=== PATIENT | female | born 1980 | race Caucasian/White ===

== ENCOUNTER → 2019-10-23 10:22 | Outpatient (CLI) | payer MEDICARE, SELFPAY ==
--- NOTE | 2019-10-23 10:28 | US_ITS ---
PROCEDURE: US OB <= 14 WEEKS FETUS CLINICAL INDICATION: confirm dates COMPARISON: US OB TRANSVAGINAL from 08/25/2019 FINDINGS: An intrauterine gestational sac is present with a pole with a crown-rump length of 6.61cm correlating to gestational age of 13weeks 1day. heart tones are present with an FHR of 163bpm. Yolk sac is noted. Average ultrasound age is 13 weeks 1 day. BPD 30 weeks 2 days, AC 13 weeks 0 days, FL 13 weeks 0 days The placenta is forming anteriorly and fundal. There is a 2 cm cyst of the left ovary and a 2.8 cm cyst of the right ovary IMPRESSION: Live IUP at 13 weeks 1 day Estimated due date by Ultrasound is 04/28/2020 Dictated by: Luis Sorenson MD 10/23/2019 13:39 Electronically signed by Luis Sorenson MD in [place] 10/23/2019 13:39
== END ==
PROVIDERS: PCP Nurse Practitioner Family; Visit Provider Nurse Practitioner Obstetrics & Gynecology
DX: O26.841 Uterine size-date discrepancy, first trimester (principal)
CPT/HCPCS: 76801

== ENCOUNTER → 2019-12-09 12:22 | Outpatient (CLI) | payer MEDICARE, MEDICAID, SELFPAY ==
--- NOTE | 2019-12-09 12:23 | US_ITS ---
PROCEDURE: US OB /MATERNAL DETAIL CLINICAL INDICATION: 20 week gestation Anatomy evaluation COMPARISON: US OB <= 14 WEEKS FETUS from 10/23/2019 FINDINGS: There is a single live fetus which is in cephalic presentation. heart and body motion noted. The cervix is closed measuring 4 cm transabdominal. Placenta is anterior and grade 1. Complete survey performed and was unremarkable on the submitted images as in PACS. No discrete anomalies identified on survey imaging by technologist. Active fetus. Three-vessel cord with satisfactory umbilical cord insertion. 4- chamber heart noted. Survey of brain & ventricles Unremarkable. Face and neck survey unremarkable. Diaphragm and chest views unremarkable. Abdomen: Both kidneys noted and unremarkable. Stomach noted and satisfactory. Spine: Survey of the spine satisfactory with no anomalies identified nor imaged. Both arms and legs noted. Amniotic Fluid: Adequate. Maternal adnexa: No significant findings. Measurements: Average ultrasound age 19weeks 4days. Gestational Age 19weeks 4days Estimated due date by ultrasound age 1104/30/2020. Estimated weight 314g BPD = 19weeks 3days OFD = 19 weeks 6 days HC = 18weeks 6days AC = 19weeks 6days FL = 20weeks 1day Growth Percentile= 42% Heart Rate = 150bpm Cerebellum = 19weeks 6days Humerus = 19weeks 6days HC/AC is 1.1 CI is 0.77 FL/BPD is 0.73 FL/AC is 0.22 IMPRESSION: Live IUP at 19 weeks 4 days as described above. No obvious anomalies. Please see above for detail. Dictated by: Luis Sorenson MD 12/10/2019 10:13 Electronically signed by Luis Sorenson MD in [place] 12/10/2019 10:13
== END ==
PROVIDERS: PCP Nurse Practitioner Family; Visit Provider Nurse Practitioner Obstetrics & Gynecology
DX: Z3A.20 20 weeks gestation of pregnancy (principal)
CPT/HCPCS: 76811

== ENCOUNTER 2019-12-19 19:24 | Emergency (ER) | payer MEDICARE, MEDICAID, SELFPAY ==
[2019-12-19 19:25] VITALS: BP 104/76; PULSE 123; RESP 16; TEMP 36.8; O2SAT 97; BMI 34.4
[2019-12-19 19:42] VITALS: BP 104/76; PULSE 123; RESP 16; TEMP 36.8; O2SAT 97; BMI 34.5
--- NOTE | 2019-12-19 19:48 | HMH.EDUTC ---
[facility] [place] Clinical Impression: Cat bite involving extremity, Cat scratch Disposition: Home, Self-Care Condition on Discharge: Good Instructions: Animal Bites, Cat Scratch Fever, DI for Animal Bites, DI for Cat Scratch Disease/Fever Additional Instructions: Keep bites clean and dry *Watch area of bites and scratches for signs on infection such as but not limited too redness, drainage, swelling, warmth if seen follow up with Family doctor immediately *Watch the kittens for the next 10-14 days for changes in behaviour etc if seen follow up immediately Return if needed Straight to ER if any life threatening symptoms Follow up with OBGYN if needed Prescriptions: Amoxicillin/Potassium Clav [Augmentin 875-125 Tablet] 1 tab PO Q12H 7 Days #14 tab Transmission Status: Pending to [id number] Referrals: Surekha Smith [Primary Care Provider] - As needed Time of Disposition: 20:04 Medical Decision Making - Rudy Inquiry Pt receiving controlled substance: No Rudy was queried for this patient: No Vital Signs: 12/19/19 19:25 12/19/19 19:42 Temperature 98.2 F 98.2 F Temperature Source Oral Oral Pulse Rate [Left Radial] 123 H 123 H Respiratory Rate 16 16 Blood Pressure [Right Arm] 104/76 L 104/76 L Blood Pressure Mean [Right Arm] 85 85 Blood Pressure Source [Right Arm] Automatic Cuff Automatic Cuff Blood Pressure Position [Right Arm] Sitting Sitting 02 Sat by Pulse Oximetry 97 97 Oxygen Delivery Method Room Air Room Air [facility] [place] - General Stated complaint: cat bite L hand 19 weeks Time Seen by Provider: 12/19/19 19:48 Mode of Arrival: Ambulatory Source of Information: Patient Limitations: No Limitations Description of Symptoms (Recalled from Triage Doc. by RN): pt is 19 weeks and stated she reached under a shed to get out some stray cats and was bitten by them on her left hand first 2 fingers and right hand middle finger. HEENT Symptoms (Recalled from RN notes): No Resp Symptoms (Recalled from RN notes): No Skin Symptoms (Recalled from RN notes): Yes MS Symptoms (Recalled from RN notes): No Functional Status (Recalled from RN notes): WNL - History of Present Illness Provider Complaint: Patient states that she was reaching under a shed to get some antoni kittens when she was bitten and scratched multiple times on her hands States that she is 19 weeks OB and she was worried about infection States that she had went to the walk in clinic and they told her she needed to come here - Related Data Home Medications Medication Instructions Recorded Confirmed prenat.vits,mulugeta,kej-abtf-csamn 1 tab PO DAILY 10/23/19 11/19/19 folic acid 1 mg tablet 1 mg PO tab 11/19/19 11/19/19 oxcarbazepine 600 mg ea PO 11/19/19 11/19/19 tablet,extended release 24 hr Previous Rx's Medication Instructions Recorded promethazine 12.5 mg tablet 12.5 mg PO Q6H PRN #30 tab 09/22/19 ferrous sulfate 325 mg (65 mg 325 mg PO DAILY #30 tab 11/19/19 iron) tablet ondansetron 4 mg disintegrating 4 mg PO Q6H PRN #30 tab 11/19/19 tablet Amoxicillin/Potassium Clav 1 tab PO Q12H 7 Days #14 tab 12/19/19 [Augmentin 875-125 Tablet] Allergies Allergy/AdvReac Type Severity Reaction Status Date / Time doxycycline [DOXYCYCLINE] Allergy Unknown Verified 11/19/19 08:53 latex [LATEX] Allergy Unknown Verified 11/19/19 08:53 sulfamethoxazole Allergy Unknown Verified 11/19/19 08:53 [From BACTRIM] trimethoprim [From BACTRIM] Allergy Unknown Verified 11/19/19 08:53 - Worker's Comp Is this a Worker's Comp case?: No H History - Hepatitis A Screen Drug use history?: No High risk sexual behaviors?: No History of sexually transmitted infection?: No Currently employed?: No Childcare worker?: No Do you have indoor plumbing?: Yes Do you have electricity?: Yes Attestation statement:: This patient has been screened for Hepatitis A risk factors. I have reviewed the patient's past medical hi
[2019-12-19 20:10] VITALS: BP 104/76; PULSE 123; RESP 16; TEMP 36.8; O2SAT 97
== END 2019-12-19 20:15 | disposition home or self-care (01) ==
PROVIDERS: Emergency Provider Nurse Practitioner; PCP Nurse Practitioner Family
DX: S61.432A Puncture wound without foreign body of left hand, initial encounter (principal); S61.232A Puncture wound without foreign body of right middle finger without damage to nail, initial encounter; W55.03XA Scratched by cat, initial encounter; Z3A.19 19 weeks gestation of pregnancy; J44.9 Chronic obstructive pulmonary disease, unspecified; Z88.1 Allergy status to other antibiotic agents; Z91.040 Latex allergy status; E78.5 Hyperlipidemia, unspecified
CPT/HCPCS: G0463; 99201

== ENCOUNTER → 2020-03-15 10:44 | Outpatient (CLI) | payer MEDICARE, SELFPAY ==
[2020-03-15 11:29] LABS: Basophils # 0.1 K/mm3 (0-0.2); Basophils % 0.4 % (0.1-2.0); Eosinophils # 0.3 K/mm3 (0.0-0.4); Eosinophils % 2.2 % (0.1-12.0); Hematocrit 34.6 % (37.0-47.0); Hemoglobin 11.9 g/dL (12.2-16.2); Lymphocytes # 2.4 K/mm3 (0.7-4.5); Mean Corpuscular HGB Conc 34.5 g/dL (31.8-35.4); Mean Corpuscular Hemoglobin 30.5 pg (27.0-31.2); Mean Corpuscular Volume 88.5 fl (81-99); Mean Platelet Volume 7.7 fl (7.4-10.4); Monocytes # 0.8 K/mm3 (0.1-1.0); Monocytes % 5.2 % (1.7-9.3); Neutrophils # 12.2 K/mm3 (1.8-7.8); Neutrophils % 77.3 % (37.0-80.0); Platelet Count 305 K/mm3 (142-424); Red Blood Count 3.91 M/mm3 (4.20-5.40); Red Cell Distribution Width 14.4 % (11.5-17.5); White Blood Count 15.8 K/mm3 (4.8-10.8)
[2020-03-15 11:34] LABS: Glucose,Fasting 85 mg/dl (74-100)
[2020-03-15 11:43] LABS: MANUAL DIFFERENTIAL MANUAL DIFFERENTIAL (MANUAL DIFF)
[2020-03-15 12:01] LABS: Eosinophils % 3 % (0-3); Lymphocytes % 18 % (10-50); Monocytes % 2 % (2-9); Neutrophils % 77 % (42-76); Platelet Estimate Normal; RBC Morphology Normal; Total Cells Counted 100
[2020-03-15 13:24] LABS: Glucose 1 Hour 151 mg/dL (74-100)
[2020-03-16 09:07] LABS: HIV Screen 4th Generation wRfx Non Reactive (Non Reactive); Rubella Antibodies, IgG 5.53 index (Immune >0.99)
[2020-03-16 10:02] LABS: Hepatitis B Surface Antigen Negative (Negative); Hepatitis C Antibody <0.1 s/co ratio (0.0-0.9)
[2020-03-16 13:30] LABS: Rapid Plasma Reagin Ab Titer Non Reactive (NonRea<1:1)
== END ==
PROVIDERS: Visit Provider Nurse Practitioner Obstetrics & Gynecology
DX: Z34.90 Encounter for supervision of normal pregnancy, unspecified, unspecified trimester (principal); B18.2 Chronic viral hepatitis C; Z21 Asymptomatic human immunodeficiency virus [HIV] infection status; Z11.4 Encounter for screening for human immunodeficiency virus [HIV]
CPT/HCPCS: 36415; 82951; 85007; 85025; 86592; 86703; 86762; 86850; 87340; 87380; G0432

== ENCOUNTER 2020-03-24 15:36 | Outpatient (CLI) | payer MEDICARE, SELFPAY ==
[2020-03-24 16:03] VITALS: BP 93/69; PULSE 102; RESP 22; TEMP 37.1; O2SAT 95; BMI 36.8
[2020-03-24 16:37] LABS: Microscopic, Urine URINE MICROSCOPIC (MICROSCOPIC)
[2020-03-24 16:38] LABS: Appearance,Urine CLEAR (Clear); Bilirubin,Urine Negative (Negative); Blood, Urine Negative (Negative); Color,Urine YELLOW (Yellow); Glucose,Urine (UA) Negative (Negative); Ketones,Urine Negative (Negative); Leukocyte Esterase,Urine Negative (Negative); Nitrate,Urine Negative (Negative); Protein,Urine Negative (Negative); Specific Gravity, Urine 1.015 (1.005-1.030); Urobilinogen,Urine 0.2 EU/dl (0.2)
[2020-03-24 16:49] LABS: Barbiturates Screen,Urine Negative ng/ml (<200)
[2020-03-24 16:50] LABS: Amphetamine/Metha Screen,Urine Negative ng/ml (<1000); Benzodiazepines Screen,Urine Negative ng/ml (<200)
[2020-03-24 16:51] LABS: Methadone Screen,Urine Negative ng/ml (<300)
[2020-03-24 16:52] LABS: Cannabinoid Screen,Urine Negative ng/ml (<50); Cocaine Screen,Urine Negative ng/ml (<300)
[2020-03-24 16:53] LABS: Opiate Screen,Urine Negative ng/ml (<300)
[2020-03-24 16:54] LABS: Phencyclidine Screen,Urine Negative ng/ml (<25)
== END 2020-03-24 18:10 | disposition home or self-care (01) ==
LOC: OBOUT 15:40 → OB 15:44
PROVIDERS: PCP Nurse Practitioner Obstetrics & Gynecology; Visit Provider Nurse Practitioner Obstetrics & Gynecology
DX: O47.03 False labor before 37 completed weeks of gestation, third trimester (principal); Z3A.35 35 weeks gestation of pregnancy; Z79.899 Other long term (current) drug therapy
CPT/HCPCS: 59025; 80305; 81001; 96365; 96367; 96372; G0463; J0595

== ENCOUNTER → 2020-03-29 17:30 | Outpatient (CLI) | payer MEDICARE, SELFPAY | PROVIDERS: Visit Provider Nurse Practitioner Obstetrics & Gynecology | DX: Z34.90 Encounter for supervision of normal pregnancy, unspecified, unspecified trimester (principal) | CPT/HCPCS: 86403 ==

== ENCOUNTER → 2020-04-07 13:03 | Outpatient (CLI) | payer MEDICARE, SELFPAY ==
--- NOTE | 2020-04-07 13:04 | US_ITS ---
PROCEDURE: US OB BIOPHYSICAL PROFILE CLINICAL INDICATION: US OB BPP/Growth-LGA Large for gestational age TECHNIQUE: FINDINGS: The following parameters are obtained: Average ultrasound age is Average 36weeks 6days Estimated due date by ultrasound is 04/29/2020. Estimated weight is 3,184g. This is 66 percentile BPD: 36weeks 1day OFD: 36weeks 5days HC: 35 weeks 5 days AC: 38 weeks 2 days FL: 37 weeks 0 days heart rate: 133bpm bpm. HC/AC: 0.93 Cephalic index: 0.8 FL/BPD: 0.81 FL/AC: 0.21 Amniotic fluid index: 25.02cm Qualitative AFV: 2 breathing movements: 2 Gross body movements: 2 Tone: 2 Biophysical profile score: 8 There is a single live fetus which is in breech presentation. Cervix is closed and measures 4 cm. The placenta is anterior and grade 1. IMPRESSION: Live IUP in breech presentation with an average ultrasound age 36 weeks 6 days with an estimated weight is 3184 g which is 66 percentile. Biophysical profile 8 of 8. Polyhydramnios with the amniotic fluid index of 25 cm. Dictated by: Luis Sorenson MD 04/08/2020 09:46 Luis Sorenson MD in [place] 04/08/2020 09:46
== END ==
LOC: RAD 13:04
PROVIDERS: PCP Nurse Practitioner Family; Visit Provider Nurse Practitioner Obstetrics & Gynecology
DX: O36.63X1 Maternal care for excessive fetal growth, third trimester, fetus 1 (principal)
CPT/HCPCS: 76816; 76819

== ENCOUNTER 2020-04-22 05:09 | Inpatient (IN) | payer MEDICARE, MEDICAID, SELFPAY ==
--- NOTE | 2020-04-20 13:29 | SUR.PREOP ---
called pt and instructed to arrive at 5am on for COVID screening, spoke to OB and was instructed to tell pt 5am
[2020-04-22] VITALS (8 sets, daily range): BP systolic 100–119; BP diastolic 48–74; PULSE 72–104; RESP 16–20; TEMP 36.1–36.9; O2SAT 94–98; BMI 36.9
[2020-04-22 06:19] LABS: Microscopic, Urine URINE MICROSCOPIC (MICROSCOPIC)
[2020-04-22 06:22] LABS: Appearance,Urine CLEAR (Clear); Bilirubin,Urine Negative (Negative); Blood, Urine Negative (Negative); Color,Urine YELLOW (Yellow); Glucose,Urine (UA) Negative (Negative); Ketones,Urine Negative (Negative); Leukocyte Esterase,Urine Negative (Negative); Nitrate,Urine Negative (Negative); Protein,Urine Negative (Negative); Urobilinogen,Urine 0.2 EU/dl (0.2)
[2020-04-22 06:26] LABS: Chloride 109 mmol/L (98-107); Sodium 135 mmol/L (136-145)
[2020-04-22 06:27] LABS: Potassium 3.8 mmoL/L (3.5-5.1)
[2020-04-22 06:29] LABS: Blood Urea Nitrogen 8 mg/dl (7-17); Creatinine Clearance Estimated 211 mL/min (50-200); Estimated Glomerular Filt Rate 111 ml/min (>60); GFR (African American) 134 ML/MIN (>60)
[2020-04-22 06:30] LABS: Anion Gap 11.8 mEq/L (5-15); Calcium 9.2 mg/dl (8.4-10.2); Carbon Dioxide 18 mmol/L (22.0-30.0); Glucose 85 mg/dl (74-100)
[2020-04-22 06:34] LABS: Basophils # 0.1 K/mm3 (0-0.2); Basophils % 0.5 % (0.1-2.0); Eosinophils # 0.4 K/mm3 (0.0-0.4); Eosinophils % 2.2 % (0.1-12.0); Hematocrit 36.8 % (37.0-47.0); Hemoglobin 12.8 g/dL (12.2-16.2); Lymphocytes # 2.9 K/mm3 (0.7-4.5); Lymphocytes % 18.4 % (10-50); Mean Corpuscular HGB Conc 34.7 g/dL (31.8-35.4); Mean Corpuscular Hemoglobin 30.4 pg (27.0-31.2); Mean Corpuscular Volume 87.6 fl (81-99); Mean Platelet Volume 7.8 fl (7.4-10.4); Monocytes # 0.9 K/mm3 (0.1-1.0); Monocytes % 5.8 % (1.7-9.3); Neutrophils # 11.3 K/mm3 (1.8-7.8); Neutrophils % 73.1 % (37.0-80.0); Platelet Count 328 K/mm3 (142-424); Red Cell Distribution Width 14.6 % (11.5-17.5); White Blood Count 15.5 K/mm3 (4.8-10.8)
[2020-04-22 06:34] LABS: Barbiturates Screen,Urine Negative ng/ml (<200)
[2020-04-22 06:35] LABS: Amphetamine/Metha Screen,Urine Negative ng/ml (<1000); Benzodiazepines Screen,Urine Negative ng/ml (<200)
[2020-04-22 06:36] LABS: Cocaine Screen,Urine Negative ng/ml (<300)
[2020-04-22 06:37] LABS: Cannabinoid Screen,Urine Negative ng/ml (<50); Methadone Screen,Urine Negative ng/ml (<300); RBC,Urine Occasional #/hpf (0-3)
[2020-04-22 06:38] LABS: Opiate Screen,Urine Negative ng/ml (<300)
[2020-04-22 06:39] LABS: MANUAL DIFFERENTIAL MANUAL DIFFERENTIAL (MANUAL DIFF)
[2020-04-22 06:39] LABS: Phencyclidine Screen,Urine Negative ng/ml (<25)
[2020-04-22 07:42] LABS: Eosinophils % 2 % (0-3); Lymphocytes % 19 % (10-50); Monocytes % 7 % (2-9); Neutrophils % 72 % (42-76); Total Cells Counted 100
[2020-04-22 07:43] LABS: RBC Morphology Normal
[2020-04-22 07:44] LABS: Platelet Estimate Normal
--- NOTE | 2020-04-22 07:56 | HMH.PHAINT ---
MEDICATION RECONCILIATION COMPLETED ON PATIENT USING EXTERNAL FILL HISTORY FROM PHARMACY AND LIST FROM MD OFFICE. -MEGHANN DIAZD
[2020-04-22 08:05] LABS: Cord Blood PH 7.37 (7.35-7.45)
[2020-04-22 08:33] LABS: Coronavirus 19 IgG Antibody Negative (Negative); Coronavirus 19 IgM Antibody Negative (Negative)
--- NOTE | 2020-04-22 08:40 | HMH.OPNOTE ---
Date of procedure: 04/22/20 Pre-op Diagnosis:: Term , previous section, desire for sterilization Post-op Diagnosis:: Term , previous section, desire for sterilization Procedure performed:: Repeat lower segment transverse section and bilateral salpingectomy Surgeon:: Kelvin Hankins MD Material Engineer(s):: Samantha Mcqueen POLITICAL SCIENTIST:: Robles Blankenship Anesthesia: spinal Estimated blood loss (mL): 800 Clinical Note:: She is a 39-year-old 6 para 3 aborta 2 who was 39 weeks gestational age. She has had previous sections and as result of that was offered repeat lower segment transverse section at term. She also expresses desire for sterilization. The risks and benefits of surgery as well as the irreversibility of bilateral salpingectomy were discussed with the patient prior to surgery. Operative findings:: She delivered a liveborn female child at 7:44 AM on the morning of April 22, 2020. The baby was in the footling breech presentation and there was polyhydramnios. Ovaries and tubes appeared normal. Operative note:: She was taken to the operating room where spinal anesthesia was found be adequate. She was prepped and draped in normal sterile fashion in the supine position with a leftward tilt. A Disla catheter was in the bladder. A Pfannenstiel skin incision was made with knife then carried through to the underlying layer of fascia with cautery. The fascia was opened in the midline with cautery and extended laterally using Bruce scissors. Ferndale clamps were applied to the superior aspect of the fascial incision which was tented up and the underlying rectus muscles dissected off using cautery. The Ferndale clamps were then applied to the inferior aspect of the fascial incision which in a similar fashion was tented up and the underlying rectus muscles dissected off using cautery. The rectus muscles were then in the midline, the peritoneum identified, and entered sharply with Metzenbaum scissors. This incision was then extended superiorly and inferiorly with cautery. We had good visualization of the bladder inferiorly. The bladder peritoneum was then opened in the midline and extended laterally using Metzenbaum scissors. A bladder flap was created digitally. Transverse incision was made through the uterine muscle to the amnion. This incision was then extended laterally using fingers traction. The amnion was entered sharply with knife. There was copious clear amniotic fluid. The infant's feet were then delivered atraumatically. This was followed by the after coming shoulders and head. The oropharynx and nasopharynx were bulb suctioned. The baby was vigorous. The infant was then handed off to Dr. Hammond who assigned Apgars of 9 at 1 minute and 10 at 5 minutes. We then obtained cord blood as well as cord pH. The pH was 7.37. Using gentle traction on the cord and countertraction on the fundus I was able to easily deliver the placenta intact. It had a normal three-vessel cord. The uterus was then cleared of clots and debris . The uterus was then exteriorized from the abdominal cavity. The uterine incision was then closed using running 0 Vicryl suture in a locked fashion. A second layer of the same suture was used to imbricate the first layer. I then used a third layer of running 0 Vicryl suture to completely close the uterine incision. The bladder peritoneum was then closed using running 2-0 Vicryl suture in a locked fashion. The gutters and cul-de-sac were then cleared of clots and debris . Once again hemostasis was assured. We then performed a bilateral tubal ligation. The right tube was grasped at the distal end and using cautery I cauterized along the mesosalpinx to the cornua of the uterus. The tube was then cut through with cautery at the cornua. There were a couple small areas of bleeding and I obtained excellent hemostasis using 2-0 Vicryl ties. This was similar pe
--- NOTE | 2020-04-22 08:47 | HMH.OBAPHP ---
OB - H&P: HPI Antepartum - History of Present Illness Chief complaint: Term , previous section, desire for sterilization History of present illness: She is a 39-year-old 6 now para 3 at 39+ weeks gestational age. She has had previous sections. As result of that she is admitted for repeat lower segment transverse section at term. She also expressed desire for sterilization and will have a bilateral salpingectomy. - History of Present Criteria for establishing EDC:: LMP confirmed by 1st trimester US care: good care Ultrasounds: normal 1st trimester US, normal mid trimester US Obstetrical complications: other Medical complications: none Narrative: Previous section, polyhydramnios, breech presentation - Labs Blood type: A (+) positive Rubella: immune RPR/VDRL: nonreactive GBS status: negative HBsAG: negative HMH History I have reviewed the patient's past medical history: Yes Medical History: Reports:: Anxiety, Chronic Obstructive Pulmonary Disease (COPD), Hyperlipidemia, Migraine, Seizures Denies:: Diabetes Mellitus Type 1, Diabetes Mellitus Type 2 *Have you ever received a pneumonia vaccine?: No *Have you received a flu vaccine this season?: Yes Other Surgeries: Yes: , Other Amputation: No Fractures: No - *Social History Smoking Status: Former smoker Tobacco Type: cigarettes # Packs/Day (cigarettes): 1 Alcohol Intake: never Alcohol Intake Frequency:: 0-2 drinks per day Substance Use Type: denies use *Occupational Status:: disabled Housing: house *Travel in the last 8 weeks: None - Psychiatric History Pschychiatric History:: Reports:: Anxiety Family Hx:: Non-contributory Para: 3 Review of Systems - Review of Systems Review of systems:: pertinent systems reviewed and negative unless documented below Meds Home Medications Medication Instructions Recorded Confirmed Type prenat.vits,mulugeta,fdp-rkxr-pdzvg 1 tab PO DAILY 10/23/19 04/22/20 History folic acid 1 mg tablet 1 tab PO DAILY tab 11/19/19 04/22/20 History albuterol sulfate 90 mcg/actuation 2 puff IH Q4HP PRN 02/18/20 04/22/20 History aerosol inhaler Ferrous Sulfate 325 mg PO DAILY 04/22/20 04/22/20 History OXcarbazepine [Oxtellar Xr] 1,200 mg PO DAILY 04/22/20 04/22/20 History Ondansetron [Zofran 4mg ODT] 4 mg PO Q6HP PRN 04/22/20 04/22/20 History Allergies Allergy/AdvReac Type Severity Reaction Status Date / Time doxycycline [DOXYCYCLINE] Allergy Unknown Verified 04/22/20 06:40 latex [LATEX] Allergy Unknown Verified 04/22/20 06:40 sulfamethoxazole Allergy Unknown Verified 04/22/20 06:40 [From BACTRIM] trimethoprim [From BACTRIM] Allergy Unknown Verified 04/22/20 06:40 OB - H&P: Exam - Physical Exam Vital signs: Temp Pulse Resp BP Pulse Ox 97.4 F L 104 H 20 118/61 98 04/22/20 06:10 04/22/20 06:10 04/22/20 06:10 04/22/20 06:10 04/22/20 06:10 - Constitutional no acute distress - Routine HEENT Exam Head: Present: normocephalic Eye: Present: EOMI, PERRL ENT: Present: mucous membranes moist - Routine Neck Exam Present: supple, full ROM - Routine Respiratory Exam Absent: accessory muscle use (good air entry bilaterally), respiratory distress, wheezes, crackles - Routine Cardiovascular Exam Present: RRR. Absent: murmur - Routine Abdominal Exam Present: soft, normoactive bowel sounds. Absent: tenderness, distended, guarding - Routine Rectal Exam Patient deferred: visual exam, digital exam - Routine Exam Patient deferred: external exam, groin exam, perineal exam - Routine Extremities Exam Present: full ROM. Absent: cyanosis, edema - Routine Skin Exam Present: intact. Absent: cyanosis - Routine Neurological Exam Present: alert, oriented X3 - Routine Psychiatric Exam Present: normal affect OB - Results - Labs Labs: Short CBC 04/22/20 Range/Units 05:40 WBC 15.5 H (4.8
--- NOTE | 2020-04-22 08:47 | HMH.ANESCL ---
[facility] Anesthesia Checklist - Patient Identification Patient Identification: Arm Band - Structural Data Admitted From: Inpatient Planned Operative Procedure/s: repeat c/s with btl Consent for Planned Operative Procedure(s) Verified: Yes Verified Documents: Surgical Consent, History and Physical - NPO Status Verified Time NPO: 00:00 - Airway Assessment C-Spine Mobility Assessed: Yes (mp2) TMJ Mobility Assessed: Yes Dentition: Good Dentition - Neurological Assessment Level of Consciousness: Awake, Alert - Anesthesia Plan Anesthesia Risk discussed: Yes Anesthesia Plan: Verified ASA Class: II Anesthesia Type: Spinal [facility] History I have reviewed the patient's past medical history: Yes Medical History: Reports:: Anxiety, Hyperlipidemia, Migraine, Seizures Denies:: Diabetes Mellitus Type 1, Diabetes Mellitus Type 2 *Have you ever received a pneumonia vaccine?: No *Have you received a flu vaccine this season?: Yes Anesthesia experience/problems:: nac Other Surgeries: Yes: , Other Amputation: No Fractures: No - *Social History Smoking Status: Former smoker Tobacco Type: cigarettes # Packs/Day (cigarettes): 1 Alcohol Intake: never Alcohol Intake Frequency:: 0-2 drinks per day Substance Use Type: denies use *Occupational Status:: disabled Housing: house *Travel in the last 8 weeks: None - Psychiatric History Pschychiatric History:: Reports:: Anxiety Family Hx:: Non-contributory Para: 3
--- NOTE | 2020-04-22 08:48 | HMH.ANESI ---
[facility] Anesthesia Record Part I Intake, IV Amount: 2,000 Estimated blood loss (mL): 600 Urine output (mL): 200 Blood Pressure: 115/65 SaO2: 94 Pulse Rate: 83 Respiratory Rate: 16 Temperature: 97 F Patient is:: Drowsy, Stable Stable to PACU at:: 08:40
--- NOTE | 2020-04-22 09:45 | SUR.PHASEI ---
0905-QBL noted to be greater than 1000ml. Report called to Sharona ALAS at this time. VSS. Pt stable no changes noted to VS. Blood loss during fundal massage has remained minimal t/o PACU recovery.
--- NOTE | 2020-04-22 10:23 | HMH.ANESII ---
[facility] Anesthesia Record Part II Discharge Time: 09:10 Destination: Obstetric PACU nurse assessment reviewed?: Yes Patient Condition:: Good Anesthesia Complications:: None Swallowing reflex intact?: Yes Cyanosis?: No Blood Pressure: 100/48 Pulse Rate: 73 Temperature: 97 F Mental Status: Alert & Oriented Pain level:: 0 Nausea and/or vomitting:: None Intake, IV Amount: 0
--- NOTE | 2020-04-22 14:31 | P.CONPHA_ITS ---
[facility] Pharmacy VTE Monitoring - Patient Demographics Admission date: 04/22/20 Report Date: 04/22/20 Time: 14:31 Allergies/Adverse Reactions: Patient Allergies doxycycline [DOXYCYCLINE] Allergy (Unknown, Verified 04/22/20 06:40) latex [LATEX] Allergy (Unknown, Verified 04/22/20 06:40) sulfamethoxazole [From BACTRIM] Allergy (Unknown, Verified 04/22/20 06:40) trimethoprim [From BACTRIM] Allergy (Unknown, Verified 04/22/20 06:40) Height: 1.7 m Weight: 107.048 kg Patient Problems: Current Active Problems Previous section complicating (Acute) Delivery by section of full-term infant (Acute) Polyhydramnios affecting in third trimester (Acute) Breech presentation delivered (Acute) Encounter for female sterilization procedure (Acute) - VTE Risk Labs: VTE Related Lab Results Hgb 12.8 g/dL (12.2-16.2) 04/22/20 05:40 Hct 36.8 % (37.0-47.0) L 04/22/20 05:40 Plt Count 328 K/mm3 (142-424) 04/22/20 05:40 BUN 8 mg/dl (7-17) 04/22/20 05:40 Creatinine 0.60 mg/dl (0.52-1.04) 04/22/20 05:40 Estimated Creat Clear 211 mL/min (50-200) 04/22/20 05:40 - Prophylaxis VTE Prophylaxis Ordered?: Yes Types of VTE Prophylaxis: IPCS Thigh High Location of Applied Device: Bilateral Lower Extremeties
[2020-04-23 00:38] VITALS: BP 99/56; PULSE 95; RESP 18; TEMP 36.9; O2SAT 95
[2020-04-23 07:33] LABS: Hematocrit 30.3 % (37.0-47.0); Hemoglobin 10.1 g/dL (12.2-16.2)
[2020-04-23 08:00] VITALS: BP 101/57; PULSE 85; RESP 18; TEMP 36.9; O2SAT 95
--- NOTE | 2020-04-23 08:18 | HMH.ACPN2 ---
Internal Medicine - PN: Subj *Date: 04/23/20 *Time: 08:18 Interval history: She is doing well this morning. She is eating and drinking and ambulating. Her pain is reasonably well controlled. Her catheter is out. She is bottlefeeding. Exam Vital signs and Labs for Last 24 Hours: Temp Pulse Resp BP Pulse Ox 98.5 F 95 H 18 99/56 L 95 04/23/20 00:38 04/23/20 00:38 04/23/20 00:38 04/23/20 00:38 04/23/20 00:38 Laboratory Results - last 24 hr 04/22/20 05:40: SARS-CoV-2 IgG Ab (Rapid) Negative, SARS-CoV-2 IgM Ab (Rapid) Negative 04/23/20 07:13: Hgb 10.1 L, Hct 30.3 L I & O for Last 24 hours: Intake & Output 04/20/20 04/21/20 04/22/20 04/23/20 11:59 11:59 11:59 11:59 Intake Total 1999 Balance 1999 Weight 236 lb - Constitutional no acute distress - *Routine HEENT Exam Head: Present: normocephalic Eye: Present: EOMI, PERRL ENT: Present: mucous membranes moist Assessment and Plan (1) Previous section complicating Status: Acute Category: Surgical Code(s): O34.219 - Maternal care for unspecified type scar from previous delivery (2) Delivery by section of full-term Status: Acute Category: Medical Code(s): O82 - Encounter for delivery without indication (3) Polyhydramnios affecting in third trimester Status: Acute Category: Medical Code(s): O40.3XX0 - Polyhydramnios, third trimester, not applicable or unspecified (4) Breech presentation delivered Status: Acute Category: Medical Code(s): O32.1XX0 - Maternal care for breech presentation, not applicable or unspecified (5) Encounter for female sterilization procedure Status: Acute Category: Medical Code(s): Z30.2 - Encounter for sterilization - Assessment and plan all Dx Assessment and Plan for all problems:: She is 1 day postop and doing well. She is bottlefeeding. We will plan to send her home in 48 hours.
[2020-04-23 12:00] VITALS: BP 103/54; PULSE 77; RESP 18; TEMP 36.4; O2SAT 97
[2020-04-23 20:00] VITALS: BP 107/56; PULSE 85; RESP 17; TEMP 37; O2SAT 100
[2020-04-24 08:00] VITALS: BP 116/64; PULSE 88; RESP 18; TEMP 36.4; O2SAT 97
--- NOTE | 2020-04-24 11:55 | HMH.ACPN2 ---
Internal Medicine - PN: Subj *Date: 04/24/20 *Time: 11:55 Interval history: She is doing well this morning. She is eating and drinking and ambulating. Her pain is well controlled. Her lochia is normal. Exam Vital signs and Labs for Last 24 Hours: Temp Pulse Resp BP Pulse Ox 97.6 F 88 18 116/64 97 04/24/20 08:00 04/24/20 08:00 04/24/20 08:00 04/24/20 08:00 04/24/20 08:00 I & O for Last 24 hours: Intake & Output 04/21/20 04/22/20 04/23/20 04/24/20 11:59 11:59 11:59 11:59 Intake Total 1999 Balance 1999 Weight 236 lb - Constitutional no acute distress - *Routine HEENT Exam Head: Present: normocephalic Eye: Present: EOMI, PERRL ENT: Present: mucous membranes moist Assessment and Plan (1) Previous section complicating Status: Acute Category: Surgical Code(s): O34.219 - Maternal care for unspecified type scar from previous delivery (2) Delivery by section of full-term infant Status: Acute Category: Medical Code(s): O82 - Encounter for delivery without indication (3) Polyhydramnios affecting in third trimester Status: Acute Category: Medical Code(s): O40.3XX0 - Polyhydramnios, third trimester, not applicable or unspecified (4) Breech presentation delivered Status: Acute Category: Medical Code(s): O32.1XX0 - Maternal care for breech presentation, not applicable or unspecified (5) Encounter for female sterilization procedure Status: Acute Category: Medical Code(s): Z30.2 - Encounter for sterilization - Assessment and plan all Dx Assessment and Plan for all problems:: She is doing very well this morning. We will plan to send her home tomorrow.
[2020-04-24 12:00] VITALS: BP 131/62; PULSE 90; RESP 20; O2SAT 97
[2020-04-24 16:00] VITALS: BP 121/59; PULSE 82; RESP 18; TEMP 36.4; O2SAT 97
--- NOTE | 2020-04-25 08:50 | HMH.OBDCSM ---
General - General Admission date:: 04/22/20 Discharge date: 04/25/20 HPI - History of Present Illness History of present illness: She is a 39-year-old 6 now para 4 aborta 2 who was 39 1 weeks gestational age. She has had previous sections and also expressed desire for sterilization. She was admitted for repeat lower segment transverse section and bilateral salpingectomy. Hospital Course Hospital Course: She underwent a repeat lower segment transverse section on April 22, 2020. She delivered a liveborn female child at 7:44 AM. The baby weighed 6 pounds 15 ounces and was 19 inches long. She had Apgars of 9 at 1 minute and 10 at 5 minutes. pH was 7.37. She was in a footling breech presentation. There was copious amniotic fluid. She has done well postoperatively and has remained afebrile throughout her hospitalization. She is eating and drinking and ambulating. She is bottlefeeding. Her pain is well controlled. She has a Rh+ blood, she is rubella immune and was group B streptococcus negative. Her aviation all source intelligence is Dr. Jerry. She is discharged home to follow-up with me in approximately 2 weeks time. She will continue with her vitamins and iron. She was given a prescription for Percocet 5/325 number 20 tablets. She was given the usual instructions with respect to limiting her activity, driving and sexual activity. Her condition on discharge is stable and improved. Objective Vital signs: Temp Pulse Resp BP Pulse Ox 97.5 F L 82 18 121/59 L 97 04/24/20 16:00 04/24/20 16:00 04/24/20 16:00 04/24/20 16:00 04/24/20 16:00 no acute distress - *Routine HEENT Exam Head: Present: normocephalic Eye: Present: EOMI, PERRL ENT: Present: mucous membranes moist DS: Diagnosis - Discharge Diagnosis (1) Previous section complicating Status: Acute (2) Delivery by section of full-term Status: Acute (3) Polyhydramnios affecting in third trimester Status: Acute (4) Breech presentation delivered Status: Acute (5) Encounter for female sterilization procedure Status: Acute Discharge Plan - Patient Discharge Instructions ACTIVITY: No heavy lifting DIET: continue same diet Additional Instructions: no driving while taking pain medication nothing in vagina for 6 weeks no heavy lifting or strenuous activity follow-up with dr. walsh 05/06/2020 @ 11:00 Patient Instructions: Depression, Hemorrhage, DI for , DI for Pre-eclampsia, [facility] Post Discharge Instructions, Preventing the Spread of Coronavirus Discharge Instructions - Follow up Plan Disposition: Home, Self-[facility] Medications: Home Medications Medication Instructions Recorded Confirmed Type prenat.vits,mulugeta,jex-evop-llehz 1 tab PO DAILY 10/23/19 04/22/20 History folic acid 1 mg tablet 1 tab PO DAILY tab 11/19/19 04/22/20 History albuterol sulfate 90 mcg/actuation 2 puff IH Q4HP PRN 02/18/20 04/22/20 History aerosol inhaler Ferrous Sulfate 325 mg PO DAILY 04/22/20 04/22/20 History OXcarbazepine [Oxtellar Xr] 1,200 mg PO DAILY 04/22/20 04/22/20 History Ondansetron [Zofran 4mg ODT] 4 mg PO Q6HP PRN 04/22/20 04/22/20 History Ibuprofen [Motrin 400mg 400 mg PO Q4HP PRN #40 tab 04/25/20 Rx tablet] Oxycodone HCl/Acetaminophen 1 tab PO Q4-6H PRN #30 tablet 04/25/20 Rx [Percocet 5/325mg tablet] Prescriptions/Medication Reconciliation: New Ibuprofen [Motrin 400mg tablet] 400 mg PO Q4HP PRN #40 tab PRN Reason: Moderate Pain Oxycodone HCl/Acetaminophen [Percocet 5/325mg tablet] 1 tab PO Q4-6H PRN #30 tablet PRN Reason: Severe Pain Continued folic acid 1 mg tablet 1 tab PO DAILY tab prenat.vits,mulugeta,oex-shks-tzfay 1 tab PO DAILY albuterol sulfate 90 mcg/actuation aerosol inhaler 2 puff IH Q4HP PRN PRN Reason: asthma Ferrous S
== END 2020-04-25 11:30 | disposition home or self-care (01) | DRG 785 ==
PROVIDERS: Admitting Provider Nurse Practitioner Obstetrics & Gynecology; PCP Nurse Practitioner Family; Visit Provider Nurse Practitioner Obstetrics & Gynecology
PROC: (CPT 59514; principal; 2020-04-22 07:30)
DX: O34.211 Maternal care for low transverse scar from previous cesarean delivery (principal); N85.8 Other specified noninflammatory disorders of uterus; O32.8XX0 Maternal care for other malpresentation of fetus, not applicable or unspecified; Z3A.39 39 weeks gestation of pregnancy; Z37.0 Single live birth; Z30.2 Encounter for sterilization
CPT/HCPCS: 59514; 58700; 36415; 59025; 80048; 80305; 81001; 82800; 85007; 85014; 85018; 85025; 86328; 86850; 88302; 96374; J2405

== ENCOUNTER 2020-08-23 14:57 | Emergency (ER) | payer MEDICARE, SELFPAY ==
[2020-08-23] VITALS (7 sets, daily range): BP systolic 108–137; BP diastolic 55–78; PULSE 72–81; RESP 16–18; TEMP 36.6–36.8; O2SAT 94–98; BMI 28.1
--- NOTE | 2020-08-23 14:57 | ECG_ITS ---
APPROVED REPORT Exam: Resting ECG HR:75 bpm ECG Measurements Heart Rate 75 AXES IL 200 P 62 QRSd 86 QRS 26 QT 394 T 53 QTc 439 Conclusion Normal sinus rhythm Low voltage QRS Borderline ECG Electronically signed by : Triston Gregory, 08/24/2020 17:19:59
--- NOTE | 2020-08-23 15:09 | CT_ITS ---
PROCEDURE: CT HEAD/BRAIN WO CON CLINICAL INDICATION: possible seizure History of brain tumor, seizure COMPARISON: No exams were available for comparison TECHNIQUE: Axial images obtained. All CT scans at the facility use one or more dose reduction, viz: automated exposure control, ma/kV adjustment per patient size (including targeted exams where dose is matched to indication, i.e. head), or iterative reconstruction technique. FINDINGS: There are no previous exams available for comparison. No midline shift, mass effect, intracranial hemorrhage, or hydrocephalus is evident. Postsurgical changes are present from a left frontal craniotomy with encephalomalacia changes in the left frontal lobe. Mild mucosal thickening noted of the ethmoid and left maxillary sinuses. IMPRESSION: Encephalomalacia and postsurgical changes left frontal lobe. No acute finding. Dictated by: Luis Sorenson MD 08/23/2020 16:40 Luis Sorenson MD in [place] 08/23/2020 16:40
[2020-08-23 15:22] LABS: Basophils # 0.1 K/mm3 (0-0.2); Basophils % 0.5 % (0.1-2.0); Eosinophils # 0.4 K/mm3 (0.0-0.4); Eosinophils % 3.6 % (0.1-12.0); Hemoglobin 12.2 g/dL (12.2-16.2); Lymphocytes # 2.6 K/mm3 (0.7-4.5); Lymphocytes % 24.5 % (10-50); Mean Corpuscular HGB Conc 31.3 g/dL (31.8-35.4); Mean Corpuscular Hemoglobin 26.2 pg (27.0-31.2); Mean Corpuscular Volume 83.7 fl (81-99); Mean Platelet Volume 7.5 fl (7.4-10.4); Monocytes # 0.6 K/mm3 (0.1-1.0); Monocytes % 5.7 % (1.7-9.3); Neutrophils % 65.6 % (37.0-80.0); Platelet Count 370 K/mm3 (142-424); Red Blood Count 4.66 M/mm3 (4.20-5.40); Red Cell Distribution Width 15.4 % (11.5-17.5); White Blood Count 10.7 K/mm3 (4.8-10.8)
[2020-08-23 15:24] LABS: Chloride 112 mmol/L (98-107); Potassium 3.9 mmoL/L (3.5-5.1); Sodium 138 mmol/L (136-145)
[2020-08-23 15:27] LABS: Alanine Aminotransferase 48 U/L (12-78); Albumin Level 4.4 g/dl (3.5-5.0); Albumin/Globulin Ratio 1.4 (1.1-1.8); Alkaline Phosphatase 169 U/L (38-126); Anion Gap 13.9 mEq/L (5-15); Aspartate Amino Transferase 122 U/L (14-36); Bilirubin,Total 1.1 mg/dl (0.2-1.3); Blood Urea Nitrogen 15 mg/dl (7-17); Calcium 9.9 mg/dl (8.4-10.2); Carbon Dioxide 16 mmol/L (22.0-30.0); Creatinine Clearance Estimated 161 mL/min (50-200); Estimated Glomerular Filt Rate 111 ml/min (>60); GFR (African American) 134 ML/MIN (>60); Globulin 3.1 g/dL (1.3-3.2); Glucose 109 mg/dl (74-100); Total Protein,Serum 7.5 g/dl (6.3-8.2)
[2020-08-23 17:13] LABS: Microscopic, Urine URINE MICROSCOPIC (MICROSCOPIC)
--- NOTE | 2020-08-23 17:25 | HMH.EDSEIZ ---
ED Disposition Clinical Impression: Generalized seizure Disposition: Home, Self-Care Condition on Discharge: Good Instructions: DI for Seizure (Not Epilepsy/Seizure Disorder), DI for Seizure Disorder -- Adult, DI for Seizure Disorder -- Child Additional Instructions: No driving until you see neurology. Take your medication as directed. Referrals: PCP,No [Primary Care Provider] - 3 days (Neurology) Time of Disposition: 17:35 - Critical Care Critical Care Time: No Attestation: On 08/23/20, the high probability of a clinically significant, sudden or life threatening deterioration of the following system(s) required my full and direct attention, intervention and personal management. The time I documented below is in addition to time spent performing reported procedures but includes the following listed in this critical care notation. Medical Decision Making - Medical Records Medical records reviewed: Yes: I reviewed the patient's medical records. - Rudy Inquiry Pt receiving controlled substance: No Vital Signs: 08/23/20 14:58 08/23/20 15:58 Temperature 97.8 F Temperature Source Oral Pulse Rate [Right Radial] 77 81 Respiratory Rate 16 18 Blood Pressure [Right Arm] 121/71 118/71 Blood Pressure Mean [Right Arm] 87 86 Blood Pressure Source [Right Arm] Automatic Cuff Automatic Cuff Blood Pressure Position [Right Arm] Supine Supine 02 Sat by Pulse Oximetry 97 96 Oxygen Delivery Method Room Air Room Air - Lab Data Lab results reviewed: Yes: I reviewed the patient's lab results. Lab Results 08/23/20 15:01: WBC 10.7, RBC 4.66, Hgb 12.2, Hct 39.0, MCV 83.7, MCH 26.2 L, MCHC 31.3 L, RDW 15.4, Plt Count 370, MPV 7.5, Neut % (Auto) 65.6, Lymph % (Auto) 24.5, [place] % (Auto) 5.7, Eos % (Auto) 3.6, Baso % (Auto) 0.5, Neut # (Auto) 7.0, Lymph # (Auto) 2.6, [place] # (Auto) 0.6, Eos # (Auto) 0.4, Baso # (Auto) 0.1 08/23/20 15:01: Sodium 138, Potassium 3.9, Chloride 112 H, Carbon Dioxide 16 L, Anion Gap 13.9, BUN 15, Creatinine 0.60, Estimated Creat Clear 161, Estimated GFR 111, Est GFR ( Amer) 134, Glucose 109 H, Calcium 9.9, Total Bilirubin 1.1, AST 122 H, ALT 48, Alkaline Phosphatase 169 H, Total Protein 7.5, Albumin 4.4, Globulin 3.1, Albumin/Globulin Ratio 1.4 Result diagrams: 08/23/20 15:01 08/23/20 15:01 Orders (Tests/Meds): ED MEDICATIONS Discontinued Medications Generic Name Dose Route Start Last Admin Trade Name Eleuterio PRN Reason Stop Dose Admin Ketorolac Tromethamine 30 mg 08/23/20 16:46 08/23/20 16:48 Ketorolac 30mg/Ml Vial IV 08/23/20 16:47 30 mg ONCE ONE Administration Oxcarbazepine 600 mg 08/23/20 15:30 08/23/20 15:32 Oxcarbazepine 300mg Tablet PO 08/23/20 15:31 600 mg ONCE ONE Administration ORDERS Category Date Time Status UA [Urinalysis and Microscopic] Stat Lab 08/23/20 16:20 Received - CT Data CT Scan: Head Time Received: 16:[address] Reviewed: Yes: I have viewed the radiologist's interpretation Findings Narrative: Encephalomalacia with postsurgical changes - ECG Data Tracing #1 Normal sinus rhythm, 75 bpm, no ST elevation or depression no ectopy, normal intervals ECG initial impression date: 08/23/20 ECG initial impression time: 14:57 Medical Decision Narrative: 39yo F evaluated after possible seizure. Patient is in no acute distress on initial evaluation. She has no noticeable neuro deficit. She is able to tell me her past medical history. The ER has been incredibly busy and therefore the patient has been waiting for some time. During this time she has been talking on the cell phone without difficulty, normal ramón to her speech. CT of her head is unremarkable for acute process. Patient's blood work is within normal limit. Long discussion with the patient regarding the fact she likely had a seizure based off of her history and the fact that she did not take her medication as directed. Patient is concerned she has had a stroke.
[2020-08-23 18:21] LABS: Appearance,Urine CLEAR (Clear); Bilirubin,Urine Negative (Negative); Blood, Urine Negative (Negative); Color,Urine YELLOW (Yellow); Glucose,Urine (UA) Negative (Negative); Ketones,Urine Negative (Negative); Leukocyte Esterase,Urine Negative (Negative); Nitrate,Urine Negative (Negative); PH,Urine 6.5 (5.0-8.5); Protein,Urine Negative (Negative); Specific Gravity, Urine 1.025 (1.005-1.030); Urobilinogen,Urine 0.2 EU/dl (0.2)
[2020-08-23 19:24] LABS: WBC,Urine Occasional #/hpf (0-3)
== END 2020-08-23 17:48 | disposition home or self-care (01) ==
PROVIDERS: Emergency Provider Family Medicine
DX: G40.409 Other generalized epilepsy and epileptic syndromes, not intractable, without status epilepticus (principal); F41.9 Anxiety disorder, unspecified; J44.9 Chronic obstructive pulmonary disease, unspecified; E78.5 Hyperlipidemia, unspecified
CPT/HCPCS: 70450; 80053; 81001; 85025; 93005; 96374; 99283

== ENCOUNTER 2020-10-19 21:50 | Emergency (ER) | payer MEDICARE, SELFPAY ==
--- NOTE | 2020-10-19 21:34 | ECG_ITS ---
APPROVED REPORT Exam: Resting ECG HR:107 bpm ECG Measurements Heart Rate 107 AXES CO 178 P 65 QRSd 80 QRS 58 QT 348 T 63 QTc 464 Conclusion Sinus tachycardia Cannot rule out Anterior infarct, age undetermined Abnormal ECG Electronically signed by : Triston Gregory, 10/21/2020 21:21:47
[2020-10-19 21:41] VITALS: BP 126/75; PULSE 106; RESP 22; TEMP 36.6; O2SAT 82; BMI 28.1
--- NOTE | 2020-10-19 21:49 | XR_ITS ---
PROCEDURE INFORMATION: Exam: XR Pelvis Exam date and time: 10/19/2020 9:49 PM Age: 39 years old Clinical indication: Injury or trauma; Fall; Blunt trauma (contusions or hematomas); Does not apply; Pelvic region; Injury date: 10/19/2020; Injury details: PT fell post seizure hit RT posterior head headache and neck ache. No pelvis pain trauma protocols to check pelvis also TECHNIQUE: Imaging protocol: XR pelvis. Views: 1 or 2 view. COMPARISON: ABDPELW/O CT ABD PELVIS W/O CONTRAST 07/12/2016 4:37 AM FINDINGS: Bones/joints: Unremarkable. No acute fracture. The hips are well located. The symphysis pubis is unremarkable. The sacroiliac joints is unremarkable. Soft tissues: Unremarkable. IMPRESSION: No evidence for significant traumatic injury.
--- NOTE | 2020-10-19 21:49 | CT_ITS ---
PROCEDURE INFORMATION: Exam: CT Head Without Contrast Exam date and time: 10/19/2020 9:49 PM Age: 39 years old Clinical indication: Injury or trauma; Fall; Blunt trauma (contusions or hematomas); Consciousness not specified; Injury date: 10/19/2020; Injury details: Seizure and fell and hit RT posterior head TECHNIQUE: Imaging protocol: Computed tomography of the head without contrast. Radiation optimization: All CT scans at this facility use at least one of these dose optimization techniques: automated exposure control; mA and/or kV adjustment per patient size (includes targeted exams where dose is matched to clinical indication); or iterative reconstruction. COMPARISON: CT HEAD/BRAIN WO CON 08/23/2020 3:57 PM FINDINGS: Brain: There is small area of encephalomalacia of the left-sided frontal lobe. There is no area of intraparenchymal or extra-axial hemorrhage present. There is no focal mass. There is no midline shift. The mcelroy-white matter junction is intact. Cerebral ventricles: No ventriculomegaly. Bones/joints: Old left frontal craniotomy. Paranasal sinuses: Mild diffuse sinus disease Mastoid air cells: Visualized mastoid air cells are well aerated. Soft tissues: The soft tissues are unremarkable. IMPRESSION: 1. Small postsurgical changes involving left frontal lobe. 2. Otherwise unremarkable examination of the brain. There is no acute intracranial abnormality seen.
--- NOTE | 2020-10-19 21:49 | XR_ITS ---
PROCEDURE INFORMATION: Exam: XR Chest Exam date and time: 10/19/2020 9:49 PM Age: 39 years old Clinical indication: Injury or trauma; Fall; Blunt trauma (contusions or hematomas); Injury date: 10/19/2020; Injury details: Fell post seizure hit RT posterior head. No chest complaint TECHNIQUE: Imaging protocol: XR of the chest. Views: 1 view. COMPARISON: No relevant prior studies available. FINDINGS: Lungs: Unremarkable. No consolidation. There is no focal mass. Pleural spaces: There is no pneumothorax. There is no pleural effusion. Heart/Mediastinum: Unremarkable. No cardiomegaly. Bones/joints: There is no fracture present. IMPRESSION: 1. There is no significant traumatic injury to the chest. 2. No acute cardiac or pulmonary process.
[2020-10-19 22:05] LABS: ABG HCO3 21.3 mmhg (22.0-26.0); ABG Oxygen Saturation 90 % (90-100); ABG PCO2 32.8 mmhg (35.0-45.0); ABG PH 7.43 mmol/L (7.35-7.45); ABG TCO2 22.3 mmhg (23-27)
[2020-10-19 22:15] LABS: Chloride 106 mmol/L (98-107); Sodium 137 mmol/L (136-145)
--- NOTE | 2020-10-19 22:15 | HMH.EDSEIZ ---
ED Disposition Clinical Impression: Epileptic seizure Qualifiers: Epilepsy type: unspecified Intractability: intractable Status epilepticus: without status epilepticus Qualified Code(s): G40.919 - Epilepsy, unspecified, intractable, without status epilepticus Leukocytosis Qualifiers: Leukocytosis type: unspecified Qualified Code(s): D72.829 - Elevated white blood cell count, unspecified Disposition: Home, Self-Care Condition on Discharge: Good Instructions: DI for Seizure Disorder -- Adult Additional Instructions: call pcp in am Referrals: Surekha Smith [Primary Care Provider] - - Critical Care Critical Care Time: No Attestation: On 10/19/20, the high probability of a clinically significant, sudden or life threatening deterioration of the following system(s) required my full and direct attention, intervention and personal management. The time I documented below is in addition to time spent performing reported procedures but includes the following listed in this critical care notation. Medical Decision Making - Medical Records Medical records reviewed: Yes: I reviewed the patient's medical records. - Rudy Inquiry Pt receiving controlled substance: No Vital Signs: 10/19/20 21:41 Temperature 97.9 F Temperature Source Oral Pulse Rate [Apical] 106 H Respiratory Rate 22 Blood Pressure [Right Arm] 126/75 Blood Pressure Mean [Right Arm] 92 Blood Pressure Source [Right Arm] Automatic Cuff Blood Pressure Position [Right Arm] Supine 02 Sat by Pulse Oximetry 82 L Oxygen Delivery Method Room Air - Lab Data Lab results reviewed: Yes: I reviewed the patient's lab results. Lab Results 10/19/20 21:45: WBC 20.5 H*, RBC 4.90, Hgb 13.2, Hct 41.1, MCV 83.8, MCH 26.9 L, MCHC 32.1, RDW 14.3, Plt Count 401, MPV 7.3 L, Neut % (Auto) 77.4, Lymph % (Auto) 13.0, [place] % (Auto) 4.7, Eos % (Auto) 4.2, Baso % (Auto) 0.8, Neut # (Auto) 15.8 H, Lymph # (Auto) 2.7, [place] # (Auto) 1.0, Eos # (Auto) 0.9 H, Baso # (Auto) 0.2, Total Counted 100, Neutrophils % (Manual) 72, Lymphocytes % (Manual) 13, Atypical Lymphs % 4.0, Monocytes % (Manual) 7, Eosinophils % (Manual) 4 H, Platelet Estimate Normal, RBC Morphology Normal, ESR 20 10/19/20 21:45: Sodium 137, Potassium 3.7, Chloride 106, Carbon Dioxide 21 L, Anion Gap 13.7, BUN 16, Creatinine 0.70, Estimated Creat Clear 138, Estimated GFR 93, Est GFR ( Amer) 112, Glucose 138 H, Calcium 9.3, Total Bilirubin 0.3, AST 25, ALT 30, Alkaline Phosphatase 109, C-Reactive Protein 30.3 H, Total Protein 6.7, Albumin 4.1, Globulin 2.6, Albumin/Globulin Ratio 1.6 10/19/20 21:45: Lactate 2.1 10/19/20 21:45: Serum HCG, Qual Negative 10/19/20 21:45: Procalcitonin 0.050 10/19/20 21:49: ABG pH 7.43, ABG pCO2 32.8 L, ABG pO2 59.0 L, ABG HCO3 21.3 L, ABG Total CO2 22.3 L, ABG O2 Saturation 90, ABG Base Excess -3.0 L 10/19/20 23:35: Urine Color Yellow, Urine Appearance Clear, Urine pH 6.0, Ur Specific [place] >= 1.030, Urine Protein Negative, Urine Glucose (UA) Negative, Urine Ketones Negative, Urine Blood Negative, Urine Nitrate Negative, Urine Bilirubin Negative, Urine Urobilinogen 0.2, Ur Leukocyte Esterase Negative 10/19/20 23:35: Urine Opiates Screen Negative, Urine Methadone Screen Negative, Ur Barbituates Screen Negative, Ur Phencyclidine Scrn Negative, Ur Amphetamines Screen Negative, U Benzodiazepines Scrn Negative, Urine Cocaine Screen Negative, U Marijuana (THC) Screen Negative Result diagrams: 10/19/20 21:45 10/19/20 21:45 Orders (Tests/Meds): ED MEDICATIONS Discontinued Medications Generic Name Dose Route Start Last Admin Trade Name Freq PRN Reason Stop Dose Admin Levetiracetam 1,000 mg/ Sodium 110 mls @ 220 mls/hr 10/19/20 22:36 10/19/20 22:51 Chloride IV 10/19/20 22:37 220 mls/hr ONCE ONE Administration Levetiracetam 1,000 mg/ Sodium 110 mls @ 220 mls/hr 10/19/20 22:40 10/19/20 22:45 Chloride IV 10/19/20 22:41 Not Given ONCE ONE Ondansetron HCl 4 mg 09/24
[2020-10-19 22:16] LABS: HCG Qualitative, Serum Negative (Negative)
[2020-10-19 22:17] LABS: Basophils # 0.2 K/mm3 (0-0.2); Basophils % 0.8 % (0.1-2.0); Eosinophils # 0.9 K/mm3 (0.0-0.4); Eosinophils % 4.2 % (0.1-12.0); Hematocrit 41.1 % (37.0-47.0); Hemoglobin 13.2 g/dL (12.2-16.2); Lymphocytes # 2.7 K/mm3 (0.7-4.5); Mean Corpuscular HGB Conc 32.1 g/dL (31.8-35.4); Mean Corpuscular Hemoglobin 26.9 pg (27.0-31.2); Mean Corpuscular Volume 83.8 fl (81-99); Mean Platelet Volume 7.3 fl (7.4-10.4); Monocytes % 4.7 % (1.7-9.3); Neutrophils # 15.8 K/mm3 (1.8-7.8); Neutrophils % 77.4 % (37.0-80.0); Platelet Count 401 K/mm3 (142-424); Red Cell Distribution Width 14.3 % (11.5-17.5); White Blood Count 20.5 K/mm3 (4.8-10.8)
[2020-10-19 22:18] LABS: Alanine Aminotransferase 30 U/L (12-78); Alkaline Phosphatase 109 U/L (38-126); Aspartate Amino Transferase 25 U/L (14-36); Bilirubin,Total 0.3 mg/dl (0.2-1.3); Blood Urea Nitrogen 16 mg/dl (7-17); Carbon Dioxide 21 mmol/L (22.0-30.0); Creatinine Clearance Estimated 138 mL/min (50-200); Estimated Glomerular Filt Rate 93 ml/min (>60); GFR (African American) 112 ML/MIN (>60)
[2020-10-19 22:19] LABS: Albumin Level 4.1 g/dl (3.5-5.0); Albumin/Globulin Ratio 1.6 (1.1-1.8); Calcium 9.3 mg/dl (8.4-10.2); Globulin 2.6 g/dL (1.3-3.2); Glucose 138 mg/dl (74-100); MANUAL DIFFERENTIAL MANUAL DIFFERENTIAL (MANUAL DIFF); Total Protein,Serum 6.7 g/dl (6.3-8.2)
[2020-10-19 22:24] LABS: C-Reactive Protein 30.3 mg/L (0-4)
[2020-10-19 22:27] LABS: Lactic Acid 2.1 mmol/L (0.7-2.1)
[2020-10-19 22:28] LABS: Eosinophils % 4 % (0-3); Lymphocytes % 13 % (10-50); Monocytes % 7 % (2-9); Neutrophils % 72 % (42-76); Platelet Estimate Normal; RBC Morphology Normal; Total Cells Counted 100
--- NOTE | 2020-10-19 22:36 | PC.NURSE ---
[facility]
--- NOTE | 2020-10-19 22:42 | PC.NURSE ---
dr. barry spoke to pharmacy and they advised to give a loading does of 1g of keppra IV.
[2020-10-19 22:43] LABS: Anion Gap 13.7 mEq/L (5-15); Erythrocyte Sedimentation Rate 20 mm/hr (0-20); Potassium 3.7 mmoL/L (3.5-5.1)
--- NOTE | 2020-10-19 22:43 | CT_ITS ---
PROCEDURE INFORMATION: Exam: CT Cervical Spine Without Contrast Exam date and time: 10/19/2020 10:43 PM Age: 39 years old Clinical indication: Injury or trauma; Blunt trauma; Injury date: 10/19/2020; Injury details: Had seizure and fell and hit RT posterior head and now back of neck hurts also; Patient HX: Fall post seizure TECHNIQUE: Imaging protocol: Computed tomography images of the cervical spine without contrast. Radiation optimization: All CT scans at this facility use at least one of these dose optimization techniques: automated exposure control; mA and/or kV adjustment per patient size (includes targeted exams where dose is matched to clinical indication); or iterative reconstruction. COMPARISON: No relevant prior studies available. FINDINGS: Bones/joints: No acute fracture. Normal alignment. Discs/Spinal canal/Neural foramina: No significant disc protrusion. No severe spinal canal stenosis. No significant neural foraminal narrowing. Lungs: Lung apices are normal. Soft tissues: Unremarkable. IMPRESSION: No evidence for significant traumatic injury of the cervical spine.
[2020-10-19 23:24] VITALS: BP 115/61; PULSE 92; O2SAT 95
[2020-10-19 23:35] VITALS: BP 121/61; PULSE 86; O2SAT 94
[2020-10-19 23:40] LABS: Microscopic, Urine URINE MICROSCOPIC (MICROSCOPIC)
[2020-10-19 23:41] LABS: Appearance,Urine CLEAR (Clear); Bilirubin,Urine Negative (Negative); Blood, Urine Negative (Negative); Color,Urine YELLOW (Yellow); Glucose,Urine (UA) Negative (Negative); Ketones,Urine Negative (Negative); Leukocyte Esterase,Urine Negative (Negative); Nitrate,Urine Negative (Negative); Protein,Urine Negative (Negative); Specific Gravity, Urine >= 1.030 (1.005-1.030); Urobilinogen,Urine 0.2 EU/dl (0.2)
[2020-10-19 23:53] LABS: Amphetamine/Metha Screen,Urine Negative ng/ml (<1000); Barbiturates Screen,Urine Negative ng/ml (<200)
[2020-10-19 23:54] LABS: Benzodiazepines Screen,Urine Negative ng/ml (<200)
[2020-10-19 23:55] LABS: Cannabinoid Screen,Urine Negative ng/ml (<50); Cocaine Screen,Urine Negative ng/ml (<300)
[2020-10-19 23:56] LABS: Methadone Screen,Urine Negative ng/ml (<300)
[2020-10-19 23:57] LABS: Opiate Screen,Urine Negative ng/ml (<300); Phencyclidine Screen,Urine Negative ng/ml (<25)
[2020-10-20] VITALS: BP 116/64; PULSE 87; O2SAT 97
[2020-10-20 00:05] LABS: Amorphous Sediment,Urine 1+ /lpf; Bacteria,Urine 1+ /lpf; Mucus,Urine 1+ /lpf
[2020-10-20 01:54] VITALS: BP 111/55; PULSE 81; RESP 18; TEMP 36.5; O2SAT 99
[2020-10-25 23:41] LABS: Levetiracetam (Keppra) <1.0 ug/mL (10.0-40.0)
== END 2020-10-20 01:57 | disposition home or self-care (01) ==
PROVIDERS: Emergency Provider Emergency Medicine; PCP Nurse Practitioner Family
DX: G40.919 Epilepsy, unspecified, intractable, without status epilepticus (principal); D72.829 Elevated white blood cell count, unspecified; E78.5 Hyperlipidemia, unspecified; J44.9 Chronic obstructive pulmonary disease, unspecified; Z87.891 Personal history of nicotine dependence; Z91.040 Latex allergy status; Z88.2 Allergy status to sulfonamides; Z79.899 Other long term (current) drug therapy
CPT/HCPCS: 70450; 71045; 72125; 72170; 80053; 80177; 80305; 81001; 82803; 83605; 84145; 84703; 85007; 85025; 85651; 86140; 87040; 93005; 96365; 96375; 99283; J1953; J2405

== ENCOUNTER 2021-04-13 21:40 | Emergency (ER) | payer MEDICARE, SELFPAY ==
[2021-04-13 20:59] VITALS: BP 137/62; PULSE 94; RESP 18; TEMP 36.6; O2SAT 100; BMI 31.3
--- NOTE | 2021-04-13 21:10 | XR_ITS ---
PROCEDURE INFORMATION: Exam: XR Chest Exam date and time: 04/13/2021 9:10 PM Age: 40 years old Clinical indication: Other: Allergic reaction TECHNIQUE: Imaging protocol: XR of the chest. Views: 2 views. COMPARISON: CR XR CHEST PORTABLE 10/19/2020 10:53 PM FINDINGS: Lungs: Unremarkable. No consolidation. Pleural spaces: Unremarkable. No pleural effusion. No pneumothorax. Heart/Mediastinum: Unremarkable. No cardiomegaly. Bones/joints: Unremarkable. IMPRESSION: No acute findings.
--- NOTE | 2021-04-13 21:32 | HMH.EDALLER ---
ED Disposition Clinical Impression: Allergic reaction Qualifiers: Encounter type: initial encounter Qualified Code(s): T78.40XA - Allergy, unspecified, initial encounter Anaphylaxis Qualifiers: Encounter type: initial encounter Qualified Code(s): T78.2XXA - Anaphylactic shock, unspecified, initial encounter Disposition: Home, Self-Care Condition on Discharge: Good Instructions: DI for General Allergic Reactions Additional Instructions: use meds and see pcp and dr reynolds for follow up Prescriptions: predniSONE [Prednisone 20mg Tab] 20 mg PO BID #10 tab Transmission Status: Pending to [facility]/pharmacy #[id number] Referrals: Dede Meredith APRN [Primary Care Provider] - Fabian Reynolds [Referring] - - Critical Care Critical Care Time: No Attestation: On , the high probability of a clinically significant, sudden or life threatening deterioration of the following system(s) required my full and direct attention, intervention and personal management. The time I documented below is in addition to time spent performing reported procedures but includes the following listed in this critical care notation. Medical Decision Making - Medical Records Medical records reviewed: Yes: I reviewed the patient's medical records. - Rudy Inquiry Pt receiving controlled substance: No Vital Signs: 04/13/21 20:59 Temperature 97.9 F Temperature Source Oral Pulse Rate [Right] 94 H Respiratory Rate 18 Blood Pressure [Right Arm] 137/62 Blood Pressure Mean [Right Arm] 87 02 Sat by Pulse Oximetry 100 - Lab Data Lab results reviewed: Yes: I reviewed the patient's lab results. Lab Results 04/13/21 21:27: WBC 17.6 H, RBC 4.75, Hgb 13.2, Hct 41.9, MCV 88.3, MCH 27.7, MCHC 31.4 L, RDW 13.5, Plt Count 399, MPV 7.0 L, Neut % (Auto) 80.6 H, Lymph % (Auto) 12.1, [place] % (Auto) 4.2, Eos % (Auto) 2.7, Baso % (Auto) 0.3, Neut # (Auto) 14.2 H, Lymph # (Auto) 2.2, [place] # (Auto) 0.7, Eos # (Auto) 0.5 H, Baso # (Auto) 0.1, Total Counted 100, Neutrophils % (Manual) 81 H, Lymphocytes % (Manual) 11, Monocytes % (Manual) 7, Eosinophils % (Manual) 1, Platelet Estimate Normal, ESR 16 04/13/21 21:27: Sodium 144, Potassium 3.9, Chloride 111 H, Carbon Dioxide 23, Anion Gap 13.9, BUN 10, Creatinine 0.60, Estimated Creat Clear 177, Estimated GFR 110, Est GFR ( Amer) 133, Glucose 113 H, Calcium 9.4, Total Bilirubin 0.2, AST 30, ALT 25, Alkaline Phosphatase 104, C-Reactive Protein 10.7 H, Total Protein 6.8, Albumin 4.1, Globulin 2.7, Albumin/Globulin Ratio 1.5 Result diagrams: 04/13/21 21:27 04/13/21 21:27 Orders (Tests/Meds): ED MEDICATIONS Generic Name Dose Route Start Last Admin Trade Name Freq PRN Reason Stop Dose Admin Sodium Chloride 1,000 mls @ 999 mls/hr 04/13/21 21:15 04/13/21 21:46 Sod Chlor 0.9% 1000ml Bag IV 04/13/21 22:15 999 mls/hr .Q1H1M VANNESA Administration Sodium Chloride 8 ml 04/13/21 21:10 Sodium Chloride 0.9% 10ml Vial IV 05/13/21 21:09 NEEDED PRN dilute pepcid Discontinued Medications Generic Name Dose Route Start Last Admin Trade Name Freq PRN Reason Stop Dose Admin Famotidine 20 mg 04/13/21 21:10 04/13/21 21:45 Famotidine 20mg/2ml Vial IV 04/13/21 21:11 20 mg ONCE ONE Administration Methylprednisolone Sodium Succinate 125 mg 04/13/21 21:11 04/13/21 21:47 Methylprednisolone Sod Succ 125mg Vial IM 04/13/21 21:12 Not Given ONCE ONE Methylprednisolone Sodium Succinate 125 mg 04/13/21 21:46 04/13/21 21:47 Methylprednisolone Sod Succ 125mg Vial IV 04/13/21 21:47 125 mg ONCE ONE Administration Metoclopramide HCl 10 mg 04/13/21 21:10 04/13/21 21:45 Metoclopramide Hcl 10mg/2ml Vial IVP 04/13/21 21:11 10 mg ONCE ONE Administration Ondansetron HCl 4 mg 04/13/21 21:10 10/20/21 21:45 Ondansetron 4mg/2ml Vial IV 04/13/21 21:11 4 mg ONCE ONE Administration ORDERS Category Date Time Status Rapid PCR Covid and Flu A/B Stat Lab
[2021-04-13 21:35] LABS: Basophils # 0.1 K/mm3 (0-0.2); Basophils % 0.3 % (0.1-2.0); Eosinophils # 0.5 K/mm3 (0.0-0.4); Eosinophils % 2.7 % (0.1-12.0); Hematocrit 41.9 % (37.0-47.0); Hemoglobin 13.2 g/dL (12.2-16.2); Lymphocytes # 2.2 K/mm3 (0.7-4.5); Lymphocytes % 12.1 % (10-50); Mean Corpuscular HGB Conc 31.4 g/dL (31.8-35.4); Mean Corpuscular Hemoglobin 27.7 pg (27.0-31.2); Mean Corpuscular Volume 88.3 fl (81-99); Monocytes # 0.7 K/mm3 (0.1-1.0); Monocytes % 4.2 % (1.7-9.3); Neutrophils # 14.2 K/mm3 (1.8-7.8); Neutrophils % 80.6 % (37.0-80.0); Platelet Count 399 K/mm3 (142-424); Red Blood Count 4.75 M/mm3 (4.20-5.40); Red Cell Distribution Width 13.5 % (11.5-17.5); White Blood Count 17.6 K/mm3 (4.8-10.8)
[2021-04-13 21:38] LABS: MANUAL DIFFERENTIAL MANUAL DIFFERENTIAL (MANUAL DIFF)
[2021-04-13 21:50] LABS: Alanine Aminotransferase 25 U/L (12-78); Albumin Level 4.1 g/dl (3.5-5.0); Albumin/Globulin Ratio 1.5 (1.1-1.8); Alkaline Phosphatase 104 U/L (38-126); Anion Gap 13.9 mEq/L (5-15); Aspartate Amino Transferase 30 U/L (14-36); Bilirubin,Total 0.2 mg/dl (0.2-1.3); Blood Urea Nitrogen 10 mg/dl (7-17); Calcium 9.4 mg/dl (8.4-10.2); Carbon Dioxide 23 mmol/L (22.0-30.0); Chloride 111 mmol/L (98-107); Creatinine Clearance Estimated 177 mL/min (50-200); Estimated Glomerular Filt Rate 110 ml/min (>60); GFR (African American) 133 ML/MIN (>60); Globulin 2.7 g/dL (1.3-3.2); Glucose 113 mg/dl (74-100); Potassium 3.9 mmoL/L (3.5-5.1); Sodium 144 mmol/L (136-145); Total Protein,Serum 6.8 g/dl (6.3-8.2)
[2021-04-13 21:56] LABS: C-Reactive Protein 10.7 mg/L (0-4)
[2021-04-13 22:15] LABS: Eosinophils % 1 % (0-3); Lymphocytes % 11 % (10-50); Monocytes % 7 % (2-9); Neutrophils % 81 % (42-76); Total Cells Counted 100
[2021-04-13 22:16] LABS: Platelet Estimate Normal
[2021-04-13 22:35] LABS: Erythrocyte Sedimentation Rate 16 mm/hr (0-20)
[2021-04-13 23:16] LABS: Coronavirus 19, PCR Not Detected (NotDetected); Influenza A, PCR Not Detected (NotDetected); Influenza B, PCR Not Detected (NotDetected)
[2021-04-13 23:27] VITALS: BP 124/72; PULSE 89; RESP 18; TEMP 36.6; O2SAT 100
== END 2021-04-13 23:34 | disposition home or self-care (01) ==
PROVIDERS: Emergency Provider Emergency Medicine; PCP Nurse Practitioner
DX: T78.40XA Allergy, unspecified, initial encounter (principal); T78.2XXA Anaphylactic shock, unspecified, initial encounter; F17.210 Nicotine dependence, cigarettes, uncomplicated; Z20.822 Contact with and (suspected) exposure to COVID-19
CPT/HCPCS: 71046; 80053; 85007; 85025; 85651; 86140; 96365; 96375; 99283; C9803; J2405; U0003; U0005

== ENCOUNTER 2022-09-11 20:09 | Inpatient (IN) | payer MEDICARE, MEDICAID, SELFPAY ==
[2022-09-11] VITALS (8 sets, daily range): BP systolic 107–126; BP diastolic 53–86; PULSE 87–103; RESP 18–24; TEMP 36.6–36.8; O2SAT 92–94; BMI 36.5; BMI 34.9
--- NOTE | 2022-09-11 20:09 | ECG_ITS ---
APPROVED REPORT Exam: Resting ECG HR:93 bpm ECG Measurements Heart Rate 93 AXES CA 190 P 75 QRSd 82 QRS 81 QT 325 T 80 QTc 375 Conclusion SINUS RHYTHM LOW QRS VOLTAGE IN PRECORDIAL LEADS [QRS DEFLECTION < 1.0 mV IN CHEST LEADS] BORDERLINE ECG UNCONFIRMED REPORT Electronically signed by : Triston Gregory MD 09/12/2022 17:20:26
--- NOTE | 2022-09-11 20:25 | XR_ITS ---
PROCEDURE INFORMATION: Exam: XR Chest Exam date and time: 09/11/2022 8:50 PM Age: 41 years old Clinical indication: Pain; Left-sided; Additional info: Cp TECHNIQUE: Imaging protocol: Radiologic exam of the chest. Views: 1 view. COMPARISON: CT ANGIO CHEST PE PROTOCOL 09/11/2022 8:41 PM FINDINGS: Lungs: Normal pulmonary expansion. Pulmonary vasculature grossly normal. No gross pulmonary infiltrates or edema pattern. Pleural spaces: No pleural effusion. No pneumothorax. Heart/Mediastinum: Heart size normal. No tracheal/mediastinal shift. Bones/joints: No acute osseous abnormalities are identified. IMPRESSION: No acute thoracic process.
--- NOTE | 2022-09-11 20:25 | CT_ITS ---
PROCEDURE INFORMATION: Exam: CTA Chest With Contrast Exam date and time: 09/11/2022 8:41 PM Age: 41 years old Clinical indication: Shortness of breath; Additional info: SOA c c/p TECHNIQUE: Imaging protocol: Computed tomographic angiography of the chest with contrast. 3D rendering (Not supervised by radiologist): MIP and/or 3D reconstructed images were created by the technologist. Radiation optimization: All CT scans at this facility use at least one of these dose optimization techniques: automated exposure control; mA and/or kV adjustment per patient size (includes targeted exams where dose is matched to clinical indication); or iterative reconstruction. Contrast material: ISOVUE; Contrast volume: 70 ml; Contrast route: INTRAVENOUS (IV); REPORTING DATA: Count of CT and Cardiac NM exams in prior 12 months: This patient has received 0 known CTs and 0 known cardiac nuclear medicine studies in the 12 months prior to the current study. COMPARISON: CR XR CHEST 2V 04/13/2021 9:32 PM FINDINGS: Pulmonary arteries: No large central pulmonary emboli are identified. Assessment of the small peripheral branch vessels was limited by suboptimal bolus intensity in the pulmonary arteries related to bolus timing, which emphasized aortic enhancement. No suspected peripheral emboli were identified. Aorta: No aortic aneurysm or dissection. No mediastinal hematoma. Thyroid: The visualized thyroid gland demonstrates no gross abnormality. Lungs: Moderate bilateral bronchial wall thickening consistent with bronchitis or bronchial edema. No bronchiectasis. No bronchial occlusions. Multifocal mild bandlike subsegmental atelectasis bilaterally. Minor reticulonodular changes are identified in the medial right base as well suggesting chronic small airways disease, consider chronic atypical infection versus chronic non infectious bronchiolitis. No pulmonary mass lesions are identified. Pleural spaces: No pleural effusion. No pneumothorax. Heart: Heart size normal. No pericardial effusion. Mediastinal space: The esophagus is largely contracted but demonstrates no gross abnormality. Lymph nodes: No supraclavicular or axillary adenopathy. Borderline enlarged prevascular node measuring 9 mm short axis. Borderline enlarged subcarinal node measuring 10 mm short axis. No hilar dorita enlargement. Spleen: Splenomegaly measuring 14.8 cm. No focal splenic lesions. Bones/joints: No acute osseous abnormalities are identified. Small chronic appearing Schmorl's nodes in the mid to lower thoracic spine. Soft tissues: The soft tissues of the chest wall demonstrate no acute abnormality. IMPRESSION: 1. No large central pulmonary emboli are present. Assessment of the smaller peripheral branches was limited by suboptimal bolus intensity in the pulmonary arteries although no suspected peripheral emboli were identified. 2. Bilateral bronchial wall thickening consistent with changes of bronchitis or bronchial edema, with a few areas of mild peripheral reticulonodular density suggesting chronic small airways disease, consider chronic atypical infection versus chronic non infectious bronchiolitis. 3. Borderline enlarged mediastinal nodes, nonspecific. 4. Splenomegaly. 5. Additional nonemergent findings detailed above.
[2022-09-11 20:32] LABS: Basophils # 0.1 K/mm3 (0-0.2); Basophils % 0.7 % (0.1-2.0); Eosinophils # 0.3 K/mm3 (0.0-0.4); Hematocrit 39.7 % (37.0-47.0); Hemoglobin 13.5 g/dL (12.2-16.2); Lymphocytes # 1.8 K/mm3 (0.7-4.5); Lymphocytes % 14.3 % (10-50); Mean Corpuscular Hemoglobin 28.6 pg (27.0-31.2); Mean Platelet Volume 7.6 fl (7.4-10.4); Monocytes # 0.7 K/mm3 (0.1-1.0); Monocytes % 5.4 % (1.7-9.3); Neutrophils # 9.9 K/mm3 (1.8-7.8); Neutrophils % 77.6 % (37.0-80.0); Platelet Count 336 K/mm3 (142-424); Red Blood Count 4.73 M/mm3 (4.20-5.40); White Blood Count 12.8 K/mm3 (4.8-10.8)
--- NOTE | 2022-09-11 20:36 | PC.NURSE ---
Patient gone to RAD at this time.
[2022-09-11 20:37] LABS: Alanine Aminotransferase 25 U/L (12-78); Albumin/Globulin Ratio 1.6 (1.1-1.8); Alkaline Phosphatase 101 U/L (38-126); Anion Gap 11.8 mEq/L (5-15); Aspartate Amino Transferase 24 U/L (14-36); Bilirubin,Total 0.3 mg/dl (0.2-1.3); Blood Urea Nitrogen 12 mg/dl (7-17); Calcium 8.5 mg/dl (8.4-10.2); Carbon Dioxide 22 mmol/L (22.0-30.0); Chloride 106 mmol/L (98-107); Creatinine Clearance Estimated 204 mL/min (50-200); Estimated Glomerular Filt Rate 110 ml/min (>60); GFR (African American) 133 ML/MIN (>60); Globulin 2.5 g/dL (1.3-3.2); Glucose 118 mg/dl (74-100); Potassium 3.8 mmoL/L (3.5-5.1); Sodium 136 mmol/L (136-145); Total Protein,Serum 6.5 g/dl (6.3-8.2)
[2022-09-11 20:42] LABS: C-Reactive Protein 44.1 mg/L (0-4)
[2022-09-11 20:53] LABS: Troponin I < 0.01 ng/ml (0.00-0.034)
[2022-09-11 21:02] LABS: Erythrocyte Sedimentation Rate 21 mm/hr (0-20)
[2022-09-11 21:27] LABS: Microscopic, Urine URINE MICROSCOPIC (MICROSCOPIC)
--- NOTE | 2022-09-11 21:28 | HMH.EDCP ---
Discharge Plan Disposition Patient Disposition: Admitted As Inpatient Chief Complaint: Chest Pain Prescriptions Prescriptions: No Action prenat.vits,mulugeta,zxm-edxn-raitn Tablet 1 tab PO DAILY prednisone 20 MG tablet 20 mg PO BID Qty: 10 0RF oxcarbazepine 600 MG tablet extended release 24 hr 1,200 mg PO DAILY Label Comments: TAKE 2 TABLETS BY MOUTH ONCE DAILY. Referrals Follow up/Referrals: Provider,Referral, MD [Primary Care Provider] - See instructions Clinical Impressions Clinical Impression: COPD with acute exacerbation, Chest pain Discharge ED Provider: Tonny (ED)Siddhartha Chest Pain HPI General Chief Complaint: Chest Pain Stated Complaint: chest pain Time Seen by Provider: 09/11/22 21:28 Mode of Arrival: EMS Source of Information: Patient, EMS and Medical Record Limitations: No Limitations Description of Symptoms (Recalled from ER Triage Doc. by RN): Pt arrives via [facility] c c/o left sided chest pain that radiates down her left arm. States that it began one hour ago with shortness of air. Denies any injury. States that she has had nausea and vomiting with diarrhea for the prior two days. Saw her pcp today and was diagnosed with a sinus infection and given antibiotics (amoxicillin) for which she has taken one dose. History of Present Illness HPI narrative: pt reports not feeling well over the last few days with cough and sinus pressure and was seen by pcp and started on abx - recently stopped tob- has no known hx of ht dis but tonight had lt sided chest pain with exertion and inc sob MD complaint: chest pain indicative of cardiac Onset (ago): day(s) Duration: intermittent Activity at onset: light activity Pain location: left chest Severity: moderate Quality: sharp Pain radiation: LUE Risk Factors for CAD: Family Hx of CAD and Smoking Treatments prior to or on arrival for Cardiac Chest Pain: aspirin and nitroglycerin DEMAR Score for Non-Stemi Age of Patient: 40-49 years old Heart Rate: 90-109 bpm Systolic Blood Pressure: 120-139 mmhg Serum Creatinine: 0.40-0.79 mg/dl CHF Killip Class: I-No CHF Other Risk Factors: None Non-Stemi Risk Score: 78 Risk Stratification: 1-108 = Low Risk Related Data On Oral Contraceptives: No Home Medications Medication Instructions Recorded Confirmed prenat.vits,mulugeta,[id number] 1 tab PO DAILY Supplement 10/23/19 08/23/20 oxcarbazepine 600 mg 1,200 mg PO DAILY SEIZURES 04/22/20 08/23/20 tablet,extended release 24 hr Previous Rx's Medication Instructions Recorded prednisone 20 mg tablet 20 mg PO BID #10 tabs 04/13/21 Allergies Allergy/AdvReac Type Severity Reaction Status Date / Time doxycycline [DOXYCYCLINE] Allergy Unknown Verified 04/22/20 06:40 latex [LATEX] Allergy Unknown Verified 04/22/20 06:40 sulfamethoxazole Allergy Unknown Verified 04/22/20 06:40 [From BACTRIM] trimethoprim [From BACTRIM] Allergy Unknown [facility]: The information contained in this section may have been updated after the patient was seen, as this information can be updated by other users. Social History Smoking Status: Former smoker alcohol intake: never substance use type: denies use current occupational status: employed Travel in the last 8 weeks: None housing: house ROS Obtained: Yes All systems reviewed & no additional complaints except as documented Physical Exam General General appearance: alert Head Head exam: normocephalic Eye Eye exam: Present PERRL and EOMI ENT ENT exam: Present mucous membranes moist Neck Neck exam: Present trachea midline Chest Chest inspection: Absent tenderness Respiratory Respiratory exam: Present wheezes; Absent respiratory distress Cardiovascular Cardiovascular exam: Present regular rate and systolic murmur Abdominal Exam Abdominal exam: Present soft Extremities Exam Extremities exam: Present full ROM; Absent calf tenderness Neurolog
[2022-09-11 21:36] LABS: Appearance,Urine CLEAR (Clear); Bilirubin,Urine Negative (Negative); Blood, Urine 3+ (Negative); Color,Urine RED (Yellow); Glucose,Urine (UA) Negative (Negative); Ketones,Urine TRACE (Negative); Leukocyte Esterase,Urine TRACE (Negative); Nitrate,Urine POSITIVE (Negative); Protein,Urine 2+ (Negative)
--- NOTE | 2022-09-11 21:36 | PC.NURSE ---
in room talking with patient at this time.
--- NOTE | 2022-09-11 21:52 | ECG_ITS ---
APPROVED REPORT Exam: Resting ECG HR:97 bpm ECG Measurements Heart Rate 97 AXES IL 185 P 71 QRSd 87 QRS 76 QT 329 T 71 QTc 384 Conclusion SINUS RHYTHM LOW QRS VOLTAGE IN PRECORDIAL LEADS [QRS DEFLECTION < 1.0 mV IN CHEST LEADS] BORDERLINE ECG UNCONFIRMED REPORT Electronically signed by : Triston Gregory MD 09/12/2022 17:20:19
--- NOTE | 2022-09-11 21:54 | PC.NURSE ---
Per EMS, patients room air saturation was 88% upon arrival to patient home
--- NOTE | 2022-09-11 21:57 | PC.NURSE ---
Rounded on patient, patient helped with needs voiced at this time.
[2022-09-11 21:58] LABS: RBC,Urine TNTC #/hpf (0-3); WBC,Urine Occasional #/hpf (0-3)
[2022-09-11 21:59] LABS: Bacteria,Urine Trace /lpf
[2022-09-11 22:08] LABS: Lactic Acid 1.3 mmol/L (0.7-2.1)
[2022-09-11 22:09] LABS: NT Pro Brain Natriuretic Pep. 59.5 pg/mL (0-125)
[2022-09-11 22:23] LABS: Coronavirus 19, PCR Not Detected (NotDetected); Influenza A, PCR Not Detected (NotDetected); Influenza B, PCR Not Detected (NotDetected)
--- NOTE | 2022-09-11 22:31 | EXP.HP ---
History of Present Illness *Admission Date: 09/11/22 *Reason for visit:: Cough, Shortness of air, wheezing, chest pain *History of present illness: Ms. Carnes is a 41-year-old female with a past medical history of chronic tobacco use, Seizure disorder, Anxiety disorder. She presented to [facility] by [facility] due to acute episode of shortness of air associated with chest pain that occurred prior to coming, she reports worsening of her symptoms over a two-day period. Per EMS record on arrival to the home the patient was 89% on room air. She was transferred to the ER for evaluation. In the ER the patient underwent an EKG that showed NSR with rate of 93. Troponin was <0.01. CTA of the chest was performed and showed findings consistent with Bronchitis. Procalcitonin was within normal limits at 0.050. On exam the patient has coarse inspiratory and expiratory wheezing. The patient reports that she was seen by her PCP today and diagnosed with Augmentin and had taken 1 dose with worsening of symptoms. The patient will be admitted with initial impression: Hypoxia, Chest Pain and Acute Bronchitis. She will be continued on steroids and nebulizers, given Azithromycin and have further cultures and studies performed. Cardiology will be consulted due to chest pain and echo will be ordered for the am. The plan of care was discussed with the patient at bedside. She verbalized understanding and agreement with the plan of care. [facility] Disclaimer: The information contained in this section may have been updated after the patient was seen, as this information can be updated by other users. Medical History (Updated 09/12/22 @ 09:11 by Emily Hernandez APRN) Anxiety disorder Depression Seizure disorder Shortness of Breath Surgical History (Updated 09/11/22 @ 22:38 by Tay Landers DNP) H/O brain surgery Family History (Updated 09/12/22 @ 09:09 by Emily Hernandez APRN) Hypertension Father Social History (Updated 09/12/22 @ 09:09 by Emily Hernandez APRN) Smoking Status: Former smoker how long ago did patient quit smokin days ago alcohol intake: never substance use type: denies use current occupational status: employed Travel in the last 8 weeks: None adopted: No caregiver/support person: No foster care: No household members: spouse and children housing: apartment lives independently: Yes marital status: number of children: 1 education level: college service: No correction: No current occupational exposures/hazards: No pets and animals: No sexually active: Yes Review of Systems Review of Systems Review of systems:: pertinent systems reviewed and negative unless documented below Constitutional Constitutional: Reports lethargy Eyes Eyes: Reports system reviewed and no additional complaints, except as documented ENT Ears, Nose, Mouth, and Throat: Reports system reviewed and no additional complaints, except as documented *Cardiovascular Cardiovascular: Reports chest pain and Reports dyspnea *Respiratory Respiratory: Reports cough, Reports dyspnea and Reports wheezing *Gastrointestinal Gastrointestinal: Reports system reviewed and no additional complaints, except as documented *Genitourinary Genitourinary: Reports system reviewed and no additional complaints, except as documented *Musculoskeletal Musculoskeletal: Reports myalgias Integumentary/Breasts Skin/Breast: Reports system reviewed and no additional complaints, except as documented *Neurologic Neurologic: Reports system reviewed and no additional complaints, except as documented Psychiatric Psychiatric: Reports system reviewed and no additional complaints, except as documented Endocrine Endocrine: Reports system reviewed and no additional complaints, except as documented Hematologic/Lymphatic Hematologic/Lymphatic: Reports system reviewed and no additional complaints, except as documented
--- NOTE | 2022-09-11 22:48 | PC.NURSE ---
Patient had a nicotene patch on her left arm when she arrived. Due to patient arm pain on left side the nicotene patch was removed.
[2022-09-11 23:14] LABS: Adenovirus,PCR Not Detected (NotDetected); Bordetella Pertussis Not Detected (NotDetected); Chlamydophila Pneumoniae, PCR Not Detected (NotDetected); Coronavirus 19, PCR Not Detected (NotDetected); Coronavirus 229E Not Detected (NotDetected); Coronavirus NL63 Not Detected (NotDetected); Coronavirus OC43 Not Detected (NotDetected); Coronovirus HKU1,PCR Not Detected (NotDetected); Human Metapneumovirus Not Detected (NotDetected); Influenza A, PCR Not Detected (NotDetected); Influenza AH1, 2009 Not Detected (NotDetected); Influenza AH1, PCR Not Detected (NotDetected); Influenza AH3,PCR Not Detected (NotDetected); Influenza B, PCR Not Detected (NotDetected); Mycoplasma Pneumoniae, PCR Not Detected (NotDetected); Parainfluenza 1, PCR Not Detected (NotDetected); Parainfluenza 2, PCR Not Detected (NotDetected); Parainfluenza 3, PCR Not Detected (NotDetected); Parainfluenza 4, PCR Not Detected (NotDetected); Respiratory Syncytial Virus Not Detected (NotDetected)
[2022-09-12] VITALS (12 sets, daily range): BP systolic 110–132; BP diastolic 67–74; PULSE 79–100; RESP 17–25; TEMP 36.6–37.1; O2SAT 86–97; BMI 34.9
[2022-09-12 00:03] LABS: Troponin I < 0.01 ng/ml (0.00-0.034)
--- NOTE | 2022-09-12 02:39 | PC.NURSE ---
Pt asked for something for a cough and something to help her sleep. Orders taken.
[2022-09-12 03:19] LABS: Troponin I < 0.01 ng/ml (0.00-0.034)
[2022-09-12 03:52] LABS: Rhinovirus/Enterovirus Detected (NotDetected)
[2022-09-12 06:48] LABS: Chol/HDL Ratio 5.7 (1-3.5); Cholesterol 194 mg/dl (140-200); HDL Cholesterol 34 mg/dl (40-60); Triglycerides 93 mg/dl (30-150); VLDL Cholesterol 19 mg/dL (0-40)
[2022-09-12 07:00] LABS: Direct LDL Cholesterol 130.56 mg/dL (100-129)
--- NOTE | 2022-09-12 07:38 | HMH.PHAINT1 ---
Pharmacy Intervention Comments: home medication list verified using list from outpatient pharmacy and pt interview
[2022-09-12 08:22] LABS: Urine Pregnancy, HCG Qual. Negative (Negative)
--- NOTE | 2022-09-12 09:05 | EXP.CARD.CON ---
History of Present Illness History of Present Illness Consult date: 09/12/22 Requesting physician: Sandip Adorno Consult reason: chest pain Chief complaint: chest pain History of present illness: This is a 41-year-old white female who presented to the emergency department with worsening shortness of breath and chest pain. The patient states that she has not felt well for the last several days and her shortness of breath significantly worsened yesterday. She states that she also had sudden onset of substernal chest pain that radiated to her left arm and down to her left hand. She states that this was associated with shortness of breath and nausea. The patient states that this was a 10 out of 10 pain. It worsened with exertion and nothing was really helping to improve the pain. The patient had her call EMS and she states that her blood pressure was 166 systolic when EMS arrived and she was also 89% on room air. The patient was then brought here to [facility]. CTA of the chest ruled out a PE but does show bronchitis. She has ruled out for an CT. Her EKG i shows no ischemic changes and her preliminary echocardiogram shows a normal ejection fraction with no wall motion abnormalities and no significant valvular disease. [facility] Disclaimer: The information contained in this section may have been updated after the patient was seen, as this information can be updated by other users. Medical History (Updated 09/12/22 @ 09:11 by Emily Hernandez APRN) Anxiety disorder Depression Seizure disorder Shortness of Breath Surgical History (Updated 09/11/22 @ 22:38 by Tay Landers DNP) H/O brain surgery Family History (Updated 09/12/22 @ 09:09 by Emily Hernandez APRN) Father Hypertension Social History (Updated 09/12/22 @ 09:09 by Emily Hernandez APRN) Smoking Status: Former smoker how long ago did patient quit smokin days ago alcohol intake: never substance use type: denies use current occupational status: employed Travel in the last 8 weeks: None adopted: No caregiver/support person: No foster care: No household members: spouse and children housing: apartment lives independently: Yes marital status: number of children: 1 education level: college service: No residential: No current occupational exposures/hazards: No pets and animals: No sexually active: Yes Review of Systems Review of Systems Review of systems:: pertinent systems reviewed and negative unless documented below Constitutional Constitutional: Reports system reviewed and no additional complaints, except as documented Eyes Eyes: Reports system reviewed and no additional complaints, except as documented ENT Ears, Nose, Mouth, and Throat: Reports system reviewed and no additional complaints, except as documented *Cardiovascular Cardiovascular: Reports system reviewed and no additional complaints, except as documented *Respiratory Respiratory: Reports system reviewed and no additional complaints, except as documented *Gastrointestinal Gastrointestinal: Reports system reviewed and no additional complaints, except as documented *Genitourinary Genitourinary: Reports system reviewed and no additional complaints, except as documented *Musculoskeletal Musculoskeletal: Reports system reviewed and no additional complaints, except as documented Integumentary/Breasts Skin/Breast: Reports system reviewed and no additional complaints, except as documented *Neurologic Neurologic: Reports system reviewed and no additional complaints, except as documented Psychiatric Psychiatric: Reports system reviewed and no additional complaints, except as documented Endocrine Endocrine: Reports system reviewed and no additional complaints, except as documented Hematologic/Lymphatic Hematologic/Lymphatic: Reports system reviewed and no additional complaints, except as documented Allergic/Immunologic Allergic/Immunol
--- NOTE | 2022-09-12 12:27 | EXP.ACUTE.PN ---
Subjective *Date: 09/12/22 *Time: 12:27 Interval history: Stable on 3 L nasal cannula this morning. Unsuccessful attempts to wean oxygen overnight. Tolerating p.o. intake. Denies nausea, vomiting, confusion, headache. Still having occasional chest discomfort with cough. Questions answered on rounds Medical Exam Vital signs and Labs for Last 24 Hours: Vital Signs Temp Pulse Pulse Resp BP BP Pulse Ox 09/12/22 10:24 82 25 H 09/12/22 10:24 82 09/12/22 10:24 82 09/12/22 10:24 90 L 09/12/22 08:00 90 09/12/22 08:00 90 L 09/12/22 07:41 97.8 F 79 18 132/71 86 L 09/12/22 06:03 80 09/12/22 06:03 84 09/12/22 04:00 85 09/12/22 04:00 98.5 F 82 18 110/67 94 L 09/12/22 01:47 96 09/12/22 00:00 90 09/11/22 23:59 87 09/11/22 23:59 93 H 09/11/22 23:33 98.3 F 87 24 116/60 94 L 09/11/22 22:49 93 H 09/11/22 22:49 98 F 92 H 22 125/60 09/11/22 21:30 93 H 24 126/62 94 L 09/11/22 22:03 98 H 09/11/22 22:03 97 H 09/11/22 21:01 103 H 22 107/53 L 94 L 09/11/22 20:30 97 H 18 123/67 92 L 09/11/22 20:19 97.9 F 98 H 18 120/86 92 L Intake and Output 09/11/22 09/12/22 09/12/22 23:59 07:59 15:59 Intake Total 550 / 550 Output Total 0 / 0 0 / 0 Balance 550 / 550 0 / 550 Intake: Intake, Oral Amount 300 / 300 Intake, Total IV Amount 250 / 250 Azithromycin 500 mg In 0.9 % 250 / 250 Sodium Chloride 250 ml @ 250 mls/hr IV Q24H [facility] Rx#: [id number] Output: Output, Urine Amount 0 / 0 0 / 0 Other: Number of Unmeasured Voids 1 1 1 Weight 101.151 kg 101.151 kg Patient Weight 09/12/22 23:59 Weight 101.151 kg Laboratory Results - last 24 hr 09/11/22 20:19: WBC 12.8 H, RBC 4.73, Hgb 13.5, Hct 39.7, MCV 84.0, MCH 28.6, MCHC 34.0, RDW 14.0, Plt Count 336, MPV 7.6, Neut % (Auto) 77.6, Lymph % (Auto) 14.3, [place] % (Auto) 5.4, Eos % (Auto) 2.0, Baso % (Auto) 0.7, Neut # (Auto) 9.9 H, Lymph # (Auto) 1.8, [place] # (Auto) 0.7, Eos # (Auto) 0.3, Baso # (Auto) 0.1, ESR 21 H 09/11/22 20:19: Sodium 136, Potassium 3.8, Chloride 106, Carbon Dioxide 22, Anion Gap 11.8, BUN 12, Creatinine 0.60, Estimated Creat Clear 204, Estimated GFR 110, Est GFR ( Amer) 133, Glucose 118 H, Calcium 8.5, Total Bilirubin 0.3, AST 24, ALT 25, Alkaline Phosphatase 101, Troponin I < 0.01, C-Reactive Protein 44.1 H, Total Protein 6.5, Albumin 4.0, Globulin 2.5, Albumin/Globulin Ratio 1.6, Procalcitonin 0.050 09/11/22 20:19: NT-Pro-B Natriuret Pep 59.5 09/11/22 21:17: Urine Color Red, Urine Appearance Clear, Urine pH 7.0, Ur Specific [place] 1.010, Urine Protein 2+, Urine Glucose (UA) Negative, Urine Ketones Trace, Urine Blood 3+, Urine Nitrate Positive, Urine Bilirubin Negative, Urine Urobilinogen 1.0, Ur Leukocyte Esterase Trace, Urine RBC Tntc, Urine WBC Occasional, Ur Squamous Epith Cells None, Urine Bacteria Trace 09/11/22 21:17: Urine HCG, Qual Negative 09/11/22 21:49: Lactate 1.3 09/11/22 22:16: SARS-CoV-2 (PCR) Not detected, Influenza A Untype (PCR) Not detected, Influenza Type B (PCR) Not detected 09/11/22 22:16: Chlamy pneumoniae PCR Not detected, Adenovirus (PCR) Not detected, B. pertussis DNA (PCR) Not detected, Coronavirus OC43 (PCR) Not detected, Coronavirus HKU1 (PCR) Not detected, Coronavirus 229E (PCR) Not detected, SARS-CoV-2 (PCR) Not detected, Coronavirus NL63 (PCR) Not detected, Human Metapneumovir PCR Not detected, Influenza A (H1) PCR Not detected, Influ A (H1N1/09) PCR Not detected, Influenza A (H3) PCR Not detected, Influenza Type A (PCR) Not detected, Influenza Type B (PCR) Not detected, M. pneumoniae (PCR) Not detected, Parainfluenza 1 (PCR) Not detected, Parainfluenza 2 (PCR) Not detected, Parainfluenza 3 (PCR) Not detected, Parainfluenza 4 (PCR) Not detected, RSV (PCR) Not detected, Entero/Rhino (PCR) Detected A 09/11/22 23:15: Troponin I <
--- NOTE | 2022-09-12 15:26 | PC.NURSE ---
Pt with SOA with activity. Nasal cannula in place. Alert and oriented x4. Pain and discomfort in chest and ribs while coughing. Medicated per mar for discomfort. Lung sounds diminished with scattered wheezes. O2 90-92% on 3.5L NC. Ambulates to bathroom. Will continue to monitor.
--- NOTE | 2022-09-12 22:55 | CA_ITS ---
APPROVED REPORT EXAM: Comprehensive 2D, Doppler, and color-flow Echocardiogram Endoscopy Specialty Technician: Lali Childers CRT Ht: 5 ft 7 in Wt: 233lbs BSA: 2.16 BP: 128/82 mmHg Indications: COPD, smoker,bronchitis,seizure disorder 2D Dimensions LVOT 1.77 cm (M/F) 1.5-2.5 LA Volume 21.50 mL LA Volume Index 9.70 mL/m2 (M/F) 16-34 M-Mode Dimensions RVDd 3.46 cm (0.9-2.6) LA Diam 3.07 cm (1.9-4.0) LVDd 4.83 cm (3.5-5.7) Ao Diam 3.53 cm (2.0-3.7) LVDs 2.70 cm (3.5-5.7) IVSd 1.89 cm (0.6-1.1) PWd 0.84 cm (0.6-1.1) EF (Teich) 75.30% FS 44.10% EDV (Teich) 109.10 mL ESV (Teich) 27.00 mL LV Diastology E Decel Time 170.00 (160-240 msec) E/A Ratio 0.95 MED E' 9.10 (< 7 cm/sec) MED A' 12.00 cm/s E'/MED E' Ratio 9.13 (>14) LAT E' 11.30 (<10 cm/sec) LAT A' 13.60 cm/s E/LAT E' Ratio 7.35 (>14) Aortic Valve AO Peak GR. 7.30 mmHg Mitral Valve MV E Max Carl. 83.00 (40-130 cm/s) MV A Velocity 88.00 (40-130 cm/s) E/A Ratio 0.95 MV Decel. Time 170.00 (160-240 ms) MV PHT 50.00 ms Pulmonary Valve PV Peak Velocity 104.00 (50-150 cm/s) Tricuspid Valve TR P. Velocity 138.00 cm/s RAP Estimate 10.00 mmHg RVSP 17.60 mmHg Left Ventricle Left atrium is mildly enlarged, left ventricle is normal size mild concentric left ventricular hypertrophy, estimated ejection fraction 55% with no regional wall motion abnormality, diastolic parameters are inconclusive. Right Ventricle Right atrium and right ventricle are mildly enlarged with normal contractility. Aortic Valve Aortic valve is minimally thickened and fibrosed there is no aortic stenosis aortic insufficiency. Mitral Valve Mitral valve is grossly normal, there is trace mitral regurgitation. Tricuspid Valve Tricuspid grossly normal, there is trace tricuspid regurgitation, tricuspid regurgitation jet velocity is inadequate for calculation of the right ventricular systolic pressure. Pulmonic Valve Pulmonic valve is poorly visualized. Great Vessels Aortic root is normal size. Inferior vena cava is normal size with normal inspiratory collapse. Pericardium No significant pericardial effusion noted. Conclusion 1. Mild biatrial enlargement, normal left ventricular size, mild concentric left ventricular hypertrophy, estimated ejection fraction 55% with no regional wall motion abnormality, diastolic parameters are inconclusive. 2. Mildly enlarged right ventricle with normal contractility. 3. Trace mitral and tricuspid regurgitation. 4. No significant pericardial effusion noted. 5. Inferior vena cava is normal size with normal inspiratory collapse. Electronically signed by : Ludwin Escobedo MD 09/12/2022 18:55:13
--- NOTE | 2022-09-12 23:40 | PC.NURSE ---
Several calls to Tay the DNP about pt's complaint of pain and also some nausea. New orders placed... Will continue to monitor.
[2022-09-13] VITALS (14 sets, daily range): BP systolic 116–141; BP diastolic 55–87; PULSE 78–92; RESP 17–22; TEMP 36.6–37.1; O2SAT 90–96; BMI 35.2
--- NOTE | 2022-09-13 05:28 | PC.NURSE ---
Respiratory called to give patient a breathing treatment. She has several times through the night requested a breathing treatment. Anxiety meds given once and she was directed to take deep breaths through her nose and out her mouth. Will continue to monitor.
[2022-09-13 06:51] LABS: Basophils % 0.3 % (0.1-2.0); Eosinophils # 0.2 K/mm3 (0.0-0.4); Eosinophils % 1.8 % (0.1-12.0); Hematocrit 37.9 % (37.0-47.0); Hemoglobin 12.2 g/dL (12.2-16.2); Lymphocytes # 2.4 K/mm3 (0.7-4.5); Lymphocytes % 17.7 % (10-50); Mean Corpuscular HGB Conc 32.3 g/dL (31.8-35.4); Mean Corpuscular Hemoglobin 27.7 pg (27.0-31.2); Mean Corpuscular Volume 85.7 fl (81-99); Mean Platelet Volume 7.7 fl (7.4-10.4); Monocytes # 0.9 K/mm3 (0.1-1.0); Monocytes % 6.4 % (1.7-9.3); Neutrophils # 9.9 K/mm3 (1.8-7.8); Neutrophils % 73.8 % (37.0-80.0); Platelet Count 352 K/mm3 (142-424); Red Blood Count 4.42 M/mm3 (4.20-5.40); White Blood Count 13.4 K/mm3 (4.8-10.8)
[2022-09-13 07:04] LABS: Anion Gap 7.9 mEq/L (5-15); Blood Urea Nitrogen 19 mg/dl (7-17); Calcium 7.6 mg/dl (8.4-10.2); Carbon Dioxide 24 mmol/L (22.0-30.0); Chloride 109 mmol/L (98-107); Creatinine Clearance Estimated 236 mL/min (50-200); Estimated Glomerular Filt Rate 135 ml/min (>60); GFR (African American) 164 ML/MIN (>60); Glucose 92 mg/dl (74-100); Potassium 3.9 mmoL/L (3.5-5.1); Sodium 137 mmol/L (136-145)
--- NOTE | 2022-09-13 09:32 | EXP.ACUTE.PN ---
Subjective *Date: 09/13/22 *Time: 12:25 Interval history: Patient had some chest wall discomfort overnight. Continues to require 3 L nasal cannula. Dyspneic when exerting herself to the bathroom. No nausea, vomiting, confusion, diarrhea. Afebrile overnight. Cough mildly productive. Has short-term benefit and improvement with breathing treatments. Medical Exam Vital signs and Labs for Last 24 Hours: Vital Signs Temp Pulse Pulse Resp BP Pulse Ox FiO2 09/13/22 08:20 92 H 09/13/22 08:20 88 09/13/22 08:00 98.7 F 85 20 122/67 94 L 09/13/22 04:00 97.9 F 78 22 121/70 94 L 09/13/22 05:37 83 09/13/22 05:37 86 09/13/22 05:37 92 L 09/13/22 04:00 80 09/12/22 20:00 90 09/13/22 00:00 80 09/13/22 00:00 98.1 F 92 H 17 116/69 93 L 09/12/22 23:56 89 09/12/22 23:56 91 H 09/12/22 23:55 32 09/12/22 20:00 97 09/12/22 20:00 98 F 92 H 17 119/74 92 L 09/12/22 16:45 91 H 09/12/22 16:45 92 H 09/12/22 16:45 91 L 09/12/22 15:26 98.7 F 96 H 20 126/69 90 L 09/12/22 12:31 100 H 09/12/22 10:24 82 25 H 09/12/22 10:24 82 09/12/22 10:24 82 09/12/22 10:24 90 L Intake and Output 09/12/22 09/13/22 09/13/22 23:59 07:59 15:59 Intake Total 850 / 1400 Output Total 0 / 1 0 / 0 Balance 850 / 1399 0 / 0 Intake: Intake, Oral Amount 600 / 900 Intake, Total IV Amount 250 / 500 Azithromycin 500 mg In 0.9 % 250 / 500 Sodium Chloride 250 ml @ 250 mls/hr IV Q24H [facility] Rx#:[id number] Output: Output, Urine Amount 0 / 1 0 / 0 Other: Number of Unmeasured Voids 1 1 Weight 101.831 kg Patient Weight 09/13/22 23:59 Weight 101.831 kg Laboratory Results - last 24 hr 09/13/22 06:45: WBC 13.4 H, RBC 4.42, Hgb 12.2, Hct 37.9, MCV 85.7, MCH 27.7, MCHC 32.3, RDW 14.0, Plt Count 352, MPV 7.7, Neut % (Auto) 73.8, Lymph % (Auto) 17.7, [place] % (Auto) 6.4, Eos % (Auto) 1.8, Baso % (Auto) 0.3, Neut # (Auto) 9.9 H, Lymph # (Auto) 2.4, Elmore # (Auto) 0.9, Eos # (Auto) 0.2, Baso # (Auto) 0.0 09/13/22 06:45: Sodium 137, Potassium 3.9, Chloride 109 H, Carbon Dioxide 24, Anion Gap 7.9, BUN 19 H D, Creatinine 0.50 L, Estimated Creat Clear 236, Estimated GFR 135, Est GFR ( Amer) 164 D, Glucose 92, Calcium 7.6 L I & O for Labs for Last 24 Hours: Intake & Output 09/10/22 09/11/22 09/12/22 09/13/22 23:59 23:59 23:59 23:59 Intake Total 1400 / 1400 Output Total 0 / 0 Balance 1399 / 1399 0 / 0 Weight 101.151 kg 101.151 kg 101.831 kg Microbiology Reports for the Last 24 Hours: Microbiology 09/12/22 10:20 Sputum - Expectorated Sputum Gram Stain - Final Constitutional: Present no acute distress, obese and chronically ill appearing Head: Present atraumatic and normocephalic ENT: Present normal exam Neck: Present normal inspection Respiratory: Present rhonchi, wheezes and normal respiratory effort; Absent accessory muscle use or crackles Cardiac: Present Reg Rate and Rhythm GI: Present normal bowel sounds; Absent tenderness Extremities: Present normal inspection and full ROM Skin: Present intact; Absent erythema Neuro: Present Grossly Intact, alert, awake, oriented x 3 and moves all extremities Assessment and Plan *Assessment and plan (1) Hypoxia: Status: Acute Category: Medical Code(s): R09.02 - Hypoxemia (2) Bronchitis: Status: Acute Category: Medical Code(s): J40 - Bronchitis, not specified as acute or chronic (3) Chest pain: Status: Acute Qualifiers: Chest pain type: other chest pain Qualified Code(s): R07.89 - Other chest pain Category: Medical Code(s): R07.9 - Chest pain, unspecified (4) Tobacco abuse: Status: Acute Category: Medical Code(s): Z72.0 - Tobacco use (5) Seizure disorder: Status: A
--- NOTE | 2022-09-13 16:43 | XR_ITS ---
PROCEDURE INFORMATION: Exam: XR Chest Exam date and time: 09/13/2022 4:50 PM Age: 41 years old Clinical indication: Dyspnea TECHNIQUE: Imaging protocol: Radiologic exam of the chest. Views: 1 view. COMPARISON: CR XR CHEST PORTABLE 09/11/2022 8:50 PM FINDINGS: Lungs: Interval development of indistinct perihilar tubular shaped opacities right lung as well as small faint nodular opacities left upper lobe of uncertain etiology. CT chest recommended for further assessment. Pleural spaces: Unremarkable. No pleural effusion. No pneumothorax. Heart/Mediastinum: Unremarkable. No cardiomegaly. Bones/joints: Unremarkable for age. IMPRESSION: Interval development of indistinct nodular/tubular shaped opacities mid to upper lung zones more pronounced on the right possibly secondary to mucous plugging. CT chest recommended for further assessment.
--- NOTE | 2022-09-13 17:09 | PC.NURSE ---
PT HAS C/O PAIN T/O SHIFT, MANAGED WELL WITH PRESCRIBED PAIN MEDS. RA SAT DROPPED TO 88%. PT MAINTAINS AT 92% WITH 3L O2 VIA NC, UNABLE TO WEAN O2. PT HAS REQUESTED MULTIPLE BREATHING TX THIS SHIFT. MD NOTIFIED. CXR ORDERED. CB WITHIN REACH
[2022-09-14] VITALS (10 sets, daily range): BP systolic 114–133; BP diastolic 61–73; PULSE 84–102; RESP 18–22; TEMP 36.7–36.9; O2SAT 87–100; BMI 34.9
--- NOTE | 2022-09-14 05:37 | PC.NURSE ---
no changes from previous assessment, vss, 02 sats 93% on 3L pnc, bilateral expiratory and inspiratory wheezes noted, no acute distress, no other issues or concerns at this time.
[2022-09-14 06:26] LABS: Anion Gap 10.6 mEq/L (5-15); Basophils # 0.1 K/mm3 (0-0.2); Basophils % 0.7 % (0.1-2.0); Blood Urea Nitrogen 17 mg/dl (7-17); Calcium 7.9 mg/dl (8.4-10.2); Carbon Dioxide 23 mmol/L (22.0-30.0); Chloride 105 mmol/L (98-107); Creatinine Clearance Estimated 195 mL/min (50-200); Eosinophils # 0.3 K/mm3 (0.0-0.4); Eosinophils % 2.2 % (0.1-12.0); Estimated Glomerular Filt Rate 110 ml/min (>60); GFR (African American) 133 ML/MIN (>60); Glucose 100 mg/dl (74-100); Hematocrit 36.1 % (37.0-47.0); Hemoglobin 11.9 g/dL (12.2-16.2); Lymphocytes # 2.7 K/mm3 (0.7-4.5); Lymphocytes % 20.3 % (10-50); Mean Corpuscular HGB Conc 32.9 g/dL (31.8-35.4); Mean Corpuscular Hemoglobin 28.1 pg (27.0-31.2); Mean Corpuscular Volume 85.3 fl (81-99); Mean Platelet Volume 7.6 fl (7.4-10.4); Monocytes # 0.8 K/mm3 (0.1-1.0); Monocytes % 6.4 % (1.7-9.3); Neutrophils # 9.2 K/mm3 (1.8-7.8); Neutrophils % 70.3 % (37.0-80.0); Platelet Count 358 K/mm3 (142-424); Potassium 3.6 mmoL/L (3.5-5.1); Red Blood Count 4.23 M/mm3 (4.20-5.40); Red Cell Distribution Width 13.9 % (11.5-17.5); Sodium 135 mmol/L (136-145); White Blood Count 13.1 K/mm3 (4.8-10.8)
--- NOTE | 2022-09-14 09:00 | EXP.DC.SUM ---
General Admission date:: 09/11/22 Discharge date: 09/14/22 HPI HPI HPI: Ms. Carnes is a 41-year-old female with a past medical history of chronic tobacco use, Seizure disorder, Anxiety disorder. She presented to [facility] by [facility] due to acute episode of shortness of air associated with chest pain that occurred prior to coming, she reports worsening of her symptoms over a two-day period. Per EMS record on arrival to the home the patient was 89% on room air. She was transferred to the ER for evaluation. In the ER the patient underwent an EKG that showed NSR with rate of 93. Troponin was <0.01. CTA of the chest was performed and showed findings consistent with Bronchitis. Procalcitonin was within normal limits at 0.050. On exam the patient has coarse inspiratory and expiratory wheezing. The patient reports that she was seen by her PCP today and diagnosed with Augmentin and had taken 1 dose with worsening of symptoms. The patient will be admitted with initial impression: Hypoxia, Chest Pain and Acute Bronchitis. She will be continued on steroids and nebulizers, given Azithromycin and have further cultures and studies performed. Cardiology will be consulted due to chest pain and echo will be ordered for the am. The plan of care was discussed with the patient at bedside. She verbalized understanding and agreement with the plan of care. Hospital Course Hospital Course Hospital Course: 41-year-old female with past medical history of chronic tobacco use, Seizure Disorder, Depression, Anxiety Disorder who presented to the ER with 2 days of worsening cough and shortness of breath. Also complaining of lower thoracic pain due to severity of coughing. Found to be hypoxic on presentation. Positive for rhinovirus. Admitted for further management. Problems addressed as follows: - Hypoxia - Bronchitis for COPD observation Initial imaging showing bronchitis but no focal pneumonia. Patient has extensive smoking history, has smoked for at least 19 years 1 to 2 packs a day during that timeframe. Best calculation at least [id number] history. Initiated on supplemental oxygen, breathing treatments, antibiotics. Slow to respond but saw gradual improvement. On day of discharge was able to wean to 2 L nasal cannula to maintain saturations above 90%. Room air sat of 87% on day of discharge. Will send home with oxygen. Continue azithromycin and complete Augmentin course after discharge. We will continue DuoNebs, nebulizer ordered. Complete 5 days total of prednisone. Continue home Singulair. Resume Symbicort at discharge. Pulmonology consulted to help establish patient after discharge. Medically stable for discharge home to continue to convalesce from her viral induced bronchitis. Significant reassurance offered to patient today. - Chest Pain Musculoskeletal in nature, secondary to coughing. Responded well to tramadol. Will discharge home with tramadol for a few days. Cardiology was consulted early in admission out of concern for chest pain radiating down her arm. Had negative troponins and normal EKG. Likely related to her coughing and musculoskeletal pain. Did initiate however on aspirin and Lipitor due to patient having an elevated LDL. No further interventions planned at this time ? - Tobacco Abuse: Counseled on cessation, NRT started. Patient wants to quit, discharged with nicotine patches - Seizure Disorder: Will continue home Oxcarbazepine Medically stable for discharge home. DME equipment sent including oxygen and nebulizer. Follow-up with PCP in 1 to 2 weeks and pulmonology in the next 6 weeks Exam Data for Last 24 hours Vital signs and Labs for Last 24 Hours: Temp Pulse Resp BP Pulse Ox FiO2 98.4 F 88 20 128/72 90 L 32 09/14/22 07:22 09/14/22 07:22 09/14/22 07:22 09/14/22 07:22 09/14/22 07:22 09/12/22 23:55 Laboratory Results - last 24 hr 09/14/22 05:57: WBC 13.1 H, RBC
--- NOTE | 2022-09-14 09:33 | EXP.PULM.CON ---
History of Present Illness History of present illness: Ms. Carnes is a 41-year-old female current smoker, family history of asthma possible history of allergies on Symbicort at home, not using any oxygen presented to the ER 2 days ago worsening respiratory's increasing ox requirements has been managed for acute hypoxic respiratory failure and pulmonary was consulted today for follow-up and evaluation as an outpatient for her presumed COPD. [facility] Disclaimer: The information contained in this section may have been updated after the patient was seen, as this information can be updated by other users. Medical History (Updated 09/14/22 @ 09:01 by Sandip Adorno MD) Anxiety disorder Depression Seizure disorder Shortness of Breath Surgical History (Updated 09/11/22 @ 22:38 by Tay Landers DNP) H/O brain surgery Family History (Updated 09/12/22 @ 09:09 by Emily Hernandez APRN) Father Hypertension Social History (Updated 09/12/22 @ 09:09 by Emily Hernandez APRN) Smoking Status: Former smoker how long ago did patient quit smokin days ago alcohol intake: never substance use type: denies use current occupational status: employed Travel in the last 8 weeks: None adopted: No caregiver/support person: No foster care: No household members: spouse and children housing: apartment lives independently: Yes marital status: number of children: 1 education level: college service: No half-way: No current occupational exposures/hazards: No pets and animals: No sexually active: Yes Review of Systems Constitutional Constitutional: Reports anorexia, Reports body ache(s) and Reports fatigue Eyes Eyes: Denies eye discharge, Denies dry eyes, Denies irritation and Denies itchy eyes ENT Ears, Nose, Mouth, and Throat: Denies epistaxis, Denies facial pain, Denies lip swelling, Reports nasal discharge and Denies throat swelling *Cardiovascular Cardiovascular: Reports dyspnea and Reports dyspnea on exertion *Respiratory Respiratory: Reports chest congestion, Reports cough, Reports dyspnea, Reports dyspnea on exertion and Reports wheezing *Gastrointestinal Gastrointestinal: Denies abdominal pain, Denies belching and Denies cramping *Musculoskeletal Musculoskeletal: Reports back pain, Reports myalgias and Reports other (No small joint swelling or Pain) *Neurologic Neurologic: Reports system reviewed and no additional complaints, except as documented Psychiatric Psychiatric: Denies homicidal ideation and Denies suicidal ideation Endocrine Endocrine: Reports fatigue and Denies heat intolerance Hematologic/Lymphatic Hematologic/Lymphatic: Denies easy bleeding and Denies lymphadenopathy Allergic/Immunologic Allergic/Immunologic: Denies itchy eyes, Denies lip swelling, Denies throat swelling and Reports wheezing Pulmonology Exam Inpatient Vital signs and Labs for Last 24 Hours: Temp Pulse Resp BP Pulse Ox FiO2 98.4 F 88 20 128/72 90 L 32 09/14/22 07:22 09/14/22 07:22 09/14/22 07:22 09/14/22 07:22 09/14/22 07:22 09/12/22 23:55 Laboratory Results - last 24 hr 09/14/22 05:57: WBC 13.1 H, RBC 4.23, Hgb 11.9 L, Hct 36.1 L, MCV 85.3, MCH 28.1, MCHC 32.9, RDW 13.9, Plt Count 358, MPV 7.6, Neut % (Auto) 70.3, Lymph % (Auto) 20.3, [place] % (Auto) 6.4, Eos % (Auto) 2.2, Baso % (Auto) 0.7, Neut # (Auto) 9.2 H, Lymph # (Auto) 2.7, [place]ole # (Auto) 0.8, Eos # (Auto) 0.3, Baso # (Auto) 0.1 09/14/22 05:57: Sodium 135 L, Potassium 3.6, Chloride 105, Carbon Dioxide 23, Anion Gap 10.6, BUN 17, Creatinine 0.60, Estimated Creat Clear 195, Estimated GFR 110, Est GFR ( Amer) 133, Glucose 100, Calcium 7.9 L I & O for Labs for Last 24 Hours: Intake & Output 09/11/22 09/12/22 09/13/22 09/14/22 23:59 23:59 23:59 23:59 Intake Total 1400 / 1400 480 / 580 340 / 340 Output Total 0 / 0 0 / 0 Balance 1399 / 1399 480 / 580 340 / 340 Weight 223 lb 222 lb 15.996 oz 224 lb 8 oz 222 lb
--- NOTE | 2022-09-14 09:55 | HMH.PTEV ---
Physical Therapy Evaluation Rehab PT IP Evaluation Start: 09/13/22 19:51 Freq: ONCE Status: Active Protocol: Document 09/14/22 09:48 JANAE (Rec: 09/14/22 09:55 PASTOREVELYN [id number]) Subjective/History History History 41 yowf adm to [facility] with COPD with rhinovirus and hx of anxiety and seizure disorder. She reports she lives with family, has stairs to bathroom , and is generally independent with all mobility without AD. Subjective Subjective She reports feeling somewhat better this am and agrees to OOB mobility assessment. She does currently have oxygen on via NC at 3 L/min at all times . Rehab PT IP Eval Objective Appearance Patient Behavior Appropriate Patient Orientation Person,Place,Time Difficulty following instructions none Speech Pattern Clear Ambulation Patient Able to Ambulate Yes Ambulation Observation IP General Gait Pattern Observation No Deviations/Normal Ambulation Distance (feet) 30 Ambulation Assistive Device None Ambulation Ability Independent Balance Ability to Arise Able, uses arms to help Sitting Balance Steady, safe Standing Balance Steady, wide stance Dynamic Sitting Balance Ability Good Dynamic Standing Balance Ability Good Transfers Bed Transfer Ability Independent Chair Transfer Ability Independent Sit to Stand Bed Transfer Ability Independent Sit to Stand Chair Transfer Ability Independent ROM All Extremities PT ROM Status WFL MMT All Extremities PT MMT WFL Rehab PT IP prob,goals,plan Problems Date of Evaluation: 09/14/22 Discharge Plan PT Discharge Plan Pt is currently independent with all mobility and appropriate to return home safely once medically stable for d/c. She did wear NC O2 at all times during treatment. G -code Required No Eval Complexity Eval Charge Codes 74348 - Moderate Complexity PHYSICIAN CERTIFICATION: I certify the specified therapy services for Indira Carnes are required, authorized, and reviewed every 30 days.
--- NOTE | 2022-09-14 11:27 | PC.NURSE ---
dc order in. pt stated her ride will be here between 4-5.
--- NOTE | 2022-09-14 11:34 | CARE MANAGER ---
Patient agrees to [facility] for nebulizer and Oxygen equipment. Information sent and will be delivered here prior to DC. EVETTE Trinidad
[2022-09-14 15:24] LABS: Body Fluid Culture, Sterile Not indicated. (.); Legionella pneumophila Urinary Negative (Negative); Organism ID Not indicated. (.); Specimen Source Urine (.); Streptococcus pneumoniae Ag Negative (Negative)
--- NOTE | 2022-09-18 14:08 | CARE MANAGER ---
Attempted to contact patient x2 related to hospital discharge. No VM option.
== END 2022-09-14 17:19 | disposition home or self-care (01) | DRG 192 ==
LOC: ER 22:07 → 2ND 22:40
PROVIDERS: Internal Medicine Adolescent Medicine; Nurse Practitioner Family; Admitting Provider Family Medicine; Emergency Provider Emergency Medicine; Visit Provider Family Medicine
DX: J44.1 Chronic obstructive pulmonary disease with (acute) exacerbation (principal); I25.10 Atherosclerotic heart disease of native coronary artery without angina pectoris; R07.89 Other chest pain; G40.909 Epilepsy, unspecified, not intractable, without status epilepticus; F17.200 Nicotine dependence, unspecified, uncomplicated; Z71.6 Tobacco abuse counseling; F41.9 Anxiety disorder, unspecified
CPT/HCPCS: 36415; 71045; 71275; 80048; 80053; 80061; 81001; 81025; 83605; 83880; 84145; 84484; 85025; 85651; 86140; 87040; 87070; 87205; 87581; 87632; 87798; 87899; 93005; 93306; 94640; 97162; 99285; C9803; G0378; J0456; J2405; Q9967; U0003; U0005

== ENCOUNTER 2022-12-06 18:57 | Emergency (ER) | payer MEDICARE, MEDICAID, SELFPAY ==
[2022-12-06 18:57] VITALS: BP 125/69; PULSE 66; RESP 16; TEMP 36.6; O2SAT 96; BMI 38.2
--- NOTE | 2022-12-06 19:00 | CT_ITS ---
PROCEDURE INFORMATION: Exam: CT Abdomen And Pelvis Without Contrast Exam date and time: 12/06/2022 7:27 PM Age: 41 years old Clinical indication: Abdominal pain; Right; Prior surgery; Surgery date: 6+ months; Surgery type: ; Patient HX: RT flank pain, hematuria, n/d x 1 wk. HX renal stones. ; Additional info: Rlq and RT flank pain TECHNIQUE: Imaging protocol: Computed tomography of the abdomen and pelvis without contrast. Radiation optimization: All CT scans at this facility use at least one of these dose optimization techniques: automated exposure control; mA and/or kV adjustment per patient size (includes targeted exams where dose is matched to clinical indication); or iterative reconstruction. REPORTING DATA: Count of CT and Cardiac NM exams in prior 12 months: This patient has received [address] and 0 known cardiac nuclear medicine studies in the 12 months prior to the current study. COMPARISON: ABDPELW/O CT ABD PELVIS W/O CONTRAST 12/07/2016 04:37 FINDINGS: Lungs: Mild scarring and atelectasis in the lower lungs. Liver: Normal. No mass. Gallbladder and bile ducts: Normal. No calcified stones. No ductal dilation. Pancreas: Normal. No ductal dilation. Spleen: Normal. No splenomegaly. Adrenal glands: Normal. No mass. Kidneys and ureters: Nonobstructing left renal calculus. Stomach and bowel: Unremarkable. No obstruction. No mucosal thickening. Appendix: Unremarkable appendix. Intraperitoneal space: Unremarkable. No free air. No significant fluid collection. Vasculature: Unremarkable. No abdominal aortic aneurysm. Lymph nodes: Unremarkable. No enlarged lymph nodes. Urinary bladder: Unremarkable as visualized. Reproductive: There is a 4.3 cm right ovarian cystic lesion that is most likely a simple cyst. Bones/joints: Unremarkable. No acute fracture. Soft tissues: Posterior soft tissue edema. IMPRESSION: 1. No acute findings. 2. Nonobstructing left renal calculus.
[2022-12-06 19:06] LABS: Microscopic, Urine URINE MICROSCOPIC (MICROSCOPIC)
[2022-12-06 19:13] LABS: Basophils # 0.1 K/mm3 (0-0.2); Basophils % 0.6 % (0.1-2.0); Eosinophils # 0.3 K/mm3 (0.0-0.4); Eosinophils % 2.7 % (0.1-12.0); Hematocrit 38.6 % (37.0-47.0); Hemoglobin 12.3 g/dL (12.2-16.2); Lymphocytes # 3.4 K/mm3 (0.7-4.5); Lymphocytes % 28.1 % (10-50); Mean Corpuscular HGB Conc 31.9 g/dL (31.8-35.4); Mean Corpuscular Hemoglobin 27.1 pg (27.0-31.2); Mean Corpuscular Volume 84.8 fl (81-99); Mean Platelet Volume 7.3 fl (7.4-10.4); Monocytes # 0.9 K/mm3 (0.1-1.0); Monocytes % 7.3 % (1.7-9.3); Neutrophils # 7.3 K/mm3 (1.8-7.8); Neutrophils % 61.3 % (37.0-80.0); Platelet Count 377 K/mm3 (142-424); Red Blood Count 4.56 M/mm3 (4.20-5.40); Red Cell Distribution Width 14.2 % (11.5-17.5); White Blood Count 11.9 K/mm3 (4.8-10.8)
[2022-12-06 19:15] LABS: Appearance,Urine CLEAR (Clear); Bilirubin,Urine Negative (Negative); Blood, Urine Negative (Negative); Color,Urine YELLOW (Yellow); Glucose,Urine (UA) Negative (Negative); Ketones,Urine Negative (Negative); Leukocyte Esterase,Urine Negative (Negative); Nitrate,Urine Negative (Negative); Protein,Urine Negative (Negative); Urobilinogen,Urine 0.2 EU/dl (0.2)
[2022-12-06 19:17] LABS: Urine Pregnancy, HCG Qual. Negative (Negative)
[2022-12-06 19:18] LABS: Alanine Aminotransferase 30 U/L (12-78); Albumin Level 4.1 g/dl (3.5-5.0); Albumin/Globulin Ratio 1.6 (1.1-1.8); Alkaline Phosphatase 95 U/L (38-126); Amylase 58 U/L (30-110); Anion Gap 14.9 mEq/L (5-15); Aspartate Amino Transferase 30 U/L (14-36); Bilirubin,Total 0.2 mg/dl (0.2-1.3); Blood Urea Nitrogen 14 mg/dl (7-17); Calcium 9.3 mg/dl (8.4-10.2); Carbon Dioxide 21 mmol/L (22.0-30.0); Chloride 104 mmol/L (98-107); Creatinine Clearance Estimated 256 mL/min (50-200); Estimated Glomerular Filt Rate 135 ml/min (>60); GFR (African American) 164 ML/MIN (>60); Globulin 2.6 g/dL (1.3-3.2); Glucose 92 mg/dl (74-100); Lipase 63 U/L (23-300); Potassium 3.9 mmoL/L (3.5-5.1); Sodium 136 mmol/L (136-145); Total Protein,Serum 6.7 g/dl (6.3-8.2)
[2022-12-06 19:23] LABS: C-Reactive Protein 7.7 mg/L (0-4)
[2022-12-06 19:26] LABS: Bacteria,Urine Trace /lpf; WBC,Urine Occasional #/hpf (0-3)
[2022-12-06 19:37] LABS: Procalcitonin 0.037 ng/mL (0.0-2.0)
[2022-12-06 20:11] LABS: Erythrocyte Sedimentation Rate 20 mm/hr (0-20)
--- NOTE | 2022-12-06 20:56 | HMH.EDABDPAI ---
Discharge Plan Disposition Patient Disposition: Home, Self-Care Prescriptions Prescriptions: No Action fluoxetine 10 mg Tablet 10 mg PO HS propranolol 10 mg Tablet 10 mg PO BID lorazepam 0.5 mg Tablet 0.5 mg PO BIDP PRN (Reason: Anxiety) Oxtellar XR 300 mg Tablet Extended Release 24 Hr 300 mg PO HS Rx Instructions: must be taken on empty stomach; no food at least 2 hrs before or 1 hr after dose Oxtellar XR 600 mg Tablet Extended Release 24 Hr 1,200 mg PO HS Rx Instructions: must be taken on empty stomach; no food at least 2 hrs before or 1 hr after dose montelukast 10 mg tablet 10 mg PO PM Label Comments: TAKE 1 TABLET BY MOUTH NIGHTLY albuterol sulfate 90 mcg/actuation HFA aerosol inhaler 2 puff INHALATION Q6HP PRN (Reason: Shortness Of Breath) Label Comments: TAKE 2 PUFFS BY MOUTH EVERY 6 HOURS NEEDED FOR WHEEZE budesonide-formoterol [Symbicort] 160-4.5 mcg/actuation HFA aerosol inhaler 2 puff INHALATION BID Label Comments: INHALE 2 PUFFS INTO THE LUNGS 2 TIMES DAILY atorvastatin 20 mg Tablet 20 mg PO HS 30 Days Qty: 30 0RF oxcarbazepine 300 mg Tablet 1,500 mg PO HS 30 Days Qty: 150 0RF aspirin 81 mg Tablet,Delayed Release (Dr/Ec) 81 mg PO DAILY 30 Days Qty: 30 0RF tramadol 50 mg Tablet 50 mg PO Q6HP PRN (Reason: Moderate To Severe Pain) 3 Days Qty: 12 0RF nicotine 21 mg/24 hr Patch 24 Hour 21 mg transdermal DAILY 30 Days Qty: 30 0RF ipratropium-albuterol 0.5 mg-3 mg(2.5 mg base)/3 mL Solution For Nebulization 3 ml inhalation Q4HP PRN (Reason: Shortness Of Breath) 30 Days Qty: 120 0RF azithromycin 250 mg Tablet 500 mg PO 2100 1 Days Qty: 2 0RF prednisone 20 mg Tablet 40 mg PO DAILY 2 Days Qty: 4 0RF amoxicillin-pot clavulanate 500-125 mg Tablet 1 ea PO TID 4 Days Qty: 12 0RF Referrals Follow up/Referrals: Provider,Referral, MD [Primary Care Provider] - See instructions Clinical Impressions Clinical Impression: Abdominal pain, Ovarian cyst Instructions Patient Instructions: DI for Ovarian Cyst, DI for Acute Abdominal Pain Discharge ED Provider: Tonny (ED)Siddhartha Abdominal Pain HPI General Chief Complaint: Abdominal Pain Stated Complaint: abd pain Time Seen by Provider: 12/06/22 20:56 Mode of Arrival: EMS Source of Information: Patient and Medical Record Limitations: No Limitations Description of Symptoms (Recalled from ER Triage Doc. by RN): pt c/o frequent urination, cloudy urine, RLQ pain radiating to rt flank pain. History of Present Illness HPI narrative: pt with rt flank pain and rt lower abd pain over the last few days - pt has seen pcp x 2 - no fever or vaginal d/c - feels bloated MD complaint: flank pain Onset (ago): day(s) Consistency: intermittent Severity: moderate Associated symptoms: denies other symptoms Related Data Home Medications Medication Instructions Recorded Confirmed albuterol sulfate 90 mcg/actuation 2 puff inhalation Q6HP PRN 09/12/22 09/12/22 aerosol inhaler Shortness Of Breath budesonide-formoterol HFA 160 2 puff inhalation BID Breathing 09/12/22 09/12/22 mcg-4.5 mcg/actuation aerosol problems inhaler (Symbicort) fluoxetine 10 mg tablet 10 mg PO HS Anxiety 09/12/22 09/13/22 lorazepam 0.5 mg tablet 0.5 mg PO BIDP PRN Anxiety 09/12/22 09/12/22 montelukast 10 mg tablet 10 mg PO PM Allergy symptoms 09/12/22 09/12/22 oxcarbazepine 300 mg 300 mg PO HS seizures 09/12/22 09/13/22 tablet,extended release 24 hr (Oxtellar XR) oxcarbazepine 600 mg 1,200 mg PO HS seizures 09/12/22 09/13/22 tablet,extended release 24 hr (Oxtellar XR) propranolol 10 mg tablet 10 mg PO BID anxiety 09/12/22 09/12/22 Previous Rx's Medication Instructions Recorded amoxicillin 500 mg-potassium 1 ea PO TID 4 days #12 tabs 09/14/22 clavulanate 125 mg tablet aspirin 81 mg tablet,delayed 81 mg PO DAILY 30 days #30 tabs 09/14/22 release ator
[2022-12-06 21:11] VITALS: BP 119/78; PULSE 67; RESP 16; TEMP 36.6; O2SAT 96
== END 2022-12-06 21:13 | disposition home or self-care (01) ==
PROVIDERS: Emergency Medicine; Emergency Provider Emergency Medicine
DX: R10.31 Right lower quadrant pain (principal); R35.0 Frequency of micturition; J44.9 Chronic obstructive pulmonary disease, unspecified; G40.919 Epilepsy, unspecified, intractable, without status epilepticus; F32.A Depression, unspecified; F41.9 Anxiety disorder, unspecified; N83.201 Unspecified ovarian cyst, right side
CPT/HCPCS: 74176; 80053; 81001; 81025; 82150; 83690; 84145; 85025; 85651; 86140; 96361; 96374; 96375; 99284; 99285; J0131; J2405

== ENCOUNTER 2023-08-29 19:52 | Emergency (ER) | payer MEDICARE, MEDICAID, SELFPAY ==
[2023-08-29 19:53] VITALS: BP 152/86; PULSE 85; RESP 18; TEMP 36.4; O2SAT 96; BMI 40.3
--- NOTE | 2023-08-29 20:15 | ED_ITS ---
Discharge Plan Disposition Patient Disposition: Home, Self-Care Condition: Good Prescriptions Prescriptions: New pantoprazole 20 mg tablet,delayed release (DR/EC) 20 mg PO DAILY Qty: 30 0RF No Action fluoxetine 10 mg Tablet 10 mg PO HS propranolol 10 mg Tablet 10 mg PO BID lorazepam 0.5 mg Tablet 0.5 mg PO BIDP PRN (Reason: Anxiety) Oxtellar XR 300 mg Tablet Extended Release 24 Hr 300 mg PO HS Rx Instructions: must be taken on empty stomach; no food at least 2 hrs before or 1 hr after dose Oxtellar XR 600 mg Tablet Extended Release 24 Hr 1,200 mg PO HS Rx Instructions: must be taken on empty stomach; no food at least 2 hrs before or 1 hr after dose montelukast 10 mg tablet 10 mg PO PM Patient Comments: TAKE 1 TABLET BY MOUTH NIGHTLY albuterol sulfate 90 mcg/actuation HFA aerosol inhaler 2 puff INHALATION Q6HP PRN (Reason: Shortness Of Breath) Patient Comments: TAKE 2 PUFFS BY MOUTH EVERY 6 HOURS NEEDED FOR WHEEZE budesonide-formoterol [Symbicort] 160-4.5 mcg/actuation HFA aerosol inhaler 2 puff INHALATION BID Patient Comments: INHALE 2 PUFFS INTO THE LUNGS 2 TIMES DAILY atorvastatin 20 mg Tablet 20 mg PO HS 30 Days Qty: 30 0RF oxcarbazepine 300 mg Tablet 1,500 mg PO HS 30 Days Qty: 150 0RF aspirin 81 mg Tablet,Delayed Release (Dr/Ec) 81 mg PO DAILY 30 Days Qty: 30 0RF tramadol 50 mg Tablet 50 mg PO Q6HP PRN (Reason: Moderate To Severe Pain) 3 Days Qty: 12 0RF nicotine 21 mg/24 hr Patch 24 Hour 21 mg transdermal DAILY 30 Days Qty: 30 0RF ipratropium-albuterol 0.5 mg-3 mg(2.5 mg base)/3 mL Solution For Nebulization 3 ml inhalation Q4HP PRN (Reason: Shortness Of Breath) 30 Days Qty: 120 0RF azithromycin 250 mg Tablet 500 mg PO 2100 1 Days Qty: 2 0RF prednisone 20 mg Tablet 40 mg PO DAILY 2 Days Qty: 4 0RF amoxicillin-pot clavulanate 500-125 mg Tablet 1 ea PO TID 4 Days Qty: 12 0RF Referrals Follow up/Referrals: [place],Dede, [employer] [Primary Care Provider] - See instructions Activity Restrictions/Add. Instructions Additional Instructions/Restrictions: Please call and make an appointment with GANG HEMSTITCHING MACHINE OPERATOR in the morning for evaluation of the right ovarian cyst and right mesenteric lymph nodes, please call your PCP and make an appointment for referral for gastroenterology. A prescription for a proton pump inhibitor has been called into your pharmacy. Please return to the emergency department or PCP for any worsening or change in her symptoms. Please keep your ultrasound appointment on Sunday for your gallbladder. Clinical Impressions Clinical Impression: Abdominal pain, acute Instructions Patient Instructions: DI for Acute Abdominal Pain Discharge ED Provider: Petrona Arellano General Adult HPI <FRED Morrison - Last Filed: 08/29/23 22:02> General Chief complaint: Abdominal Pain Stated complaint: abd/back pain, diarrhea Time Seen by Provider: 08/29/23 20:15 Mode of Arrival: Ambulatory Source of Information: Patient Limitations: No Limitations Description of Symptoms (Recalled from ER Triage Doc. by RN): Patient reports that she was seen by her primary care doctor one week previously and found that she had elevated liver enzymes . Patient states that she had an appointment on September 03 but the pain has steadily increased to a 9/10. Patient reports lower abdominal pain that radiates to her kidneys and is worse when she eats. Multiple episodes of diarrhea per day and she describes the pain as intermittently sharp, with pressure and heat . History of Present Illness HPI narrative: Patient presents for evaluation of intermittent acute abdominal pain that is located mainly in the epigastrium over the last 2 weeks. Patient has been seen by her PCP and had an ultrasound scheduled for next week at [facility]. However patient states that her pain has continued to persist and is mainly after she eats. She has had some nausea but no chest pain shortness of breath fever chills hemoptysis hematochezia melena hematemesis. Patient also reports loose stool after she eats. Related Data Home Medications Medication Instructions Recorded Confirmed albuterol sulfate 90 mcg/actuation 2 puff inhalation Q6HP PRN 09/12/22 09/12/22 aerosol inhaler Shortness Of Breath budesonide-formoterol HFA 160 2 puff inhalation BID Breathing 09/12/22 09/12/22 mcg-4.5 mcg/actuation aerosol problems inhaler (Symbicort) fluoxetine 10 mg tablet 10 mg PO HS Anxiety 09/12/22 09/13/22 lorazepam 0.5 mg tablet 0.5 mg PO BIDP PRN Anxiety 09/12/22 09/12/22 montelukast 10 mg tablet 10 mg PO PM Allergy symptoms 09/12/22 09/12/22 oxcarbazepine 300 mg 300 mg PO HS seizures 09/12/22 09/13/22 tablet,extended release 24 hr (Oxtellar XR) oxcarbazepine 600 mg 1,200 mg PO HS seizures 09/12/22 09/13/22 tablet,extended release 24 hr (Oxtellar XR) propranolol 10 mg tablet 10 mg PO BID anxiety 09/12/22 09/12/22 Previous Rx's Medication Instructions Recorded amoxicillin 500 mg-potassium 1 ea PO TID 4 days #12 tabs 09/14/22 clavulanate 125 mg tablet aspirin 81 mg tablet,delayed 81 mg PO DAILY 30 days #30 tabs 09/14/22 release atorvastatin 20 mg tablet 20 mg PO HS 30 days #30 tabs 09/14/22 azithromycin 250 mg tablet 500 mg (2 x 250 mg) PO 2100 1 day 09/14/22 #2 tabs ipratropium 0.5 mg-albuterol 3 mg 3 ml inhalation Q4HP PRN Shortness 09/14/22 (2.5 mg base)/3 mL nebulization Of Breath 30 days #120 ea soln nicotine 21 mg/24 hr daily 21 mg transdermal DAILY 30 days 09/14/22 transdermal patch #30 ea oxcarbazepine 300 mg tablet 1,500 mg (5 x 300 mg) PO HS 30 09/14/22 days #150 tabs prednisone 20 mg tablet 40 mg (2 x 20 mg) PO DAILY 2 days 09/14/22 #4 tabs tramadol 50 mg tablet 50 mg PO Q6HP PRN Moderate To 09/14/22 Severe Pain 3 days #12 tabs pantoprazole 20 mg tablet,delayed 20 mg PO DAILY #30 tabs 08/29/23 release Allergies Allergy/AdvReac Type Severity Reaction Status Date / Time doxycycline [DOXYCYCLINE] Allergy Unknown Unknown Verified 09/12/22 09:19 allergy reaction latex [LATEX] Allergy Unknown Unknown Verified 09/12/22 09:19 allergy reaction sulfamethoxazole Allergy Unknown Unknown Verified 09/12/22 09:19 [From BACTRIM] allergy reaction trimethoprim [From BACTRIM] Allergy Unknown Unknown Verified 09/12/22 09:19 allergy reaction PFSH <FRED Morrison - Last Filed: 08/29/23 22:02> [facility] Disclaimer: The information contained in this section may have been updated after the patient was seen, as this information can be updated by other users. Medical History (Updated 08/29/23 @ 22:01 by FRED Morrison) Acute respiratory failure with hypoxia COPD (chronic obstructive pulmonary disease) Shortness of Breath Anxiety disorder Depression Seizure disorder Epileptic seizure Generalized seizure Polyhydramnios affecting in third trimester Surgical History (Updated 09/18/22 @ 00:00 by Trini Quesada) H/O brain surgery Family History (Updated 09/12/22 @ 09:09 by Emily Hernandez APRN) Father Hypertension Social History (Updated 09/12/22 @ 09:09 by Emily Hernandez APRN) Smoking Status: Former smoker tobacco type: cigarettes packs per day: 1 how long ago did patient quit smokin days ago alcohol intake: never substance use type: denies use current occupational status: employed Travel in the last 8 weeks: None adopted: No caregiver/support person: No foster care: No household members: spouse and children housing: apartment lives independently: Yes marital status: number of children: 1 education level: college service: No intermediate: No current occupational exposures/hazards: No pets and animals: No sexually active: Yes <FRED Morrison - Last Filed: 08/29/23 22:02> ROS Obtained: Yes Systems reviewed as appropriate & no additional complaints except as documented Physical Exam <FRED Morrison - Last Filed: 08/29/23 22:02> General General appearance: alert and in no apparent distress Head Head exam: atraumatic and normal inspection Eye Eye exam: Present normal appearance, PERRL and EOMI ENT ENT exam: Present normal exam, normal oropharynx and mucous membranes moist Neck Neck exam: Present normal inspection, full ROM and trachea midline; Absent lymphadenopathy Chest Chest inspection: Present normal inspection and symmetric chest wall rise Respiratory Respiratory exam: Present normal lung sounds bilaterally; Absent accessory muscle use Cardiovascular Cardiovascular exam: Present regular rate, normal rhythm, normal heart sounds, +S1 and +S2 Abdominal Exam Abdominal exam: Present soft (Grossly obese), tenderness (Exquisitely tender to palpation in the epigastrium and diffusely tender in the remainder of the entirety of the abdomen) and normal bowel sounds; Absent rebound Extremities Exam Extremities exam: Present normal inspection and full ROM Back Exam Back exam: Present normal inspection and full ROM Neurological Exam Neurological exam: Present alert, oriented X3 and CN II-XII intact Psychiatric Psychiatric exam: Present normal affect and normal mood Skin Skin exam: Present warm, dry and normal color Lymphatic Lymphatic Findings: no adenopathy Medical Decision Making <FRED Morrison - Last Filed: 08/29/23 22:02> Medical Records Medical records reviewed: Yes I reviewed the patient's medical records. Rudy Inquiry Pt receiving controlled substance: No Vital Signs: 08/29/23 19:53 08/29/23 22:07 Temperature 97.6 F 97.6 F Temperature Source Oral Oral Pulse Rate 84 Pulse Rate [Left Radial] 85 Respiratory Rate 18 18 Blood Pressure 121/75 Blood Pressure [Right Arm] 152/86 H Blood Pressure Mean [Right Arm] 108 Blood Pressure Source [Right Arm] Automatic Cuff Blood Pressure Position [Right Arm] Sitting 02 Sat by Pulse Oximetry 96 Oxygen Delivery Method Room Air Lab Data Lab results reviewed: Yes I reviewed the patient's lab results. Lab Results 08/29/23 20:05: WBC 10.9 H, RBC 4.34, Hgb 12.4, Hct 38.6, MCV 88.9, MCH 28.5, MCHC 32.1, RDW 14.2, Plt Count 381, MPV 7.6, Neut % (Auto) 63.8, Lymph % (Auto) 26.2, Sharp % (Auto) 5.6, Eos % (Auto) 3.5, Baso % (Auto) 0.9, Neut # (Auto) 7.0, Lymph # (Auto) 2.9, Sharp # (Auto) 0.6, Eos # (Auto) 0.4, Baso # (Auto) 0.1, PT 10.0 L, INR 0.92, D-Dimer 0.32, Sodium 136, Potassium 3.7, Chloride 106, Carbon Dioxide 21 L, Anion Gap 12.7, BUN 12, Creatinine 0.60, Estimated Creat Clear 216, Estimated GFR 109, Est GFR ( Amer) 132, Glucose 109 H, Lactate 1.5, Calcium 9.4, Magnesium 2.1, Total Bilirubin 0.2, AST 27, ALT 26, Alkaline Phosphatase 115, Troponin I < 0.01, Total Protein 6.7, Albumin 4.0, Globulin 2.7, Albumin/Globulin Ratio 1.5, Lipase 49, Procalcitonin 0.044, Serum HCG, Qual Negative 08/29/23 20:30: Urine Color Yellow, Urine Appearance Clear, Urine pH 6.0, Ur Specific [place] >= 1.030, Urine Protein Negative, Urine Glucose (UA) Negative, Urine Ketones Negative, Urine Blood Negative, Urine Nitrate Negative, Urine Bilirubin Negative, Urine Urobilinogen 0.2, Ur Leukocyte Esterase Negative, Urine WBC 3-5, Ur Squamous Epith Cells Occasional, Urine Bacteria 1+, Urine Opiates Screen Negative, Urine Methadone Screen Negative, Ur Barbituates Screen Negative, Ur Phencyclidine Scrn Negative, Ur Amphetamines Screen Negative, U Benzodiazepines Scrn Negative, Urine Cocaine Screen Negative, U Marijuana (THC) Screen Negative 08/29/23 20:05 08/29/23 20:05 Orders (Tests/Meds): ED MEDICATIONS Discontinued Medications Generic Name Dose Route Start Last Admin Trade Name Freq PRN Reason Stop Dose Admin Acetaminophen 1,000 mg 08/29/23 20:37 08/29/23 21:00 Acetaminophen 1,000mg/100ml Vial IV 08/29/23 20:38 1,000 mg ONCE ONE Administration Belladonna Alkaloids 60 ml 08/29/23 21:21 08/29/23 21:31 Belladonna Alkaloids 60 Ml Ml PO 08/29/23 21:22 60 ml ONCE ONE Administration Lactated Ringer's 1,000 mls @ 999 mls/hr 08/29/23 20:24 08/29/23 21:00 Lactated Ringer's 1000 Ml Bag IV 08/29/23 21:24 999 mls/hr .Q1H1M ONE Administration Iopamidol 75 ml 08/29/23 20:57 08/29/23 20:57 Iopamidol-370 (76%);100ml Bottle IV 08/29/23 20:58 75 ml ONCE ONE Administration Ketorolac Tromethamine 15 mg 08/29/23 20:37 08/29/23 21:00 Ketorolac 30mg/Ml Vial IV 08/29/23 20:38 15 mg ONCE ONE Administration Sodium Chloride 10 ml 08/29/23 20:57 08/29/23 20:58 Sodium Chloride 0.9% 10ml Syr (Rad Only) IV 09/28/23 20:56 10 ml NEEDED PRN Administration Maintain IV Site ORDERS Category Date Time Status CT abdomen pelvis w con Stat Cat Scan 08/29/23 20:24 Completed CBC w/Auto Diff [Complete Blood Count Auto Diff] Stat Lab 08/29/23 20:05 Completed CMP [Comprehensive Metabolic Panel] Stat Lab 08/29/23 20:05 Completed D-Dimer Stat Lab 08/29/23 20:05 Completed HCG Qualitative, Serum Stat Lab 08/29/23 20:05 Completed INR [Prothrombin Time INR] Stat Lab 08/29/23 20:05 Completed Lactic Acid Stat Lab 08/29/23 20:05 Completed Lipase Stat Lab 08/29/23 20:05 Completed Magnesium Stat Lab 08/29/23 20:05 Completed Procalcitonin Stat Lab 08/29/23 20:05 Completed Trop I [Troponin I] Stat Lab 08/29/23 20:05 Completed UA [Urinalysis and Microscopic] Stat Lab 08/29/23 20:30 Completed UDS [Drug Screen,Urine] Stat Lab 08/29/23 20:30 Completed Medical Decision Narrative: In summary patient is a 42-year-old female who presents to the emergency department for evaluation of abdominal pain. Patient is normotensive normal heart rate afebrile satting at 96% on room air. Physical exam is remarkable for epigastric tenderness with no rebound or guarding or tenderness with normal bowel sounds. The remainder of her physical exam is nonfocal and unremarkable other than gross obesity. Differential diagnosis includes gastric ulcer, cholecystitis, pancreatitis, bowel obstruction, etc. Initial workup will be conducted with mental logic labs and a CT scan of the abdomen pelvis with contrast urinalysis. Initial interventions include Toradol acetaminophen and GI cocktail. Initial workup reviewed by me shows a hematologic labs that are nonactionable. My informal interpretation of her CT scan of the abdomen pelvis shows a right ovarian cyst along with right mesenteric adenitis but otherwise the remainder of her abdominal CT is unremarkable including normal gallbladder normal stomach no free air.. Upon repeat evaluation patient reports still having pain that has been unaffected by any of the interventions including Toradol acetaminophen and GI cocktail. Patient is not complaining of any focal pain in the right lower quadrant in fact still complaining of discomfort primarily in the epigastrium. Given that CT scan shows ovarian cyst with mesenteric adenitis unlikely to be the source of her discomfort. A GI source has not been ruled out thus far. Given this appropriate for discharge home with a prescription for a PPI and with instructions for close follow-up with gastroenterology and her GANG HEMSTITCHING MACHINE OPERATOR and PCP. Patient verbalized understanding and agreement. <Petrona Arellano, DO - Last Filed: 08/30/23 00:08> Vital Signs: 08/29/23 19:53 08/29/23 22:07 Temperature 97.6 F 97.6 F Temperature Source Oral Oral Pulse Rate 84 Pulse Rate [Left Radial] 85 Respiratory Rate 18 18 Blood Pressure 121/75 Blood Pressure [Right Arm] 152/86 H Blood Pressure Mean [Right Arm] 108 Blood Pressure Source [Right Arm] Automatic Cuff Blood Pressure Position [Right Arm] Sitting 02 Sat by Pulse Oximetry 96 Oxygen Delivery Method Room Air Lab Data Lab Results 08/29/23 20:05: WBC 10.9 H, RBC 4.34, Hgb 12.4, Hct 38.6, MCV 88.9, MCH 28.5, MCHC 32.1, RDW 14.2, Plt Count 381, MPV 7.6, Neut % (Auto) 63.8, Lymph % (Auto) 26.2, Sharp % (Auto) 5.6, Eos % (Auto) 3.5, Baso % (Auto) 0.9, Neut # (Auto) 7.0, Lymph # (Auto) 2.9, Sharp # (Auto) 0.6, Eos # (Auto) 0.4, Baso # (Auto) 0.1, PT 10.0 L, INR 0.92, D-Dimer 0.32, Sodium 136, Potassium 3.7, Chloride 106, Carbon Dioxide 21 L, Anion Gap 12.7, BUN 12, Creatinine 0.60, Estimated Creat Clear 216, Estimated GFR 109, Est GFR ( Amer) 132, Glucose 109 H, Lactate 1.5, Calcium 9.4, Magnesium 2.1, Total Bilirubin 0.2, AST 27, ALT 26, Alkaline Phosphatase 115, Troponin I < 0.01, Total Protein 6.7, Albumin 4.0, Globulin 2.7, Albumin/Globulin Ratio 1.5, Lipase 49, Procalcitonin 0.044, Serum HCG, Qual Negative 08/29/23 20:30: Urine Color Yellow, Urine Appearance Clear, Urine pH 6.0, Ur Specific [place] >= 1.030, Urine Protein Negative, Urine Glucose (UA) Negative, Urine Ketones Negative, Urine Blood Negative, Urine Nitrate Negative, Urine Bilirubin Negative, Urine Urobilinogen 0.2, Ur Leukocyte Esterase Negative, Urine WBC 3-5, Ur Squamous Epith Cells Occasional, Urine Bacteria 1+, Urine Opiates Screen Negative, Urine Methadone Screen Negative, Ur Barbituates Screen Negative, Ur Phencyclidine Scrn Negative, Ur Amphetamines Screen Negative, U Benzodiazepines Scrn Negative, Urine Cocaine Screen Negative, U Marijuana (THC) Screen Negative Orders (Tests/Meds): ED MEDICATIONS Discontinued Medications Generic Name Dose Route Start Last Admin Trade Name Freq PRN Reason Stop Dose Admin Acetaminophen 1,000 mg 08/29/23 20:37 08/29/23 21:00 Acetaminophen 1,000mg/100ml Vial IV 08/29/23 20:38 1,000 mg ONCE ONE Administration Belladonna Alkaloids 60 ml 08/29/23 21:21 08/29/23 21:31 Belladonna Alkaloids 60 Ml Ml PO 08/29/23 21:22 60 ml ONCE ONE Administration Lactated Ringer's 1,000 mls @ 999 mls/hr 08/29/23 20:24 08/29/23 21:00 Lactated Ringer's 1000 Ml Bag IV 08/29/23 21:24 999 mls/hr .Q1H1M ONE Administration Iopamidol 75 ml 08/29/23 20:57 08/29/23 20:57 Iopamidol-370 (76%);100ml Bottle IV 08/29/23 20:58 75 ml ONCE ONE Administration Ketorolac Tromethamine 15 mg 08/29/23 20:37 08/29/23 21:00 Ketorolac 30mg/Ml Vial IV 08/29/23 20:38 15 mg ONCE ONE Administration Sodium Chloride 10 ml 08/29/23 20:57 08/29/23 20:58 Sodium Chloride 0.9% 10ml Syr (Rad Only) IV 09/28/23 20:56 10 ml NEEDED PRN Administration Maintain IV Site ORDERS Category Date Time Status CT abdomen pelvis w con Stat Cat Scan 08/29/23 20:24 Completed CBC w/Auto Diff [Complete Blood Count Auto Diff] Stat Lab 08/29/23 20:05 Completed CMP [Comprehensive Metabolic Panel] Stat Lab 08/29/23 20:05 Completed D-Dimer Stat Lab 08/29/23 20:05 Completed HCG Qualitative, Serum Stat Lab 08/29/23 20:05 Completed INR [Prothrombin Time INR] Stat Lab 08/29/23 20:05 Completed Lactic Acid Stat Lab 08/29/23 20:05 Completed Lipase Stat Lab 08/29/23 20:05 Completed Magnesium Stat Lab 08/29/23 20:05 Completed Procalcitonin Stat Lab 08/29/23 20:05 Completed Trop I [Troponin I] Stat Lab 08/29/23 20:05 Completed UA [Urinalysis and Microscopic] Stat Lab 08/29/23 20:30 Completed UDS [Drug Screen,Urine] Stat Lab 08/29/23 20:30 Completed Medical Decision Narrative: In summary patient is a 42-year-old female who presents to the emergency department for evaluation of abdominal pain. Patient is normotensive normal heart rate afebrile satting at 96% on room air. Physical exam is remarkable for epigastric tenderness with no rebound or guarding or tenderness with normal bowel sounds. The remainder of her physical exam is nonfocal and unremarkable other than gross obesity. Differential diagnosis includes gastric ulcer, cholecystitis, pancreatitis, bowel obstruction, etc. Initial workup will be conducted with mental logic labs and a CT scan of the abdomen pelvis with contrast urinalysis. Initial interventions include Toradol acetaminophen and GI cocktail. Initial workup reviewed by me shows a hematologic labs that are nonactionable. My informal interpretation of her CT scan of the abdomen pelvis shows a right ovarian cyst along with right mesenteric adenitis but otherwise the remainder of her abdominal CT is unremarkable including normal gallbladder normal stomach no free air.. Upon repeat evaluation patient reports still having pain that has been unaffected by any of the interventions including Toradol acetaminophen and GI cocktail. Patient is not complaining of any focal pain in the right lower quadrant in fact still complaining of discomfort primarily in the epigastrium. Given that CT scan shows ovarian cyst with mesenteric adenitis unlikely to be the source of her discomfort. A GI source has not been ruled out thus far. Given this appropriate for discharge home with a prescription for a PPI and with instructions for close follow-up with gastroenterology and her GANG HEMSTITCHING MACHINE OPERATOR and PCP. Patient verbalized understanding and agreement. I was consulted by the MOLLY, and we discussed the complexity of the problems being addressed. I approved the treatment and management plan for this patient's care in the emergency department, thus performing a substantive portion of the medical decision making. patient has an ovarian cyst, however she is not having significant lower abdominal pain, in fact, most of her pain is epigastric and upper abdomen. Abdominal exam is benign. It is felt that she department for discharge with continued outpatient follow-up. Strict return precautions were given Petrona Arellano, Critical Care <FRED Morrison - Last Filed: 08/29/23 22:02> Critical Care Time Critical Care Time: No
--- NOTE | 2023-08-29 20:24 | CT_ITS ---
PROCEDURE INFORMATION: Exam: CT Abdomen And Pelvis With Contrast Exam date and time: 08/29/2023 8:54 PM Age: 42 years old Clinical indication: Abdominal pain; Additional info: Acute abdominal pain TECHNIQUE: Imaging protocol: Computed tomography of the abdomen and pelvis with contrast. Radiation optimization: All CT scans at this facility use at least one of these dose optimization techniques: automated exposure control; mA and/or kV adjustment per patient size (includes targeted exams where dose is matched to clinical indication); or iterative reconstruction. Contrast material: ISOVUE; Contrast volume: 75 ml; Contrast route: IV; COMPARISON: CT ABDOMEN PELVIS WO CON 12/06/2022 7:27 PM FINDINGS: Liver: Normal. No mass. Gallbladder and bile ducts: Normal. No calcified stones. No ductal dilation. Pancreas: Normal. No ductal dilation. Spleen: Normal. No splenomegaly. Adrenal glands: Normal. No mass. Kidneys and ureters: Left renal Bosniak 1 cystic lesion that is homogeneous and fluid density (-9-20 HU), no septations or calcifications, having lord smooth and thin. Measurement is 16 mm. No follow-up recommended. Stomach and bowel: Unremarkable. No obstruction. No mucosal thickening. Appendix: No evidence of appendicitis. Intraperitoneal space: Unremarkable. No free air. No significant fluid collection. Vasculature: Unremarkable. No abdominal aortic aneurysm. Lymph nodes: Right lower quadrant multiple mesenteric nodes measuring greater than 5 mm in short axis are present, which can be seen with mesenteric adenitis. Urinary bladder: Unremarkable as visualized. Reproductive: Right ovarian cyst measuring 5.6 x 4.7 x 4.2 cm with intermediate density of 19 Hounsfield units. Bones/joints: Unremarkable. No acute fracture. Soft tissues: Normal. IMPRESSION: 1. Right ovarian cyst measuring 5.6 x 4.7 x 4.2 cm with intermediate density of 19 Hounsfield units. Recommend further evaluation with pelvic ultrasound. 2. Right lower quadrant multiple mesenteric nodes measuring greater than 5 mm in short axis are present, which can be seen with mesenteric adenitis. COMMENTS: Consistent with the [place] [employer]'s Incidental Findings Committee white paper (J Am Lucrecia Radiol 2018): Any incidental renal lesion less than 1 cm or classified as too small to characterize, or any incidental cystic renal lesion characterized as simple-appearing, is likely benign. No follow-up imaging is recommended for these lesions per consensus recommendations based on imaging criteria.
[2023-08-29 20:32] LABS: Basophils # 0.1 K/mm3 (0-0.2); Basophils % 0.9 % (0.1-2.0); Eosinophils # 0.4 K/mm3 (0.0-0.4); Eosinophils % 3.5 % (0.1-12.0); Hematocrit 38.6 % (37.0-47.0); Hemoglobin 12.4 g/dL (12.2-16.2); Lymphocytes # 2.9 K/mm3 (0.7-4.5); Lymphocytes % 26.2 % (10-50); Mean Corpuscular HGB Conc 32.1 g/dL (31.8-35.4); Mean Corpuscular Hemoglobin 28.5 pg (27.0-31.2); Mean Corpuscular Volume 88.9 fl (81-99); Mean Platelet Volume 7.6 fl (7.4-10.4); Monocytes # 0.6 K/mm3 (0.1-1.0); Monocytes % 5.6 % (1.7-9.3); Neutrophils % 63.8 % (37.0-80.0); Platelet Count 381 K/mm3 (142-424); Red Blood Count 4.34 M/mm3 (4.20-5.40); Red Cell Distribution Width 14.2 % (11.5-17.5); White Blood Count 10.9 K/mm3 (4.8-10.8)
[2023-08-29 20:33] LABS: Microscopic, Urine URINE MICROSCOPIC (MICROSCOPIC)
[2023-08-29 20:37] LABS: Alanine Aminotransferase 26 U/L (12-78); Albumin/Globulin Ratio 1.5 (1.1-1.8); Alkaline Phosphatase 115 U/L (38-126); Anion Gap 12.7 mEq/L (5-15); Aspartate Amino Transferase 27 U/L (14-36); Bilirubin,Total 0.2 mg/dl (0.2-1.3); Blood Urea Nitrogen 12 mg/dl (7-17); Calcium 9.4 mg/dl (8.4-10.2); Carbon Dioxide 21 mmol/L (22.0-30.0); Chloride 106 mmol/L (98-107); Creatinine Clearance Estimated 216 mL/min (50-200); Estimated Glomerular Filt Rate 109 ml/min (>60); GFR (African American) 132 ML/MIN (>60); Globulin 2.7 g/dL (1.3-3.2); Glucose 109 mg/dl (74-100); Lipase 49 U/L (23-300); Magnesium 2.1 mg/dl (1.6-2.3); Potassium 3.7 mmoL/L (3.5-5.1); Sodium 136 mmol/L (136-145); Total Protein,Serum 6.7 g/dl (6.3-8.2)
[2023-08-29 20:38] LABS: INR 0.92 (0.9-1.1)
[2023-08-29 20:38] LABS: Appearance,Urine CLEAR (Clear); Bilirubin,Urine Negative (Negative); Blood, Urine Negative (Negative); Color,Urine YELLOW (Yellow); Glucose,Urine (UA) Negative (Negative); Ketones,Urine Negative (Negative); Leukocyte Esterase,Urine Negative (Negative); Nitrate,Urine Negative (Negative); Protein,Urine Negative (Negative); Specific Gravity, Urine >= 1.030 (1.005-1.030); Urobilinogen,Urine 0.2 EU/dl (0.2)
[2023-08-29 20:45] LABS: HCG Qualitative, Serum Negative (Negative); Lactic Acid 1.5 mmol/L (0.7-2.1)
[2023-08-29 20:47] LABS: D-Dimer 0.32 ug/mL (0.0-0.5)
[2023-08-29 20:52] LABS: Amphetamine/Metha Screen,Urine Negative ng/ml (<1000); Benzodiazepines Screen,Urine Negative ng/ml (<200)
[2023-08-29 20:53] LABS: Procalcitonin 0.044 ng/mL (0.0-2.0)
[2023-08-29 20:53] LABS: Barbiturates Screen,Urine Negative ng/ml (<200)
[2023-08-29 20:54] LABS: Bacteria,Urine 1+ /lpf; Cannabinoid Screen,Urine Negative ng/ml (<50); Cocaine Screen,Urine Negative ng/ml (<300); Squamous Epithelial Cell,Urine Occasional #/hpf (0-5)
[2023-08-29 20:54] LABS: Troponin I < 0.01 ng/ml (0.00-0.034)
[2023-08-29 20:55] LABS: Methadone Screen,Urine Negative ng/ml (<300)
[2023-08-29 20:56] LABS: Opiate Screen,Urine Negative ng/ml (<300); Phencyclidine Screen,Urine Negative ng/ml (<25)
[2023-08-29] MEDS: IOPAMIDOL-370 (76%);100ML BOTTLE 75 ML IV (20:57)
[2023-08-29] MEDS: SODIUM CHLORIDE 0.9% 10ML SYR (RAD ONLY) 10 ML IV (20:58)
[2023-08-29] MEDS: ACETAMINOPHEN 1,000MG/100ML VIAL 1000 MG IV (21:00)
[2023-08-29] MEDS: KETOROLAC 30MG/ML VIAL 15 MG IV (21:00)
[2023-08-29] MEDS: LACTATED RINGERS 1000ML 1,000 ML 999 ML IV (21:00)
[2023-08-29] MEDS: BELLADONNA ALKALOIDS 60 ML ML PO (21:31)
[2023-08-29 22:07] VITALS: BP 121/75; PULSE 84; RESP 18; TEMP 36.4; O2SAT 97
== END 2023-08-29 22:07 | disposition home or self-care (01) ==
PROVIDERS: Physician Assistant; Emergency Provider Emergency Medicine; PCP Nurse Practitioner
DX: R10.0 Acute abdomen (principal); J44.9 Chronic obstructive pulmonary disease, unspecified; G40.909 Epilepsy, unspecified, not intractable, without status epilepticus; Z87.891 Personal history of nicotine dependence
CPT/HCPCS: 74177; 80053; 80307; 81001; 83605; 83690; 83735; 84145; 84484; 84703; 85025; 85378; 85610; 96361; 96374; 96375; 99285; J0131; Q9967

== ENCOUNTER 2023-11-08 08:10 | Emergency (ER) | payer MEDICARE, MEDICAID, SELFPAY ==
[2023-11-08 08:12] VITALS: BP 147/78; PULSE 73; RESP 18; TEMP 36.6; O2SAT 98; BMI 39.1
[2023-11-08 08:16] VITALS: BP 147/78; PULSE 73; O2SAT 98
[2023-11-08 08:26] LABS: Microscopic, Urine URINE MICROSCOPIC (MICROSCOPIC)
--- NOTE | 2023-11-08 08:39 | ED_ITS ---
Discharge Plan Disposition Patient Disposition: Home, Self-Care Prescriptions Prescriptions: New cefdinir 300 mg capsule 300 mg PO BID 7 Days Qty: 14 0RF No Action fluoxetine 10 mg Tablet 10 mg PO HS propranolol 10 mg Tablet 10 mg PO BID lorazepam 0.5 mg Tablet 0.5 mg PO BIDP PRN (Reason: Anxiety) Oxtellar XR 300 mg Tablet Extended Release 24 Hr 300 mg PO HS Rx Instructions: must be taken on empty stomach; no food at least 2 hrs before or 1 hr after dose Oxtellar XR 600 mg Tablet Extended Release 24 Hr 1,200 mg PO HS Rx Instructions: must be taken on empty stomach; no food at least 2 hrs before or 1 hr after dose montelukast 10 mg tablet 10 mg PO PM Patient Comments: TAKE 1 TABLET BY MOUTH NIGHTLY albuterol sulfate 90 mcg/actuation HFA aerosol inhaler 2 puff INHALATION Q6HP PRN (Reason: Shortness Of Breath) Patient Comments: TAKE 2 PUFFS BY MOUTH EVERY 6 HOURS NEEDED FOR WHEEZE budesonide-formoterol [Symbicort] 160-4.5 mcg/actuation HFA aerosol inhaler 2 puff INHALATION BID Patient Comments: INHALE 2 PUFFS INTO THE LUNGS 2 TIMES DAILY atorvastatin 20 mg Tablet 20 mg PO HS 30 Days Qty: 30 0RF oxcarbazepine 300 mg Tablet 1,500 mg PO HS 30 Days Qty: 150 0RF aspirin 81 mg Tablet,Delayed Release (Dr/Ec) 81 mg PO DAILY 30 Days Qty: 30 0RF tramadol 50 mg Tablet 50 mg PO Q6HP PRN (Reason: Moderate To Severe Pain) 3 Days Qty: 12 0RF nicotine 21 mg/24 hr Patch 24 Hour 21 mg transdermal DAILY 30 Days Qty: 30 0RF ipratropium-albuterol 0.5 mg-3 mg(2.5 mg base)/3 mL Solution For Nebulization 3 ml inhalation Q4HP PRN (Reason: Shortness Of Breath) 30 Days Qty: 120 0RF azithromycin 250 mg Tablet 500 mg PO 2100 1 Days Qty: 2 0RF prednisone 20 mg Tablet 40 mg PO DAILY 2 Days Qty: 4 0RF amoxicillin-pot clavulanate 500-125 mg Tablet 1 ea PO TID 4 Days Qty: 12 0RF pantoprazole 20 mg tablet,delayed release (DR/EC) 20 mg PO DAILY Qty: 30 0RF Referrals Follow up/Referrals: Dede Meredith APRN [Primary Care Provider] - See instructions Activity Restrictions/Add. Instructions Additional Instructions/Restrictions: Call your family doctor to establish care for this visit to the emergency department and schedule follow-up within 48 hours to ensure improvement. If you have any worsening of your condition or any other concerning signs or symptoms, return to the emergency department or your primary care doctor for further evaluation. Cefdinir twice daily for 7 days Clinical Impressions Clinical Impression: UTI (urinary tract infection), Abdominal pain Discharge ED Provider: Rustam Mckeon General Adult HPI General Chief complaint: PAIN Stated complaint: pain/burning sensation incision sight, hysterectom Time Seen by Provider: 11/08/23 08:20 Mode of Arrival: Ambulatory Source of Information: Patient Limitations: No Limitations Description of Symptoms (Recalled from ER Triage Doc. by RN): Patient states she is one week post op from total hysterectomy and has been having burning pain that feels like it is inside her belly. Patient states pain is not getting any better and feels like it is swollen. History of Present Illness HPI narrative: 42-year-old female history of hypertension, seizure disorder, anxiety, COPD with hysterectomy 9 days prior to this visit presenting with abdominal pain. Patient states for the past 2 or 3 days she has had dysuria without hematuria as well as a burning pain rating from right periumbilical area around her right flank. No fevers or chills, nausea or vomiting, not currently having severe symptoms at rest, but made worse with movement and changes in position. No vaginal bleeding or discharge, tolerating p.o. intake without issue and last bowel movement was today and was normal for her, not constipated or diarrhea, no blood. Please note that above description of symptoms, in this electronic medical record under categorization of recalled from ER triage doctor by RN are reflective of an initial nursing assessment, however, is not reflective of my full history and physical exam that was personally taken and clarified. Consequentially, this preceding description of symptoms, which may include the patient's categorized chief complaint in the EMR, do not reflect my personal clinical impression, and the ultimate description of history of present illness and patient stated complaints should be deferred to this section of the note. Unless stated otherwise or congruent with this section of the note, additional signs, symptoms, or incongruence should be interpreted as inaccurate with my clinical impression. Related Data Home Medications Medication Instructions Recorded Confirmed albuterol sulfate 90 mcg/actuation 2 puff inhalation Q6HP PRN 09/12/22 09/12/22 aerosol inhaler Shortness Of Breath budesonide-formoterol HFA 160 2 puff inhalation BID Breathing 09/12/22 09/12/22 mcg-4.5 mcg/actuation aerosol problems inhaler (Symbicort) fluoxetine 10 mg tablet 10 mg PO HS Anxiety 09/12/22 09/13/22 lorazepam 0.5 mg tablet 0.5 mg PO BIDP PRN Anxiety 09/12/22 09/12/22 montelukast 10 mg tablet 10 mg PO PM Allergy symptoms 09/12/22 09/12/22 oxcarbazepine 300 mg 300 mg PO HS seizures 09/12/22 09/13/22 tablet,extended release 24 hr (Oxtellar XR) oxcarbazepine 600 mg 1,200 mg PO HS seizures 09/12/22 09/13/22 tablet,extended release 24 hr (Oxtellar XR) propranolol 10 mg tablet 10 mg PO BID anxiety 09/12/22 09/12/22 Previous Rx's Medication Instructions Recorded amoxicillin 500 mg-potassium 1 ea PO TID 4 days #12 tabs 09/14/22 clavulanate 125 mg tablet aspirin 81 mg tablet,delayed 81 mg PO DAILY 30 days #30 tabs 09/14/22 release atorvastatin 20 mg tablet 20 mg PO HS 30 days #30 tabs 09/14/22 azithromycin 250 mg tablet 500 mg (2 x 250 mg) PO 2100 1 day 09/14/22 #2 tabs ipratropium 0.5 mg-albuterol 3 mg 3 ml inhalation Q4HP PRN Shortness 09/14/22 (2.5 mg base)/3 mL nebulization Of Breath 30 days #120 ea soln nicotine 21 mg/24 hr daily 21 mg transdermal DAILY 30 days 09/14/22 transdermal patch #30 ea oxcarbazepine 300 mg tablet 1,500 mg (5 x 300 mg) PO HS 30 09/14/22 days #150 tabs prednisone 20 mg tablet 40 mg (2 x 20 mg) PO DAILY 2 days 09/14/22 #4 tabs tramadol 50 mg tablet 50 mg PO Q6HP PRN Moderate To 09/14/22 Severe Pain 3 days #12 tabs pantoprazole 20 mg tablet,delayed 20 mg PO DAILY #30 tabs 08/29/23 release cefdinir 300 mg capsule 300 mg PO BID 7 days #14 caps 11/08/23 Allergies Allergy/AdvReac Type Severity Reaction Status Date / Time doxycycline [DOXYCYCLINE] Allergy Unknown Unknown Verified 09/12/22 09:19 allergy reaction latex [LATEX] Allergy Unknown Unknown Verified 09/12/22 09:19 allergy reaction sulfamethoxazole Allergy Unknown Unknown Verified 09/12/22 09:19 [From BACTRIM] allergy reaction trimethoprim [From BACTRIM] Allergy Unknown Unknown Verified 09/12/22 09:19 allergy reaction PFSH PFSH Disclaimer: The information contained in this section may have been updated after the patient was seen, as this information can be updated by other users. Medical History (Updated 11/08/23 @ 12:02 by Rustam Mckeon MD) Acute respiratory failure with hypoxia COPD (chronic obstructive pulmonary disease) Shortness of Breath Anxiety disorder Depression Seizure disorder Epileptic seizure Generalized seizure Polyhydramnios affecting in third trimester Surgical History (Updated 09/18/22 @ 00:00 by Trini Quesada) H/O brain surgery Family History (Updated 09/12/22 @ 09:09 by Emily Hernandez APRN) Father Hypertension Social History (Updated 09/12/22 @ 09:09 by Emily Hernandez APRN) Smoking Status: Never smoker how long ago did patient quit smokin days ago alcohol intake: never substance use type: denies use current occupational status: employed Travel in the last 8 weeks: None adopted: No caregiver/support person: No foster care: No household members: spouse and children housing: apartment lives independently: Yes marital status: number of children: 1 education level: college service: No snf: No current occupational exposures/hazards: No pets and animals: No sexually active: Yes ROS Obtained: Yes All systems reviewed & no additional complaints except as documented Physical Exam General General appearance: alert and in no apparent distress Head Head exam: atraumatic and normocephalic Eye Eye exam: Present normal appearance, PERRL and EOMI ENT ENT exam: Present mucous membranes moist Neck Neck exam: Present normal inspection, full ROM and trachea midline Respiratory Respiratory exam: Absent respiratory distress, wheezes, stridor, accessory muscle use or prolonged expiratory phase Cardiovascular Cardiovascular exam: Present normal rhythm Abdominal Exam Abdominal exam: Present soft and tenderness; Absent distention, guarding, rebound or rigidity Abdominal tenderness: Present mild (Primarily around 5 incision sites) Extremities Exam Extremities exam: Absent edema Neurological Exam Neurological exam: Present alert, oriented X3, CN II-XII intact and normal gait; Absent motor sensory deficit Skin Skin exam: Present warm and dry; Absent diaphoresis or erythema Medical Decision Making Medical Records Medical records reviewed: Yes I reviewed the patient's medical records. Rudy Inquiry Pt receiving controlled substance: No Rudy was queried for this patient: No Vital Signs: 11/08/23 08:12 11/08/23 08:16 11/08/23 09:00 Temperature 97.9 F Temperature Source Oral Pulse Rate 73 68 Pulse Rate [Right] 73 Respiratory Rate 18 Blood Pressure 147/78 H Blood Pressure [Right Arm] 147/78 H Blood Pressure Mean Blood Pressure Mean [Right Arm] 101 Blood Pressure Source [Right Arm] Automatic Cuff 02 Sat by Pulse Oximetry 98 98 97 Oxygen Delivery Method Room Air Room Air 11/08/23 09:32 11/08/23 12:08 Temperature 97.9 F Temperature Source Oral Pulse Rate 59 L 60 Pulse Rate [Right] Respiratory Rate 18 Blood Pressure 113/66 120/60 Blood Pressure [Right Arm] Blood Pressure Mean 81 Blood Pressure Mean [Right Arm] Blood Pressure Source [Right Arm] 02 Sat by Pulse Oximetry 97 Oxygen Delivery Method Room Air Lab Data Lab Results 11/08/23 08:20: Urine Color Yellow, Urine Appearance Clear, Urine pH 6.5, Ur Specific [place] 1.025, Urine Protein Negative, Urine Glucose (UA) Negative, Urine Ketones Negative, Urine Blood Negative, Urine Nitrate Negative, Urine Bilirubin Negative, Urine Urobilinogen 0.2, Ur Leukocyte Esterase 1+ A, Urine RBC None, Urine WBC 3-5, Ur Squamous Epith Cells 10-20, Urine Bacteria Trace 11/08/23 08:35: WBC 9.1, RBC 4.12 L, Hgb 11.4 L, Hct 36.1 L, MCV 87.4, MCH 27.7, MCHC 31.7 L, RDW 14.3, Plt Count 442 H, MPV 7.9, Neut % (Auto) 68.0, Lymph % (Auto) 20.1, [place] % (Auto) 6.7, Eos % (Auto) 4.3, Baso % (Auto) 0.9, Neut # (Auto) 6.2, Lymph # (Auto) 1.8, [place] # (Auto) 0.6, Eos # (Auto) 0.4, Baso # (Auto) 0.1, Sodium 139, Potassium 4.0, Chloride 106, Carbon Dioxide 24, Anion Gap 13.0, BUN 10, Creatinine 0.60, Estimated Creat Clear 216, Estimated GFR 109, Est GFR ( Amer) 132, Glucose 105 H, Lactate 1.8, Calcium 8.9, Total Bilirubin 0.2, AST 25, ALT 26, Alkaline Phosphatase 99, Total Protein 6.3, Albumin 3.7, Globulin 2.6, Albumin/Globulin Ratio 1.4, Lipase 40, HCG, Quant < 2 11/08/23 08:35 11/08/23 08:35 Orders (Tests/Meds): ED MEDICATIONS Discontinued Medications Generic Name Dose Route Start Last Admin Trade Name Freq PRN Reason Stop Dose Admin Acetaminophen 1,000 mg 11/08/23 08:43 11/08/23 09:11 Acetaminophen 1,000mg/100ml Vial IV 11/08/23 08:44 1,000 mg ONCE ONE Administration Cefdinir 300 mg 11/08/23 11:07 11/08/23 11:12 Cefdinir 300mg Capsule PO 11/08/23 11:08 300 mg ONCE ONE Administration Iopamidol 75 ml 11/08/23 09:55 11/08/23 09:57 Iopamidol-370 (76%);100ml Bottle IV 11/08/23 09:56 75 ml ONCE ONE Administration Ketorolac Tromethamine 15 mg 11/08/23 08:43 11/08/23 09:11 Ketorolac 30mg/Ml Vial IV 11/08/23 08:44 15 mg ONCE ONE Administration Sodium Chloride 50 ml 11/08/23 09:55 11/08/23 09:57 0.9 % Sodium Chloride 50 Ml Vial IV 11/08/23 09:56 Not Given ONCE ONE Sodium Chloride 10 ml 11/08/23 09:55 11/08/23 09:57 Sodium Chloride 0.9% 10ml Syr (Rad Only) IV 11/08/23 09:56 10 ml ONCE ONE Administration ORDERS Category Date Time Status CT abdomen pelvis w con Stat Cat Scan 11/08/23 09:22 Completed CBC w/Auto Diff [Complete Blood Count Auto Diff] Stat Lab 11/08/23 08:35 Completed CMP [Comprehensive Metabolic Panel] Stat Lab 11/08/23 08:35 Completed HCG,Quantitative Stat Lab 11/08/23 08:35 Completed Lactic Acid Stat Lab 11/08/23 08:35 Completed Lipase Stat Lab 11/08/23 08:35 Completed UA [Urinalysis and Microscopic] Stat Lab 11/08/23 08:20 Completed Urine Culture Stat Micro 11/08/23 08:20 Received Medical Decision Narrative: 42-year-old female history of hypertension, seizure disorder, anxiety, COPD with hysterectomy 9 days prior to this visit presenting with abdominal pain. Patient states for the past 2 or 3 days she has had dysuria without hematuria as well as a burning pain rating from right periumbilical area around her right flank. No fevers or chills, nausea or vomiting, not currently having severe symptoms at rest, but made worse with movement and changes in position. No vaginal bleeding or discharge, tolerating p.o. intake without issue and last bowel movement was today and was normal for her, not constipated or diarrhea, no blood. History was obtained via conversation with patient. On arrival, patient hemodynamically stable, alert, oriented x4, appropriate, GCS 15, moving all extremities spontaneously, pupils equal and reactive to light. Full physical exam performed and significant for obese, but no acute distress. 5 surgical incisions are clean, dry, intact with minimal bruising and Dermabond overlying. No signs of infection. Maximal tenderness around incisions on right side of her belly, but no obvious hematoma. She is nonperitoneal take. She does have right flank tenderness as compared to left. Differential includes vaginal cuff dehiscence, UTI, nephrolithiasis, postop infection, scar tissue, routine postop pain, among others. Patient was given Toradol and acetaminophen for symptomatic management and correction of underlying abnormalities. Workup independently interpreted and significant for urinary tract infection and UTI. Other labs largely unremarkable. CT abdomen pelvis without any acute or concerning postoperative complications. See radiology read for full review of final results. On reevaluation, patient more comfortable after Toradol. Results were relayed to her, she was relieved. Given patient presentation, workup, history, this most likely represents routine postoperative pain, urinary tract infection. Patient given initial dose of cefdinir. Because patient at baseline without signs or symptoms of clinical decompensation, deemed appropriate for discharge. Results were relayed to patient who voiced understanding and were agreeable to outpatient management and follow up. I discussed my clinical impression with patient and answered all questions. At this time, the evidence for any other entities in the differential is insufficient to warrant any further testing or ED observation. This was explained as well. Advisory was given that persistent or worsening symptoms require further evaluation. I confirmed the understanding of this discussion. Rn Stars disclaimer Much of this encounter note is an electronic portrait studio photographer spoken language to printed text. Electronic portrait studio photographer of the spoken language may permit errors. Although I have reviewed the note, some errors may still exist. Critical Care Critical Care Time Critical Care Time: No
[2023-11-08 08:46] LABS: Appearance,Urine CLEAR (Clear); Bilirubin,Urine Negative (Negative); Blood, Urine Negative (Negative); Color,Urine YELLOW (Yellow); Glucose,Urine (UA) Negative (Negative); Ketones,Urine Negative (Negative); Leukocyte Esterase,Urine 1+ (Negative); Nitrate,Urine Negative (Negative); PH,Urine 6.5 (5.0-8.5); Protein,Urine Negative (Negative); Specific Gravity, Urine 1.025 (1.005-1.030); Urobilinogen,Urine 0.2 EU/dl (0.2)
[2023-11-08 08:49] LABS: Basophils # 0.1 K/mm3 (0-0.2); Basophils % 0.9 % (0.1-2.0); Eosinophils # 0.4 K/mm3 (0.0-0.4); Eosinophils % 4.3 % (0.1-12.0); Hematocrit 36.1 % (37.0-47.0); Hemoglobin 11.4 g/dL (12.2-16.2); Lymphocytes # 1.8 K/mm3 (0.7-4.5); Lymphocytes % 20.1 % (10-50); Mean Corpuscular HGB Conc 31.7 g/dL (31.8-35.4); Mean Corpuscular Hemoglobin 27.7 pg (27.0-31.2); Mean Corpuscular Volume 87.4 fl (81-99); Mean Platelet Volume 7.9 fl (7.4-10.4); Monocytes # 0.6 K/mm3 (0.1-1.0); Monocytes % 6.7 % (1.7-9.3); Neutrophils # 6.2 K/mm3 (1.8-7.8); Platelet Count 442 K/mm3 (142-424); Red Blood Count 4.12 M/mm3 (4.20-5.40); Red Cell Distribution Width 14.3 % (11.5-17.5); White Blood Count 9.1 K/mm3 (4.8-10.8)
[2023-11-08 09:00] VITALS: PULSE 68; O2SAT 97
[2023-11-08 09:00] LABS: Alanine Aminotransferase 26 U/L (12-78); Albumin Level 3.7 g/dl (3.5-5.0); Albumin/Globulin Ratio 1.4 (1.1-1.8); Alkaline Phosphatase 99 U/L (38-126); Aspartate Amino Transferase 25 U/L (14-36); Bilirubin,Total 0.2 mg/dl (0.2-1.3); Blood Urea Nitrogen 10 mg/dl (7-17); Calcium 8.9 mg/dl (8.4-10.2); Carbon Dioxide 24 mmol/L (22.0-30.0); Chloride 106 mmol/L (98-107); Creatinine Clearance Estimated 216 mL/min (50-200); Estimated Glomerular Filt Rate 109 ml/min (>60); GFR (African American) 132 ML/MIN (>60); Globulin 2.6 g/dL (1.3-3.2); Glucose 105 mg/dl (74-100); Lactic Acid 1.8 mmol/L (0.7-2.1); Lipase 40 U/L (23-300); Sodium 139 mmol/L (136-145); Total Protein,Serum 6.3 g/dl (6.3-8.2)
[2023-11-08] MEDS: KETOROLAC 30MG/ML VIAL 15 MG IV (09:11)
[2023-11-08] MEDS: ACETAMINOPHEN 1,000MG/100ML VIAL 1000 MG IV (09:11)
--- NOTE | 2023-11-08 09:22 | CT_ITS ---
FINAL REPORT CLINICAL HISTORY: abd pain 9 days post op hyst COMPARISON: 08/29/2023 FINDINGS: CT OF THE ABDOMEN AND PELVIS WITH CONTRAST Axial CT images of the abdomen and pelvis were obtained after the administration of IV contrast. Coronal and sagittal reformatted images were also obtained and reviewed. This study was performed with techniques to keep radiation doses as low as reasonably achievable (ALARA). Individualized dose reduction techniques using automated exposure control or adjustment of mA and/or kV according to the patient's size were employed. Abdomen: Mild atelectasis is present in the lung bases bilaterally.. The heart is normal in size. The liver has an unremarkable appearance, without evidence of mass or biliary ductal dilatation. There is mild nonspecific gallbladder wall thickening without evidence of gallstones. The spleen is unremarkable. No adrenal mass is present. The pancreas has an unremarkable appearance. There are small bilateral renal masses consistent with small cysts. The aorta is normal in caliber. There is no free fluid or adenopathy. No mass or abnormal fluid collection is seen. Pelvis: The appendix measures 6 mm in diameter, at the upper limits of normal, without adjacent inflammatory change to suggest appendicitis. The urinary bladder is unremarkable. Since the prior CT of August the patient has undergone interval hysterectomy and right oophorectomy. There is a small presumed left ovarian cyst measuring 14 mm. A small amount of free fluid is present in the pelvis, likely physiologic or reactive. No evidence of an abscess is seen. There is no evidence of mass or adenopathy. There is no evidence of bowel obstruction. IMPRESSION: Interval hysterectomy and right oophorectomy since the prior CT of August 2023. A 14 mm small presumed left ovarian cyst is present, with a small amount of free fluid in the pelvis, likely physiologic or reactive. The appendix measures 6 mm in width, at the upper limits of normal, but there is no adjacent inflammatory change to suggest appendicitis. Mild nonspecific gallbladder wall thickening. Reviewed, Interpreted and Dictated by Cj Santacruz III, MD Transcribed by Keren Rivers Authenticated and [facility]
[2023-11-08 09:31] LABS: HCG,Quantitative < 2 mIU/ml (0-5.42)
[2023-11-08 09:32] VITALS: BP 113/66; PULSE 59; O2SAT 97
[2023-11-08] MEDS: SODIUM CHLORIDE 0.9% 10ML SYR (RAD ONLY) 10 ML IV (09:57)
[2023-11-08] MEDS: IOPAMIDOL-370 (76%);100ML BOTTLE 75 ML IV (09:57)
[2023-11-08 10:25] LABS: Bacteria,Urine Trace /lpf
--- NOTE | 2023-11-08 10:30 | PC.NURSE ---
pt moved to room 9 from room 10
--- NOTE | 2023-11-08 10:39 | PC.NURSE ---
pt requesting to stay in the room her is in. She is refusing vtals at this time. Requested TV remote, given. Asking for warm blankets, this was given. states it is ok if pt wants to stay in her 's room (9) while awaiting scan results.
--- NOTE | 2023-11-08 10:39 | PC.NURSE ---
ROUNDED ON PT NO NEEDS AT THIS TIME,CALL LIGHT IN REACH
[2023-11-08] MEDS: CEFDINIR 300MG CAPSULE 300 MG PO (11:12)
[2023-11-08 12:08] VITALS: BP 120/60; PULSE 60; RESP 18; TEMP 36.6; O2SAT 97
== END 2023-11-08 12:10 | disposition home or self-care (01) ==
PROVIDERS: Emergency Provider Emergency Medicine; PCP Nurse Practitioner
DX: R10.33 Periumbilical pain (principal); N39.0 Urinary tract infection, site not specified; B96.89 Other specified bacterial agents as the cause of diseases classified elsewhere; R30.0 Dysuria; J44.9 Chronic obstructive pulmonary disease, unspecified; I10 Essential (primary) hypertension; G40.909 Epilepsy, unspecified, not intractable, without status epilepticus; Z87.891 Personal history of nicotine dependence
CPT/HCPCS: 74177; 80053; 81001; 83605; 83690; 84702; 85025; 87086; 96374; 96375; 99285; J0131; Q9967

== ENCOUNTER 2024-09-08 19:27 | Emergency (ER) | payer MEDICARE, MEDICAID, SELFPAY ==
[2024-09-08] VITALS (7 sets, daily range): BP systolic 112–155; BP diastolic 61–77; PULSE 64–77; RESP 13–20; TEMP 36.6–36.8; O2SAT 96–99; BMI 30.5
--- NOTE | 2024-09-08 19:48 | ECG_ITS ---
APPROVED REPORT Exam: Resting ECG HR:68 bpm ECG Measurements Heart Rate 68 AXES ND 187 P 75 QRSd 114 QRS 69 QT 384 T 72 QTc 401 Conclusion SINUS RHYTHM MODERATE INTRAVENTRICULAR CONDUCTION DELAY [110+ ms QRS DURATION] BORDERLINE ECG UNCONFIRMED REPORT Electronically signed by : Sandip Kamara, 09/08/2024 23:39:03
--- NOTE | 2024-09-08 20:07 | CT_ITS ---
PROCEDURE INFORMATION: Exam: CT Head Without Contrast Exam date and time: 09/08/2024 9:12 PM Age: 43 years old Clinical indication: Other: Seizure/ head inj; Additional info: Seizure, h/o brain tumor, head injury TECHNIQUE: Imaging protocol: Computed tomography of the head without contrast. Radiation optimization: All CT scans at this facility use at least one of these dose optimization techniques: automated exposure control; mA and/or kV adjustment per patient size (includes targeted exams where dose is matched to clinical indication); or iterative reconstruction. COMPARISON: CT HEAD/BRAIN WO CON 10/19/2020 10:37 PM FINDINGS: Brain: Left frontal cortical/subcortical encephalomalacia is stable. Brain has an otherwise normal CT appearance. No intra or extra-axial hemorrhage. No mass effect. Cerebral ventricles: No ventriculomegaly. Paranasal sinuses: Interval clearance of sinusitis findings Mastoid air cells: Visualized mastoid air cells are well aerated. Bones: Previous left temporal region craniotomy Soft tissues: Unremarkable. IMPRESSION: 1. Postoperative findings as above. 2. No visible acute intracranial abnormality.
--- NOTE | 2024-09-08 20:07 | XR_ITS ---
PROCEDURE INFORMATION: Exam: XR Chest Exam date and time: 09/08/2024 8:18 PM Age: 43 years old Clinical indication: Injury or trauma; Fall; Blunt trauma (contusions or hematomas); Additional info: Fall right chest wall injury TECHNIQUE: Imaging protocol: Radiologic exam of the chest. Views: 1 view. COMPARISON: CR XR CHEST PORTABLE 09/13/2022 4:50 PM FINDINGS: Lungs: Unremarkable. No consolidation. Pleural spaces: Unremarkable. No pleural effusion. No pneumothorax. Heart/Mediastinum: Unremarkable. No cardiomegaly. Bones/joints: Unremarkable. IMPRESSION: No acute findings.
--- NOTE | 2024-09-08 20:11 | [facility].EDGENADL ---
Discharge Plan Disposition Patient Disposition: Home, Self-Care Prescriptions Prescriptions: New lorazepam [Ativan] 0.5 mg tablet 0.5 mg PO TID PRN (Reason: anxiety) 3 Days Qty: 9 0RF No Action fluoxetine 10 mg Tablet 10 mg PO HS propranolol 10 mg Tablet 10 mg PO BID lorazepam 0.5 mg Tablet 0.5 mg PO BIDP PRN (Reason: Anxiety) Oxtellar XR 300 mg Tablet Extended Release 24 Hr 300 mg PO HS Rx Instructions: must be taken on empty stomach; no food at least 2 hrs before or 1 hr after dose Oxtellar XR 600 mg Tablet Extended Release 24 Hr 1,200 mg PO HS Rx Instructions: must be taken on empty stomach; no food at least 2 hrs before or 1 hr after dose montelukast 10 mg tablet 10 mg PO PM Patient Comments: TAKE 1 TABLET BY MOUTH NIGHTLY albuterol sulfate 90 mcg/actuation HFA aerosol inhaler 2 puff INHALATION Q6HP PRN (Reason: Shortness Of Breath) Patient Comments: TAKE 2 PUFFS BY MOUTH EVERY 6 HOURS NEEDED FOR WHEEZE budesonide-formoterol [Symbicort] 160-4.5 mcg/actuation HFA aerosol inhaler 2 puff INHALATION BID Patient Comments: INHALE 2 PUFFS INTO THE LUNGS 2 TIMES DAILY atorvastatin 20 mg Tablet 20 mg PO HS 30 Days Qty: 30 0RF oxcarbazepine 300 mg Tablet 1,500 mg PO HS 30 Days Qty: 150 0RF aspirin 81 mg Tablet,Delayed Release (Dr/Ec) 81 mg PO DAILY 30 Days Qty: 30 0RF tramadol 50 mg Tablet 50 mg PO Q6HP PRN (Reason: Moderate To Severe Pain) 3 Days Qty: 12 0RF nicotine 21 mg/24 hr Patch 24 Hour 21 mg transdermal DAILY 30 Days Qty: 30 0RF ipratropium-albuterol 0.5 mg-3 mg(2.5 mg base)/3 mL Solution For Nebulization 3 ml inhalation Q4HP PRN (Reason: Shortness Of Breath) 30 Days Qty: 120 0RF azithromycin 250 mg Tablet 500 mg PO 2100 1 Days Qty: 2 0RF prednisone 20 mg Tablet 40 mg PO DAILY 2 Days Qty: 4 0RF amoxicillin-pot clavulanate 500-125 mg Tablet 1 ea PO TID 4 Days Qty: 12 0RF pantoprazole 20 mg tablet,delayed release (DR/EC) 20 mg PO DAILY Qty: 30 0RF cefdinir 300 mg capsule 300 mg PO BID 7 Days Qty: 14 0RF Referrals Follow up/Referrals: Dede Meredith APRN [Primary Care Provider] - See instructions Activity Restrictions/Add. Instructions Additional Instructions/Restrictions: As discussed you had a breakthrough seizure today which was likely precipitated by abrupt discontinuation of your chronic benzodiazepine use a few days ago. As discussed you did take an appropriate amount of these medications which from my perspective you do not need to be on long-term. I understand that you have had significant and severe stress after losing her son however this is not a good medication to be on long-term as you are physiologically dependent upon this. I have prescribed a few days of this just to keep you from having further breakthrough seizures. I offered a Librium taper in the emergency department and you may discuss this with your primary care doctor or you may simply taper off of your Ativan over a period of 3 to 5 days if you choose to do that as well with your primary care doctor. I also recommend you follow-up with your epileptologist to further discuss chronic management of your seizures. Clinical Impressions Clinical Impression: Benzodiazepine withdrawal, Breakthrough seizure, Head injury, Chest wall contusion Instructions Patient Instructions: DI for Seizure Disorder -- Adult, DI for Seizure (Not Epilepsy/Seizure Disorder), DI for Seizure Disorder -- Child Print Language Print Language: Moroccan Discharge ED Provider: Randee Kamara General Adult HPI General Chief complaint: Seizure Stated complaint: Has seizure,hit head,difficulty swollowing,CP Time Seen by Provider: 09/08/24 19:52 Mode of Arrival: Wheelchair Source of Information: Patient and Relative Description of Symptoms (Recalled from ER Triage Doc. by RN): Pt presents to ED after a seizure. Pt states she hit the right side of her body. She's now having rib pain that makes it hard to breath. Pt also states she has R knee pain. Pt states her whole body hurts at this time. Rates pain 10/10. VSS. Pt is A&O*4 and friend is with her. History of Present Illness HPI narrative: Patient is a 43-year-old female with a history of epilepsy presented today with a breakthrough seizure. States she has been compliant with her medications including oxcarbazepine however she is chronically been on lorazepam that she claims that she takes this every 8 hours however from medication history list is that she takes 0.5 mg twice daily. She states that her pharmacy would not let her refill her Ativan until the . Last dose was on Sunday which was yesterday. 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 Of note she believes that she fell and hit her head she is complaining of a headache and right lateral chest wall pain from the fall as well. Related Data Home Medications ?Medication ?Instructions ?Recorded ?Confirmed albuterol sulfate 90 mcg/actuation 2 puff inhalation Q6HP PRN 09/12/22 09/12/22 aerosol inhaler Shortness Of Breath budesonide-formoterol HFA 160 2 puff inhalation BID Breathing 09/12/22 09/12/22 mcg-4.5 mcg/actuation aerosol problems inhaler (Symbicort) fluoxetine 10 mg tablet 10 mg PO HS Anxiety 09/12/22 09/13/22 lorazepam 0.5 mg tablet 0.5 mg PO BIDP PRN Anxiety 09/12/22 09/12/22 montelukast 10 mg tablet 10 mg PO PM Allergy symptoms 09/12/22 09/12/22 oxcarbazepine 300 mg 300 mg PO HS seizures 09/12/22 09/13/22 tablet,extended release 24 hr (Oxtellar XR) oxcarbazepine 600 mg 1,200 mg PO HS seizures 09/12/22 09/13/22 tablet,extended release 24 hr (Oxtellar XR) propranolol 10 mg tablet 10 mg PO BID anxiety 09/12/22 09/12/22 Previous Rx's ?Medication ?Instructions ?Recorded amoxicillin 500 mg-potassium 1 ea PO TID 4 days #12 tabs 09/14/22 clavulanate 125 mg tablet aspirin 81 mg tablet,delayed 81 mg PO DAILY 30 days #30 tabs 09/14/22 release atorvastatin 20 mg tablet 20 mg PO HS 30 days #30 tabs 09/14/22 azithromycin 250 mg tablet 500 mg (2 x 250 mg) PO 2100 1 day 09/14/22 #2 tabs ipratropium 0.5 mg-albuterol 3 mg 3 ml inhalation Q4HP PRN Shortness 09/14/22 (2.5 mg base)/3 mL nebulization Of Breath 30 days #120 ea soln nicotine 21 mg/24 hr daily 21 mg transdermal DAILY 30 days 09/14/22 transdermal patch #30 ea oxcarbazepine 300 mg tablet 1,500 mg (5 x 300 mg) PO HS 30 09/14/22 days #150 tabs prednisone 20 mg tablet 40 mg (2 x 20 mg) PO DAILY 2 days 09/14/22 #4 tabs tramadol 50 mg tablet 50 mg PO Q6HP PRN Moderate To 09/14/22 Severe Pain 3 days #12 tabs pantoprazole 20 mg tablet,delayed 20 mg PO DAILY #30 tabs 08/29/23 release cefdinir 300 mg capsule 300 mg PO BID 7 days #14 caps 11/08/23 lorazepam 0.5 mg tablet (Ativan) 0.5 mg PO TID PRN anxiety 3 days 09/08/24 #9 tabs Allergies Allergy/AdvReac Type Severity Reaction Status Date / Time doxycycline (DOXYCYCLINE) Allergy Unknown Unknown Verified 09/12/22 09:19 allergy reaction latex (LATEX) Allergy Unknown Unknown Verified 09/12/22 09:19 allergy reaction sulfamethoxazole (From Allergy Unknown Unknown Verified 09/12/22 09:19 BACTRIM) allergy reaction trimethoprim (From BACTRIM) Allergy Unknown Unknown Verified 09/12/22 09:19 allergy reaction PFSH PFS Disclaimer: The information contained in this section may have been updated after the patient was seen, as this information can be updated by other users. Medical History (Updated 09/08/24 @ 20:11 by Randee Kamara MD) Acute respiratory failure with hypoxia COPD (chronic obstructive pulmonary disease) Shortness of Breath Anxiety disorder Depression Seizure disorder Epileptic seizure Generalized seizure Polyhydramnios affecting in third trimester Surgical History (Updated 09/18/22 @ 00:00 by Trini Quesada) H/O brain surgery Family History (Updated 09/12/22 @ 09:09 by Emily Hernandez APRN) Father Hypertension Social History (Updated 09/12/22 @ 09:09 by Emily Hernandez APRN) Smoking Status: Current every day smoker tobacco type: cigarettes packs per day: 1 how long ago did patient quit smokin days ago alcohol intake: never substance use type: denies use current occupational status: employed Travel in the last 8 weeks: None adopted: No caregiver/support person: No foster care: No household members: spouse and children housing: apartment lives independently: Yes marital status: number of children: 1 education level: college service: No assisted: No current occupational exposures/hazards: No pets and animals: No sexually active: Yes Have you lived/traveled outside [place] in past 30 days?: No Contact w/someone who lives/traveled outside [place] past 30 days?: No Exposure to someone with infectious disease in past 14 days?: No Do you have a fever (greater than 100.4 F or 38 C)?: No Have you tested positive for COVID-19: No Exposed to someone with COVID-19 in past 14 days?: No Do you have a sore throat?: No Do you have a cough?: No Do you have any weakness?: No Do you have any diarrhea?: No Are you experiencing any unusual bleeding?: No Do you have any muscle aches/pain?: No Do you have any abdominal pain?: No Are you experiencing loss of taste or smell?: No Other Medical History Have you received the Flu Vaccine for this season: No Have you received the Pneumonia Vaccine: No ROS Obtained: Yes All systems reviewed & no additional complaints except as documented Physical Exam General General appearance: alert and in no apparent distress Eye Eye exam: Present other (Disconjugate gaze which is at her baseline) Chest Chest inspection: Present tenderness (Right lateral chest wall tenderness) Respiratory Respiratory exam: Present normal lung sounds bilaterally; Absent respiratory distress Cardiovascular Cardiovascular exam: Present regular rate and normal rhythm Neurological Exam Neurological exam: Present alert, oriented X3 and other (Nonfocal) Medical Decision Making Medical Records Screening: Per USPSTF and CDC recommendations, given the prevalence of disease in our region, it is our hospital?s policy to screen for HIV and viral Hepatitis for all patients aged 18 and over and those with ongoing risk factors. [place] Inquiry Pt receiving controlled substance: No Vital Signs: 09/08/24 19:33 Temperature 98.3 F Temperature Source Oral Pulse Rate [Left] 77 Respiratory Rate 18 Blood Pressure [Right Arm] 143/76 H Blood Pressure Mean [Right Arm] 98 02 Sat by Pulse Oximetry 99 Oxygen Delivery Method Room Air Lab Data Lab results reviewed: Yes I reviewed the patient's lab results. Lab Results 09/08/24 18:49: WBC 12.3 H, RBC 4.56, Hgb 12.4, Hct 38.0, MCV 83.3, MCH 27.2, MCHC 32.6, RDW 13.0, Plt Count 352, MPV 9.3, Neut % (Auto) 70.5, Lymph % (Auto) 18.0, [place] % (Auto) 7.4, Eos % (Auto) 2.8, Baso % (Auto) 0.6, Neut # (Auto) 8.7 H, Lymph # (Auto) 2.2, [place] # (Auto) 0.9, Eos # (Auto) 0.4, Baso # (Auto) 0.1, Sodium 138, Potassium 3.8, Chloride 109 H, Carbon Dioxide 21 L, Anion Gap 11.8, BUN 14, Creatinine 0.60, Estimated Creat Clear 167, Estimated GFR 109, Est GFR ( Amer) 131, Glucose 131 H, Calcium 9.5, Total Bilirubin 0.2, AST 27, ALT 27, Alkaline Phosphatase 106, Total Protein 6.7, Albumin 4.2, Globulin 2.5, Albumin/Globulin Ratio 1.7 09/08/24 19:49: HCV Ab MARIANELA w/Rflx PCR Qn Negative, HIV Ag/Ab Combo Qual Negative 09/08/24 18:49 09/08/24 18:49 Orders (Tests/Meds): ED MEDICATIONS Generic Name Dose Route Start Last Admin Trade Name Freq PRN Reason Stop Dose Admin Sodium Chloride 10 ml 09/08/24 20:08 09/08/24 20:14 Sodium Chloride 0.9% 10ml Vial IV 10/08/24 20:07 10 ml NEEDED PRN Administration to Dilute Lorazepam inj Discontinued Medications Generic Name Dose Route Start Last Admin Trade Name Freq PRN Reason Stop Dose Admin Lactated Ringer's 1,000 mls @ 999 mls/hr 09/08/24 20:15 09/08/24 20:14 Lactated Ringer's 1000 Ml Bag IV 09/08/24 21:15 999 mls/hr .Q1H1M VANNESA Administration Ketorolac Tromethamine 15 mg 09/08/24 20:08 09/08/24 20:23 Ketorolac 30mg/Ml Vial IV 09/08/24 20:09 15 mg ONCE ONE Administration Lorazepam 1 mg 09/08/24 20:08 09/08/24 20:14 Lorazepam 2mg/Ml Vial IV 09/08/24 20:09 1 mg ONCE ONE Administration ORDERS Category Date Time Status CT head/brain wo con Stat Cat Scan 09/08/24 20:07 Completed CXR --portable [XR chest portable] Stat Exams 09/08/24 20:07 Completed CBC w/Auto Diff [Complete Blood Count Auto Diff] Stat Lab 09/08/24 18:49 Completed CMP [Comprehensive Metabolic Panel] Stat Lab 09/08/24 18:49 Completed HIV Combo Stat Lab 09/08/24 19:49 Completed Hepatitis C Ab Qual. W/ RFX Stat Lab 09/08/24 19:49 Completed Medical Decision Narrative: Patient with a history of epilepsy and a breakthrough seizure today most likely secondary to benzodiazepine withdrawal as she has been taking her benzos at a greater rate that is what is prescribed her pharmacy has not been able to fill [place] refused to fill early and she has not had any since yesterday and had a seizure today. Will give her a dose of Ativan here she has a CIWA score less than 8 close to 0 at the moment no significant withdrawal at the moment. We did CT scan of her head also chest x-ray to rule out any significant injury or recurrence of her tumor. IV fluids have been administered will reassess. Reassessment 10:[address] scan was performed which I personally interpreted which shows no evidence of any acute intracranial pathology. Chest x-ray was performed which I personally interpreted shows no displaced rib fractures or evidence of trauma. Radiology reads consistent with this as well. Labs unremarkable from an emergency standpoint. Patient remained stable on serial neurologic assessments. I had extensive discussion with her and offered her a Librium taper versus a few days of Ativan to get her through to her next time that she can get this filled. On her Rudy she did have her most recent Ativan filled 90 tablets on the she did take a few too many claims that it was her insurance but she acknowledges that she took more that she was aware of. Overall for like this is a bad medication for her to be on chronically. I advised that she talk to her primary care doctor about tapering off of this or having a Librium taper and she was discharged in stable condition her will be with her and will return with any worsening of her symptoms Critical Care Critical Care Time Critical Care Time: Yes Attestation: On 09/08/24, the high probability of a clinically significant, sudden or life threatening deterioration of the following system(s) required my full and direct attention, intervention and personal management. The time I documented below is in addition to time spent performing reported procedures but includes the following listed in this critical care notation. Total Time Total Critical Care Time: 35
[2024-09-08 20:14] LABS: Basophils # 0.1 K/mm3 (0-0.2); Basophils % 0.6 % (0.1-2.0); Eosinophils # 0.4 K/mm3 (0.0-0.4); Eosinophils % 2.8 % (0.1-12.0); Hemoglobin 12.4 g/dL (12.2-16.2); Lymphocytes # 2.2 K/mm3 (0.7-4.5); Mean Corpuscular HGB Conc 32.6 g/dL (31.8-35.4); Mean Corpuscular Hemoglobin 27.2 pg (27.0-31.2); Mean Corpuscular Volume 83.3 fl (81-99); Mean Platelet Volume 9.3 fl (7.4-10.4); Monocytes # 0.9 K/mm3 (0.1-1.0); Monocytes % 7.4 % (1.7-9.3); Neutrophils # 8.7 K/mm3 (1.8-7.8); Neutrophils % 70.5 % (37.0-80.0); Platelet Count 352 K/mm3 (142-424); Red Blood Count 4.56 M/mm3 (4.20-5.40); White Blood Count 12.3 K/mm3 (4.8-10.8)
[2024-09-08] MEDS: SODIUM CHLORIDE 0.9% 10ML VIAL 10 ML IV (20:14)
[2024-09-08] MEDS: LORazepam 2MG/ML VIAL 1 MG IV (20:14)
[2024-09-08] MEDS: LACTATED RINGERS 1000ML 1,000 ML 999 ML IV (20:14)
[2024-09-08 20:18] LABS: Albumin Level 4.2 g/dl (3.5-5.0); Chloride 109 mmol/L (98-107); Potassium 3.8 mmoL/L (3.5-5.1); Sodium 138 mmol/L (136-145)
[2024-09-08 20:21] LABS: Alanine Aminotransferase 27 U/L (12-78); Albumin/Globulin Ratio 1.7 (1.1-1.8); Alkaline Phosphatase 106 U/L (38-126); Anion Gap 11.8 mEq/L (5-15); Aspartate Amino Transferase 27 U/L (14-36); Bilirubin,Total 0.2 mg/dl (0.2-1.3); Blood Urea Nitrogen 14 mg/dl (7-17); Calcium 9.5 mg/dl (8.4-10.2); Carbon Dioxide 21 mmol/L (22.0-30.0); Creatinine Clearance Estimated 167 mL/min (50-200); Estimated Glomerular Filt Rate 109 ml/min (>60); GFR (African American) 131 ML/MIN (>60); Globulin 2.5 g/dL (1.3-3.2); Glucose 131 mg/dl (74-100); Total Protein,Serum 6.7 g/dl (6.3-8.2)
[2024-09-08] MEDS: KETOROLAC 30MG/ML VIAL 15 MG IV (20:23)
[2024-09-08 21:00] LABS: HIV Combo NEGATIVE (Negative)
[2024-09-08 21:07] LABS: Hepatitis C Ab Qual. W/ RFX NEGATIVE (Negative)
== END 2024-09-08 22:35 | disposition home or self-care (01) ==
PROVIDERS: Emergency Provider Student in an Organized Health Care Education/Training Program; PCP Nurse Practitioner
DX: G40.919 Epilepsy, unspecified, intractable, without status epilepticus (principal); S20.219A Contusion of unspecified front wall of thorax, initial encounter; S09.90XA Unspecified injury of head, initial encounter; F13.939 Sedative, hypnotic or anxiolytic use, unspecified with withdrawal, unspecified; M25.561 Pain in right knee; R07.89 Other chest pain; R51.9 Headache, unspecified; F17.210 Nicotine dependence, cigarettes, uncomplicated; W18.39XA Other fall on same level, initial encounter; Y93.89 Activity, other specified
CPT/HCPCS: 70450; 71045; 80053; 85025; 86803; 87389; 93005; 96361; 96374; 96375; 99291; J1885; J2060; J7120

== ENCOUNTER 2025-01-23 00:25 | Emergency (ER) | payer MEDICARE, MEDICAID, SELFPAY ==
[2025-01-23 00:41] VITALS: BP 148/72; PULSE 98; O2SAT 95
[2025-01-23 00:51] VITALS: BP 148/72; PULSE 93; RESP 20; TEMP 36.9; O2SAT 96; BMI 42.9
[2025-01-23 01:36] VITALS: BP 132/78; PULSE 88; O2SAT 96
[2025-01-23 01:40] LABS: Microscopic, Urine URINE MICROSCOPIC (MICROSCOPIC)
--- NOTE | 2025-01-23 01:41 | CT_ITS ---
PROCEDURE INFORMATION: Exam: CT Abdomen And Pelvis With Contrast Exam date and time: 01/23/2025 2:56 AM Age: 44 years old Clinical indication: Abdominal pain; Flank; Right; Additional info: R flank pain HX stones TECHNIQUE: Imaging protocol: Computed tomography of the abdomen and pelvis with contrast. Radiation optimization: All CT scans at this facility use at least one of these dose optimization techniques: automated exposure control; mA and/or kV adjustment per patient size (includes targeted exams where dose is matched to clinical indication); or iterative reconstruction. Contrast material: ISOVUE; Contrast volume: 75 ml; Contrast route: IV; COMPARISON: CT ABDOMEN PELVIS W CON 11/08/2023 9:51 AM FINDINGS: Liver: Normal. No mass. Gallbladder and biliary ducts: Normal. No calcified stones. No ductal dilation. Pancreas: Normal. No ductal dilation. Spleen: Normal. No splenomegaly. Adrenal glands: Normal. No mass. Kidneys and ureters: 2 mm calculi in the proximal right ureter with mild hydronephrosis. 1.4 cm simple appearing left renal cyst. Stomach and bowel: Unremarkable. No obstruction. No mucosal thickening. Appendix: No evidence of appendicitis. Intraperitoneal space: Unremarkable. No free air. No significant fluid collection. Vasculature: Unremarkable. No abdominal aortic aneurysm. Lymph nodes: Unremarkable. No enlarged lymph nodes. Urinary bladder: Unremarkable as visualized. Reproductive: Unremarkable as visualized. Bones/joints: Unremarkable. No acute fracture. Soft tissues: Unremarkable. IMPRESSION: 2 mm calculi in the proximal right ureter with mild hydronephrosis. COMMENTS: Consistent with the [employer]'s Incidental Findings Committee white paper (J Am Lucrecia Radiol 2018): Any incidental renal lesion less than 1 cm or classified as too small to characterize, or any incidental cystic renal lesion characterized as simple-appearing, is likely benign. No follow-up imaging is recommended for these lesions per consensus recommendations based on imaging criteria.
[2025-01-23 01:42] LABS: Hematocrit 35.9 % (37.0-47.0); Hemoglobin 11.8 g/dL (12.2-16.2); Immature Granulocytes % 1.5 %; Mean Corpuscular HGB Conc 32.9 g/dL (31.8-35.4); Mean Corpuscular Hemoglobin 28.0 pg (27.0-31.2); Mean Corpuscular Volume 85.3 fl (81-99); Nucleated Red Blood Cells % 0 %; Platelet Count 352 K/mm3 (142-424); Red Blood Count 4.21 M/mm3 (4.20-5.40); Red Cell Distribution Width-SD 38.8 fL; White Blood Count 10.6 K/mm3 (4.8-10.8)
[2025-01-23 01:44] LABS: Bilirubin,Urine Negative (Negative); Color,Urine YELLOW (Yellow); Glucose,Urine (UA) Negative (Negative); Ketones,Urine TRACE (Negative); Leukocyte Esterase,Urine Negative (Negative); PH,Urine 6.0 (5.0-8.5); Protein,Urine Negative (Negative); Specific Gravity, Urine 1.025 (1.005-1.030); Urobilinogen,Urine 0.2 EU/dl (0.2)
[2025-01-23 01:47] LABS: Alanine Aminotransferase 24 U/L (12-78); Albumin Level 4.1 g/dl (3.5-5.0); Albumin/Globulin Ratio 1.7 (1.1-1.8); Alkaline Phosphatase 120 U/L (38-126); Anion Gap 10.9 mEq/L (5-15); Aspartate Amino Transferase 28 U/L (14-36); Bilirubin,Total 0.2 mg/dl (0.2-1.3); Blood Urea Nitrogen 13 mg/dl (7-17); Calcium 9.8 mg/dl (8.4-10.2); Carbon Dioxide 24 mmol/L (22.0-30.0); Chloride 105 mmol/L (98-107); Creatinine Clearance Estimated 99 mL/min (50-200); Creatinine,Serum 0.70 mg/dl (0.52-1.04); Estimated Glomerular Filt Rate 90 ml/min (>60); GFR (African American) 109 ML/MIN (>60); Globulin 2.4 g/dL (1.3-3.2); Glucose 141 mg/dl (74-100); Potassium 3.9 mmoL/L (3.5-5.1); Sodium 136 mmol/L (136-145); Total Protein,Serum 6.5 g/dl (6.3-8.2)
[2025-01-23] MEDS: MORPHINE 4MG/ML SYRINGE 4 MG IV (01:52)
[2025-01-23] MEDS: LACTATED RINGERS 1000ML 1,000 ML 999 ML IV (01:52)
[2025-01-23] MEDS: ONDANSETRON 4MG/2ML VIAL 4 MG IV (01:52)
[2025-01-23 01:57] LABS: HCG Qualitative, Serum Negative (Negative)
[2025-01-23 01:59] LABS: Squamous Epithelial Cell,Urine 20-50 #/hpf (0-5)
[2025-01-23 02:00] VITALS: BP 126/65; PULSE 85; O2SAT 95
[2025-01-23] MEDS: SODIUM CHLORIDE 0.9% 10ML SYR (RAD ONLY) 10 ML IV (03:02)
[2025-01-23] MEDS: IOPAMIDOL-370 (76%);100ML BOTTLE 75 ML IV (03:02)
[2025-01-23] MEDS: HYDROCODONE/APAP 5/325 MG TABLET 1 TAB PO (03:45)
[2025-01-23 04:26] VITALS: BP 132/87; PULSE 77; RESP 20; TEMP 36.7; O2SAT 99
[2025-01-23] MEDS: TAMSULOSIN 0.4MG CAPSULE 0.4 MG PO (04:33)
--- NOTE | 2025-01-23 05:19 | HMH.EDGENADL ---
Discharge Plan Disposition Patient Disposition: Home, Self-Care Condition: Good Prescriptions Prescriptions: New tamsulosin 0.4 mg capsule 0.4 mg PO HS Qty: 10 0RF hydrocodone-acetaminophen 5-325 mg tablet 1 tab PO Q6H PRN (Reason: pain (scale score 7-10)) Qty: 10 0RF ondansetron 4 mg tablet,disintegrating 4 mg PO Q6H PRN (Reason: nausea and vomiting) Qty: 10 0RF No Action fluoxetine 10 mg Tablet 10 mg PO HS propranolol 10 mg Tablet 10 mg PO BID lorazepam 0.5 mg Tablet 0.5 mg PO BIDP PRN (Reason: Anxiety) Oxtellar XR 300 mg Tablet Extended Release 24 Hr 300 mg PO HS Rx Instructions: must be taken on empty stomach; no food at least 2 hrs before or 1 hr after dose Oxtellar XR 600 mg Tablet Extended Release 24 Hr 1,200 mg PO HS Rx Instructions: must be taken on empty stomach; no food at least 2 hrs before or 1 hr after dose montelukast 10 mg tablet 10 mg PO PM Patient Comments: TAKE 1 TABLET BY MOUTH NIGHTLY albuterol sulfate 90 mcg/actuation HFA aerosol inhaler 2 puff INHALATION Q6HP PRN (Reason: Shortness Of Breath) Patient Comments: TAKE 2 PUFFS BY MOUTH EVERY 6 HOURS NEEDED FOR WHEEZE budesonide-formoterol [Symbicort] 160-4.5 mcg/actuation HFA aerosol inhaler 2 puff INHALATION BID Patient Comments: INHALE 2 PUFFS INTO THE LUNGS 2 TIMES DAILY atorvastatin 20 mg Tablet 20 mg PO HS 30 Days Qty: 30 0RF oxcarbazepine 300 mg Tablet 1,500 mg PO HS 30 Days Qty: 150 0RF aspirin 81 mg Tablet,Delayed Release (Dr/Ec) 81 mg PO DAILY 30 Days Qty: 30 0RF tramadol 50 mg Tablet 50 mg PO Q6HP PRN (Reason: Moderate To Severe Pain) 3 Days Qty: 12 0RF nicotine 21 mg/24 hr Patch 24 Hour 21 mg transdermal DAILY 30 Days Qty: 30 0RF ipratropium-albuterol 0.5 mg-3 mg(2.5 mg base)/3 mL Solution For Nebulization 3 ml inhalation Q4HP PRN (Reason: Shortness Of Breath) 30 Days Qty: 120 0RF azithromycin 250 mg Tablet 500 mg PO 2100 1 Days Qty: 2 0RF prednisone 20 mg Tablet 40 mg PO DAILY 2 Days Qty: 4 0RF amoxicillin-pot clavulanate 500-125 mg Tablet 1 ea PO TID 4 Days Qty: 12 0RF pantoprazole 20 mg tablet,delayed release (DR/EC) 20 mg PO DAILY Qty: 30 0RF cefdinir 300 mg capsule 300 mg PO BID 7 Days Qty: 14 0RF lorazepam [Ativan] 0.5 mg tablet 0.5 mg PO TID PRN (Reason: anxiety) 3 Days Qty: 9 0RF Referrals Follow up/Referrals: Dede Meredith APRN [Primary Care Provider, Medical] - See instructions Franco Leal MD [Staff Physician, Urology] - See instructions Referral Note: kidney stone Activity Restrictions/Add. Instructions Additional Instructions/Restrictions: You were evaluated in the ER and are believed to be appropriate for discharge at this time. Take the prescribed medications as directed. Take the tamsulosin daily to help dilate the urinary tract, take ibuprofen if needed for pain, do not exceed the recommended dose on the bottle. Drink water and eat a small snack each time you take these medications to avoid side effects. If the ibuprofen is not controlling your pain, only then should you take the prescribed hydrocodone. This is a controlled substance. It may cause addiction. Only take it as directed if needed for severe, breakthrough pain. Do not drive or operate machinery after taking it. This medication may cause constipation so it can be beneficial to take a stool softener or laxative with this medication. Take the prescribed Zofran (ondansetron) if needed for nausea. Urinate through the strainer to capture the stone when it passes. Make an appointment with your primary care doctor for reevaluation in 2 to 3 days. Also call the urologist office and make an appointment for outpatient follow-up and reevaluation. Return to the ER with any new, worsening, or otherwise concerning symptoms. Clinical Impressions Clinical Impression: Calculus of proximal right ureter, Hydronephrosis Instructions Patient Instructions: Kidney Stones -- Adult Print Language Print Language: Thai Discharge ED Provider: Boris Talamantes Adult [facility] General Chief complaint: Urogenital-Female Stated complaint: Pain R side abd and back Time Seen by Provider: 01/23/25 01:42 Mode of Arrival: Ambulatory Source of Information: Patient Description of Symptoms (Recalled from ER Triage Doc. by RN): patient c/o right side lower abdominal pain that is radiating into her back. patient states she has had kidney stones before but not sure if this is the same. denies difficulty urinating. History of Present Illness HPI narrative: 44-year-old female presents to the ER complaining of right flank pain. Patient reports history of kidney stones but cannot remember if this is the same pain or not. She denies any difficulty urinating or painful urination. Denies any blood in the urine. Patient reports symptoms onset 4 hours prior to arrival. She states the pain has migrated slightly lower since the time of onset but has not otherwise changed much. No fevers or chills. No vomiting though she does endorse nausea. No other complaints or concerns at this time. Patient denies history of lithotripsy or stents. Related Data Home Medications ?Medication ?Instructions ?Recorded ?Confirmed albuterol sulfate 90 mcg/actuation 2 puff inhalation Q6HP PRN 09/12/22 09/12/22 aerosol inhaler Shortness Of Breath budesonide-formoterol HFA 160 2 puff inhalation BID Breathing 09/12/22 09/12/22 mcg-4.5 mcg/actuation aerosol problems inhaler (Symbicort) fluoxetine 10 mg tablet 10 mg PO HS Anxiety 09/12/22 09/13/22 lorazepam 0.5 mg tablet 0.5 mg PO BIDP PRN Anxiety 09/12/22 09/12/22 montelukast 10 mg tablet 10 mg PO PM Allergy symptoms 09/12/22 09/12/22 oxcarbazepine 300 mg 300 mg PO HS seizures 09/12/22 09/13/22 tablet,extended release 24 hr (Oxtellar XR) oxcarbazepine 600 mg 1,200 mg PO HS seizures 09/12/22 09/13/22 tablet,extended release 24 hr (Oxtellar XR) propranolol 10 mg tablet 10 mg PO BID anxiety 09/12/22 09/12/22 Previous Rx's ?Medication ?Instructions ?Recorded amoxicillin 500 mg-potassium 1 ea PO TID 4 days #12 tabs 09/14/22 clavulanate 125 mg tablet aspirin 81 mg tablet,delayed 81 mg PO DAILY 30 days #30 tabs 03/23/23 release atorvastatin 20 mg tablet 20 mg PO HS 30 days #30 tabs 09/14/22 azithromycin 250 mg tablet 500 mg (2 x 250 mg) PO 2100 1 day 09/14/22 #2 tabs ipratropium 0.5 mg-albuterol 3 mg 3 ml inhalation Q4HP PRN Shortness 09/14/22 (2.5 mg base)/3 mL nebulization Of Breath 30 days #120 ea soln nicotine 21 mg/24 hr daily 21 mg transdermal DAILY 30 days 09/14/22 transdermal patch #30 ea oxcarbazepine 300 mg tablet 1,500 mg (5 x 300 mg) PO HS 30 09/14/22 days #150 tabs prednisone 20 mg tablet 40 mg (2 x 20 mg) PO DAILY 2 days 09/14/22 #4 tabs tramadol 50 mg tablet 50 mg PO Q6HP PRN Moderate To 09/14/22 Severe Pain 3 days #12 tabs pantoprazole 20 mg tablet,delayed 20 mg PO DAILY #30 tabs 08/29/23 release cefdinir 300 mg capsule 300 mg PO BID 7 days #14 caps 11/08/23 lorazepam 0.5 mg tablet (Ativan) 0.5 mg PO TID PRN anxiety 3 days 09/08/24 #9 tabs hydrocodone 5 mg-acetaminophen 325 1 tab PO Q6H PRN pain (scale score 01/23/25 mg tablet 7-10) #10 tabs ondansetron 4 mg disintegrating 4 mg PO Q6H PRN nausea and 01/23/25 tablet vomiting #10 tabs tamsulosin 0.4 mg capsule 0.4 mg PO HS #10 caps 01/23/25 Allergies Allergy/AdvReac Type Severity Reaction Status Date / Time doxycycline (DOXYCYCLINE) Allergy Unknown Unknown Verified 09/12/22 09:19 allergy reaction latex (LATEX) Allergy Unknown Unknown Verified 09/12/22 09:19 allergy reaction sulfamethoxazole (From Allergy Unknown Unknown Verified 09/12/22 09:19 BACTRIM) allergy reaction trimethoprim (From BACTRIM) Allergy Unknown Unknown Verified 09/12/22 09:19 allergy reaction PFSH PFSH Disclaimer: The information contained in this section may have been updated after the patient was seen, as this information can be updated by other users. Medical History (Updated 01/23/25 @ 04:17 by Boris Talamantes MD) Acute respiratory failure with hypoxia COPD (chronic obstructive pulmonary disease) Shortness of Breath Anxiety disorder Depression Seizure disorder Epileptic seizure Generalized seizure Polyhydramnios affecting in third trimester Surgical History (Updated 09/18/22 @ 00:00 by Trini Quesada) H/O brain surgery Family History (Updated 09/12/22 @ 09:09 by Emily Hernandez APRN) Father Hypertension Social History (Updated 09/12/22 @ 09:09 by Emily Hernandez APRN) Smoking Status: Current every day smoker tobacco type: cigarettes packs per day: 1 how long ago did patient quit smokin days ago alcohol intake: never substance use type: denies use current occupational status: employed Travel in the last 8 weeks?: None adopted: No caregiver/support person: No foster care: No household members: spouse and children housing: apartment lives independently: Yes marital status: number of children: 1 education level: college service: No mcfp: No current occupational exposures/hazards: No pets and animals: No sexually active: Yes Have you lived/traveled outside [place] in past 30 days?: No Contact w/someone who lives/traveled outside US past 30 days?: No Exposure to someone with infectious disease in past 14 days?: No Do you have a fever (greater than 100.4 F or 38 C)?: No Have you tested positive for COVID-19?: No Exposed to someone with COVID-19 in past 14 days?: No Do you have a sore throat?: No Do you have a cough?: No Do you have any weakness?: No Do you have any diarrhea?: No Are you experiencing any unusual bleeding?: No Do you have any muscle aches/pain?: No Do you have any abdominal pain?: Yes Are you experiencing loss of taste or smell?: No Other Medical History Have you received the Flu Vaccine for this season: No Have you received the Pneumonia Vaccine: No ROS Obtained: Yes Systems reviewed as appropriate & no additional complaints except as documented Per HPI Physical Exam General General appearance: alert, in no apparent distress and obese Head Head exam: atraumatic and normocephalic Eye Eye exam: Present PERRL and EOMI ENT ENT exam: Present mucous membranes moist Neck Neck exam: Present normal inspection and full ROM Chest Chest inspection: Present symmetric chest wall rise Respiratory Respiratory exam: Present normal lung sounds bilaterally; Absent respiratory distress, wheezes or stridor Cardiovascular Cardiovascular exam: Present regular rate and normal rhythm Abdominal Exam Abdominal exam: Present soft; Absent distention, tenderness, guarding or rebound Extremities Exam Extremities exam: Present full ROM Back Exam Back exam: Present CVA tenderness (R); Absent CVA tenderness (L) Neurological Exam Neurological exam: Present alert and oriented X3; Absent motor sensory deficit Psychiatric Psychiatric exam: Present normal affect and normal mood Skin Skin exam: Present warm and dry Medical Decision Making Medical Records Medical records reviewed: Yes I reviewed the patient's medical records. Screening: Per USPSTF and CDC recommendations, given the prevalence of disease in our region, it is our hospital?s policy to screen for HIV and viral Hepatitis for all patients aged 18 and over and those with ongoing risk factors. Rudy Inquiry Pt receiving controlled substance: Yes Rudy was queried for this patient: No Reference #:: PDMP with no opioids Reason not queried -: Emergent pt cond-no time Risks and benefits of using a controlled substance: were discussed with pt by me Comment: Risks and benefits and appropriate use discussed Vital Signs: 01/23/25 00:41 01/23/25 00:51 01/23/25 01:36 Temperature 98.4 F Temperature Source Oral Pulse Rate 98 H 88 Pulse Rate [Left] 93 H Respiratory Rate 20 Blood Pressure 148/72 H 132/78 Blood Pressure [Right Arm] 148/72 H Blood Pressure Mean [Right Arm] 97 Blood Pressure Source [Right Arm] Automatic Cuff Blood Pressure Position [Right Arm] Sitting 02 Sat by Pulse Oximetry 95 96 96 Oxygen Delivery Method Room Air Room Air Room Air 01/23/25 02:00 01/23/25 04:26 Temperature 98.1 F Temperature Source Pulse Rate 85 77 Pulse Rate [Left] Respiratory Rate 20 Blood Pressure 126/65 132/87 Blood Pressure [Right Arm] Blood Pressure Mean [Right Arm] Blood Pressure Source [Right Arm] Blood Pressure Position [Right Arm] 02 Sat by Pulse Oximetry 95 Oxygen Delivery Method Room Air Room Air Lab Data Lab Results 01/23/25 00:49: WBC 10.6, RBC 4.21, Hgb 11.8 L, Hct 35.9 L, MCV 85.3, MCH 28.0, MCHC 32.9, RDW 12.7, Plt Count 352, MPV 9.2, Neut % (Auto) 70.0, Lymph % (Auto) 17.9, [place] % (Auto) 7.3, Eos % (Auto) 2.6, Baso % (Auto) 0.7, Neut # (Auto) 7.5, Lymph # (Auto) 1.9, [place] # (Auto) 0.8, Eos # (Auto) 0.3, Baso # (Auto) 0.1, Sodium 136, Potassium 3.9, Chloride 105, Carbon Dioxide 24, Anion Gap 10.9, BUN 13, Creatinine 0.70, Estimated Creat Clear 99, Estimated GFR 90, Est GFR ( Amer) 109, Glucose 141 H, Calcium 9.8, Total Bilirubin 0.2, AST 28, ALT 24, Alkaline Phosphatase 120, Total Protein 6.5, Albumin 4.1, Globulin 2.4, Albumin/Globulin Ratio 1.7, Serum HCG, Qual Negative 01/23/25 01:00: Urine Color Yellow, Urine Appearance Clear, Urine pH 6.0, Ur Specific [place] 1.025, Urine Protein Negative, Urine Glucose (UA) Negative, Urine Ketones Trace, Urine Blood 1+ A, Urine Nitrate Negative, Urine Bilirubin Negative, Urine Urobilinogen 0.2, Ur Leukocyte Esterase Negative, Urine RBC 3-5, Urine WBC None, Ur Squamous Epith Cells 20-50, Urine Bacteria None 01/23/25 00:49 01/23/25 00:49 Orders (Tests/Meds): ED MEDICATIONS Discontinued Medications Generic Name Dose Route Start Last Admin Trade Name Freq PRN Reason Stop Dose Admin Hydrocodone Bitart/Acetaminophen 1 tab 01/23/25 03:34 01/23/25 03:45 Hydrocodone/Apap 5/325 Mg Tablet PO 01/23/25 03:35 1 tab ONCE ONE Administration Lactated Ringer's 1,000 mls @ 999 mls/hr 01/23/25 01:41 01/23/25 01:52 Lactated Ringer's 1000 Ml Bag IV 01/23/25 02:41 999 mls/hr .Q1H1M ONE Administration Iopamidol 75 ml 01/23/25 03:01 01/23/25 03:02 Iopamidol-370 (76%);100ml Bottle IV 01/23/25 03:02 75 ml ONCE ONE Administration Morphine Sulfate 4 mg 01/23/25 01:41 01/23/25 01:52 Morphine 4mg/Ml Syringe IV 01/23/25 01:42 4 mg ONCE ONE Administration Ondansetron HCl 4 mg 01/23/25 01:41 01/23/25 01:52 Ondansetron 4mg/2ml Vial IV 01/23/25 01:42 4 mg ONCE ONE Administration Sodium Chloride 10 ml 01/23/25 03:01 01/23/25 03:02 Sodium Chloride 0.9% 10ml Syr (Rad Only) IV 02/22/25 03:00 10 ml NEEDED PRN Administration Maintain IV Site Tamsulosin HCl 0.4 mg 01/23/25 04:14 01/23/25 04:33 Tamsulosin 0.4mg Capsule PO 01/23/25 04:15 0.4 mg ONCE ONE Administration ORDERS Category Date Time Status CT abdomen pelvis w con Stat Cat Scan 01/23/25 01:41 Completed CBC w/Auto Diff [Complete Blood Count Auto Diff] Stat Lab 01/23/25 00:49 Completed CMP [Comprehensive Metabolic Panel] Stat Lab 01/23/25 00:49 Completed HCG Qualitative, Serum Stat Lab 01/23/25 00:49 Completed UA [Urinalysis and Microscopic] Stat Lab 01/23/25 01:00 Completed Medical Decision Narrative: In summary, this 44-year-old female presents to the emergency department today with right flank pain. On initial evaluation patient is hemodynamically stable, afebrile, physical exam notable for right CVA tenderness but otherwise benign exam besides the patient being obese. Differential diagnosis includes but is not limited to nephrolithiasis, ureterolithiasis, hydronephrosis, hydroureter, urinary tract infection, kidney dysfunction, pyelonephritis, among others. Based on these concerns, I ordered serum labs, urine studies, CT imaging. Patient received morphine, Zofran, LR initially for symptom management. Labs personally reviewed demonstrate no leukocytosis, mild anemia which is nonspecific and nonactionable, platelets normal, CMP nonactionable, good kidney function, UA with blood and contaminated with squamous cells but no evidence of infection.. CT abdomen pelvis personally interpreted demonstrates proximal right ureteral stone, it appears very small less than 3 mm and is causing hydronephrosis but no other acute abnormalities. See radiology read for final interpretation. She does have simple left renal cyst. On reassessment patient had had improvement of symptoms but states her pain is starting to come back. Hydrocodone administered. Patient also received tamsulosin. Patient is appropriate for discharge at this time since this is a very small stone that should be able to pass spontaneously. She was provided a urinary strainer to capture the stone at home. She was given referral to Dr. Leal with urology for outpatient follow-up. I prescribed tamsulosin, Zofran, and hydrocodone for outpatient treatment of symptoms. Patient was given explicit instructions on careful use of the hydrocodone given it is a controlled substance including not taking it before driving or operate machinery as well as the risks of addiction and other potential side effects. Patient was given instructions on symptomatic management, follow up instructions, and return precautions for the emergency department. Patient indicated understanding and was discharged in stable condition. Critical Care Critical Care Time Critical Care Time: No
== END 2025-01-23 04:36 | disposition home or self-care (01) ==
PROVIDERS: Emergency Provider Emergency Medicine; PCP Nurse Practitioner
DX: N13.0 Hydronephrosis with ureteropelvic junction obstruction (principal); R10.31 Right lower quadrant pain; F17.210 Nicotine dependence, cigarettes, uncomplicated
CPT/HCPCS: 74177; 80053; 81001; 84703; 85025; 96361; 96374; 96375; 99285; J2270; J2405; J7120; Q9967

== ENCOUNTER 2025-01-24 22:21 | Emergency (ER) | payer MEDICARE, MEDICAID, SELFPAY ==
--- OUTSIDE RECORDS SUMMARY | 2024-12-02 13:30 | XMS_ITS | Encounter Summary ---
Author Organization [place] [address] Care Team Providers Care Automobile Insurance Claim Examiner Name Role Phone Dede Meredith APRN Primary Care Provider Encounter Details Date Type Department Care Team (Late st Contact Info) Description 12/02/2024 1:30 PM EDT Telemedicine SEP Vanessa CERDA [address] [place] [id number] Dede Meredith APRN [address] [place] [address] BPV (benign positional vertigo), unspecified laterality (Primary Dx); Moderate episode of recurrent major depressive disorder (HCC) Social History Tobacco Use Types Packs/Day Years Used Date Smoking Tobacco: Former Cigarettes 1 20.9 0 11/03/2001 - 09/11/2022 Smokeless Tobacco: Never Comments:planning on stoppin g Alcohol Use Standard Drinks/Week Comments No 0 (1 standard drink = 0.6 oz pur e alcohol) Overall Financial Resource Strain (CARDIA) Answe r Date Recorded How hard is it for you to pa y for the very basics like food, housing, medical care, and heating? Not very hard 11/04/2020 PHQ-2 Answer Date Recorded PHQ-2 Total Score 6 07/17/2023 [facility] Occupat ional Health - Occupational Stress Questionnaire Answer Date Recorded Do you feel stress - tense, restless, nervous, or anxious, or unable to sleep at night because your mind is troubled all the time - these days? Very much 09/21/2020 Exercise Vital Sign Answer Date Recorde d On average, how many days pe r week do you engage in moderate to strenuous exercise (like a brisk walk)? 0 days 09/21/2020 On average, how many minutes do you engage in exercise at this level? 0 min 09/21/2020 Hunger Vital Sign Answer Date Recorded Within the past 12 months, y ou worried that your food would run out before you got the money to buy more. Never true 11/05/19 21 Within the past 12 months, t he food you bought just didn't last and you didn't have money to get more. Never true 11/04/2020 PRAPARE - Transportation Answer Date Re corded In the past 12 months, has l ack of transportation kept you from medical appointments or from getting medications? Yes 10/23 In the past 12 months, has l ack of transportation kept you from meetings, work, or from getting things needed for daily living? No 11/04/2020 Sexually Active Control Partners Comments Yes Surgical Male tubal ligation Comments No Sex and Gender Information Value Date Recorded Sex Assigned at Not on file Legal Sex Female 2:24 PM EDT Gender Identity Not on file Sexual Orientation Not on file Occupation Industry Job Start Date Job End Date Disabled Not on file Not on file Not on file documented as of this encounter Functional Status * Is the person deaf or does he/she have serious difficulty hearing? Answer Date of Assessment Author No 07/17/2023 9:04 AM Norma Murcia CCMA * Is the person blind or does he/she have serious difficulty seeing even when wearing glasses? Answer Date of Assessment Author No 07/17/2023 9:04 AM Norma Murcia CCMA * Does this person have serious difficulty walking or climbing stairs? Answer Date of Assessment Author No 07/17/2023 9:04 AM Norma Murcia CCMA * Does this person have difficulty dressing or bathing? Answer Date of Assessment Author No 07/17/2023 9:04 AM Norma Murcia CCMA * Because of a physical, mental or emotional condition, does this person have difficulty doing errands alone such as visiting a doctor's office or shopping? Answer Date of Assessment Author No 07/17/2023 9:04 AM Norma Murcia CCMA documented as of this encounter Mental Status * Because of a physical, mental or emotional condition, does this person have serious difficulty concentrating, remembering or making decisions? Answer Entry Date Author No 07/17/2023 9:04 AM Norma Murcia CCMA documented in this encounter Ordered Prescriptions Prescription Sig Dispense Quantity Refills Last Filled Start Date End Date DULoxetine (CYMBALTA) 30 mg Oral Capsule, Delayed Release(E.C.)Indic ations:Moderate episode of recurrent major depressive disorder (HCC) Take 1 Capsule by mouth daily. 30 Capsule 2 12/02/2024 FLUoxetine (PROZAC) 20 mg Oral CapsuleIndications :Moderate episode of recurrent major depressive disorder (HCC) Tapering off. Will take 20mg daily for one week, then 20mg every other day for one week, then every two days then stop 14 Capsule 12/02/2024 5 FLUoxetine (PROZAC) 40 mg Oral CapsuleIndications :Moderate episode of recurrent major depressive disorder (HCC) Take 1 Capsule by mouth 2 times daily. 60 Capsule 6 12/02/2024 5 meclizine (ANTIVERT) 25 mg Oral Tablet, ChewableIndication s:BPV (benign positional vertigo), unspecified laterality Take 1 Tablet by mouth 3 times daily as needed for up to 10 days. 30 Tablet 1 12/02/2024 5 documented in this encounter Progress Notes * Dede Meredith APRN - 12/02/2024 1:30 PM EDTAssociated Problem(s): Moderate episode of recurrent major depressive disorder (HCC) Taper off prozac. Start cymbalta. Follow-up in one month Orders: DULoxetine (CYMBALTA) 30 mg Oral Capsule, Delayed Release(E.C.); Take 1 Capsule by mouth daily. FLUoxetine (PROZAC) 20 mg Oral Capsule; Tapering off. Will take 20mg daily for one week, then 20mg every other day for one week, then every two days then stop * Dede Meredith APRN - 12/02/2024 1:30 PM EDT Assessment & Plan BPV (benign positional vertigo), unspecified laterality Rx for meclizine TID PRN Recommend monitor BP and hR during episodes to see if that may be contributing (due to being on inderal) Orders: meclizine (ANTIVERT) 25 mg Oral Tablet, Chewable; Take 1 Tablet by mouth 3 times daily as needed for up to 10 days. Moderate episode of recurrent major depressive disorder (HCC) Taper off prozac. Start cymbalta. Follow-up in one month Orders: DULoxetine (CYMBALTA) 30 mg Oral Capsule, Delayed Release(E.C.); Take 1 Capsule by mouth daily. FLUoxetine (PROZAC) 20 mg Oral Capsule; Tapering off. Will take 20mg daily for one week, then 20mg every other day for one week, then every two days then stop Progress Note: There were no vitals filed for this visit. There is no height or weight on file to calculate BMI. SUBJECTIVE: No chief complaint on file. Patient presented today for acute care visit through a video visit. Patient has reviewed the terms and conditions of service as part of the registration for today's visit. Patient is aware that a video visit does not replace a [id number] exam and further services may be necessary. I advised the patient that we are conducting her video visit through our office in a private space on our secure network and this video visit is being conducted in accordance with [facility] telehealth/video visit regulations. Patient had no questions prior to initiation of the visit and electronic consent wasobtained. This was completed as a video visit to 1) reduce the risk of a possible COVID 19 positive patient spreading disease to other patients and medical personnel and /or 2) reduce the exposure risk to a patient with co-morbid conditions that increase COVID 19 infection complications / . HPI: Intermittent vertigo with nausea. Happens a couple of times a day, last about an hour max, Worse inthe heat or when she has headaches Increasing depression. Lack of energy and motivation to get up and go. No SI or HI. Broken heart - lost son. Feels prozac is ineffective, would like to try cymbalta. Review of Systems Constitutional: Positive for fatigue. Negative for fever. HENT: Negative for congestion. Respiratory: Negative for cough, shortness of breath and wheezing. Cardiovascular: Negative for chest pain and leg swelling. Neurological: Positive for dizziness and headaches. Psychiatric/Behavioral: Positive for decreased concentration, dysphoric mood and sleep disturbance.The patient is nervous/anxious. OBJECTIVE: Physical Exam Constitutional: Appearance: She is obese. Pulmonary: Effort: Pulmonary effort is normal. Neurological: Mental Status: She is alert and oriented to person, place, and time. Psychiatric: Mood and Affect: Mood normal. Thought Content: Thought content normal. documented in this encounter Plan of Treatment Upcoming Encounters Date Type Department Care Team (Late st Contact Info) Description 02/03/2025 2:00 PM EDT Appointment [facility] [address] [place] [address] Vic Villarreal APRN [address] [facility] [address] [place] [address] 04/27/2025 11:00 AM EST Appointment [facility] [address] [place] [address] Ledy Luo MD [address] [place] [address] documented as of this encounter Goals Goal Patient Goal Type Associated Problems Recent Progress Patient-Stated? Author Maintain a healthy diet, exercise regularly and maintain an ideal body weight General No Mary Christy RMA Stay Tobacco Free Lifestyle No Mary Christy RMA documented as of this encounter Visit Diagnoses Diagnosis BPV (benign positional vertigo), unspecified laterality- Primary Moderate episode of recurrent major depressive disorder (HCC) documented in this encounter Discontinued Medications Medication Sig Discontinue Reason Start Date End Da te nystatin (MYCOSTATIN) Top CreamIndications:Yeast dermatitis Apply topically 2 times daily. DELETE-Therapy completed 07/31/2024 12/02/2024 SUMAtriptan (IMITREX) 100 mg Oral TabletIndications:Feve r, unspecified fever cause Take 100 mg by mouth once as needed. DELETE-Therapy completed 12/30/2023 12/02/2024 omeprazole (PRILOSEC) 40 mg Oral Capsule, Delayed Release(E.C.)Indicatio ns:Gastroesophageal reflux disease without esophagitis Take 1 Capsule by mouth daily. DELETE-Therapy completed 10/18/2023 12/02/2024 hydroCHLOROthiazide 25 mg Oral TabletIndications:Mel pheral edema TAKE 1 TABLET BY MOUTH EVERY DAY NEEDED DELETE-Therapy completed 05/19/2024 12/02/2024 FLUoxetine (PROZAC) 40 mg Oral CapsuleIndications:Mod erate episode of recurrent major depressive disorder (HCC) Take 1 Capsule by mouth daily. Reorder 09/10/2024 12/02/2024 FLUoxetine (PROZAC) 40 mg Oral CapsuleIndications:Mod erate episode of recurrent major depressive disorder (HCC) Take 1 Capsule by mouth 2 times daily. Dose adjustment 12/02/2024 12/02/2024 documented as of this encounter Additional Health Concerns Assessment Noted Time PHQ-9 Depression Total Score: 19 024 9:05 AM EST PHQ-2 Depression Total Score: 6 07/17/19 24 9:05 AM EST documented as of this encounter Care Teams Automobile Insurance Claim Examiner Relationship Specialty Start Date End Date Dede Meredith APRN [address] [place], [place] [id number] PCP - General Nurse Practitioner-Family 11/17/20 documented as of this encounter
--- OUTSIDE RECORDS SUMMARY | 2024-12-11 13:30 | XMS_ITS | Encounter Summary ---
Author Organization [place] [address] Care Team Providers Care Regional Marketing Director Name Role Phone Dede Meredith APRN Primary Care Provider Reason for Visit * Reason Comments Dysuria Encounter Details Date Type Department Care Team (Late st Contact Info) Description 12/11/2024 1:30 PM EDT Office Visit SEP Vanessa [address] [place] [address] Dede Meredith APRN [address] [place] [address] Grief at loss of child (Primary Dx); Generalized anxiety disorder; Benzodiazepine dependence (HCC); Medication management; Dysuria Social History Tobacco Use Types Packs/Day Years [...] Date Recorded PHQ-2 Total Score 6 07/17/2023 [facility] of Occupat ional Health - Occupational Stress [...] on file documented as of this encounter Last Filed Vital Signs Vital Sign Reading Time Taken Comments Blood Pressure 138/84 12/11/2024 1:24 PM EDT Pulse 106 12/11/2024 1:24 PM EDT Temperature 36.3 C (97.3 F) 12/11/2024 1:24 PM EDT Respiratory Rate 18 12/11/2024 1:24 PM EDT Oxygen Saturation 96% 12/11/2024 1:24 PM EDT Inhaled Oxygen Concentration - - Weight 121.1 kg (267 lb) 12/11/2024 1:24 PM EDT Height - - Body Mass Index 41.82 03/07/2024 11:10 AM EDT documented in this encounter Functional Status * Is the [...] Refills Last Filled Start Date End Date fluconazole (DIFLUCAN) 150 mg Oral TabletIndications: Dysuria Take 1 Tablet by mouth daily for 2 days. 2 Tablet 12/11/2024 01/05/2025 documented in this encounter Progress Notes * Dede Meredith APRN - 12/11/2024 1:30 PM EDTAssociated Problem(s): Grief at loss of child * Dede Meredith APRN - 12/11/2024 1:30 PM EDTAssociated Problem(s): Generalized anxiety disorder Tapering off prozac to cymbalta And continues on lowest tolerated dose of ativan TID PRN. Has breakthrough sx often, mostly relatedto grief of loss of son. Feeling much better since switching to cymbalta, she has also started going back to latter-day and back in counseling, continue same. * Dede Meredith APRN - 12/11/2024 1:30 PM EDT Assessment & Plan Grief at loss of child Generalized anxiety disorder Tapering off prozac to cymbalta And continues on lowest tolerated dose of ativan TID PRN. Has breakthrough sx often, mostly relatedto grief of loss of son. Feeling much better since switching to cymbalta, she has also started going back to latter-day and back in counseling, continue same. Benzodiazepine dependence (HCC) On lowest tolerated dose of ativan. Aware not to ever abruptly stop d/t risk of seizures. Medication management Reviewed and utd. Dysuria Neg UA. Hx suggestive of yeast, rx for diflucan. Orders: SEP URINALYSIS POC fluconazole (DIFLUCAN) 150 mg Oral Tablet; Take 1 Tablet by mouth daily for 2 days. URINE CULTURE (NO STAIN); Future Progress Note: Vitals: 12/11/24 1324 BP: (!) 138/84 Pulse: 106 Resp: 18 Temp: 97.3 ??F (36.3 ??C) TempSrc: Forehead SpO2: 96% Weight: 267 lb (121.1 kg) Body mass index is 41.82 kg/m??. SUBJECTIVE: Chief Complaint Patient presents with Dysuria HPI: Controlled Substance Common Conditions Interval Assessment: Anxiety: Indira Carnes is here for follow up of chronic anxiety and medication management. Currently, she reports anxiety level as controlled with current treatments in place. She reports taking current medications 2-3 times per day. She is not having side effects from medications. She has abstained from alcohol while requiring this medication. Current limitations of anxiety symptoms include: ability to cope with day to day stress, and si tuations, without medication Doing well, No SE's with medication. No evidence of abuse/diversion. Pt informed and aware of medication's potential for abuse/dependence. Functional goal/goals of treatment: cope with stress and anxiety Controlled Substance Prescribing Management: As part of today's visit Indira is also being followed for controlled substance management for anxiety. Details of the progress of the monitored condition are noted in that section of the HPI. The controlled substance flow sheet has been reviewed. Dysuria Review of Systems Constitutional: Negative for fever. HENT: Negative for congestion. Respiratory: Negative for cough and wheezing. Cardiovascular: Negative for chest pain and palpitations. Genitourinary: Positive for dysuria. OBJECTIVE: Results for orders placed or performed in visit on 12/11/24 SEP URINALYSIS POC Result Value Ref Range UA Color POC Yellow Color UA Appear POC Clear Clear UA Gluc POC Negative Negative mg/dL UA Bili POC Negative Negative UA Ketones POC Negative Negative mg/dL UA SG POC 1.025 1.001 - 1.035 no units UA Blood POC Negative Negative UA pH POC 6.0 5.0 - 8.0 pH UA Protein POC Negative Negative mg/dL UA Urobilinogen POC 0.2 0.2, 1.0 UA Nitrite POC Negative Negative UA Leuk Est POC Negative Negative Physical Exam Constitutional: Appearance: She is obese. HENT: Head: Normocephalic and atraumatic. Cardiovascular: Rate and Rhythm: Normal rate and regular rhythm. Heart sounds: Normal heart sounds. Pulmonary: Effort: Pulmonary effort is normal. Breath sounds: Normal breath sounds. Abdominal: Palpations: Abdomen is soft. Tenderness: There is no right CVA tenderness or left CVA tenderness. Neurological: Mental Status: She is alert and oriented to person, place, and time. documented in this encounter Plan of Treatment Upcoming Encounters Date Type Department Care Team (Late st Contact Info) Description 02/03/2025 2:00 PM EDT Appointment [facility] [address] [place] [address] [address] Vic Villarreal APRN [address] [address] [address] [place] [address] 04/27/2025 11:00 AM EST Appointment [facility] [address] [place] [address] Ledy Luo MD [address] [place] [address] documented as of this encounter Goals Goal Patient Goal Type Associated Problems Recent Progress Patient-Stated? Author Maintain a healthy diet, exercise regularly and maintain an ideal body weight General No Mary Christy RMA Stay Tobacco Free Lifestyle No Mary Christy RMA documented as of this encounter Procedures Procedure Name Priority Date/Time Associated Diagnosis Comments URINE CULTURE (NO STAIN) Routine 12/11/2024 1:48 PM EDT Dysuria SEP URINALYSIS POC Routine 12/11/2024 1: 32 PM EDT Dysuria documented in this encounter Results * URINE CULTURE (NO STAIN) (12/11/2024 1:48 PM EDT) Pathologist [facility] Culture Multiple bacterial species isolated from urine consistent with urogenital commensal organisms. 12/13/2024 6:31 AM EDT PREFERRED [employer] Urine STRUCTURE OF URINARY TRACT PROPER / Unknown 12/11/2024 1:48 PM EDT 12/11/2024 1:48 PM EDT us Dede Meredith APRN MICROBIOLOGY - GENERAL CHERISE PERRY Final Result [facility] [address] [facility] , [place] [place] [address] * SEP URINALYSIS POC (12/11/2024 1:32 PM EDT) UA Color POC Yellow Color 12/11/2024 1:34 PM EDT SEP [place] UA Appear POC Clear Clear 12/11/2024 1:34 PM EDT SEP [place] UA Gluc POC Negative Negative mg/dL 12/11/2024 1:34 PM EDT SEP [place] UA Bili POC Negative Negative 12/11/2024 1:34 PM EDT SEP [place] UA Ketones POC Negative Negative mg/dL 12/11/2024 1:34 PM EDT SEP [place] UA SG POC 1.025 1.001 - 1.035 no units 12/11/2024 1:34 PM EDT SEP [place] UA Blood POC Negative Negative 12/11/2024 1:34 PM EDT SEP [place] UA pH POC 6.0 5.0 - 8.0 pH 12/11/2024 1:34 PM EDT SEP [place] UA Protein POC Negative Negative mg/dL 12/11/2024 1:34 PM EDT SEP [place] UA Urobilinogen POC 0.2 0.2, 1.0 12/11/2024 1:34 PM EDT SEP [place] UA Nitrite POC Negative Negative 12/11/2024 1:34 PM EDT SEP [place] UA Leuk Est POC Negative Negative 1:34 PM EDT SEP [place] Urine STRUCTURE OF URINARY TRACT PROPER / Unknown 12/11/2024 1:32 PM EDT 12/11/2024 1:34 PM EDT Dede Meredith APRN POINT OF CARE TEST ORDERABL ES Final Result [facility] [place] [address] [place] [address] documented in this encounter Visit Diagnoses Diagnosis Grief at loss of child- Primary Adjustment disorder with depressed mood Generalized anxiety disorder Benzodiazepine dependence (HCC) Sedative, hypnotic or anxiolytic dependence, unspecified Medication management Encounter for other specified aftercare Dysuria documented in this encounter Additional Health Concerns Assessment Noted Time PHQ-9 Depression Total Score: 024 9:05 AM EST PHQ-2 Depression Total Score: 07/17/19 24 9:05 AM EST documented as of this encounter Care Teams Regional Marketing Director Relationship Specialty Start Date End Date Dede Meredith APRN [address] [place] [id number] PCP - General Nurse Practitioner-Family 11/17/20 documented as of this encounter
--- OUTSIDE RECORDS SUMMARY | 2024-12-31 10:30 | XMS_ITS | Encounter Summary ---
Author Organization [place] [address] Care Team Providers Care Nut Process Helper Name Role Phone Dede Meredith APRN Primary Care Provider [phone] Reason for Referral * GI Procedure (Routine) - Pending Review Specialty Diagnoses / Procedures Referred By Contnawaf t Referred To Contact General Surgery Diagnoses Screening for colon cancer Dede Meredith APRN [address] [place] [address] Phone: tel: fax: [facility] [address] [facility] [address] [place] [address] Phone: tel: fax: Referral ID Status Reason Start Date Expiration Date V isits Requested Visits Authorized [id number] Pending Review 12/31/2024 12/31/2025 1 1 Reason for Visit * Reason Comments Dizziness Vertigo? Fatigue Has felt more weak t de anda usual Nausea Encounter Details Date Type Department Care Team (Late st Contact Info) Description 12/31/2024 10:30 AM EDT Office Visit SHWETA Mendez [address] [place] [phone] Dede Meredith APRN [address] [place], [place] [address] Encounter for Medicare annual wellness exam (Primary [...] pur e alcohol) Overall Financial Resource Strain ([facility]) Answe r Date Recorded How hard is it for you to pa y for the very basics like food, housing, medical care, and heating? Not very hard 11/04/2020 PHQ-2 Answer Date Recorded PHQ-2 Total Score 2 12/31/2024 [facility] - Occupational Stress [...] Assessment Author No 12/31/2024 11:34 AM EDT Deed Christianson APRN * Does this person have difficulty dressing or bathing? Answer Date of Assessment Author No 12/31/2024 11:34 AM EDT Dede Christianson APRN * Because of a physical, mental or emotional condition, does this person have difficulty doing errands alone such as visiting a doctor's office or shopping? Answer Date of Assessment Author Yes 12/31/2024 11:34 AM Dede Zaidi APRN * PHQ-9 Total Score Answer Date of Assessment Author 2 12/31/2024 11:35 AM EDT Dede Christianson APRN * Question Answer Date of Assessment Author Little interest or pleasure in doing things 1 12/31/2024 11:35 AM Dede Cruz APRN Feeling down, depressed, or hopeless 1 12/31/2024 11:35 AM Dede Cruz APRN PHQ-2 Total Score 2 12/31/2024 11:35 AM Dede Cruz APRN * PHQ-2 Total Score Answer Date [...] office or shopping? Yes 12/31/2024 11:34 AM Dede Cruz APRN Because of a physical, menta l or emotional condition, does this person have serious difficulty concentrating, remembering or making decisions? Yes 12/31/2024 11:34 AM EDDede Arenas APRN * Because of a physical, mental [...] Orders: TSH REFLEX TO FT4; Future * Ddee Meredith APRN - 12/31/2024 10:30 AM EDTAssociated [...] visit. If you have a power of balance sheet [facility], we should also have a copy on [...] and will show as resolved in your [employer] account soon. Health Maintenance Due Topic Date [...] alsoavailable electronically for patients with an active MyChart account per the Federal Cures Act. TheAVS [...] 0137; Surgeon: Tejas Johnson IV, MD; Location: [facility]; Service: Gynecology CRANIOTOMY 02/2013 CYSTOSCOPY 10/30/2023 Surgeon: Siddhartha Napoles DO; Location: [facility]; Service: Gynecology EYE SURGERY TUBAL [...] Tablet by mouth daily. 90 Tablet 1 jinhxrywkf-tciflkmv-kunbjrkltm (BREZTRI AEROSPHERE) 160-9-4.8 mcg/actuation Inhl HFA Aerosol Inhaler Inhale 2 Puffs into the lungs 2 times daily. 10.7 g 2 cyanocobalamin (VITAMIN B-12) 500 mcg Oral Tablet Take 1 Tablet by mouth daily. 90 Tablet 3 DULoxetine (CYMBALTA) 30 mg Oral Capsule, Delayed Release(E.C.) Take 1 Capsule by mouth daily. 30 Capsule 2 fluticasone propionate (FLONASE) 50 mcg/actuation Nasl Hiram, Suspension 1 Hiram by Nasal route daily. 1 Each 0 [...] 0 min Stress: Stress Concern Present (09/21/2020) [facility] [place] [facility] - Occupational Stress Questionnaire [...] Info) Description 02/03/2025 2:00 PM EDT Appointment [facility] MRI [address] [address] Vic Villarreal APRN [address] [place] [address] 04/27/2025 11:00 AM EST Appointment [facility] [address] [facility] [address] Ledy Luo MD [address] [place] [address] Scheduled Orders Name Type Priority Associated Diagnoses [...] * (ABNORMAL) IRON+TIBC (12/31/2024 11:29 AM EDT) Iron 37 30 - 160 mcg/dL 12/31/2024 4:26 PM EDT [facility] Transferrin 245 200 - 360 mg/dL 12/31/2024 4:26 PM EDT [facility] Transferrin Saturation 11(L) 20 - 50 % 12/31/2024 4:26 PM EDT [facility] TIBC 343 250 - 400 mcg/dL 12/31/2024 4:26 PM EDT [facility] Blood VENOUS BLOOD / Unknown Venipuncture / Unknown 12/31/2024 11:29 AM EDT 12/31/2024 11:29 AM EDT Dede Meredith MILK DRYING MACHINE OPERATOR CHEMISTRY ORDERABLES Final Result [facility] [address] [facility] , [place] [address] * (ABNORMAL) VITAMIN D 25 HYDROXY (12/31/2024 11:29 AM EDT) Vit D 25 OH 29.6(L) 30.0 - 150.0 ng/mL 12/31/2024 5:05 PM EDT [facility] [employer] [facility] Comment: Preferred: >= 30 ng/mL Insufficient: 21-29 ng/mL Deficient <= 20 ng/mL Possible Toxicity: >150 ng/mL Samples should not be taken from patients receiving therapy with high biotin doses (i.e. > 5 mg/day) until at least 8 hours following the last biotin administration. Blood VENOUS BLOOD / Unknown Venipuncture / Unknown 12/31/2024 11:29 AM EDT 12/31/2024 11:29 AM EDT [facility] CHEMISTRY ORDERABLES Final Result Performing Organization Address [facility] Co de Phone Number [facility] [employer] , [place] [address] * VITAMIN B12/ FOLIC ACID (12/31/2024 11:29 AM EDT) Vitamin B12 469 232 - 1,245 pg/mL 12/31/2024 5:05 PM EDT [facility] [employer], [facility] Folate 11.10 >=4.80 ng/mL 12/31/2024 5:05 PM EDT [facility] [employer], [facility] Blood VENOUS BLOOD / Unknown Venipuncture / Unknown 12/31/2024 11:29 AM EDT 12/31/2024 11:29 AM EDT Narrative [facility] [employer] [facility] - 12/31/2024 5:05 PM EDT Ingestion of ekaterina doses of biotin (>5 mg/day) taken within 8 hours of drawing blood sample can interfere with this immunoassay test. [facility] CHEMISTRY ORDERABLES Final Result Performing Organization Address [facility] Co de Phone Number [facility] , [place] [address] * TSH REFLEX TO FT4 (12/31/2024 11:29 AM EDT) TSH Reflex 0.988 0.270 - 4.200 mcIU/mL 12/31/2024 4:26 PM EDT [facility] [employer], [facility] Blood VENOUS BLOOD / Unknown Venipuncture / Unknown 12/31/2024 11:29 AM EDT 12/31/2024 11:29 AM EDT Narrative [facility] 12/31/2024 4:26 PM EDT Ingestion of ekaterina doses of biotin (>5 mg/day) taken within 8 hours of drawing blood sample can interfere with this immunoassay test. Dede Meredith MILK DRYING MACHINE OPERATOR CHEMISTRY ORDERABLES Final Result [facility] [employer] [facility] [address] [facility] , [address] [place] [id number] * (ABNORMAL) LIPID PANEL REFLEX (12/31/2024 11:29 AM EDT) Cholesterol 171 <200 mg/dL 12/31/2024 4:26 PM EDT [facility] [employer] [facility] Comment: < 200 Desirable 200 - 239 Borderline High >= 240 High Triglyceride 318(H) <150 mg/dL 12/31/2024 4:26 PM EDT [facility] [employer] [facility] Comment: < 150 Normal 150 - 199 Borderline High 200 - 499 High >= 500 Very High HDL 33(L) >=40 mg/dL 12/31/2024 4:26 PM EDT [facility] [employer] [facility] Comment: > 60 Optimal 40 - 60 Acceptable < 40 Low LDL Calculated 86 <100 mg/dL 12/31/2024 4:26 PM EDT [facility] [employer] [facility] Comment: < 100 Optimal 100 - 129 Near or above optimal 130 - 159 Borderline High 160 - 189 High >= 190 Very High The National Institutes of Health (NIH) equation is used for all lipid panels that report calculated LDL (LDL-C). Non-HDL-C Calculated 138(H) <=129 mg/dL 12/31/2024 4:26 PM EDT [facility] [employer], [facility] Comment: <130 Desirable 130-159 Above Desirable 160-189 Borderline High 190-219 High >= 220 Very High Fasting Specimen? No None 025 4:26 PM EDT [facility] [employer], [facility] Blood VENOUS BLOOD / Unknown Venipuncture / Unknown 12/31/2024 11:29 AM EDT 12/31/2024 11:29 AM EDT Dede Viri MILK DRYING MACHINE OPERATOR CHEMISTRY ORDERABLES Final Result Performing Organization Address [facility] Co de Phone Number [facility] [address] , [place] [address] * (ABNORMAL) HEMOGLOBIN A1C (12/31/2024 11:29 AM EDT) Hgb A1C 5.7(H) 4.2 - 5.6 % 12/31/2024 5:41 PM EDT [facility] Est. Avg Glucose 117 mg/dL 12/31/2024 5:41 PM EDT [facility], [facility] Blood VENOUS BLOOD / Unknown Venipuncture / Unknown 12/31/2024 11:29 AM EDT 12/31/2024 11:29 AM EDT Narrative [facility] [employer], [facility] - 12/31/2024 5:41 PM EDT REFERENCE RANGE: Normal: 4.0-5.6% Pre-diabetes: 5.7-6.4% Provisional diagnosis of diabetes: >6.4% Hgb F>10% and anything which shortens red cell survival, such as hemolytic anemia, or unstable hemoglobin variants such as HbSS, HbSC, or HbCC, will lower the HbA1c value associated with a given level of glycemic control. Dede Meredith APRN CHEMISTRY ORDERABLES Final Result Performing Organization Address [facility] Co de Phone Number [facility], [facility] [address] [facility] , [place] [address] * (ABNORMAL) COMPREHENSIVE METABOLIC PANEL (12/31/2024 11:29 AM EDT) Sodium 140 136 - 145 mmol/L 12/31/2024 4:26 PM EDT [facility] Potassium 4.0 3.5 - 5.0 mmol/L 12/31/2024 4:26 PM EDT [facility] Chloride 106 98 - 107 mmol/L 12/31/2024 4:26 PM EDT [facility] Total CO2 23 22 - 29 mmol/L 12/31/2024 4:26 PM EDT [facility], [facility] Anion Gap 11 7 - 16 mmol/L 12/31/2024 4:26 PM EDT [facility] Calcium 9.2 8.6 - 10.4 mg/dL 12/31/2024 4:26 PM EDT [facility], [facility] Glucose Lvl 116(H) 70 - 99 mg/dL 12/31/2024 4:26 PM EDT [facility] BUN 9 6 - 20 mg/dL 12/31/2024 4:26 PM EDT [facility] Creatinine 0.56 0.51 - 1.30 mg/dL 12/31/2024 4:26 PM EDT [facility] Albumin 4.0 3.5 - 5.2 gm/dL 12/31/2024 4:26 PM EDT [facility] Total Protein 6.6 6.4 - 8.3 gm/dL 12/31/2024 4:26 PM EDT [facility] Bili Total <0.2(L) 0.2 - 1.3 mg/dL 12/31/2024 4:26 PM EDT [facility] ALT 14 <=41 U/L 12/31/2024 4:26 PM EDT [facility] AST 14 <=40 U/L 12/31/2024 4:26 PM EDT [facility] Alk Phos 118 36 - 123 U/L 12/31/2024 4:26 PM EDT [facility] eGFR (CKD-EPIcr 2020) 114 >=60 mL/min/1.7 3 m2 12/31/2024 4:26 PM EDT [facility] Comment:Estimated GFR was ca lculated using the CKD-EPIcr (2020) equation refit without race. The equation is recommended by the National Kidney Foundation - [place] [employer] of Nephrology Task Force. Blood VENOUS BLOOD / Unknown Venipuncture / Unknown 12/31/2024 11:29 AM EDT 12/31/2024 11:29 AM EDT us Dede Meredith MILK DRYING MACHINE OPERATOR CHEMISTRY ORDERABLES Final Result [facility], [address] , [place] [address] * CBC WITH DIFF (12/31/2024 11:29 AM EDT) WBC 9.0 3.7 - 10.3 x10(3)/mcL 12/31/2024 5:13 PM EDT [facility] RBC 4.47 3.90 - 5.20 x10(6)/mcL 12/31/2024 [...] 5:13 PM EDT [facility] Porter Percent 6.9 % 12/31/2024 5:13 PM EDT [facility] Eos Percent 3.3 % 12/31/2024 5:13 PM EDT [facility] Baso Percent 0.6 % 12/31/2024 5:13 PM EDT [facility] Neut # 5.9 1.6 - 6.1 x10(3)/[facility] 12/31/2024 5:13 PM EDT [facility], [facility] Comment:Neutrophils equals s egs plus bands IMMGRAN# 0.1 0.0 - 0.1 x10(3)/[facility] 12/31/2024 5:13 PM EDT [facility], [facility] Comment:Automated count of m etamyelocytes, myelocytes and promyelocytes. An absolute IG <0.1 is reported as 0.0. Lymph # 2.0 1.2 - 3.9 x10(3)/[facility] 12/31/2024 5:13 PM EDT [facility] Porter # 0.6 0.3 - 0.9 x10(3)/[facility] 12/31/2024 5:13 PM EDT [facility], [facility] Eos# 0.3 0.0 - 0.5 x10(3)/[facility] 12/31/2024 5:13 PM EDT [facility], [facility] Baso # 0.1 0.0 - 0.1 x10(3)/[facility] 12/31/2024 5:13 PM EDT [facility], [facility] Blood VENOUS BLOOD / Unknown Venipuncture / Unknown 12/31/2024 11:29 AM EDT 12/31/2024 11:29 AM EDT Dede Meredith MILK DRYING MACHINE OPERATOR HEMATOLOGY ORDERABLES Final Result [facility], [facility] [address], [address] [place] [phone] documented in this encounter Visit Diagnoses Diagnosis [...] Time PHQ-9 Depression Total Score: 2 01/01/20 11:35 AM EDT PHQ-2 Depression Total Score: 2 01/01/20 11:35 AM EDT documented as of this encounter Care Teams Nut Process Helper Relationship Specialty Start Date End Date Dede Meredith APRN [address] [place], [place] [address] PCP - General Nurse Practitioner-Family 11/17/20 documented as of this encounter
--- OUTSIDE RECORDS SUMMARY | 2025-01-02 15:45 | XMS_ITS | Encounter Summary ---
Author Organization [place] [address] Care Team Providers Care Hotel Services Sales Representative Name Role Phone Dede Meredith APRN Primary Care Provider Reason for Visit * Reason Comments Migraine Not gone Blurred Vision back in both eyes Sweats when sleeping and wa elizabeth up Encounter Details Date Type Department Care Team (Late st Contact Info) Description 01/02/2025 3:45 PM EDT Office Visit SHWET[place] [address] [place] [address] Dede Meredith APRN [address] [place] [address] BPV (benign positional vertigo), unspecified laterality (Primary Dx); Other migraine with status migrainosus, intractable; Prediabetes Social History Tobacco Use Types Packs/Day Years [...] Date Recorded PHQ-2 Total Score 2 12/31/2024 [facility] Health - Occupational Stress [...] Sign Reading Time Taken Comments Blood Pressure 150/90 01/02/2025 3:52 PM EDT Pulse 110 01/02/2025 3:52 PM EDT Temperature 36.3 C (97.3 F) 01/02/2025 3:52 PM EDT Respiratory Rate 18 01/02/2025 3:52 PM EDT Oxygen Saturation 98% 01/02/2025 3:52 PM EDT Inhaled Oxygen Concentration - - Weight 124.6 kg (274 lb 9.6 oz) 01/02/2025 3:52 PM EDT Height - - Body Mass Index 43.01 12/31/2024 10:26 AM EDT documented in this [...] 11:34 AM EDT Dede Christianson APRN documented as of this encounter Mental Status * Because of a physical, mental or emotional condition, does this person have serious difficulty concentrating, remembering or making decisions? Answer Entry Date Author Yes 12/31/2024 11:34 AM EDT Dede Christianson APRN documented in this encounter Ordered Prescriptions Prescription Sig Dispense Quantity Refills Last Filled Start Date End Date metFORMIN (GLUCOPHAGE XR) 500 mg Oral ER 24 hr tabletIndications: Prediabetes Take 1 Tablet by mouth daily (with breakfast). 90 Tablet 1 01/02/2025 meclizine (ANTIVERT) 12.5 mg Oral TabletIndications: BPV (benign positional vertigo), unspecified laterality Take 1 Tablet by mouth 3 times daily for 10 days. 30 Tablet 01/02/2025 01/12/2025 documented in this encounter Progress Notes * Dede Meredith APRN - 01/02/2025 3:45 PM EDT Assessment & Plan BPV (benign positional vertigo), unspecified laterality +nystagmus on exam Rx for meclizine TID PRN Increase fluids Orders: meclizine (ANTIVERT) 12.5 mg Oral Tablet; Take 1 Tablet by mouth 3 times daily for 10 days. Other migraine with status migrainosus, intractable Given toradol for acute sx. Orders: ketorolac (TORADOL) injection 60 mg Prediabetes Lab Results Component Value Date HGBA1C 5.7 (H) 12/31/2024 HGBA1C 5.7 (H) 07/15/2024 HGBA1C 5.7 (H) 04/15/2024 Recommend low dose metformin Work on low sugar and low carb diet Weight loss Orders: metFORMIN (GLUCOPHAGE XR) 500 mg Oral ER 24 hr tablet; Take 1 Tablet by mouth daily (with breakfast). Progress Note: Vitals: 01/02/25 1552 BP: (!) 150/90 Pulse: 110 Resp: 18 Temp: 97.3 ??F (36.3 ??C) TempSrc: Temporal SpO2: 98% Weight: 274 lb 9.6 oz (124.6 kg) Body mass index is 43.01 kg/m??. SUBJECTIVE: Chief Complaint Patient presents with Migraine Not gone Blurred Vision back in both eyes Sweats when sleeping and waking up HPI: -discuss labs -increasing vertigo sx, nystagmus. Under a lot of stress. -3-day migraine. Review of Systems Constitutional: Negative for fever. HENT: Negative for congestion. Eyes: Positive for visual disturbance. Respiratory: Negative for cough, shortness of breath and wheezing. Cardiovascular: Negative for chest pain and palpitations. Neurological: Positive for dizziness and headaches. OBJECTIVE: Physical Exam Constitutional: Appearance: Normal appearance. HENT: Head: Normocephalic and atraumatic. Eyes: Comments: Left eye strabismus nystagmus Cardiovascular: Rate and Rhythm: Normal rate and regular rhythm. Heart sounds: Normal heart sounds. Pulmonary: Effort: Pulmonary effort is normal. Breath sounds: Normal breath sounds. Neurological: Mental Status: She is alert and oriented to person, place, and time. documented in this encounter Plan of Treatment Upcoming Encounters Date Type Department Care Team (Late st Contact Info) Description 02/03/2025 2:00 PM EDT Appointment [facility] [address] [address] Vic Villarreal, [place] [address] [place] [phone] 04/27/2025 11:00 AM EST Appointment [facility] [address] [place], [place] [address] Ledy Luo MD [address] [place], [place] [address] documented as of this encounter Goals Goal Patient Goal Type Associated Problems Recent Progress Patient-Stated? Author Maintain a healthy diet, exercise regularly and maintain an ideal body weight General No Mary Christy RMA Stay Tobacco Free Lifestyle No Mary Christy RMA documented as of this encounter Visit Diagnoses Diagnosis BPV (benign positional vertigo), unspecified laterality- Primary Other migraine with status migrainosus, intractable Prediabetes Other abnormal glucose documented in this encounter Administered Medications Inactive Administered Medications - up to 1 most recent administrations Medication Order MAR Action Action Date Dose Rate Site ketorolac (TORADOL) injection 60 mg 60 mg, Intramuscular, ONCE, 1 dose, On Sun01/02/25 at 1630, For IM Administration: Give undiluted, slowly and deeply into the muscle., Dx: 1. Other migraine with status migrainosus, intractableIndications:O ther migraine with status migrainosus, intractable Given 01/02/2025 4:30 PM EDT 60 mg Left Upper Outer Quadrant documented in this encounter Orders Medications Ordered That Nicola ht Not Have Been Administered Count Last Ordered Date First Ordered Date ketorolac (TORADOL) injection 60 mg 1 01/02 documented in this encounter Additional Health Concerns Assessment Noted Time PHQ-9 Depression Total Score: 2 01/01/20 11:35 AM EDT PHQ-2 Depression Total Score: 2 01/01/20 11:35 AM EDT documented as of this encounter Care Teams Hotel Services Sales Representative Relationship Specialty Start Date End Date Dede Meredith APRN [address] [place], [place] [phone] PCP - General Nurse Practitioner-Family 11/17/20 documented as of this encounter
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
--- OUTSIDE RECORDS SUMMARY | 2025-01-14 15:30 | XMS_ITS | Encounter Summary ---
Author Organization [place] [address] Care Team Providers Care Blue Line Operator Name Role Phone Dede Meredith APRN Primary Care Provider Reason for Visit * Reason Comments Toe Pain Left great Vaginal Itching Encounter Details Date Type Department Care Team (Late st Contact Info) Description 01/14/2025 3:30 PM EDT Office Visit [facility] [address] [place] [address] Dede Meredith APRN [address] [facility] [address] [place] [id number] Acute paronychia of toe of left foot (Primary Dx); Vaginal discharge Social History Tobacco Use Types Packs/Day Years [...] Date Recorded PHQ-2 Total Score 2 12/31/2024 [facility] [place] [facility] - Occupational Stress [...] Sign Reading Time Taken Comments Blood Pressure 131/81 01/14/2025 3:15 PM EDT Pulse 111 01/14/2025 3:15 PM EDT Temperature 36.6 C (97.9 F) 01/14/2025 3:15 PM EDT Respiratory Rate 20 01/14/2025 3:15 PM EDT Oxygen Saturation 98% 01/14/2025 3:15 PM EDT Inhaled Oxygen Concentration - - Weight 124.3 kg (274 lb) 01/14/2025 3:15 PM EDT Height - - Body Mass Index 42.91 12/31/2024 10:26 AM EDT documented in this [...] Refills Last Filled Start Date End Date clindamycin (CLEOCIN) 300 mg Oral CapsuleIndications :Acute paronychia of toe of left foot,Vaginal discharge Take 1 Capsule by mouth 2 times daily for 7 days. 14 Capsule 01/14/2025 documented in this encounter Progress Notes * Dede Meredith APRN - 01/14/2025 8:45 AM EDT Assessment & Plan Acute paronychia of toe of left foot -warm epsom salt soaks -clindamycin as prescribed Orders: clindamycin (CLEOCIN) 300 mg Oral Capsule; Take 1 Capsule by mouth 2 times daily for 7 days. Vaginal discharge -external exam performed and swabbing for molecular panel completed -will cover with clindamycin for dual coverage of vaginitis and paranychia. -reviewed vaginal hygiene. Orders: clindamycin (CLEOCIN) 300 mg Oral Capsule; Take 1 Capsule by mouth 2 times daily for 7 days. VAGINITIS PANEL NAAT; Future Progress Note: Vitals: 01/14/25 1515 BP: 131/81 Pulse: 111 Resp: 20 Temp: 97.9 ??F (36.6 ??C) TempSrc: Forehead SpO2: 98% Weight: 274 lb (124.3 kg) Body mass index is 42.91 kg/m??. SUBJECTIVE: Chief Complaint Patient presents with Toe Pain Left great Vaginal Itching HPI: Had ingrown toenail to left great toe, was able to remove it but now has surrounding soft tissue swelling, drainage and erythema. Vaginal itching, discharge with odor. Review of Systems Constitutional: Negative for fever. Respiratory: Negative for cough and wheezing. Cardiovascular: Negative for chest pain and palpitations. Genitourinary: Positive for vaginal discharge. Musculoskeletal: Positive for arthralgias. Skin: Positive for wound. OBJECTIVE: Physical Exam Constitutional: Appearance: She is obese. HENT: Head: Normocephalic and atraumatic. Cardiovascular: Rate and Rhythm: Normal rate and regular rhythm. Heart sounds: Normal heart sounds. Pulmonary: Effort: Pulmonary effort is normal. Breath sounds: Normal breath sounds. Genitourinary: Vagina: Vaginal discharge (thin white copious discharge.) present. Skin: Findings: Erythema (around left foot, great toenail.) present. Neurological: Mental Status: She is alert and oriented to person, place, and time. documented in this encounter Plan of Treatment Upcoming Encounters Date Type Department Care Team (Late st Contact Info) Description 02/03/2025 2:00 PM EDT Appointment [facility] [place] [facility] [address] [place] [address] Vic Villarreal APRN [address] [facility] [address] [place] [address] 04/27/2025 11:00 AM EST Appointment [facility] [address] [place] [address] Ledy Luo MD [address] [place] [address] documented as of this encounter Goals Goal Patient Goal Type Associated Problems Recent Progress Patient-Stated? Author Maintain a healthy diet, exercise regularly and maintain an ideal body weight General No Mary Christy, RIKY Stay Tobacco Free Lifestyle No Mary Christy RMA documented as of this encounter Procedures Procedure Name Priority Date/Time Associated Diagnosis Comments VAGINITIS PANEL NAAT Routine 01/14/2025 3:37 PM EDT Vaginal discharge documented in this encounter Results * (ABNORMAL) VAGINITIS PANEL NAAT (01/14/2025 3:37 PM EDT) Bacterial Vaginosis NAAT Detected(A) Not Detected 01/15/2025 3:22 AM EDT [facility] [employer] Nakaseomyces (Flora) glabrata NAAT Not Detected Not Detected 01/15/2025 3:22 AM EDT [facility] Flora Species NAAT Not Detected Not Detected 01/15/2025 3:22 AM EDT [facility] Trichomonas vaginalis NAAT Not Detected Not Detected 01/15/2025 3:22 AM EDT [facility] Swab VAGINAL STRUCTURE / Unknown 01/14/2025 3:37 PM EDT 01/14/2025 3:37 PM EDT Dede Meredith APRN MICROBIOLOGY - GENERAL [facility] Final Result Performing Organization Address City/State/[facility] Co de Phone Number [facility] [employer] [address] [place] [address] , [place] [address] documented in this encounter Visit Diagnoses Diagnosis Acute paronychia of toe of left foot- Primary Vaginal discharge Leukorrhea, not specified as infective documented in this encounter Additional Health Concerns Assessment Noted Time PHQ-9 Depression Total Score: 2 01/01/20 25 11:35 AM EDT PHQ-2 Depression Total Score: 2 01/01/20 25 11:35 AM EDT documented as of this encounter Care Teams Blue Line Operator Relationship Specialty Start Date End Date Dede [place]eredith [place] [place] [address] PCP - General Nurse Practitioner-Family 11/17/20 documented as of this encounter
[2025-01-24 22:33] VITALS: BP 141/78; PULSE 79; RESP 18; TEMP 36.7; O2SAT 98; BMI 42.9
--- OUTSIDE RECORDS SUMMARY | 2025-01-24 22:36 | XMS_ITS | Encounter Summary ---
Author Organization [place] [address] Care Team Providers Care Ceo & Board Director Name Role Phone Dede Meredith APRN Primary Care Provider [phone] Reason for Visit * Reason Comments Medication Refill Encounter Details Date Type Department Care Team (Late st Contact Info) Description 01/03/2025 Refill [facility] [address] [place] [address] Dede Meredith APRN [address] [place], [place] [id number] Medication Refill Social History Tobacco Use Types Packs/Day Years [...] Date Recorded PHQ-2 Total Score 2 12/31/2024 [facility] - Occupational Stress Questionnaire Answer Date Recorded [...] Refills Last Filled Start Date End Date ondansetron (ZOFRAN-ODT) 4 mg Oral Tablet, Rapid Dissolve Dissolve 1 Tablet by mouth every 6 hours as needed for Nausea. 30 Tablet 01/05/2025 fluconazole (DIFLUCAN) 150 mg Oral TabletIndications: Dysuria Take 1 Tablet by mouth daily for 2 days. 2 Tablet 01/05/2025 documented in this encounter Plan of Treatment Upcoming Encounters Date Type Department Care Team (Late st Contact Info) Description 02/03/2025 2:00 PM EDT Appointment [facility] MRI [address] [place] [address] Vic Villarreal APRN [address] [facility] [address] [place] [address] 04/27/2025 11:00 AM EST Appointment [facility] [address] [place] [address] Ledy Luo MD [address] [place] [address] documented as of this encounter Goals Goal Patient Goal Type Associated Problems Recent Progress Patient-Stated? Author Maintain a healthy diet, exercise regularly and maintain an ideal body weight General No Mary Christy RMA Stay Tobacco Free Lifestyle No Mary Christy RMA documented as of this encounter Visit Diagnoses Diagnosis Dysuria documented in this encounter Discontinued Medications Medication Sig Discontinue Reason Start Date End Da te ondansetron (ZOFRAN-ODT) 4 mg Oral Tablet, Rapid Dissolve Dissolve 1 Tablet by mouth every 6 hours as needed for Nausea. 11/25/2024 01/05/2025 fluconazole (DIFLUCAN) 150 mg Oral TabletIndications:Dysur ia Take 1 Tablet by mouth daily for 2 days. 12/11/2024 01/05/2025 documented as of this encounter Additional Health Concerns Assessment Noted Time PHQ-9 Depression Total Score: 2 01/01/20 11:35 AM EDT PHQ-2 Depression Total Score: 2 01/01/20 11:35 AM EDT documented as of this encounter Care Teams Ceo & Board Director Relationship Specialty Start Date End Date Dede Meredith APRN [address] [place], [place] [address] PCP - General Nurse Practitioner-Family 11/17/20 documented as of this encounter
--- OUTSIDE RECORDS SUMMARY | 2025-01-24 22:36 | XMS_ITS | Encounter Summary ---
Author Organization [place] [address] Care Team Providers Care Slat Basket Maker Machine Name Role Phone Viri Dede TRINITY Primary Care Provider Reason for Visit * Reason Comments Pharmacy Migraine Medication Management Qulipta Encounter Details Date Type Department Care Team (Latest Contact Info) Description 12/02/2024 Specialty Pharmacy [facility] [address] [phone] Nazanin Rivera CPhT Pharmacy Migraine Medication Management (Qulipta) Social History Tobacco Use Types Packs/Day Years [...] Date Recorded PHQ-2 Total Score 6 07/17/2023 [facility] [place] [facility] - Occupational [...] Norma Murcia CCMA documented in this encounter Progress Notes * Nazanin Rivera CPhT - 12/02/2024 3:25 PM EDT Specialty Pharmacy MyChart request Indira Carnes requested a refill of Qulipta via [employer]. [employer] message was sent in response with appropriate questionnaire. Will f/u in 2 business days. * Daniella Rondon CPhT - 12/02/2024 3:25 PM EDT Specialty Pharmacy Refill Coordination Note Contacted Indira Logan Deyvi today regarding refills of Qulipta. Medication to be delivered by [facility] on 12/08. Copay amount: $0 Spoke with patient. Patient informed of copay. documented in this encounter Plan of Treatment Upcoming Encounters Date Type Department Care Team (Late st Contact Info) Description 02/03/2025 2:00 PM EDT Appointment [facility] [address] [place] [address] Vic Villarreal, [employer] [address] [facility] [address] [place] [address] 04/27/2025 11:00 AM EST Appointment [facility] [address] [place] [address] Ledy Luo MD [address] [place] [address] documented as of this encounter Goals Goal Patient Goal Type Associated Problems Recent Progress Patient-Stated? Author Maintain a healthy diet, exercise regularly and maintain an ideal body weight General No Mary Christy RMA Stay Tobacco Free Lifestyle No Mary Christy RMA documented as of this encounter Visit Diagnoses Not on filedocumented in this encounter Additional Health Concerns Assessment Noted Time PHQ-9 Depression Total Score: 19 024 9:05 AM EST PHQ-2 Depression Total Score: 6 07/17/19 24 9:05 AM EST documented as of this encounter Care Teams Slat Basket Maker Machine Relationship Specialty Start Date End Date Dede Meredith APRN [address] [place], [place] [id number] PCP - General Nurse Practitioner-Family 11/17/20 documented as of this encounter
--- OUTSIDE RECORDS SUMMARY | 2025-01-24 22:36 | XMS_ITS | Encounter Summary ---
Author Organization [place] [address] Care Team Providers Care Vine Pruner Name Role Phone Viri, Dede TRINITY Primary Care Provider Reason for Visit * Reason Onset Date Comments Allergic Reaction 01/11/2025 Encounter Details Date Type Department Care Team (Late st Contact Info) Description 01/11/[address] [facility] [address] [place] [address] Shaila Wang, RN Social History Tobacco Use Types Packs/Day Years [...] Date Recorded PHQ-2 Total Score 2 12/31/2024 [facility] [place] of Occupat ional Health - Occupational Stress [...] Dede Christianson APRN documented in this encounter Miscellaneous Notes * Telephone Encounter - Karina Valdez MA - 01/12/2025 1:44 PM EDT Patient informed via [employer]. * Telephone Encounter - Karina Valdez MA - 01/12/2025 9:15 AM EDT Lvm for patient to call back. * Telephone Encounter - Vic Villarreal APRN - 01/12/2025 8:18 AM EDT Stop Lacosamide (Vimpat) and continue on Oxcarbazepine. Vimpat placed on allergy list Benadryl is okay to take for the next couple of days. I would have her monitor rash with photos to make sure it is improving. If symptoms do not improve will need to go to Urgent Care or PCP for evaluation. * Telephone Encounter - Shaila Wang RN - 01/11/2025 2:13 PM EDT Nurse Triage Call -Chief Complaint: patient was put on Vimpat 100 mg (1/2 tab) and started 2 days ago. Patient is itching all over and feels heart racing. Face extremely itchy and arms as well. Mild hive on face on left side. Pt took a benadryl. Patient says she' stopping med and going back to the oxcarbazepine. Pt says no breathing issues, just skin rash. She is taking 25mg benadryl now. She just wanted md to be aware. Message sent to MD office to review in am. -Reported by: Patient -Vitals: No vitals obtained on this call Message sent to office See PCP within 24 hours. Pt asked for message to be sent to office and they will review and she will call them tomorrow. Reason for Disposition Taking new prescription medicine (Exceptions: finished taking new prescription antibiotic OR questions about flushing from niacin) Answer Assessment - Initial Assessment Questions 1. APPEARANCE of RASH: Describe the rash. (e.g., spots, blisters, raised areas, skin peeling, scaly) Red around face and eyes with itching. Slight raised hives on face and left arm 2. SIZE: How big are the spots? (e.g., tip of pen, eraser, coin; inches, centimeters) [place] size 3. LOCATION: Where is the rash located? Arms and face 4. COLOR: What color is the rash? (Note: It is difficult to assess rash color in people with darker-colored skin. When this situation occurs, simply ask the caller to describe what they see.) Mostly pink 5. ONSET: When did the rash begin? today 6. FEVER: Do you have a fever? If Yes, ask: What is your temperature, how was it measured, and when did it start? no 7. ITCHING: Does the rash itch? If Yes, ask: How bad is the itch? (Scale 1- 10; or mild, moderate, severe) Moderate itching 8. CAUSE: What do you think is causing the rash? New med Vimpat 9. NEW MEDICINES: What new medicines are you taking? (e.g., name of antibiotic) When did you start taking this medication? . Vimpat 10. OTHER SYMPTOMS: Do you have any other symptoms? (e.g., sore throat, fever, joint pain) no 11. : Is there any chance you are ? When was your last menstrual period? no Protocols used: Rash - Widespread On Drugs-A-AH documented in this encounter Plan of Treatment Upcoming Encounters Date Type Department Care Team (Late st Contact Info) Description 02/03/2025 2:00 PM EDT Appointment [facility] [address] [place], [place] [address] Vic Villarreal, TRINITY [address] [place], [place] [address] 04/27/2025 11:00 AM EST Appointment [facility] [address] [place], [place] [address] Ledy Luo MD [address] [place] [address] documented as of this encounter Goals Goal [...] documented as of this encounter Care Teams Vine Pruner Relationship Specialty Start Date End Date Dede Meredith APRN [address] [place] [id number] PCP - General Nurse Practitioner-Family 11/17/20 documented as of this encounter
--- OUTSIDE RECORDS SUMMARY | 2025-01-24 22:36 | XMS_ITS | Encounter Summary ---
Author Organization [place] [address] Care Team Providers Care Marine Equipment Design Engineer Name Role Phone Dede Meredith APRN Primary Care Provider Encounter Details Date Type Department Care Team (Late st Contact Info) Description 01/15/2025 Results Follow-Up [facility] [address] [place] [address] Dede Meredith APRN [address] [place] [address] [facility] PANEL NAAT Social History Tobacco Use Types Packs/Day Years [...] Date Recorded PHQ-2 Total Score 2 12/31/2024 [facility] [place] of Occupat ional Health - Occupational Stress [...] Dede Christianson APRN documented in this encounter Plan of Treatment Upcoming Encounters Date Type Department Care Team (Late st Contact Info) Description 02/03/2025 2:00 PM EDT Appointment [facility] [address] [place] [address] Vic Villarreal APRN [address] [place] [address] 04/27/2025 11:00 AM EST Appointment [facility] [address] [place] [address] Ledy Luo MD [address] [facility] [place] [address] documented as of this encounter Goals Goal [...] documented as of this encounter Care Teams Marine Equipment Design Engineer Relationship Specialty Start Date End Date Dede Meredith APRN [address] [place] [phone] PCP - General Nurse Practitioner-Family 11/17/20 documented as of this encounter
--- OUTSIDE RECORDS SUMMARY | 2025-01-24 22:36 | XMS_ITS | Encounter Summary ---
Author Organization [place] [address] Care Team Providers Care Swim Instructor Name Role Phone Dede Meredith APRN Primary Care Provider Reason for Visit * Reason Onset Date Comments Medication Refill 12/04/2024 Encounter Details Date Type Department Care Team (Late st Contact Info) Description 12/04/2024 Refill [facility] [address] [place] [address] Dede Meredith APRN [address] [place] [address] Medication Refill Social History Tobacco Use Types [...] Date Recorded PHQ-2 Total Score 6 07/17/2023 [facility] [place] of Occupat ional Health - Occupational Stress [...] of Assessment Author No 07/17/2023 9:04 AM Rosa Murcia CCMA * Is the person blind or does he/she have serious difficulty seeing even when wearing glasses? Answer Date of Assessment Author No 07/17/2023 9:04 AM Rosa Murcia CCMA * Does this person have serious difficulty walking or climbing stairs? Answer Date of Assessment Author No 07/17/2023 9:04 AM Rosa Murcia CCMA * Does this person have difficulty dressing or bathing? Answer Date of Assessment Author No 07/17/2023 9:04 AM Rosa Murcia CCMA * Because of a physical, mental or emotional condition, does this person have difficulty doing errands alone such as visiting a doctor's office or shopping? Answer Date of Assessment Author No 07/17/2023 9:04 AM Rosa Murcia CCMA documented as of this encounter Mental Status * Because of a physical, mental or emotional condition, does this person have serious difficulty concentrating, remembering or making decisions? Answer Entry Date Author No 07/17/2023 9:04 AM Rosa Murcia CCMA documented in this encounter Ordered Prescriptions Prescription Sig Dispense Quantity Refills Last Filled Start Date End Date LORazepam (ATIVAN) 0.5 mg Oral TabletIndications: Grief at loss of child,Generalized anxiety disorder,Grief reaction Take 1 Tablet by mouth every 8 hours as needed for Anxiety. 90 Tablet 12/08/2024 01/05/2025 documented in this encounter Miscellaneous Notes * Telephone Encounter - Dede Meredith APRN - 12/04/2024 12:57 PM EDT Last Successful PDMP Review: 12/04/2024 12:55 PM by Dede Meredith APRN Refill not due until 12/08/24. Did refill but with dispense date for 12/08/24 * Telephone Encounter - Angela Wen CCMA - 12/04/2024 11:57 AM EDT Last Office Visit reviewing controlled substances: 09/10/2024 Approved Ambien, Gabapentin, Lyrica, Butalbital = must be in last 6 months. All other controlled medications = must be in last 3 months. If visit is not up to date, please call and schedule appointment. Next appointment scheduled?: No VINCENT Last Reviewed by Prescriber: PDMP not electronically reviewed on this encounter. Date of last completed CSA if not included in flowsheet below: 12/14/2021 05/17/2022 9:00 AM 07/21/2022 9:00 AM 08/29/2023 3:00 PM CONTROLLED SUBSTANCE Is Consent for treatment completed? Yes Date consent completed 12/14/2021 VINCENT Reference Number [id number] VINCENT Results as expected as expected If had complete compliance panel: 09/10/2024 Last resulted compliance panel date: 07/19/2023 (If patient had partial drug screen or in-house drug screen, please document date of that below): documented in this encounter Plan of Treatment Upcoming Encounters Date Type Department Care Team (Late st Contact Info) Description 02/03/2025 2:00 PM EDT Appointment [facility] [address] [place] [address] Vic Villarreal APRN [address] [place] [address] 04/27/2025 11:00 AM EST Appointment [facility] [address] [place] [address] Ledy Luo MD [address] [place] [address] documented as of this encounter Goals Goal Patient Goal Type Associated Problems Recent Progress Patient-Stated? Author Maintain a healthy diet, exercise regularly and maintain an ideal body weight General No Mary Christy RMA Stay Tobacco Free Lifestyle No Mary Christy RMA documented as of this encounter Visit Diagnoses Diagnosis Grief at loss of child Adjustment disorder with depressed mood Generalized anxiety disorder Grief reaction Adjustment disorder with depressed mood documented in this encounter Discontinued Medications Medication Sig Discontinue Reason Start Date End Da te LORazepam (ATIVAN) 0.5 mg Oral TabletIndications:Grief at loss of child,Generalized anxiety disorder,Grief reaction Take 1 Tablet by mouth every 8 hours as needed for Anxiety. Reorder 11/08/2024 12/04/2024 documented as of this encounter Additional Health Concerns Assessment Noted Time PHQ-9 Depression Total Score: 19 024 9:05 AM EST PHQ-2 Depression Total Score: 6 07/17/19 24 9:05 AM EST documented as of this encounter Care Teams Swim Instructor Relationship Specialty Start Date End Date Dede Meredith APRN [address] [place] [address] PCP - General Nurse Practitioner-Family 11/17/20 documented as of this encounter
--- OUTSIDE RECORDS SUMMARY | 2025-01-24 22:36 | XMS_ITS | Clinical Summary ---
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 Care Team (Late st Contact Info) Description 02/03/2025 2:00 PM EDT Appointment [facility] MRI [address] [place] [address] Vic Villarreal, FIRE DEPARTMENT MARINE ENGINEER [address] [facility] [address] [place] [address] 04/27/2025 11:00 AM EST Appointment [facility] [address] [place] [address] Ledy Luo MD [address] [place] [address] Health Maintenance Due Date Last Done Comments Hepatitis B Vaccine (2 of 3 - 19+ 3-dose series) 03/13/2016 02/14/2016 Breast Cancer Screening 2019 COVID-19 Vaccine ( season) 2024 10/11/2020, 09/13/2020 Cologuard 12/26/2024 Colon Cancer Screening 12/26/2024 Colonoscopy 12/26/2024 FIT 12/26/2024 Sigmoidoscopy 12/26/2024 Virtual Colonography 12/26/2024 Influenza Vaccine (#1) 2025 3, 03/17/2020, 03/17/2020, Additional history exists Wellness Exam Medicare 01/01/2026 12/31/2024 DTaP/TDaP/Td (3 - Td or Tdap) 03/17/2030 03/17/2020, 03/21/2016 Pneumococcal Vaccine 0-49 Aged Out 04/07/2019 No longer eligible based on patient's age to complete this topic Meningococcal B Vaccine Aged Out No l onger eligible based on patient's age to complete this topic Goals Goal Patient Goal Type Associated Problems Recent Progress Patient-Stated? Author Maintain a healthy diet, exercise regularly and maintain an ideal body weight General No Mary Christy RMA Stay Tobacco Free Lifestyle No Mary Christy RMA Procedures Procedure Name Priority Date/Time Associated Diagnosis Comments VAGINITIS PANEL NAAT Routine 01/14/2025 3:37 PM EDT Vaginal discharge IRON+TIBC Routine 12/31/2024 11:29 AM EDT Other iron deficiency anemia VITAMIN D 25 HYDROXY Routine 12/31/2024 11:29 AM EDT Malaise and fatigue Body mass index (BMI) 40.0-44.9, adult (HCC) VITAMIN B12/ FOLIC ACID Routine 12/31/2024 11:29 AM EDT Malaise and fatigue TSH REFLEX TO FT4 Routine 12/31/2024 11: 29 AM EDT Subclinical hypothyroidism LIPID PANEL REFLEX Routine 12/31/2024 11 :29 AM EDT Lipid screening HEMOGLOBIN A1C Routine 12/31/2024 11:29 AM EDT Prediabetes COMPREHENSIVE METABOLIC PANEL Routine 12/31/2024 11:29 AM EDT Encounter for Medicare annual wellness exam CBC WITH DIFF Routine 12/31/2024 11:29 AM EDT Encounter for Medicare annual wellness exam Other iron deficiency anemia URINE CULTURE (NO STAIN) Routine 12/11/2024 1:48 PM EDT Dysuria SEP URINALYSIS POC Routine 12/11/2024 1: 32 PM EDT Dysuria from Last 3 Months Results * (ABNORMAL) VAGINITIS PANEL NAAT (01/14/2025 [...] MICROBIOLOGY - GENERAL CHERISE PERRY Final Result [facility] [address] [facility] , [address] [place] [id number] * (ABNORMAL) IRON+TIBC (12/31/2024 11:29 AM EDT) Iron 37 30 - 160 mcg/dL 12/31/2024 4:26 PM EDT [facility] Transferrin 245 200 - 360 mg/dL 12/31/2024 4:26 PM EDT [facility] Transferrin Saturation 11(L) 20 - 50 % 12/31/2024 4:26 PM EDT [facility] TIBC 343 250 - 400 mcg/dL 12/31/2024 4:26 PM EDT [facility] Blood VENOUS BLOOD / Unknown Venipuncture / Unknown 12/31/2024 11:29 AM EDT 12/31/2024 11:29 AM EDT Dede Parnell FIRE DEPARTMENT MARINE ENGINEER CHEMISTRY ORDERABLES Final Result Performing Organization Address City/[facility] Co de Phone Number [facility] [address] [facility] , [place] [address] * (ABNORMAL) LIPID PANEL REFLEX (12/31/2024 11:29 AM EDT) Cholesterol 171 <200 mg/dL 12/31/2024 4:26 PM EDT [employer] Comment: < 200 Desirable 200 - 239 Borderline High >= 240 High Triglyceride 318(H) <150 mg/dL 12/31/2024 4:26 PM EDT [employer] Comment: < 150 Normal 150 - 199 Borderline High 200 - 499 High >= 500 Very High HDL 33(L) >=40 mg/dL 12/31/2024 4:26 PM EDT [employer] Comment: > 60 Optimal 40 - 60 Acceptable < 40 Low LDL Calculated 86 <100 mg/dL 12/31/2024 4:26 PM EDT [employer] Comment: < 100 Optimal 100 - 129 Near or above optimal 130 - 159 Borderline High 160 - 189 High >= 190 Very High The National Institutes of Health (NIH) equation is used for all lipid panels that report calculated LDL (LDL-C). Non-HDL-C Calculated 138(H) <=129 mg/dL 12/31/2024 4:26 PM EDT [employer] Comment: <130 Desirable 130-159 Above Desirable 160-189 Borderline High 190-219 High >= 220 Very High Fasting Specimen? No None 025 4:26 PM EDT [employer] Blood VENOUS BLOOD / Unknown Venipuncture / Unknown 12/31/2024 11:29 AM EDT 12/31/2024 11:29 AM EDT Dede Parnell FIRE DEPARTMENT MARINE ENGINEER CHEMISTRY ORDERABLES Final Result Performing Organization Address [facility]/ZIP Co de Phone Number [facility] [address] [facility] , [place] [address] * VITAMIN B12/ FOLIC ACID (12/31/2024 11:29 AM EDT) Vitamin B12 469 232 - 1,245 pg/mL 12/31/2024 5:05 PM EDT [facility] Folate 11.10 >=4.80 ng/mL 12/31/2024 5:05 PM EDT [facility] Blood VENOUS BLOOD / Unknown Venipuncture / Unknown 12/31/2024 11:29 AM EDT 12/31/2024 11:29 AM EDT Narrative [employer] [facility] - 12/31/2024 5:05 PM EDT Ingestion of ekaterina doses of biotin (>5 mg/day) taken within 8 hours of drawing blood sample can interfere with this immunoassay test. [employer] CHEMISTRY ORDERABLES Final Result Performing Organization Address [facility] Co de Phone Number [facility] [address] [facility] , [place] [address] * TSH REFLEX TO FT4 (12/31/2024 11:29 AM EDT) TSH Reflex 0.988 0.270 - 4.200 mcIU/mL 12/31/2024 4:26 PM EDT [facility] Blood VENOUS BLOOD / Unknown Venipuncture / Unknown 12/31/2024 11:29 AM EDT 12/31/2024 11:29 AM EDT Narrative [employer] - 12/31/2024 4:26 PM EDT Ingestion of ekaterina doses of biotin (>5 mg/day) taken within 8 hours of drawing blood sample can interfere with this immunoassay test. [employer] CHEMISTRY ORDERABLES Final Result Performing Organization Address City/[facility]/ZIP Co de Phone Number [facility] [employer] [facility] [address] [facility] , [place] [address] * (ABNORMAL) VITAMIN D 25 HYDROXY (12/31/2024 11:29 AM EDT) Pathologist [facility] Vit D 25 OH 29.6(L) 30.0 - 150.0 ng/mL 12/31/2024 5:05 PM EDT [facility] [employer] Comment: Preferred: >= 30 ng/mL Insufficient: 21-29 ng/mL Deficient <= 20 ng/mL Possible Toxicity: >150 ng/mL Samples should not be taken from patients receiving therapy with high biotin doses (i.e. > 5 mg/day) until at least 8 hours following the last biotin administration. Blood VENOUS BLOOD / Unknown Venipuncture / Unknown 12/31/2024 11:29 AM EDT 12/31/2024 11:29 AM EDT Dede Meredith FIRE DEPARTMENT MARINE ENGINEER CHEMISTRY ORDERABLES Final Result [facility] [address] [facility] , [place] [address] * CBC WITH DIFF (12/31/2024 11:29 AM EDT) Pathologist [facility] WBC 9.0 3.7 - 10.3 x10(3)/mcL 12/31/2024 5:13 PM EDT [facility] RBC 4.47 3.90 - 5.20 x10(6)/mcL [...] g/dL 12/31/2024 5:13 PM EDT [facility] RDW 13.3 <=14.9 % 12/31/2024 5:13 PM EDT [facility] Platelet 313 155 - 369 x10(3)/mcL 12/31/2024 5:13 PM EDT [facility] MPV 9.4 8.8 - 12.5 fL 12/31/2024 5:13 PM EDT [facility] Neut Percent 65.5 % 12/31/2024 5:13 PM EDT [facility] Comment:Neutrophils equals s egs plus bands Imm Gran% 1.4 % 12/31/2024 5:13 PM EDT [facility] Comment:Automated count of m etamyelocytes, myelocytes and promyelocytes. IG >1% represents a left shift and provides an early indication of an infection or inflammatory process. Lymph Percent 22.3 % 12/31/2024 5:13 PM EDT [facility] Garfield Percent 6.9 % 12/31/2024 5:13 PM EDT [facility] Eos Percent 3.3 % 12/31/2024 5:13 PM EDT [facility] Baso Percent 0.6 % 12/31/2024 5:13 PM EDT [facility] Neut # 5.9 1.6 - 6.1 x10(3)/mcL 12/31/2024 5:13 PM EDT [facility] Comment:Neutrophils equals s egs plus bands IMMGRAN# 0.1 0.0 - 0.1 x10(3)/mcL 12/31/2024 5:13 PM EDT [facility] Comment:Automated count of m etamyelocytes, myelocytes and promyelocytes. An absolute IG <0.1 is reported as 0.0. Lymph # 2.0 1.2 - 3.9 x10(3)/mcL 12/31/2024 5:13 PM EDT [facility] Garfield # 0.6 0.3 - 0.9 x10(3)/mcL 12/31/2024 5:13 PM EDT [facility] Eos# 0.3 0.0 - 0.5 x10(3)/mcL 12/31/2024 5:13 PM EDT [facility] Baso # 0.1 0.0 - 0.1 x10(3)/mcL 12/31/2024 5:13 PM EDT [facility] [employer] Blood VENOUS BLOOD / Unknown Venipuncture / Unknown 12/31/2024 11:29 AM EDT 12/31/2024 11:29 AM EDT [facility] HEMATOLOGY ORDERABLES Final Result Performing Organization Address [facility] Co de Phone Number [facility] [address] , [place] [address] * (ABNORMAL) HEMOGLOBIN A1C (12/31/2024 11:29 AM EDT) Hgb A1C 5.7(H) 4.2 - 5.6 % 12/31/2024 5:41 PM EDT [facility] Est. Avg Glucose 117 mg/dL 12/31/2024 5:41 PM EDT [facility] Blood VENOUS BLOOD / Unknown Venipuncture / Unknown 12/31/2024 11:29 AM EDT 12/31/2024 11:29 AM EDT Narrative [facility] [employer] [facility] - 12/31/2024 5:41 PM EDT REFERENCE RANGE: Normal: 4.0-5.6% Pre-diabetes: 5.7-6.4% Provisional diagnosis of diabetes: >6.4% Hgb F>10% and anything which shortens red cell survival, such as hemolytic anemia, or unstable hemoglobin variants such as HbSS, HbSC, or HbCC, will lower the HbA1c value associated with a given level of glycemic control. Dede Meredith APRN CHEMISTRY ORDERABLES Final Result Performing Organization Address City/[facility] Co de Phone Number [facility] [employer] [address] , [place] [address] * (ABNORMAL) COMPREHENSIVE METABOLIC PANEL (12/31/2024 11:29 AM EDT) Sodium 140 136 - 145 mmol/L 12/31/2024 4:26 PM EDT [facility] Potassium 4.0 3.5 - 5.0 mmol/L 12/31/2024 4:26 PM EDT [facility] Chloride 106 98 - 107 mmol/L 12/31/2024 4:26 PM EDT [facility] Total CO2 23 22 - 29 mmol/L 12/31/2024 4:26 PM EDT [facility] Anion Gap 11 7 - 16 mmol/L 12/31/2024 4:26 PM EDT [facility] Calcium 9.2 8.6 - 10.4 mg/dL 12/31/2024 4:26 PM EDT [facility] Glucose Lvl 116(H) 70 - 99 mg/dL 12/31/2024 4:26 PM EDT [facility] BUN 9 6 - 20 mg/dL 12/31/2024 4:26 PM EDT [facility] Creatinine 0.56 0.51 - 1.30 mg/dL 12/31/2024 4:26 PM EDT [facility] Albumin 4.0 3.5 - 5.2 gm/dL 12/31/2024 4:26 PM EDT [facility] Total Protein 6.6 6.4 - 8.3 gm/dL 12/31/2024 4:26 PM EDT [facility] Bili Total <0.2(L) 0.2 - 1.3 mg/dL 12/31/2024 4:26 PM EDT [facility] ALT 14 <=41 U/L 12/31/2024 4:26 PM EDT [facility] AST 14 <=40 U/L 12/31/2024 4:26 PM EDT [facility] Alk Phos 118 36 - 123 U/L 12/31/2024 4:26 PM EDT [facility] eGFR (CKD-EPIcr 2020) 114 >=60 mL/min/1.7 3 m2 12/31/2024 4:26 PM EDT [facility] Comment:Estimated GFR was ca lculated using the CKD-EPIcr (2020) equation refit without race. The equation is recommended by the National Kidney Foundation - [place] [employer] of Nephrology Task Force. Blood VENOUS BLOOD / Unknown Venipuncture / Unknown 12/31/2024 11:29 AM EDT 12/31/2024 11:29 AM EDT Dede Meredith APRN CHEMISTRY ORDERABLES Final Result Performing Organization Address City/[facility]/ZIP Co de Phone Number [employer] [facility] [address] [facility] , [place] [address] * URINE CULTURE (NO STAIN) (12/11/2024 1:48 PM EDT) Culture Multiple bacterial species isolated from urine consistent with urogenital commensal organisms. 12/13/2024 6:31 AM EDT [employer] Urine STRUCTURE OF URINARY TRACT PROPER / Unknown 12/11/2024 1:48 PM EDT 12/11/2024 1:48 PM EDT Dede Meredith APRN MICROBIOLOGY - GENERAL ORDE RABLES Final Result Performing Organization Address [facility] Co de Phone Number [facility] [employer] [facility] [address] [facility] , [place] [address] * SEP URINALYSIS POC (12/11/2024 1:32 PM EDT) UA Color POC Yellow Color 12/11/2024 1:34 PM EDT [facility] UA Appear POC Clear Clear 12/11/2024 1:34 PM EDT [facility] UA Gluc POC Negative Negative mg/dL 12/11/2024 1:34 PM EDT [facility] UA Bili POC Negative Negative 12/11/2024 1:34 PM EDT SEP MEN[facility]Z UA Ketones POC Negative Negative mg/dL 12/11/2024 1:34 PM EDT [facility] M[facility]Z UA SG POC 1.025 1.001 - 1.035 no units 12/11/2024 1:34 PM EDT SEP MENDEZ UA Blood POC Negative Negative 12/11/2024 1:34 PM EDT SEP MENDEZ UA pH POC 6.0 5.0 - 8.0 pH 12/11/2024 1:34 PM EDT SEP MENDEZ UA Protein POC Negative Negative mg/dL 12/11/2024 1:34 PM EDT [facility] M[facility] UA Urobilinogen POC 0.2 0.2, 1.0 12/11/2024 1:34 PM EDT [facility]P MEN[facility]Z UA Nitrite POC Negative Negative 12/11/2024 1:34 PM EDT [facility]A Leuk Est POC Negative Negative 1:34 PM EDT [facility] Urine STRUCTURE OF URINARY TRACT PROPER / Unknown 12/11/2024 1:32 PM EDT 12/11/2024 1:34 PM EDT us Dedepineda Meredith FIRE DEPARTMENT MARINE ENGINEER POINT OF CARE TEST ORDERABL ES Final Result [facility] [address] [place], [place] [address] from Last 3 Months Insurance [place] [employer] MEDICARE HMO [place] [facility] O Advance Directives For more information, please contact: [phone] * Full Code (Latest Code Status on File) Date Activated Date Inactivated Comments 03/20/2016 11:52 PM 03/25/2016 4:28 PM Care Teams Motor Adjuster Relationship Specialty Start Date End Date Dede Meredith APRN [address] [place] [address] PCP - General Nurse Practitioner-Family 11/17/20
--- OUTSIDE RECORDS SUMMARY | 2025-01-24 22:36 | XMS_ITS | Encounter Summary ---
Author Organization [place] [address] Care Team Providers Care Tank Storage Supervisor Name Role Phone Dede Meredith APRN Primary Care Provider [phone] Reason for Visit * Reason Onset Date Comments Medication Refill 01/10/2025 Encounter Details Date Type Department Care Team (Late st Contact Info) Description 01/10/2025 Refill [facility] [address] [place] [address] Dede Meredith APRN [address] [place] [address] Medication Refill Social History Tobacco Use [...] Date Recorded PHQ-2 Total Score 2 12/31/2024 [facility] [place] of Occupat ional Health - Occupational Stress [...] Refills Last Filled Start Date End Date budesonide-glycopyr -formoterol (BREZTRI AEROSPHERE) 160-9-4.8 mcg/actuation Inhl HFA Aerosol InhalerIndications: Chronic bronchitis, unspecified chronic bronchitis type (HCC) Inhale 2 Puffs into the lungs 2 times daily. 10.7 g 2 01/12/2025 cyanocobalamin (VITAMIN B-12) 500 mcg Oral TabletIndications:B ilateral foot pain Take 1 Tablet by mouth daily. 90 Tablet 3 01/12/2025 folic acid (FOLVITE) 1 mg Oral TabletIndications:B ilateral foot pain Take 1 Tablet by mouth daily. 30 Tablet 2 01/12/2025 documented in this encounter Plan of Treatment Upcoming Encounters Date Type Department Care Team (Late st Contact Info) Description 02/03/2025 2:00 PM EDT Appointment [facility] [address] [place] [address] Vic Villarreal APRN [address] [facility] [address] [place] [address] 04/27/2025 11:00 AM EST Appointment [facility] [address] [place] [address] Ledy Luo MD [address] [place] [address] documented as of this encounter Goals Goal Patient Goal Type Associated Problems Recent Progress Patient-Stated? Author Maintain a healthy diet, exercise regularly and maintain an ideal body weight General No Jaelyn, Mary Mely, RIKY Stay Tobacco Free Lifestyle No Mary Christy RMA documented as of this encounter Visit Diagnoses Diagnosis Bilateral foot pain Pain in limb Chronic bronchitis, unspecified chronic bronchitis type (HCC) documented in this encounter Discontinued Medications Medication Sig Discontinue Reason Start Date End Da te folic acid (FOLVITE) 1 mg Oral TabletIndications:Bilater al foot pain Take 1 Tablet by mouth daily. Reorder 12/20/2022 01/10/2025 cyanocobalamin (VITAMIN B-12) 500 mcg Oral TabletIndications:Bilater al foot pain Take 1 Tablet by mouth daily. Reorder 12/20/2022 01/10/2025 ngegvxerni-avbumakk-vzkqt terol (BREZTRI AEROSPHERE) 160-9-4.8 mcg/actuation Inhl HFA Aerosol InhalerIndications:Chroni c bronchitis, unspecified chronic bronchitis type (HCC) Inhale 2 Puffs into the lungs 2 times daily. Reorder 04/15/2024 01/10/2025 documented as of this encounter Additional Health Concerns Assessment Noted Time PHQ-9 Depression Total Score: 2 01/01/20 25 11:35 AM EDT PHQ-2 Depression Total Score: 2 01/01/20 25 11:35 AM EDT documented as of this encounter Care Teams Tank Storage Supervisor Relationship Specialty Start Date End Date Dede Meredith APRN [address] [place], [place] [address] PCP - General Nurse Practitioner-Family 11/17/20 documented as of this encounter
--- OUTSIDE RECORDS SUMMARY | 2025-01-24 22:36 | XMS_ITS | Encounter Summary ---
Author Organization [place] [address] Care Team Providers Care Linter Tender Name Role Phone Dede Meredith APRN Primary Care Provider Reason for Visit * Reason Onset Date Comments Refill 01/05/2025 Ativan Encounter Details Date Type Department Care Team (Late st Contact Info) Description 01/05/2025 Telephone [facility] [address] [place] [address] Dede Meredith APRN [address] [facility] [address] Refill (Ativan ) Social History Tobacco Use Types Packs/Day Years [...] Date Recorded PHQ-2 Total Score 2 12/31/2024 [facility] of Occupat ional Health - Occupational Stress [...] End Date LORazepam (ATIVAN) 0.5 mg Oral TabletIndications:G rief at loss of child,Generalized anxiety disorder,Grief reaction Take 1 Tablet by mouth every 8 hours as needed for Anxiety. 90 Tablet 01/06/2025 documented in this encounter Miscellaneous Notes * Telephone Encounter - Dede Meredith APRN - 01/06/2025 10:52 AM EDT Last Successful PDMP Review: 01/06/2025 10:51 AM by Dede Meredith APRN Med refilled. * Telephone Encounter - Angela Wen CCMA - 01/06/2025 7:54 AM EDT Last Office Visit reviewing controlled substances: 12/31/2024 Approved Ambien, Gabapentin, Lyrica, Butalbital = must [...] Date consent completed 12/14/2021 [facility] Reference Number [id number] [facility] Results as expected as expected If had complete compliance panel: 09/10/2024 Last resulted compliance panel date: 07/19/2023 (If patient had partial drug screen or in-house drug screen, please document date of that below): * Telephone Encounter - Miguel Arambula RMA - 01/05/2025 4:51 PM EDT Select the most appropriate reason for this telephone message: Medication Refill Who is requesting the refill: Patient Medication(s)Name/Dosage/Frequency: Disp Refills Start End LORazepam (ATIVAN) 0.5 mg Oral Tablet 90 Tablet 0 12/08/2024 -- Sig - Route: Take 1 Tablet by mouth every 8 hours as needed for Anxiety. - Oral Sent to pharmacy as: LORazepam 0.5 mg tablet (ATIVAN) Notes to Pharmacy: Do not dispense until 12/08/2024 E-Prescribing Status: Receipt confirmed by pharmacy (12/04/2024 12:57 PM EDT) Did patient contact the pharmacy first: Yes How many days left on hand: enough until 01/07/25 Future appt date w/ prescribing provider: none Pharmacy & Location: [facility] [place] [address] [address] [facility] [phone] [place] [id number] KATHERINE #: -- Return Method of Communication: Phone Call Additional Information: N/A documented in this encounter Plan of Treatment Upcoming Encounters Date Type Department Care Team (Late st Contact Info) Description 02/03/2025 2:00 PM EDT Appointment [facility] [address] [address] Vic Villarreal, ALUMINIZER [address] [facility] [address] [place] [address] 04/27/2025 11:00 AM EST Appointment [facility] [address] [place] [address] Ledy Luo MD [address] [place] [address] documented as of this encounter Goals Goal [...] 8 hours as needed for Anxiety. Reorder 12/08/2024 01/05/2025 documented as of this encounter Additional Health Concerns Assessment Noted Time PHQ-9 Depression Total Score: 2 01/01/20 11:35 AM EDT PHQ-2 Depression Total Score: 2 01/01/20 25 11:35 AM EDT documented as of this encounter Care Teams Linter Tender Relationship Specialty Start Date End Date Dede Meredith APRN [address] [place] [address] PCP - General Nurse Practitioner-Family 11/17/20 documented as of this encounter
--- OUTSIDE RECORDS SUMMARY | 2025-01-24 22:36 | XMS_ITS | Encounter Summary ---
Author Organization [facility] [place] [address] Care Team Providers Care File System Installer Name Role Phone Dede Meredith APRN Primary Care Provider Encounter Details Date Type Department Care Team (Late st Contact Info) Description 01/12/2025 Orders Only SEP Neurology [facility] [address] [place] [address] Vic Villarreal APRN [address] [address] Social History Tobacco Use Types Packs/Day Years [...] Date Recorded PHQ-2 Total Score 2 12/31/2024 [facility] [place] of Occupat ional Health - Occupational Stress [...] Info) Description 02/03/2025 2:00 PM EDT Appointment [facility] MRI [address] [place] [address] Vic Villarreal APRN [address] [facility] 100 [place] [address] 04/27/2025 11:00 AM EST Appointment [facility] [address] [facility] [place] [address] Ledy Luo MD [address] [place] [address] documented as of this encounter Goals Goal Patient Goal Type Associated Problems Recent Progress Patient-Stated? Author Maintain a healthy diet, exercise regularly and maintain an ideal body weight General No Mary Christy RMA Stay Tobacco Free Lifestyle No Mary Christy RMA documented as of this encounter Visit Diagnoses Not on filedocumented in this encounter Discontinued Medications Medication Sig Discontinue Reason Start Date End Da te lacosamide (VIMPAT) 100 mg Oral Tablet Take 0.5 Tablets by mouth 2 times daily for 3 days, THEN 1 Tablet 2 times daily for 3 days. Side effects 01/06/2025 01/12/2025 documented as of this encounter Additional Health Concerns Assessment Noted Time PHQ-9 Depression Total Score: 2 01/01/20 25 11:35 AM EDT PHQ-2 Depression Total Score: 2 01/01/20 25 11:35 AM EDT documented as of this encounter Care Teams File System Installer Relationship Specialty Start Date End Date Dede Meredith APRN [address] [place], [place] [address] PCP - General Nurse Practitioner-Family 11/17/20 documented as of this encounter
--- OUTSIDE RECORDS SUMMARY | 2025-01-24 22:36 | XMS_ITS | Encounter Summary ---
Author Organization [place] [address] Care Team Providers Care Manager Cardiology Name Role Phone Viri Dede PETERSEN Primary Care Provider [phone] Encounter Details Date Type Department Care Team (Late st Contact Info) Description 12/17/2024 Orders Only [facility] [address] [place] [address] Angela Wen, [facility] Social History Tobacco Use Types Packs/Day Years [...] Date Recorded PHQ-2 Total Score 6 07/17/2023 [facility] [place] of Occupat ional Health - Occupational Stress [...] Entry Date Author No 07/17/2023 9:04 AM EST Rosa Wen CCMA documented in this encounter Ordered Prescriptions Prescription Sig Dispense Quantity Refills Last Filled Start Date End Date mineral oil (FLEET MINERAL OIL) Rect Enema Place 1 Enema rectally once for 1 dose. 1 Each 12/17/2024 documented in this encounter Plan of Treatment Upcoming Encounters Date Type Department Care Team (Late st Contact Info) Description 02/03/2025 2:00 PM EDT Appointment [facility] [address] [place] [address] Vic Villarreal APRN [address] [facility] 100 [place] [address] 04/27/2025 11:00 AM EST Appointment [facility] [address] [facility] [place] [address] Ledy Luo MD [address] [place] [address] documented as of this encounter Goals Goal [...] documented as of this encounter Care Teams Manager Cardiology Relationship Specialty Start Date End Date Dede Meredith APRN [address] [place] [address] PCP - General Nurse Practitioner-Family 11/17/20 documented as of this encounter
--- OUTSIDE RECORDS SUMMARY | 2025-01-24 22:36 | XMS_ITS | Encounter Summary ---
Author Organization [place] [address] Care Team Providers Care Data Deliverables Manager Name Role Phone Viri Dede PETERSEN Primary Care Provider [phone] Encounter Details Date Type Department Care Team (Late st Contact Info) Description 11/25/2024 Orders Only [facility] [address] [place] [address] Angela Wen, [facility] Social History Tobacco Use Types [...] Date Recorded PHQ-2 Total Score 6 07/17/2023 [facility] [place] of Occupat ional Health - Occupational Stress [...] Date Author No 07/17/2023 9:04 AM EST Norma Wen CCMA documented in this encounter Ordered Prescriptions Prescription Sig Dispense Quantity Refills Last Filled Start Date End Date ondansetron (ZOFRAN-ODT) 4 mg Oral Tablet, Rapid Dissolve Dissolve 1 Tablet by mouth every 6 hours as needed for Nausea. 30 Tablet 11/25/2024 documented in this encounter Plan of Treatment Upcoming Encounters Date Type Department Care Team (Late st Contact Info) Description 02/03/2025 2:[address] [facility] [address] [place] [address] Vic Villarreal, MILLINERY COPYIST [address] [facility] [address] [place] [address] 04/27/2025 11:00 AM EST Appointment [facility] [address] [facility] [place] [address] Ledy Luo MD [address] [place] [address] documented as of this encounter Goals Goal [...] (ZOFRAN-ODT) 4 mg Oral Tablet, Rapid Dissolve Take 1 Tablet by mouth every 6 hours as needed for Nausea. Reorder 08/05/2024 11/25/2024 documented as of this encounter Additional Health Concerns Assessment Noted Time PHQ-9 Depression Total Score: 19 024 9:05 AM EST PHQ-2 Depression Total Score: 6 07/17/19 24 9:05 AM EST documented as of this encounter Care Teams Data Deliverables Manager Relationship Specialty Start Date End Date Dede Meredith APRN [address] [place], [place] [address] PCP - General Nurse Practitioner-Family 11/17/20 documented as of this encounter
--- OUTSIDE RECORDS SUMMARY | 2025-01-24 22:36 | XMS_ITS | Encounter Summary ---
Author Organization [place] [address] Care Team Providers Care Ethylbenzene Converter Helper Name Role Phone Dede Meredith APRN Primary Care Provider [phone] Encounter Details Date Type Department Care Team (Late st Contact Info) Description 01/20/2025 Orders Only [facility] [address] [place] [address] Angela Wen, [facility] Gastroesophageal reflux disease without esophagitis Social History Tobacco Use Types Packs/Day Years [...] Date Recorded PHQ-2 Total Score 2 12/31/2024 [facility] [place] of Occupat ional Health - Occupational Stress [...] Refills Last Filled Start Date End Date omeprazole (PRILOSEC) 40 mg Oral Capsule, Delayed Release(E.C.)Indic ations:Gastroesoph ageal reflux disease without esophagitis Take 1 Capsule by mouth daily. 90 Capsule 3 01/20/2025 documented in this encounter Plan of Treatment Upcoming Encounters Date Type Department Care Team (Late st Contact Info) Description 02/03/2025 2:00 PM EDT Appointment [facility] [address] [facility] [place] [address] Vic Villarreal APRN [address] [facility] [address] [place], [place] [id number] 04/27/2025 11:00 AM EST Appointment [facility] [address] [facility] [place] [address] Ledy Luo MD [address] [place] [address] documented as of this encounter Goals Goal Patient Goal Type Associated Problems Recent Progress Patient-Stated? Author Maintain a healthy diet, exercise regularly and maintain an ideal body weight General No Mary Christy RMA Stay Tobacco Free Lifestyle No Mary Christy RMA documented as of this encounter Visit Diagnoses Diagnosis Gastroesophageal reflux disease without esophagitis Esophageal reflux documented in this encounter Additional Health Concerns Assessment Noted Time PHQ-9 Depression Total Score: 2 01/01/20 11:35 AM EDT PHQ-2 Depression Total Score: 2 01/01/20 11:35 AM EDT documented as of this encounter Care Teams Ethylbenzene Converter Helper Relationship Specialty Start Date End Date Dede Meredith [place] [address] [place] [address] PCP - General Nurse Practitioner-Family 11/17/20 documented as of this encounter
--- OUTSIDE RECORDS SUMMARY | 2025-01-24 22:37 | XMS_ITS | Encounter Summary ---
Author Organization [place] [address] Care Team Providers Care Gaming Director Name Role Phone Dede Meredith APRN Primary Care Provider Reason for Visit * Reason Onset Date Comments Results 01/01/2025 Lab results give n Encounter Details Date Type Department Care Team (Latest Contact Info) Description 01/01/2025 Results Follow-Up [facility] [address] [place] [address] Dede Meredith APRN [address] [facility] [place] [address] CBC WITH DIFF, COMPREHENSIVE METABOLIC PANEL, HEMOGLOBIN A1C, Additional followed-up results: 5 Social History Tobacco Use Types Packs/Day Years [...] Date Recorded PHQ-2 Total Score 2 12/31/2024 [facility] of Occupat ional Health - Occupational Stress [...] encounter Miscellaneous Notes * Telephone Encounter - María Reich LPN - 01/02/2025 8:46 AM EDT Images from the original note were not included. Select the most appropriate reason for this telephone message: Patient Calling for Results Patient called for results on Lab Which Provider ordered the test? Dede Meredith APRN Date of test: 12/31 Advised patient of: abnormal result. Patient Instructions/ Questions: She feels like she had DM as her Triglycerides are elevated. Urinating nonstop and dry skin and that she has symptoms of DM. Medications Ordered/Pended (if yes, list medication): No Medications/Orders Needed (if yes, list orders): No Pharmacy Location Verified: No Other: Please put in the patient results note that pt is aware of the following results Dede Meredith APRN 01/01/2025 6:55 PM EDT -low vitamin d. Recommend OTC Vitamin D3 5,000 units once per day and take with source of good fat such as extra virgin olive oil, almonds, or avocado oil -prediabetes and iron levels are stable Rest of labs ok (her seizure lab is still pending) documented in this encounter Plan of Treatment Upcoming Encounters Date Type Department Care Team (Late st Contact Info) Description 02/03/2025 2:00 PM EDT Appointment [facility] [address] [place] [address] Vic Villarreal, [facility] [address] [facility] [facility] [address] [place] [id number] 04/27/2025 11:00 AM EST Appointment [facility] [address] [place] [address] Ledy Luo MD [address] [place] [address] documented as of this encounter Goals Goal [...] documented as of this encounter Care Teams Gaming Director Relationship Specialty Start Date End Date Dede Meredith APRN [address] [place] [address] PCP - General Nurse Practitioner-Family 11/17/20 documented as of this encounter
--- OUTSIDE RECORDS SUMMARY | 2025-01-24 22:37 | XMS_ITS | Encounter Summary ---
Author Organization [place] [address] Care Team Providers Care Plastic Jig And Fixture Builder Name Role Phone Dede Meredith APRN Primary Care Provider Encounter Details Date Type Department Care Team (Latest Contact Info) Description 10/15/2024 Results Follow-Up [facility]P [facility] [address] [place] [address] Dede Meredith APRN [address] [place] [address] PROLACTIN LEVEL, HUMAN CHORIONIC GONADOTROPIN QUANTITATIVE Social History Tobacco Use Types Packs/Day Years [...] Date Recorded PHQ-2 Total Score 6 07/17/2023 [facility] [place] of Occupat ional Health - Occupational Stress [...] of Assessment Author No 07/17/2023 9:04 AM EST Norma Wen CCMA documented as of this encounter Mental Status * Because of a physical, mental or emotional condition, does this person have serious difficulty concentrating, remembering or making decisions? Answer Entry Date Author No 07/17/2023 9:04 AM EST Norma Wen CCMA documented in this encounter Plan of Treatment Upcoming Encounters Date Type Department Care Team (Late st Contact Info) Description 02/03/2025 2:00 PM EDT Appointment [facility] [place] MRI [address] [place] [address] Vic Villarreal APRN [address] [facility] [address] [place] [address] 04/27/2025 11:00 AM EST Appointment [facility] [address] [place] [address] Ledy Luo MD [address] [place] [address] documented as of this encounter Goals Goal [...] documented as of this encounter Care Teams Plastic Jig And Fixture Builder Relationship Specialty Start Date End Date Dede Meredith APRN [address] [place], [place] [phone] PCP - General Nurse Practitioner-Family 11/17/20 documented as of this encounter
--- OUTSIDE RECORDS SUMMARY | 2025-01-24 22:37 | XMS_ITS | Encounter Summary ---
Author Organization [facility] [place] [place] [address] Care Team Providers Care Tar Heel Name Role Phone SpringdaleDede mojica TRIN[place] Primary Care Provider Encounter Details Date Type Department Care Team (Latest Contact Info) Description 12/02/2024 Travel Social History Tobacco Use Types Packs/Day Years Used Date Smoking Tobacco: Former Cigarettes 1 20.9 0 11/03/2001 - 09/11/2022 Smokeless Tobacco: Never Comments:planning on stoppin g Alcohol Use Standard Drinks/Week Comments No 0 (1 standard drink = 0.6 oz pur e alcohol) Overall Financial Resource Strain ([facility]) Answe r Date Recorded How hard is it for you to pa y for the very basics like food, housing, medical care, and heating? Not very hard 11/04/2020 PHQ-2 Answer Date Recorded PHQ-2 Total Score 6 07/17/2023 [facility] [place] of Occupat ional Health - Occupational Stress [...] Info) Description 02/03/2025 2:00 PM EDT Appointment [facility] [place] MRI [address] [place] [address] Vic Villarreal APRN [address] [facility] [address] [place] [id number] 04/27/2025 11:00 AM EST Appointment [facility] [address] [place], [place] [id number] Ledy Luo MD [address] [facility] [place] [address] documented as of this encounter Goals Goal [...] documented as of this encounter Care Teams Tar Heel Relationship Specialty Start Date End Date Dede Meredith APRN [address] [place] [id number] PCP - General Nurse Practitioner-Family 11/17/20 documented as of this encounter
--- OUTSIDE RECORDS SUMMARY | 2025-01-24 22:37 | XMS_ITS | Encounter Summary ---
Author Organization [place] [address] Care Team Providers Care News Producer Name Role Phone Dede Meredith APRN Primary Care Provider Reason for Referral * Surgical (Routine) - Pending Review Specialty Diagnoses / Procedures Referred By Carolyn t Referred To Contact Gastroenterology Diagnoses Screening for colon cancer Procedures COLONOSCOPY SD COLORECTAL SCRN; HI RISK IND SD COLONOSCOPY FLX W/ENDOSCOPIC MUCOSAL RESECTION Ledy Luo MD [address] [place] [address] Phone: tel: fax: Referral ID Status Reason Start Date Expiration Date V isits Requested Visits Authorized [id number] Pending Review 01/20/2025 01/20/2026 1 1 Reason for Visit * Reason Onset Date Comments Colonoscopy 01/20/2025 Medication Management 01/20/2025 Encounter Details Date Type Department Care Team (Late st Contact Info) Description 01/20/2025 Telephone [facility] [address] 3RD [place] [address] Ledy Luo MD [address] [place] [address] Colonoscopy; Medication Management Social History Tobacco Use Types Packs/Day Years [...] Date Recorded PHQ-2 Total Score 2 12/31/2024 [facility] of Occupat ional Health - Occupational Stress [...] Refills Last Filled Start Date End Date sodium,potassium,m ag sulfates 17.5-3.13-1.6 gram Oral Recon Soln Take 6 oz by mouth 2 times daily. SUPREP: The first 6-ounce bottle is taken the evening before your colonoscopy and the second 6-ounce bottle is taken the morning of your colonoscopy. 354 mL 01/20/2025 documented in this encounter Miscellaneous Notes * Telephone Encounter - Emily Yang NA - 01/20/2025 3:59 PM EDT instructions mailed * Telephone Encounter - Ifeoma Garcia, Clerical Staff - 01/20/2025 3:26 PM EDT Type of Prep: SUPREP SPLIT (SB) Procedure: COLON Location of procedure: [place] [facility] Date: 04/27/25 Provider: Dr Luo Time: 11:00 am Thinner? If so, what and how long to hold?: Diet/Diabetic Holds Pt address to mail to: [address] [place] [phone] * Telephone Encounter - Ifeoma Garcia, Clerical Staff - 01/20/2025 3:25 PM EDT Please call in SUPREP to [facility] Thank you * Telephone Encounter - Ifeoma Garcia, Clerical Staff - 01/20/2025 3:22 PM EDT Have you ever had a colonoscopy? no PCP/Referring Dede Meredith APRN Referring: What are the signs and symptoms? colon screening Is there a family history of the problem? No What are the patient's allergies? Allergies Allergen Reactions Latex Hives Doxycycline Other (See Comments) 'lilly esophagus Dilaudid [Hydromorphone] Itching Vimpat [Lacosamide] Rash What is the patient's personal history? Lung Disease What is the patient's surgical history? Past Surgical History: Procedure Laterality Date BRAIN SURGERY 03/12/2013 tumor removed SECTION SECTION Bilateral 03/21/2016 REPEAT SECTION (39) with low transverse skin incision at 0137; Surgeon: Tejas Johnson IV, MD; [facility]; Service: Gynecology CRANIOTOMY 02/2013 CYSTOSCOPY 10/30/2023 Surgeon: Siddhartha Napoles DO; Location: [facility]; Service: Gynecology EYE SURGERY TUBAL LIGATION WISDOM TOOTH EXTRACTION What medications is the patient taking? Prior to Admission medications Medication Sig Start Date End Date Last Dose Authorizing Provider albuterol (PROVENTIL HFA;VENTOLIN HFA) 90 mcg/actuation Inhl HFA Aerosol Inhaler INHALE 2 PUFFS BY MOUTH EVERY 6 HOURS NEEDED FOR WHEEZE 09/18/24 Dede Meredith APRN albuterol-ipratropium (DUO-NEB) 0.5 mg-3 mg(2.5 mg base)/3 mL Inhl Solution for Nebulization INHALE3 ML EVERY 4 HOURS NEEDED FOR SHORTNESS OF BREATH FOR 30 DAYS 04/16/24 Dede Meredith APRN atogepant (QULIPTA) 60 mg Oral Tablet Take 1 Tablet by mouth daily. 10/06/24 Vic Villarreal APRN nqhvhpqhet-cybhopxq-weagzimjxu (BREZTRI AEROSPHERE) 160-9-4.8 mcg/actuation Inhl HFA Aerosol Inhaler Inhale 2 Puffs into the lungs 2 times daily. 01/12/25 Dede Meredith APRN clindamycin (CLEOCIN) 300 mg Oral Capsule Take 1 Capsule by mouth 2 times daily for 7 days. Dede Meredith APRN cyanocobalamin (VITAMIN B-12) 500 mcg Oral Tablet Take 1 Tablet by mouth daily. 01/12/25 Dede Meredith APRN DULoxetine (CYMBALTA) 30 mg Oral Capsule, Delayed Release(E.C.) Take 1 Capsule by mouth daily. 12/02/24 Dede Meredith APRN fluticasone propionate (FLONASE) 50 mcg/actuation Nasl Ken[place], Suspension 1 [place] by Nasal route daily. 10/18/23 Dede Meredith APRN folic acid (FOLVITE) 1 mg Oral Tablet Take 1 Tablet by mouth daily. 01/12/25 Dede Meredith APRN hydrOXYzine (VISTARIL) 25 mg Oral Capsule Take 1 Capsule by mouth 3 times daily as needed. 09/10/24 Dede Meredith APRN ibuprofen (ADVIL;MOTRIN) 800 mg Oral Tablet Take 1 Tablet by mouth every 8 hours as needed for Pain. 02/19/24 Dede Meredith APRN LORazepam (ATIVAN) 0.5 mg Oral Tablet Take 1 Tablet by mouth every 8 hours as needed for Anxiety. 01/06/25 Dede Meredith APRN metFORMIN (GLUCOPHAGE XR) 500 mg Oral ER 24 hr tablet Take 1 Tablet by mouth daily (with breakfast). 01/02/25 Dede Meredith APRN montelukast (SINGULAIR) 10 mg Oral Tablet Take 1 Tablet by mouth nightly. 07/09/24 Dede Meredith APRN multivit-min/ferrous fumarate (MULTI VITAMIN ORAL) Take by mouth. Provider, Historical nystatin (MYCOSTATIN) Top Cream Apply topically 2 times daily. 10/14/24 Dede Meredith APRN nystatin (MYCOSTATIN) Top Powder Apply topically 2 times daily. 07/31/24 Dede Meredith APRN omeprazole (PRILOSEC) 40 mg Oral Capsule, Delayed Release(E.C.) Take 1 Capsule by mouth daily. 01/20/25 Dede Meredith APRN ondansetron (ZOFRAN-ODT) 4 mg Oral Tablet, Rapid Dissolve Dissolve 1 Tablet by mouth every 6 hours as needed for Nausea. 01/05/25 Dede Meredith APRN OXcarbazepine (TRILEPTAL) 150 mg Oral Tablet Take 1 Tablet by mouth 2 times daily. (To take along with 300 mg tablets for a dose of 750 mg twice daily) 10/27/24 Vic Villarreal APRN OXcarbazepine (TRILEPTAL) 300 mg Oral Tablet Take 2 Tablets by mouth 2 times daily. (To take along with 150 mg tablets for a dose of 750 mg twice daily) 10/27/24 Vic Villarreal APRN SUMAtriptan (IMITREX) 100 mg Oral Tablet Take 1 dose at migraine onset, may repeat once after 2 hours if pain persists (Max dose: 2/day, 4/week, 9/month) 01/06/25 Vic Villarreal APRN Do you currently have chest pain? No Are you currently being seen by a papeterie table assembler or have any cardiac testing scheduled? No Hold Blood Thinner days Do you take Adipex/Phentermine (dulaglutide (Trulicity), exenatide ER (Bydureon BCise), semaglutide(Ozempic, Wegovy), tirzepatide (mounjaro, zepbound)? no If patient answers yes instructed to hold 7 days: Do you take Steglatro (Ertugliflozin)? If patient answers yes instructed to hold 4 days Do you take Stop Jardiance (Empagliflozin), Invokana (Canagliflozin) & Farxiga (Dapagliflozin),Naltrexone/Burproprione (Contrave) If patient answers yes instructed to hold 3 days Any additional instructions: Insurance Human What prep is used? SUPREP SPLIT [facility], 3 day low residue diet, pt would like prep instructions mailed Scheduled 04/27/25 1100am @ [facility] Do you have sleep apnea? Do you have an abdominal aortic aneurysm? documented in this encounter Plan of Treatment Upcoming Encounters Date Type Department Care Team (Late st Contact Info) Description 02/03/2025 2:00 PM EDT Appointment [facility] MRI [address] [place] [address] Vic Villarreal, SKIVER MACHINE OPERATOR [address] [facility] [facility] [address] [place] [address] 04/27/2025 11:00 AM EST Appointment [facility] [address] [place] [address] Ledy Luo MD [address] [place] [address] Scheduled Orders Name Type Priority Associated Diagnoses Orde r Schedule COLONOSCOPY Endoscopy Routine Screening for colon cancer 1 Occurrences starting 01/20/2025 until 01/20/2026 documented as of this encounter Goals Goal Patient Goal Type Associated Problems Recent Progress Patient-Stated? Author Maintain a healthy diet, exercise regularly and maintain an ideal body weight General No Mary Christy RMA Stay Tobacco Free Lifestyle No Mary Christy RMA documented as of this encounter Visit Diagnoses Diagnosis Screening for colon cancer- Primary Special screening for malignant neoplasms, colon documented in this encounter Additional Health Concerns Assessment Noted Time PHQ-9 Depression Total Score: 2 01/01/20 25 11:35 AM EDT PHQ-2 Depression Total Score: 2 07/09/20 25 11:35 AM EDT documented as of this encounter Care Teams News Producer Relationship Specialty Start Date End Date Dede Meredith APRN [address] [place] [address] PCP - General Nurse Practitioner-Family 11/17/20 documented as of this encounter
--- NOTE | 2025-01-24 22:42 | CT_ITS ---
PROCEDURE INFORMATION: Exam: CT Abdomen And Pelvis Without Contrast Exam date and time: 01/24/2025 11:17 PM Age: 44 years old Clinical indication: Abdominal pain; Flank; Right; Additional info: Refractory pain, right flank, recent stone TECHNIQUE: Imaging protocol: Computed tomography of the abdomen and pelvis without contrast. Radiation optimization: All CT scans at this facility use at least one of these dose optimization techniques: automated exposure control; mA and/or kV adjustment per patient size (includes targeted exams where dose is matched to clinical indication); or iterative reconstruction. COMPARISON: CT ABDOMEN PELVIS W CON 01/23/2025 2:56 AM FINDINGS: Liver: Fatty liver infiltration. Measures 23 cm. No mass. Gallbladder and biliary ducts: Unremarkable. No calcified stones. No ductal dilation. Pancreas: Unremarkable. No ductal dilation. Spleen: Unremarkable. No splenomegaly. Adrenal glands: Unremarkable. No mass. Kidneys and ureters: 0.4 cm right ureteropelvic junction calculus with proximal hydronephrosis. No nephroureterolithiasis or hydroureter. Stomach and bowel: Nonobstructive pattern. Appendix: No evidence of appendicitis. Intraperitoneal space: Unremarkable. No free air. No significant fluid collection. Vasculature: Unremarkable. No abdominal aortic aneurysm. Lymph nodes: Unremarkable. No enlarged lymph nodes. Urinary bladder: Unremarkable as visualized. Reproductive: Unremarkable as visualized. Bones/joints: Unremarkable. No acute fracture. Soft tissues: Unremarkable. IMPRESSION: 1. Right ureteropelvic junction calculus with proximal hydronephrosis. 2. Hepatomegaly with fatty infiltration.
--- NOTE | 2025-01-24 22:44 | HMH.EDGENADL ---
Discharge Plan Disposition Chief Complaint: Abdominal Pain Prescriptions Prescriptions: No Action tamsulosin 0.4 mg capsule 0.4 mg PO HS Qty: 10 0RF hydrocodone-acetaminophen 5-325 mg tablet 1 tab PO Q6H PRN (Reason: pain (scale score 7-10)) Qty: 10 0RF ondansetron 4 mg tablet,disintegrating 4 mg PO Q6H PRN (Reason: nausea and vomiting) Qty: 10 0RF fluoxetine 10 mg Tablet 10 mg PO HS propranolol 10 mg Tablet 10 mg PO BID lorazepam 0.5 mg Tablet 0.5 mg PO BIDP PRN (Reason: Anxiety) Oxtellar XR 300 mg Tablet Extended Release 24 Hr 300 mg PO HS Rx Instructions: must be taken on empty stomach; no food at least 2 hrs before or 1 hr after dose Oxtellar XR 600 mg Tablet Extended Release 24 Hr 1,200 mg PO HS Rx Instructions: must be taken on empty stomach; no food at least 2 hrs before or 1 hr after dose montelukast 10 mg tablet 10 mg PO PM Patient Comments: TAKE 1 TABLET BY MOUTH NIGHTLY albuterol sulfate 90 mcg/actuation HFA aerosol inhaler 2 puff INHALATION Q6HP PRN (Reason: Shortness Of Breath) Patient Comments: TAKE 2 PUFFS BY MOUTH EVERY 6 HOURS NEEDED FOR WHEEZE budesonide-formoterol [Symbicort] 160-4.5 mcg/actuation HFA aerosol inhaler 2 puff INHALATION BID Patient Comments: INHALE 2 PUFFS INTO THE LUNGS 2 TIMES DAILY atorvastatin 20 mg Tablet 20 mg PO HS 30 Days Qty: 30 0RF oxcarbazepine 300 mg Tablet 1,500 mg PO HS 30 Days Qty: 150 0RF aspirin 81 mg Tablet,Delayed Release (Dr/Ec) 81 mg PO DAILY 30 Days Qty: 30 0RF tramadol 50 mg Tablet 50 mg PO Q6HP PRN (Reason: Moderate To Severe Pain) 3 Days Qty: 12 0RF nicotine 21 mg/24 hr Patch 24 Hour 21 mg transdermal DAILY 30 Days Qty: 30 0RF ipratropium-albuterol 0.5 mg-3 mg(2.5 mg base)/3 mL Solution For Nebulization 3 ml inhalation Q4HP PRN (Reason: Shortness Of Breath) 30 Days Qty: 120 0RF azithromycin 250 mg Tablet 500 mg PO 2100 1 Days Qty: 2 0RF prednisone 20 mg Tablet 40 mg PO DAILY 2 Days Qty: 4 0RF amoxicillin-pot clavulanate 500-125 mg Tablet 1 ea PO TID 4 Days Qty: 12 0RF pantoprazole 20 mg tablet,delayed release (DR/EC) 20 mg PO DAILY Qty: 30 0RF cefdinir 300 mg capsule 300 mg PO BID 7 Days Qty: 14 0RF lorazepam [Ativan] 0.5 mg tablet 0.5 mg PO TID PRN (Reason: anxiety) 3 Days Qty: 9 0RF Referrals Follow up/Referrals: Provider,Referral, MD [Primary Care Provider, Medical] - See instructions Clinical Impressions Clinical Impression: Right flank pain Instructions Patient Instructions: DI for Acute Abdominal Pain Print Language Print Language: Japanese Discharge ED Provider: Randee Kamara General Adult HPI General Chief complaint: Abdominal Pain Stated complaint: Kidney Stones Time Seen by Provider: 01/24/25 22:35 Mode of Arrival: EMS Source of Information: Patient and EMS Description of Symptoms (Recalled from ER Triage Doc. by RN): Pt presents via ems with c/o pain to right side. Reports to being in this ED x1 day ago and being diagnosed with kidney stones, given script for oxycodone and told if the pain doesn't get better to come back . Pt reports associated N/V. EMS reports 100mcg fent and 1 L NS given in the truck. Last dose of oxycodone 10mg 2.5 hrs ago with motrin taken appprox 1530. History of Present Illness HPI narrative: Patient is a 44-year-old female who 2 days ago was diagnosed with a proximal ureteral stone causing hydronephrosis and hydroureter presents today with worsening of her pain. She also states she is not having dysuria. Denies any fevers or chills. States she has been taking her hydrocodone at home without any improvement. Called EMS jomar got 100 mics of fentanyl and route which she states only mildly helped. Related Data Home Medications ?Medication ?Instructions ?Recorded ?Confirmed albuterol sulfate 90 mcg/actuation 2 puff inhalation Q6HP PRN 09/12/22 09/12/22 aerosol inhaler Shortness Of Breath budesonide-formoterol HFA 160 2 puff inhalation BID Breathing 09/12/22 09/12/22 mcg-4.5 mcg/actuation aerosol problems inhaler (Symbicort) fluoxetine 10 mg tablet 10 mg PO HS Anxiety 09/12/22 09/13/22 lorazepam 0.5 mg tablet 0.5 mg PO BIDP PRN Anxiety 09/12/22 09/12/22 montelukast 10 mg tablet 10 mg PO PM Allergy symptoms 09/12/22 09/12/22 oxcarbazepine 300 mg 300 mg PO HS seizures 09/12/22 09/13/22 tablet,extended release 24 hr (Oxtellar XR) oxcarbazepine 600 mg 1,200 mg PO HS seizures 09/12/22 09/13/22 tablet,extended release 24 hr (Oxtellar XR) propranolol 10 mg tablet 10 mg PO BID anxiety 09/12/22 09/12/22 Previous Rx's ?Medication ?Instructions ?Recorded amoxicillin 500 mg-potassium 1 ea PO TID 4 days #12 tabs 09/14/22 clavulanate 125 mg tablet aspirin 81 mg tablet,delayed 81 mg PO DAILY 30 days #30 tabs 09/14/22 release atorvastatin 20 mg tablet 20 mg PO HS 30 days #30 tabs 09/14/22 azithromycin 250 mg tablet 500 mg (2 x 250 mg) PO 2100 1 day 09/14/22 #2 tabs ipratropium 0.5 mg-albuterol 3 mg 3 ml inhalation Q4HP PRN Shortness 09/14/22 (2.5 mg base)/3 mL nebulization Of Breath 30 days #120 ea soln nicotine 21 mg/24 hr daily 21 mg transdermal DAILY 30 days 09/14/22 transdermal patch #30 ea oxcarbazepine 300 mg tablet 1,500 mg (5 x 300 mg) PO HS 30 09/14/22 days #150 tabs prednisone 20 mg tablet 40 mg (2 x 20 mg) PO DAILY 2 days 09/14/22 #4 tabs tramadol 50 mg tablet 50 mg PO Q6HP PRN Moderate To 09/14/22 Severe Pain 3 days #12 tabs pantoprazole 20 mg tablet,delayed 20 mg PO DAILY #30 tabs 08/29/23 release cefdinir 300 mg capsule 300 mg PO BID 7 days #14 caps 11/08/23 lorazepam 0.5 mg tablet (Ativan) 0.5 mg PO TID PRN anxiety 3 days 09/08/24 #9 tabs hydrocodone 5 mg-acetaminophen 325 1 tab PO Q6H PRN pain (scale score 01/23/25 mg tablet 7-10) #10 tabs ondansetron 4 mg disintegrating 4 mg PO Q6H PRN nausea and 01/23/25 tablet vomiting #10 tabs tamsulosin 0.4 mg capsule 0.4 mg PO HS #10 caps 01/23/25 Allergies Allergy/AdvReac Type Severity Reaction Status Date / Time doxycycline (DOXYCYCLINE) Allergy Unknown Unknown Verified 09/12/22 09:19 allergy reaction latex (LATEX) Allergy Unknown Unknown Verified 09/12/22 09:19 allergy reaction sulfamethoxazole (From Allergy Unknown Unknown Verified 09/12/22 09:19 BACTRIM) allergy reaction trimethoprim (From BACTRIM) Allergy Unknown Unknown Verified 09/12/22 09:19 allergy reaction PFSH PFSH Disclaimer: The information contained in this section may have been updated after the patient was seen, as this information can be updated by other users. Medical History (Updated 01/24/25 @ 22:44 by Randee Kamara MD) Acute respiratory failure with hypoxia COPD (chronic obstructive pulmonary disease) Shortness of Breath Anxiety disorder Depression Seizure disorder Epileptic seizure Generalized seizure Polyhydramnios affecting in third trimester Surgical History (Updated 09/18/22 @ 00:00 by Trini Quesada) H/O brain surgery Family History (Updated 09/12/22 @ 09:09 by Emily Hernandez APRN) Father Hypertension Social History (Updated 09/12/22 @ 09:09 by Emily Hernandez APRN) Smoking Status: Current every day smoker tobacco type: cigarettes packs per day: 1 how long ago did patient quit smokin days ago alcohol intake: never substance use type: denies use current occupational status: employed Travel in the last 8 weeks?: None adopted: No caregiver/support person: No foster care: No household members: spouse and children housing: apartment lives independently: Yes marital status: number of children: 1 education level: college service: No jail: No current occupational exposures/hazards: No pets and animals: No sexually active: Yes Have you lived/traveled outside [place] in past 30 days?: No Contact w/someone who lives/traveled outside US past 30 days?: No Exposure to someone with infectious disease in past 14 days?: No Do you have a fever (greater than 100.4 F or 38 C)?: No Have you tested positive for COVID-19?: No Exposed to someone with COVID-19 in past 14 days?: No Do you have a sore throat?: No Do you have a cough?: No Do you have any weakness?: No Do you have any diarrhea?: No Are you experiencing any unusual bleeding?: No Do you have any muscle aches/pain?: No Do you have any abdominal pain?: No Are you experiencing loss of taste or smell?: No Other Medical History Have you received the Flu Vaccine for this season: No Have you received the Pneumonia Vaccine: No ROS Obtained: Yes All systems reviewed & no additional complaints except as documented Physical Exam General General appearance: alert and in no apparent distress Respiratory Respiratory exam: Present normal lung sounds bilaterally Cardiovascular Cardiovascular exam: Present regular rate Abdominal Exam Abdominal exam: Present soft; Absent distention or tenderness Back Exam Back exam: Absent CVA tenderness (R) or CVA tenderness (L) Neurological Exam Neurological exam: Present alert Medical Decision Making Medical Records Screening: Per USPSTF and CDC recommendations, given the prevalence of disease in our region, it is our hospital?s policy to screen for HIV and viral Hepatitis for all patients aged 18 and over and those with ongoing risk factors. Rudy Inquiry Pt receiving controlled substance: No Vital Signs: 01/24/25 22:33 Temperature 98.1 F Temperature Source Oral Pulse Rate [Radial] 79 Respiratory Rate 18 Blood Pressure [Right Arm] 141/78 H Blood Pressure Mean [Right Arm] 99 Blood Pressure Position [Right Arm] Sitting 02 Sat by Pulse Oximetry 98 Oxygen Delivery Method Room Air Orders (Tests/Meds): ED MEDICATIONS Generic Name Dose Route Start Last Admin Trade Name Freq PRN Reason Stop Dose Admin Lactated Ringer's 1,000 mls @ 999 mls/hr 01/24/25 22:45 Lactated Ringer's 1000 Ml Bag IV 01/24/25 23:45 .Q1H1M VANNESA Ketorolac Tromethamine 15 mg 01/24/25 22:42 Ketorolac 30mg/Ml Vial IV 01/24/25 22:43 ONCE ONE Ondansetron HCl 4 mg 01/24/25 22:42 Ondansetron 4mg/2ml Vial IV 01/24/25 22:43 ONCE ONE ORDERS Category Date Time Status CT abdomen pelvis wo con Stat Cat Scan 01/24/25 22:42 Ordered CBC w/Auto Diff [Complete Blood Count Auto Diff] Stat Lab 01/24/25 22:43 Ordered CMP [Comprehensive Metabolic Panel] Stat Lab 01/24/25 22:43 Ordered UA [Urinalysis and Microscopic] Stat Lab 01/24/25 22:43 Ordered Medical Decision Narrative: 44-year-old with above history and physical with a recent diagnosis of an obstructing kidney stone in the proximal ureter we will repeat a CT scan to see if this is progressed or has any complication such as calyceal rupture perinephric abscess etc. Patient had fentanyl and route will give Toradol and Zofran and IV fluids. Additionally she now has symptoms concerning for possible urinary tract infection we will get a urinalysis and blood work and reassess. She looks very well on my assessment though. Care will be transitioned to Dr. Talamantes at 11 PM. Critical Care Critical Care Time Critical Care Time: No
[2025-01-24] MEDS: ONDANSETRON 4MG/2ML VIAL 4 MG IV (22:49)
[2025-01-24] MEDS: LACTATED RINGERS 1000ML 1,000 ML 999 ML IV (22:49)
[2025-01-24] MEDS: KETOROLAC 30MG/ML VIAL 15 MG IV (22:49)
[2025-01-24 22:59] LABS: Hematocrit 33.8 % (37.0-47.0); Hemoglobin 11.1 g/dL (12.2-16.2); Immature Granulocytes % 1.5 %; Mean Corpuscular HGB Conc 32.8 g/dL (31.8-35.4); Mean Corpuscular Hemoglobin 27.8 pg (27.0-31.2); Mean Corpuscular Volume 84.7 fl (81-99); Nucleated Red Blood Cells % 0 %; Platelet Count 311 K/mm3 (142-424); Red Blood Count 3.99 M/mm3 (4.20-5.40); Red Cell Distribution Width-SD 38.6 fL; White Blood Count 15.1 K/mm3 (4.8-10.8)
--- OUTSIDE RECORDS SUMMARY | 2025-01-24 23:36 | XMS_ITS | CCD ---
Author Organization Unknown Care Team Providers Care Personal Caregiver Name Role Phone Unavailable Primary Care Provider Unavailabl e Unavailable Chronic Care Management Unavaila ble Summary Purpose DataExchange Insurance Providers Payer name Policy type / Coverage type Covered constitution party ID Effective Begin Date Effective End Date [facility] [id number] Unknown Unknown Family History Family History data not found Medication Administered No Medication Administered data Reason For Visit No Reason For Visit data Medical Equipment No Medical Equipment data Advance Directives No Advance Directive data
--- OUTSIDE RECORDS SUMMARY | 2025-01-24 23:36 | XMS_ITS | CCD ---
Author Organization Unknown Care Team Providers Care Line Crewman Name Role Phone Unavailable Primary Care Provider Unavailabl e Unavailable Chronic Care Management Unavaila ble Summary Purpose DataExchange Insurance Providers Payer name Policy type / Coverage type Covered alliance party ID Effective Begin Date Effective End Date [facility] [id number] Unknown Unknown Family History Family History data not found Medication Administered No Medication Administered data Reason For Visit No Reason For Visit data Medical Equipment No Medical Equipment data Advance Directives No Advance Directive data
[2025-01-24 23:44] LABS: Microscopic, Urine URINE MICROSCOPIC (MICROSCOPIC)
[2025-01-24 23:48] LABS: Bilirubin,Urine Negative (Negative); Color,Urine YELLOW (Yellow); Glucose,Urine (UA) Negative (Negative); Ketones,Urine Negative (Negative); Leukocyte Esterase,Urine Negative (Negative); PH,Urine 6.0 (5.0-8.5); Protein,Urine Negative (Negative); Specific Gravity, Urine 1.025 (1.005-1.030); Urobilinogen,Urine 0.2 EU/dl (0.2)
[2025-01-24 23:49] LABS: Alanine Aminotransferase 24 U/L (12-78); Albumin Level 3.7 g/dl (3.5-5.0); Albumin/Globulin Ratio 1.7 (1.1-1.8); Alkaline Phosphatase 111 U/L (38-126); Anion Gap 10.8 mEq/L (5-15); Aspartate Amino Transferase 30 U/L (14-36); Blood Urea Nitrogen 12 mg/dl (7-17); Calcium 8.8 mg/dl (8.4-10.2); Carbon Dioxide 23 mmol/L (22.0-30.0); Chloride 107 mmol/L (98-107); Creatinine Clearance Estimated 99 mL/min (50-200); Creatinine,Serum 0.70 mg/dl (0.52-1.04); Estimated Glomerular Filt Rate 90 ml/min (>60); GFR (African American) 109 ML/MIN (>60); Globulin 2.2 g/dL (1.3-3.2); Glucose 134 mg/dl (74-100); Potassium 3.8 mmoL/L (3.5-5.1); Sodium 137 mmol/L (136-145); Total Protein,Serum 5.9 g/dl (6.3-8.2)
[2025-01-24 23:51] LABS: Bilirubin,Total < 0.1 mg/dl (0.2-1.3)
[2025-01-25 00:10] LABS: Bacteria,Urine 1+ /lpf
[2025-01-25] MEDS: HYDROMORPHONE 2MG/ML SYRINGE 0.5 MG IV (00:14)
[2025-01-25] MEDS: ACETAMINOPHEN 500MG TAB 1000 MG PO (00:29)
[2025-01-25 00:42] VITALS: BP 138/71; PULSE 77; RESP 17; TEMP 36.7; O2SAT 95
== END 2025-01-25 00:46 | disposition home or self-care (01) ==
PROVIDERS: Emergency Provider Student in an Organized Health Care Education/Training Program
DX: N13.30 Unspecified hydronephrosis (principal); N20.1 Calculus of ureter; R10.9 Unspecified abdominal pain
CPT/HCPCS: 74176; 80053; 81001; 85025; 96361; 96374; 96375; 99285; J1171; J1885; J2405; J7120

== ENCOUNTER 2025-02-13 22:02 | Emergency (ER) | payer MEDICARE, MEDICAID, SELFPAY ==
--- OUTSIDE RECORDS SUMMARY | 2024-12-31 10:30 | XMS_ITS | Encounter Summary ---
Author Organization [place] [address] Care Team Providers Care Game Moderator Name Role Phone Deed Meredith APRN Primary Care Provider [phone] Reason for Referral * GI Procedure (Routine) - Pending Review Specialty Diagnoses / Procedures Referred By Carolyn abreu Referred To Contact General Surgery Diagnoses Screening for colon cancer Dede Meredith APRN [address] [place] [address] Phone: tel: fax: [facility] [address] [place] [address] Phone: tel: fax: Referral ID Status Reason Start Date Expiration Date V isits Requested Visits Authorized [id number] Pending Review 12/31/2024 12/31/2025 1 1 Reason for Visit * Reason Comments Dizziness Vertigo? Fatigue Has felt more weak t de anda usual Nausea Encounter Details Date Type Department Care Team (Late st Contact Info) Description 12/31/2024 10:30 AM EDT Office Visit SHWETA Mendez [address] [place] [phone] Dede Meredith APRN [address] [place] [address] Encounter for Medicare annual wellness exam (Primary Dx); Obesity, Class III, BMI 40-49.9 (morbid obesity); Subclinical hypothyroidism; Other iron deficiency anemia; Medication management; Malaise and fatigue; Prediabetes; Lipid screening; Body mass index (BMI) 40.0-44.9, adult (HCC); Screening for colon cancer; Other migraine with status migrainosus, intractable; Generalized anxiety disorder Social History Tobacco Use Types Packs/Day Years Used Date Smoking Tobacco: Former Cigarettes 1 20.9 0 11/03/2001 - 09/11/2022 Smokeless Tobacco: Never Tobacco Cessation:Counseling Given: Not Answered Comments:planning on stopping Alcohol Use Standard Drinks/Week Comments No 0 (1 standard drink = 0.6 oz pur e alcohol) Overall Financial Resource Strain (CARDI) Answe r Date Recorded How hard is it for you to pa y for the very basics like food, housing, medical care, and heating? Not very hard 11/04/2020 PHQ-2 Answer Date Recorded PHQ-2 Total Score 2 12/31/2024 [facility] [employer] - Occupational Stress [...] Sign Reading Time Taken Comments Blood Pressure 140/72 12/31/2024 10:26 AM EDT Pulse 94 12/31/2024 10:26 AM EDT Temperature 36.1 C (97 F) 12/31/2024 10:26 AM EDT Respiratory Rate 18 12/31/2024 10:26 AM EDT Oxygen Saturation 98% 12/31/2024 10:26 AM EDT Inhaled Oxygen Concentration - - Weight 121.1 kg (267 lb) 12/31/2024 10:26 AM EDT Height 170.2 cm (5' 7 ) 12/31/2024 10:26 AM EDT Body Mass Index 41.82 12/31/2024 10:26 AM EDT documented in this encounter Functional Status * Cognitive and Functional Status Question Answer Date of Assessment Author Is the person deaf or does he/she have serious difficulty hearing? No 12/31/2024 11:34 AM EDT Dede Meredith APRN Is the person blind or does he/she have serious difficulty seeing even when wearing glasses? No 12/31/2024 11:34 AM EDT Dede Meredith APRN Does this person have seriou s difficulty walking or climbing stairs? No 12/31/2024 11:34 AM EDT Dede Meredith APRN Does this person have difficulty dressing or bathing? No 12/31/2024 11:34 AM EDT Dede Calderon APRN * Is the person deaf or does he/she have serious difficulty hearing? Answer Date of Assessment Author No 12/31/2024 11:34 AM EDT Dede Christianson APRN * Is the person blind or does he/she have serious difficulty seeing even when wearing glasses? Answer Date of Assessment Author No 12/31/2024 11:34 AM EDT Dede Christianson APRN * Does this person have serious difficulty walking or climbing stairs? Answer Date of Assessment Author No 12/31/2024 11:34 AM EDT Dede Christianson APRN * Does this person have difficulty dressing or bathing? Answer Date of Assessment Author No 12/31/2024 11:34 AM EDT Dede Christianson APRN * Because of a physical, mental or emotional condition, does this person have difficulty doing errands alone such as visiting a doctor's office or shopping? Answer Date of Assessment Author Yes 12/31/2024 11:34 AM EDT Dede Christianson APRN * PHQ-9 Total Score Answer Date of Assessment Author 2 12/31/2024 11:35 AM CARLOST Dede Christianson APRN * Question Answer Date of Assessment Author Little interest or pleasure in doing things 1 12/31/2024 11:35 AM CARLOST Dede Meredith APRN Feeling down, depressed, or hopeless 1 12/31/2024 11:35 AM EDT Dede Meredith APRN PHQ-2 Total Score 2 12/31/2024 11:35 AM EDT Dede Meredith APRN * PHQ-2 Total Score Answer Date of Assessment Author 2 12/31/2024 11:35 AM EDT Dede Christianson APRN documented as of this encounter Mental Status * Cognitive and Functional Status Question Answer Entry Date Author Because of a physical, menta l or emotional condition, does this person have difficulty doing errands alone such as visiting a doctor's office or shopping? Yes 12/31/2024 11:34 AM EDT Dede Meredith APRN Because of a physical, menta l or emotional condition, does this person have serious difficulty concentrating, remembering or making decisions? Yes 12/31/2024 11:34 AM EDT Dede Meredith APRN * Because of a physical, mental or emotional condition, does this person have serious difficulty concentrating, remembering or making decisions? Answer Entry Date Author Yes 12/31/2024 11:34 AM EDT Dede Christianson APRN documented in this encounter Progress Notes * Dede Meredith APRN - 12/31/2024 10:30 AM EDTAssociated Problem(s): Obesity, Class III, BMI 40-49.9 (morbid obesity) - encouraged healthy diet, increase exercise, work into a calorie deficit * Dede Meredith APRN - 12/31/2024 10:30 AM EDTAssociated Problem(s): Subclinical hypothyroidism Symptomatic. Will check labs and followup accordingly. Orders: TSH REFLEX TO FT4; Future * Dede Meredith APRN - 12/31/2024 10:30 AM EDTAssociated Problem(s): Iron deficiency anemia Orders: CBC WITH DIFF; Future IRON+TIBC; Future * Dede Meredith APRN - 12/31/2024 10:30 AM EDTAssociated Problem(s): Generalized anxiety disorder On lowest tolerated dose of ativan and cymbalta, much improved, continue same. * Dennise Washington - 12/31/2024 10:30 AM EDT Venipuncture in the left antecubital vein with 21 gauge needle, length 1 1/2 inch. * Dede Meredith APRN - 12/31/2024 10:30 AM EDT Assessment & Plan Encounter for Medicare annual wellness exam Orders: CBC WITH DIFF; Future COMPREHENSIVE METABOLIC PANEL; Future Obesity, Class III, BMI 40-49.9 (morbid obesity) - encouraged healthy diet, increase exercise, work into a calorie deficit Subclinical hypothyroidism Symptomatic. Will check labs and followup accordingly. Orders: TSH REFLEX TO FT4; Future Other iron deficiency anemia Orders: CBC WITH DIFF; Future IRON+TIBC; Future Medication management Orders: OXCARBAZEPINE METABOLITE -REF LAB; Future Malaise and fatigue -multiple factors including medication side effects, diet, exercise, obesity. -check labs -work on med adjustment to minimize sedative effects Orders: VITAMIN B12/ FOLIC ACID; Future VITAMIN D 25 HYDROXY; Future Prediabetes Lab Results Component Value Date HGBA1C 5.7 (H) 07/15/2024 HGBA1C 5.7 (H) 04/15/2024 HGBA1C 5.4 11/15/2021 Orders: HEMOGLOBIN A1C; Future Lipid screening Orders: LIPID PANEL REFLEX; Future Body mass index (BMI) 40.0-44.9, adult (HCC) - diet/exercise. Orders: VITAMIN D 25 HYDROXY; Future Screening for colon cancer Orders: SCREENING COLONOSCOPY Other migraine with status migrainosus, intractable Orders: ketorolac (TORADOL) injection 60 mg Generalized anxiety disorder On lowest tolerated dose of ativan and cymbalta, much improved, continue same. Progress Note: Vitals: 12/31/24 1026 BP: (!) 140/72 Pulse: 94 Resp: 18 Temp: 97 ??F (36.1 ??C) TempSrc: Temporal SpO2: 98% Weight: 267 lb (121.1 kg) Height: 5' 7 (1.702 m) Body mass index is 41.82 kg/m??. SUBJECTIVE: Chief Complaint Patient presents with Dizziness Vertigo? Fatigue Has felt more weak than usual Nausea HPI: Medicare Wellness Assessment: Subsequent Annual Medicare Wellness Assessment. Risk Assessments: Fall Risk Assessment Has the patient had any fall with injury in the past year?: No Has the patient had 2 or more falls in the past year?: No Is the patient able to sit without assistance?: Yes Is the patient able to get up without assistance?: Yes Does the patient have a difficult time ambulating when first getting up?: No Does the patient have rugs or runners in the home?: No Does the patient have grab bars in the bathroom?: Yes Does the patient have stairs inside or outside of the home?: No (In Office Assessment Only): Is the patient able to ambulate without assistance/device and with a gait steady?: Yes (In Office Assessment Only): TUG test: Time patient going from sitting to standing, walk 10 feet, return to chair and sit. Record time. : Less or equal to 12 seconds Functional Status Assessment Functional Level: self care Functional Mobility Assessment: independent w/o assist device Assessment of transportation needs: (!) dependent on other/public transportation Functional Activities of Daily Living Limitations: No issues Bladder: Do you have issues with your bladder, such as urgency or leaking urine?: No issues Does the patient report issues or concerns regarding hearing?: No Activities of Daily Living Assistive Device Assessment Assistive Devices: None Osteoporosis Screening Assessment Has the patient had a DEXA (Bone Density) scan in the past 2 years?: (!) No No results found for this or any previous visit. Abnormal Pains Assessment Excluding what you would consider normal aches and pains for your age and medical condition, do youhave any unusual or worrisome pains?: No Opiate Screening Are you currently on opiate or narcotic medications?: No PHQ Depression Screening Results Little interest or pleasure in doing things: 1 Feeling down, depressed, or hopeless: 1 PHQ-2 Total Score: 2 PHQ-9 Total Score: 2 Advanced Directive Evaluation Advance Care Planning Guide Given?: (!) No (For Dementia Screening below can use either AD-8 or Mini Cog. Doesn't require both.) AD-8 Dementia Screening tool results Problems with judgement: 0 Less interest in hobbies/activities: (!) 1 Repeats the same things over and over: 0 Trouble learning how to use a tool, appliance or gadget: 0 Forgets correct month or year: 0 Trouble handling complicated financial affairs: 0 Trouble remembering appointments: (!) 1 Daily problems with thinking and/or memory: (!) 1 Total AD8 score:: (!) 3 Mini Cog Dementia Screening tool results Welcome to Medicare Vision Screening Eye Exam : Not applicable/required for Subsequent AWV, only required for Welcome to Medicare Visit Patient Instructions AWV findings and Plan of Care: Recommendations as part of the Personal Plan of Care based on risk screening assessments are: Fall Risk Assessment: Fall Risk Assessment: negative - re-assess in 1 year Functional Status/Social Determinates of Health: stable, no issues, re-assess in 1 year Depression Screening: positive - known existing condition that is currently under medical management Dementia Screening: negative - recommend re-assess in 1 year Vaccinations: up to date Exercise/Activity: recommended continuing current Recommended follow up annually for Medicare Annual Wellness Visit. Good preventative health care is important in reducing morbidity and mortality. I recommend exercise regularly as tolerated focusing on strength and balance. I recommend a balanced diet focusing on fruits, veggies, and lean meats. I recommend avoiding having rugs, runners, or other loose trip hazards in the home as these increase fall risk. I recommend installing grab bars in the bathrooms close to toilets, in tubs, and in showers as these are common areas for falls when transitioning from wet surfaces to dry surfaces, or visa versa. This is also an area of the home that is high risk for falls at night. I encourage having an Advanced Directives. This is something we recommend you have on file at home,as well as something that we should have on file in our records. If we don't have a copy of your current Advanced Directive, please bring a copy to your next visit. If you have a power of finance attorney orste, we should also have a copy on file. I encourage candid discussion with your family on your wishes in the event that you are incapacitated and unable to participate in direct medical decision making. It is important to stay up to date on recommended vaccinations, please see the health maintenance topics due below and if we have not completed one of those topics today, please consider completing as part of your wellness plan this year. Below are other health maintenance topics that are recommended to be closed at your earliest opportunity. You may notice that some of these were addressed in the office today and will show as resolved in your [employer] account soon. Health Maintenance Due Topic Date Due Hepatitis B Vaccine (2 of 3 - 19+ 3-dose series) 03/13/2016 Breast Cancer Screening Never done COVID-19 Vaccine (2023-25 season) 2024 Colon Cancer Screening 12/26/2024 As part of today's visit the components of the Medicare wellness assessment were completed. These components included reviewing the information available in the risk screening questionnaire that was administered by ancillary staff either today or prior to today's visit (pre-visit planning) and recorded in the Medicare Wellness Assessment Flowsheet in the EMR. I have reviewed the data in regards to fall risk, activities of daily living/functional status, depression screening, dementia screening,and outstanding Health Maintenance topics and edited where necessary. The staff has reviewed and updated the past medical history, social history, family history, allergies, medications, and care team information during the standard rooming process. I have also reviewed this data as part of today'svisit. Below are the findings, recommendations, and Personal Plan of Care. The patient received a copy of their Personal Plan of Care including health maintenance topics thatare recommended to be completed and this can be noted in the after visit summary. The AVS is provided to the patient digitally through their MyChart account or with a paper copy if the patient doesn't have an active MyChart Account. A copy of today's progress note with recommendations below is alsoavailable electronically for patients with an active [employer] account per the Federal Cures Act. TheAVS also contains additional patient education if appropriate on topics common to wellness and their plan of care. History Reviewed: No results found. No results found for this visit on 12/31/24. Patient Active Problem List Diagnosis History of oligodendroglioma of brain Memory loss due to medical condition Generalized anxiety disorder Insomnia due to medical condition Subclinical hypothyroidism Muscle spasms of both lower extremities Iron deficiency anemia Family history of breast cancer Family history of ovarian cancer Strabismus PTSD (post-traumatic stress disorder) Abnormal uterine bleeding (AUB) Dysmenorrhea Grief at loss of child Chronic allergic rhinitis Chronic bronchitis (HCC) Moderate episode of recurrent major depressive disorder (HCC) Obesity, Class III, BMI 40-49.9 (morbid obesity) Focal epilepsy (HCC) Former smoker Past Medical History: Diagnosis Date Anxiety Asthma Brain tumor (HCC) 2012 Oligodendroglioma Depression Family history of ovarian cancer Family history of uterine cancer Headache migraines Heartburn Motion sickness PTSD (post-traumatic stress disorder) Seizures (HCC) last seizure 09/2020 Thyroid disease in past Past Surgical History: Procedure Laterality Date BRAIN SURGERY 03/12/2013 tumor removed SECTION SECTION Bilateral 03/21/2016 REPEAT SECTION (39) with low transverse skin incision at 0137; Surgeon: Tejas Johnson IV, MD; Location: [facility]; Service: Gynecology CRANIOTOMY 02/2013 CYSTOSCOPY 10/30/2023 Surgeon: Siddhartha Napoles DO; Location: ED MAIN OR; Service: Gynecology EYE SURGERY TUBAL LIGATION WISDOM TOOTH EXTRACTION Allergies Allergen Reactions Latex Hives Doxycycline Other (See Comments) 'lilly esophagus Dilaudid [Hydromorphone] Itching Current Outpatient Medications on File Prior to Visit Medication Sig Dispense Refill albuterol (PROVENTIL HFA;VENTOLIN HFA) 90 mcg/actuation Inhl HFA Aerosol Inhaler INHALE 2 PUFFS BY MOUTH EVERY 6 HOURS NEEDED FOR WHEEZE 6.7 Each 2 albuterol-ipratropium (DUO-NEB) 0.5 mg-3 mg(2.5 mg base)/3 mL Inhl Solution for Nebulization INHALE3 ML EVERY 4 HOURS NEEDED FOR SHORTNESS OF BREATH FOR 30 DAYS 1 Each 1 atogepant (QULIPTA) 60 mg Oral Tablet Take 1 Tablet by mouth daily. 90 Tablet 1 thvcdiomjd-fawkzxil-etxkvzwjan (BREZTRI AEROSPHERE) 160-9-4.8 mcg/actuation Inhl HFA Aerosol Inhaler Inhale 2 Puffs into the lungs 2 times daily. 10.7 g 2 cyanocobalamin (VITAMIN B-12) 500 mcg Oral Tablet Take 1 Tablet by mouth daily. 90 Tablet 3 DULoxetine (CYMBALTA) 30 mg Oral Capsule, Delayed Release(E.C.) Take 1 Capsule by mouth daily. 30 Capsule 2 fluticasone propionate (FLONASE) 50 mcg/actuation Nasl [place], Suspension 1 [place] by Nasal route daily. 1 Each 0 folic acid (FOLVITE) 1 mg Oral Tablet Take 1 Tablet by mouth daily. 30 Tablet 2 hydrOXYzine (VISTARIL) 25 mg Oral Capsule Take 1 Capsule by mouth 3 times daily as needed. 30 Capsule 5 ibuprofen (ADVIL;MOTRIN) 800 mg Oral Tablet Take 1 Tablet by mouth every 8 hours as needed for Pain. 90 Tablet 2 LORazepam (ATIVAN) 0.5 mg Oral Tablet Take 1 Tablet by mouth every 8 hours as needed for Anxiety. 90 Tablet 0 montelukast (SINGULAIR) 10 mg Oral Tablet Take 1 Tablet by mouth nightly. 100 Tablet 0 multivit-min/ferrous fumarate (MULTI VITAMIN ORAL) Take by mouth. nystatin (MYCOSTATIN) Top Cream Apply topically 2 times daily. 30 g 2 nystatin (MYCOSTATIN) Top Powder Apply topically 2 times daily. 60 g 1 ondansetron (ZOFRAN-ODT) 4 mg Oral Tablet, Rapid Dissolve Dissolve 1 Tablet by mouth every 6 hours as needed for Nausea. 30 Tablet 0 OXcarbazepine (TRILEPTAL) 150 mg Oral Tablet Take 1 Tablet by mouth 2 times daily. (To take along with 300 mg tablets for a dose of 750 mg twice daily) 60 Tablet 5 OXcarbazepine (TRILEPTAL) 300 mg Oral Tablet Take 2 Tablets by mouth 2 times daily. (To take along with 150 mg tablets for a dose of 750 mg twice daily) 120 Tablet 5 ubrogepant (UBRELVY) 50 mg Oral Tablet Take 1 tablet at migraine onset, may repeat once after 2 hours if pain persists (Max dose: 100mg per 24 hours) 10 Tablet 5 No current facility-administered medications on file prior to visit. Social History Socioeconomic History Marital status: Spouse name: Sandip Number of children: 3 Years of education: None Highest education level: None Occupational History Occupation: Disabled Tobacco Use Smoking status: Former Current packs/day: 0.00 Average packs/day: 1 pack/day for 20.9 years (20.9 ttl pk-yrs) Types: Cigarettes Start date: 11/03/2001 Quit date: 09/11/2022 Years since quittin.3 Smokeless tobacco: Never Tobacco comments: planning on stopping Vaping Use Vaping status: Every Day Substances: Nicotine, Flavoring Devices: Disposable Substance and Sexual Activity Alcohol use: No Drug use: No Sexual activity: Yes Partners: Male control/protection: Surgical Comment: tubal ligation Social Drivers of Health Financial Resource Strain: Low Risk (11/04/2020) Overall Financial Resource Strain (CARDIA) Difficulty of Paying Living Expenses: Not very hard Food Insecurity: No Food Insecurity (11/04/2020) Hunger Vital Sign Worried About Running Out of Food in the Last Year: Never true Ran Out of Food in the Last Year: Never true Transportation Needs: Unmet Transportation Needs (11/04/2020) PRAPARE - Transportation Lack of Transportation (Medical): Yes Lack of Transportation (Non-Medical): No Physical Activity: Inactive (09/21/2020) Exercise Vital Sign Days of Exercise per Week: 0 days Minutes of Exercise per Session: 0 min Stress: Stress Concern Present (09/21/2020) [employer] [facility] - Occupational Stress Questionnaire Feeling of Stress : Very much Family History Problem Relation Age of Onset Cancer Mother uterine Breast Cancer Sister Cancer Maternal Aunt ovarian Ovarian Cancer Maternal Grandmother Diabetes Paternal Grandmother Heart Disease Paternal Grandmother Cancer Paternal Grandmother lung Anesth Problems Neg Hx Immunization History Administered Date(s) Administered Hepatitis B, Unspecified Formulation 02/14/2016 Influenza Nasal, Quadrivalent 04/07/2019, 03/17/2020 Influenza Vaccine Quadrivalent 04/07/2019, 03/17/2020 Influenza Vaccine Quadrivalent PF 03/21/2016 Influenza Virus Vaccine Quadrivalant, Flublok 02/23/2023 Moderna SARS-CoV-2 Vaccine 12+ Yrs (Light blue border) 09/13/2020, 10/11/2020 Pneumococcal Polysaccharide 23 Valent 04/07/2019 Tdap 03/21/2016, 03/17/2020 Health Maintenance Topic Date Due Hepatitis B Vaccine (2 of 3 - 19+ 3-dose series) 03/13/2016 Breast Cancer Screening Never done COVID-19 Vaccine (3 - 2023- season) 2024 Colon Cancer Screening 12/26/2024 Influenza Vaccine (1) 02/23/2025 Wellness Exam Medicare 04/16/2025 DTaP/TDaP/Td (3 - Td or Tdap) 03/17/2030 Meningococcal B Vaccine Aged Out Pneumococcal Vaccine 0-49 Aged Out Patient Care Team: Dede Meredith APRN as PCP - General (Nurse Practitioner-Family) Additional issues addressed today: Controlled Substance Common Conditions Interval Assessment: Anxiety: Indira Carnes is here for followup of chronic anxiety and medication management. Currently, [...] goal/goals of treatment: cope with stress and anxiety. Controlled Substance Prescribing Management: As part of today's visit Indira is also being followed for controlled substance management for anxiety. Details of the progress of the monitored condition are noted in that section of the HPI. The controlled substance flow sheet has been reviewed. Other concerns Brain fog, Preseizure symptoms Forgetful No energy Trouble losing weight Increasing headaches. Wasn't able to complete MRI last month, does have appointment with neurology next week. Wondering about increasing trileptal dosing as she has preseizure symptoms but hasn't had any new or recent seizures. Review of Systems Constitutional: Positive for fatigue. Negative for fever. HENT: Negative for congestion. Respiratory: Negative for cough, shortness of breath and wheezing. Cardiovascular: Negative for chest pain, palpitations and leg swelling. Musculoskeletal: Positive for arthralgias and back pain. Skin: Negative for rash. Neurological: Positive for dizziness and headaches. Psychiatric/Behavioral: Positive for dysphoric mood. OBJECTIVE: Physical Exam Constitutional: Appearance: She is obese. HENT: Head: Normocephalic and atraumatic. Right Ear: Tympanic membrane normal. Left Ear: Tympanic membrane normal. Nose: Nose normal. Mouth/Throat: Mouth: Mucous membranes are moist. Eyes: Extraocular Movements: Right eye: Normal extraocular motion. Comments: Strabismus of left eye. Cardiovascular: Rate and Rhythm: Normal rate and regular rhythm. Heart sounds: Normal heart sounds. Pulmonary: Effort: Pulmonary effort is normal. Breath sounds: Normal breath sounds. Neurological: General: No focal deficit present. Mental Status: She is alert and oriented to person, place, and time. Psychiatric: Mood and Affect: Mood normal. Thought Content: Thought content normal. documented in this encounter Plan of Treatment Upcoming Encounters Date Type Department Care Team (Late st Contact Info) Description 04/27/2025 11:00 AM EST Appointment [facility] [address] [place] [address] Ledy Luo MD [address] [place] [address] Scheduled Orders Name Type Priority Associated Diagnoses Orde r Schedule OXCARBAZEPINE METABOLITE -REF LAB Lab Routine Medication management 1 Occurrences starting 12/31/2024 until 12/31/2025 Scheduled Referrals Name Type Priority Associated Diagnoses Order Schedule SCREENING COLONOSCOPY Outpatient Referral Routine Screening for colon cancer Ordered: 12/31/2024 documented as of this encounter Goals Goal Patient Goal Type Associated Problems Recent Progress Patient-Stated? Author Maintain a healthy diet, exercise regularly and maintain an ideal body weight General No Mary Christy RMA Stay Tobacco Free Lifestyle No Mary Christy RMA documented as of this encounter Procedures Procedure Name Priority Date/Time Associated Diagnosis Comments IRON+TIBC Routine 12/31/2024 11:29 AM EDT Other iron deficiency anemia LIPID PANEL REFLEX Routine 12/31/2024 11 :29 AM EDT Lipid screening VITAMIN B12/ FOLIC ACID Routine 12/31/2024 11:29 AM EDT Malaise and fatigue TSH REFLEX TO FT4 Routine 12/31/2024 11: 29 AM EDT Subclinical hypothyroidism VITAMIN D 25 HYDROXY Routine 12/31/2024 11:29 AM EDT Malaise and fatigue Body mass index (BMI) 40.0-44.9, adult (HCC) CBC WITH DIFF Routine 12/31/2024 11:29 AM EDT Encounter for Medicare annual wellness exam Other iron deficiency anemia HEMOGLOBIN A1C Routine 12/31/2024 11:29 AM EDT Prediabetes COMPREHENSIVE METABOLIC PANEL Routine 12/31/2024 11:29 AM EDT Encounter for Medicare annual wellness exam documented in this encounter Results * (ABNORMAL) IRON+TIBC (12/31/2024 11:29 AM EDT) Pathologist [facility] Iron 37 30 - 160 mcg/dL 12/31/2024 4:26 PM EDT [facility] [employer] Transferrin 245 200 - 360 mg/dL 12/31/2024 4:26 PM EDT [facility] [employer] Transferrin Saturation 11(L) 20 - 50 % 12/31/2024 4:26 PM EDT [facility] [employer] TIBC 343 250 - 400 mcg/dL 12/31/2024 4:26 PM EDT [facility] [employer] Blood VENOUS BLOOD / Unknown Venipuncture / Unknown 12/31/2024 11:29 AM EDT 12/31/2024 11:29 AM EDT Dede Meredith SHOP ESTIMATOR CHEMISTRY ORDERABLES Final Result [facility] [address] [facility] , [address] [place] [phone] * (ABNORMAL) VITAMIN D 25 HYDROXY (12/31/2024 11:29 AM EDT) Pathologist [facility] Vit D 25 OH 29.6(L) 30.0 - 150.0 ng/mL 12/31/2024 5:05 PM EDT [facility] [employer] Comment: Preferred: >= 30 ng/mL Insufficient: 21-29 ng/mL Deficient <= 20 ng/mL Possible Toxicity: >150 ng/mL Samples should not be taken from patients receiving therapy with high biotin doses (i.e. > 5 mg/day) until at least 8 hours following the last biotin administration. Blood VENOUS BLOOD / Unknown Venipuncture / Unknown 12/31/2024 11:29 AM EDT 12/31/2024 11:29 AM EDT [employer] SHOP ESTIMATOR CHEMISTRY ORDERABLES Final Result [facility] [employer] [facility] [address] , [place] [address] * VITAMIN B12/ FOLIC ACID (12/31/2024 11:29 AM EDT) Vitamin B12 469 232 - 1,245 pg/mL 12/31/2024 5:05 PM EDT [facility] Folate 11.10 >=4.80 ng/mL 12/31/2024 5:05 PM EDT [facility] [employer] [facility] Blood VENOUS BLOOD / Unknown Venipuncture / Unknown 12/31/2024 11:29 AM EDT 12/31/2024 11:29 AM EDT Narrative [facility] - 12/31/2024 5:05 PM EDT Ingestion of ekaterina doses of biotin (>5 mg/day) taken within 8 hours of drawing blood sample can interfere with this immunoassay test. [employer] SHOP ESTIMATOR CHEMISTRY ORDERABLES Final Result Performing Organization Address City/[facility]/ZIP Co de Phone Number [facility] [employer] [facility] [address] [facility] [address], [place] [address] * TSH REFLEX TO FT4 (12/31/2024 11:29 AM EDT) TSH Reflex 0.988 0.270 - 4.200 mcIU/mL 12/31/2024 4:26 PM EDT [facility] Blood VENOUS BLOOD / Unknown Venipuncture / Unknown 12/31/2024 11:29 AM EDT 12/31/2024 11:29 AM EDT Narrative [facility] [employer] - 12/31/2024 4:26 PM EDT Ingestion of ekaterina doses of biotin (>5 mg/day) taken within 8 hours of drawing blood sample can interfere with this immunoassay test. Acoust[employer] SHOP ESTIMATOR CHEMISTRY ORDERABLES Final Result [facility] [employer] [facility] [address] , [place] [address] * (ABNORMAL) LIPID PANEL REFLEX (12/31/2024 11:29 AM EDT) Cholesterol 171 <200 mg/dL 12/31/2024 4:26 PM EDT [facility] Comment: < 200 Desirable 200 - 239 Borderline High >= 240 High Triglyceride 318(H) <150 mg/dL 12/31/2024 4:26 PM EDT [facility] Comment: < 150 Normal 150 - 199 Borderline High 200 - 499 High >= 500 Very High HDL 33(L) >=40 mg/dL 12/31/2024 4:26 PM EDT [facility] Comment: > 60 Optimal 40 - 60 Acceptable < 40 Low LDL Calculated 86 <100 mg/dL 12/31/2024 4:26 PM EDT [facility] Comment: < 100 Optimal 100 - 129 Near or above optimal 130 - 159 Borderline High 160 - 189 High >= 190 Very High The National Institutes of Health (NIH) equation is used for all lipid panels that report calculated LDL (LDL-C). Non-HDL-C Calculated 138(H) <=129 mg/dL 12/31/2024 4:26 PM EDT [facility] Comment: <130 Desirable 130-159 Above Desirable 160-189 Borderline High 190-219 High >= 220 Very High Fasting Specimen? No None 025 4:26 PM EDT [facility] Blood VENOUS BLOOD / Unknown Venipuncture / Unknown 12/31/2024 11:29 AM EDT 12/31/2024 11:29 AM EDT Dede Meredith SHOP ESTIMATOR CHEMISTRY ORDERABLES Final Result [employer] [address] [facility] [address], [place] [address] * (ABNORMAL) HEMOGLOBIN A1C (12/31/2024 11:29 AM EDT) Hgb A1C 5.7(H) 4.2 - 5.6 % 12/31/2024 5:41 PM EDT [facility] Est. Avg Glucose 117 mg/dL 12/31/2024 5:41 PM EDT [facility] Blood VENOUS BLOOD / Unknown Venipuncture / Unknown 12/31/2024 11:29 AM EDT 12/31/2024 11:29 AM EDT Narrative [facility] - 12/31/2024 5:41 PM EDT REFERENCE RANGE: Normal: 4.0-5.6% Pre-diabetes: 5.7-6.4% Provisional diagnosis of diabetes: >6.4% Hgb F>10% and anything which shortens red cell survival, such as hemolytic anemia, or unstable hemoglobin variants such as HbSS, HbSC, or HbCC, will lower the HbA1c value associated with a given level of glycemic control. Dede Meredith SHOP ESTIMATOR CHEMISTRY ORDERABLES Final Result [facility] [address] , [address] [place] [phone] * (ABNORMAL) COMPREHENSIVE METABOLIC PANEL (12/31/2024 11:29 AM EDT) Sodium 140 136 - 145 mmol/L 12/31/2024 4:26 PM EDT [facility] Potassium 4.0 3.5 - 5.0 mmol/L 12/31/2024 4:26 PM EDT [facility] Chloride 106 98 - 107 mmol/L 12/31/2024 4:26 PM EDT [facility] Total CO2 23 22 - 29 mmol/L 12/31/2024 4:26 PM EDT [facility] Anion Gap 11 7 - 16 mmol/L 12/31/2024 4:26 PM EDT [facility] Calcium 9.2 8.6 - 10.4 mg/dL 12/31/2024 4:26 PM EDT [facility] Glucose Lvl 116(H) 70 - 99 mg/dL 12/31/2024 4:26 PM EDT [facility] BUN 9 6 - 20 mg/dL 12/31/2024 4:26 PM EDT [facility] Creatinine 0.56 0.51 - 1.30 mg/dL 12/31/2024 4:26 PM EDT [facility] Albumin 4.0 3.5 - 5.2 gm/dL 12/31/2024 4:26 PM EDT [facility] Total Protein 6.6 6.4 - 8.3 gm/dL 12/31/2024 4:26 PM EDT [facility] Bili Total <0.2(L) 0.2 - 1.3 mg/dL 12/31/2024 4:26 PM EDT [facility] ALT 14 <=41 U/L 12/31/2024 4:26 PM EDT [facility] AST 14 <=40 U/L 12/31/2024 4:26 PM EDT [facility] Alk Phos 118 36 - 123 U/L 12/31/2024 4:26 PM EDT [facility] eGFR (CKD-EPIcr 2020) 114 >=60 mL/min/1.7 3 m2 12/31/2024 4:26 PM EDT [facility] Comment:Estimated GFR was ca lculated using the CKD-EPIcr (2020) equation refit without race. The equation is recommended by the National Kid[employer] - [place] [employer] Neph[employer] Task Force. Blood VENOUS BLOOD / Unknown Venipuncture / Unknown 12/31/2024 11:29 AM EDT 12/31/2024 11:29 AM EDT Dede Meredith SHOP ESTIMATOR CHEMISTRY ORDERABLES Final Result [facility] [address] [facility] [facility] , [address] [place] [phone] * CBC WITH DIFF (12/31/2024 11:29 AM EDT) WBC 9.0 3.7 - 10.3 x10(3)/mcL 12/31/2024 5:13 PM EDT [facility] RBC 4.47 3.90 - 5.20 x10(6)/mcL 12/31/2024 5:13 PM EDT [facility] Hgb 12.3 11.2 - 15.7 g/dL 12/31/2024 5:13 PM EDT [facility] Hct 39.6 34.0 - 45.0 % 12/31/2024 5:13 PM EDT [facility] MCV 88.6 80.0 - 100.0 fL 12/31/2024 5:13 PM EDT [facility] MCH 27.5 26.0 - 34.0 pg 12/31/2024 5:13 PM EDT [facility] MCHC 31.1 30.7 - 35.5 g/dL 12/31/2024 5:13 PM EDT [facility] RDW 13.3 <=14.9 % 12/31/2024 5:13 PM EDT [facility] Platelet 313 155 - 369 x10(3)/mcL 12/31/2024 5:13 PM EDT [facility] MPV 9.4 8.8 - 12.5 fL 12/31/2024 5:13 PM EDT [facility] Neut Percent 65.5 % 12/31/2024 5:13 PM EDT [facility] Comment:Neutrophils equals s egs plus bands Imm Gran% 1.4 % 12/31/2024 5:13 PM EDT [facility] Comment:Automated count of m etamyelocytes, myelocytes and promyelocytes. IG >1% represents a left shift and provides an early indication of an infection or inflammatory process. Lymph Percent 22.3 % 12/31/2024 5:13 PM EDT [facility] Ness Percent 6.9 % 12/31/2024 5:13 PM EDT [facility] Eos Percent 3.3 % 12/31/2024 5:13 PM EDT [facility] Baso Percent 0.6 % 12/31/2024 5:13 PM EDT [facility] Neut # 5.9 1.6 - 6.1 x10(3)/mcL 12/31/2024 5:13 PM EDT [facility] Comment:Neutrophils equals s egs plus bands IMMGRAN# 0.1 0.0 - 0.1 x10(3)/mcL 12/31/2024 5:13 PM EDT [facility] Comment:Automated count of m etamyelocytes, myelocytes and promyelocytes. An absolute IG <0.1 is reported as 0.0. Lymph # 2.0 1.2 - 3.9 x10(3)/[facility] 12/31/2024 5:13 PM EDT [facility] Ness # 0.6 0.3 - 0.9 x10(3)/[facility] 12/31/2024 5:13 PM EDT [facility] Eos# 0.3 0.0 - 0.5 x10(3)/[facility] 12/31/2024 5:13 PM EDT [facility] Baso # 0.1 0.0 - 0.1 x10(3)/[facility] 12/31/2024 5:13 PM EDT [facility] Blood VENOUS BLOOD / Unknown Venipuncture / Unknown 12/31/2024 11:29 AM EDT 12/31/2024 11:29 AM EDT Dede Meredith SHOP ESTIMATOR HEMATOLOGY ORDERABLES Final Result [facility] [address] [facility] [address] , [address] [place] [phone] documented in this encounter Visit Diagnoses Diagnosis Encounter for Medicare annual wellness exam- Primary Routine general medical examination at a health care facility Obesity, Class III, BMI 40-49.9 (morbid obesity) Morbid obesity Subclinical hypothyroidism Other specified acquired hypothyroidism Other iron deficiency anemia Medication management Encounter for other specified aftercare Malaise and fatigue Other malaise and fatigue Prediabetes Other abnormal glucose Lipid screening Screening for lipoid disorders Body mass index (BMI) 40.0-44.9, adult (HCC) Screening for colon cancer Special screening for malignant neoplasms, colon Other migraine with status migrainosus, intractable Generalized anxiety disorder documented in this encounter Administered Medications Inactive Administered Medications - up to 1 most recent administrations Medication Order MAR Action Action Date Dose Rate Site ketorolac (TORADOL) injection 60 mg 60 mg, Intramuscular, ONCE, 1 dose, On Sun12/31/24 at 1115, For IM Administration: Give undiluted, slowly and deeply into the muscle., Dx: 1. Other migraine with status migrainosus, intractableIndications:O ther migraine with status migrainosus, intractable Given 12/31/2024 11:08 AM EDT 60 mg Right upper gluteus documented in this encounter Discontinued Medications Medication Sig Discontinue Reason Start Date End Da te propranoloL (INDERAL) 10 mg Oral TabletIndications:Gene ralized anxiety disorder Take 1 Tablet by mouth 2 times daily. DELETE-Therapy completed 10/24/2024 12/31/2024 prazosin (MINIPRESS) 2 mg Oral CapsuleIndications:PTS D (post-traumatic stress disorder),Nightmares TAKE 1 CAPSULE BY MOUTH EVERY DAY AT NIGHT DELETE-Therapy completed 03/24/2024 12/31/2024 FLUoxetine (PROZAC) 20 mg Oral CapsuleIndications:Mod erate episode of recurrent major depressive disorder (HCC) Tapering off. Will take 20mg daily for one week, then 20mg every other day for one week, then every two days then stop DELETE-Therapy completed 12/02/2024 12/31/2024 documented as of this encounter Additional Health Concerns Assessment Noted Time PHQ-9 Depression Total Score: 2 01/01/20 25 11:35 AM EDT PHQ-2 Depression Total Score: 2 01/01/20 25 11:35 AM EDT documented as of this encounter Care Teams Game Moderator Relationship Specialty Start Date End Date Dede Meredith APRN [address] [place] [id number] PCP - General Nurse Practitioner-Family 11/17/20 documented as of this encounter
--- OUTSIDE RECORDS SUMMARY | 2025-01-02 15:45 | XMS_ITS | Encounter Summary ---
Author Organization [place] [address] Care Team Providers Care Shuttler Car Name Role Phone Dede Meredith APRN Primary Care Provider Reason for Visit * Reason Comments Migraine Not gone Blurred Vision back in both eyes Sweats when sleeping and wa elizabeth up Encounter Details Date Type Department Care Team (Late st Contact Info) Description 01/02/2025 3:45 PM EDT Office Visit [facility] [address] [place] [address] Dede Meredith APRN [address] [place] [id number] BPV (benign positional vertigo), unspecified laterality (Primary [...] Date Recorded PHQ-2 Total Score 2 12/31/2024 [place] [facility] - Occupational Stress Questionnaire Answer Date [...] of Assessment Author No 12/31/2024 11:34 AM CARLOST Dede Christianson APRN * Is the person blind or does he/she have serious difficulty seeing even when wearing glasses? Answer Date of Assessment Author No 12/31/2024 11:34 AM CARLOST Dede Christianson APRN * Does this person have serious difficulty walking or climbing stairs? Answer Date of Assessment Author No 12/31/2024 11:34 AM EDT Dede Christianson APRN * Does this person have difficulty dressing or bathing? Answer Date of Assessment Author No 12/31/2024 11:34 AM CARLOST Dede Christianson APRN * Because of a physical, mental or emotional condition, does this person have difficulty doing errands alone such as visiting a doctor's office or shopping? Answer Date of Assessment Author Yes 12/31/2024 11:34 AM CARLOST Dede Christianson APRN documented as of this encounter Mental Status * Because of a physical, mental or emotional condition, does this person have serious difficulty concentrating, remembering or making decisions? Answer Entry Date Author Yes 12/31/2024 11:34 AM Dede Zaidi APRN documented in this encounter Ordered Prescriptions [...] daily for 10 days. 30 Tablet 01/02/2025 02/03/2025 documented in this encounter Progress Notes * [...] 04/27/2025 11:00 AM EST Appointment [facility] [address] [id number] Ledy Luo MD [address] [place] [address] documented as of this encounter Goals Goal Patient Goal Type Associated Problems Recent Progress Patient-Stated? Author Maintain a healthy diet, exercise regularly and maintain an ideal body weight General No Mary Christy, RIKY Stay Tobacco Free Lifestyle No Mary Christy [...] [place] documented in this encounter Additional Health Concerns Assessment Noted Time PHQ-9 Depression Total Score: 2 01/01/20 11:35 AM EDT PHQ-2 Depression Total Score: 2 01/01/20 11:35 AM EDT documented as of this encounter Care Teams Shuttler Car Relationship Specialty Start Date End Date Dede Meredith APRN [address] [id number] PCP - General Nurse Practitioner-Family 11/17/20 documented as of this encounter
--- OUTSIDE RECORDS SUMMARY | 2025-01-06 07:45 | XMS_ITS | Encounter Summary ---
Author Organization [place] [address] Care Team Providers Care Truck Headlight Assembler Name Role Phone ViriDede morales TRINITY Primary Care Provider Encounter Details Date Type Department Care Team (Latest Contact Info) Description 01/06/2025 7:45 AM EDT Telemedicine [facility] [address] [place] [address] Vic Villarreal APRN [address] [place] [id number] Focal epilepsy (HCC) (Primary Dx); History of [...] Date Recorded PHQ-2 Total Score 2 12/31/2024 [facility] - Occupational Stress [...] in this encounter Progress Notes * Vic Villarreal APRN - 01/06/2025 7:45 AM EDT No chief [...] she was seen at an outside hospital, [facility]. She denies any warning prior to the [...] Approximately 2 months ago she was at [facility] when she began having trouble getting [...] Tablet by mouth daily. 90 Tablet 1 ozlkxslzrg-iqqpsxgc-eqjeqhbbsb (BREZTRI AEROSPHERE) 160-9-4.8 mcg/actuation Inhl HFA Aerosol [...] 0 fluticasone propionate (FLONASE) 50 mcg/actuation Nasl [place], Suspension 1 [place] by Nasal route daily. 1 Each 0 [...] 0 min Stress: Stress Concern Present (09/21/2020) [facility] - Occupational Stress Questionnaire [...] HISTORY: Z85.841-Personal history of malignant neoplasm of rxcps-SPQ-[id number]. COMPARISON: MRI brain February 02, 2022. PROCEDURE [...] a video visit does not replace a ogkf-hd-ggik exam and further service may be necessary. I advised the patient that we are conducting his/her video visit through the office in a private space onour secure network and this video visit is being conducted in accordance with [facility] telehealth/video visit regulations. Patient had no questions [...] obtain or maintain driving privileges in the [facility]. Would advise to familiarize with driving [...] 11:00 AM EST Appointment [facility] [address] [place] [address] Ledy Luo MD [address] [place] [phone] documented as of this encounter Goals Goal [...] documented as of this encounter Care Teams Truck Headlight Assembler Relationship Specialty Start Date End Date Dede Meredith APRN [employer] [place] [id number] PCP - General Nurse Practitioner-Family 11/17/20 documented as of this encounter
--- OUTSIDE RECORDS SUMMARY | 2025-01-14 15:30 | XMS_ITS | Encounter Summary ---
Author Organization [place] [address] Care Team Providers Care Signing Agent Name Role Phone Dede Meredith APRN Primary Care Provider [phone] Reason for Visit * Reason Comments Toe Pain Left great Vaginal Itching Encounter Details Date Type Department Care Team (Late st Contact Info) Description 01/14/2025 3:30 PM EDT Office Visit [facility] [place] [address] [place] [address] Dede Meredith APRN [address] [facility] [address] [place], [place] [id number] Acute paronychia of toe of left foot [...] Date Recorded PHQ-2 Total Score 2 12/31/2024 [facility] [place] [facility] - Occupational [...] 11:00 AM EST Appointment [facility] [address] [place] [address] Ledy Luo MD [address] [place] [address] documented as of this encounter Goals Goal [...] 3:22 AM EDT [facility] Nakaseomyces (Flora) glabrata NAAT Not Detected Not Detected 01/15/2025 3:22 AM EDT [facility] Flora Species NAAT Not Detected Not Detected 01/15/2025 3:22 AM EDT [facility] Trichomonas vaginalis NAAT Not Detected Not Detected 01/15/2025 3:22 AM EDT [facility] Swab VAGINAL STRUCTURE / Unknown 01/14/2025 3:37 PM EDT 01/14/2025 3:37 PM EDT Deed Meredith APRN MICROBIOLOGY - [facility] Final Result [facility], [facility] [address] , [place] [address] documented in this encounter Visit Diagnoses Diagnosis Acute paronychia of toe of left foot- Primary Vaginal discharge Leukorrhea, not specified as infective documented in this encounter Additional Health Concerns Assessment Noted Time PHQ-9 Depression Total Score: 2 01/01/20 25 11:35 AM EDT PHQ-2 Depression Total Score: 2 01/01/20 25 11:35 AM EDT documented as of this encounter Care Teams Signing Agent Relationship Specialty Start Date End Date Dede Meredith [place] [place] [address] PCP - General Nurse Practitioner-Family 11/17/20 documented as of this encounter
--- OUTSIDE RECORDS SUMMARY | 2025-01-27 09:45 | XMS_ITS | Encounter Summary ---
Author Organization [place] [address] Care Team Providers Care Carpenter'S Helper Name Role Phone Dede Meredith APRN Primary Care Provider Encounter Details Date Type Department Care Team (Late st Contact Info) Description 01/27/2025 9:45 AM EDT Telemedicine SE[facility] [address] [place] [id number] Dede Meredith APRN [address] [place] [address] Hospital discharge follow-up (Primary Dx); Kidney stone Social History Tobacco Use Types Packs/Day Years [...] Date Recorded PHQ-2 Total Score 2 12/31/2024 [facility] [place] of Occupat ional Health - Occupational Stress [...] Refills Last Filled Start Date End Date HYDROcodone-acetam inophen (NORCO) 5-325 mg Oral TabletIndications: Kidney stone Take 1 Tablet by mouth every 8 hours as needed for Acute Pain (R52). 9 Tablet 01/27/2025 02/05/2025 documented in this encounter Progress Notes * Dede Meredith APRN - 01/27/2025 9:45 AM EDT Assessment & Plan Hospital discharge follow-up Compliance: - compliant with discharge medications and instructions. Assistance: - managing all ADLs independently Follow Up Appointments: - needs to schedule a follow-up with urology Medical Complexity: - ([place] [id number]) moderate medical complexity, communication occurred within 2 business days of discharge, and todays visit is within 14 days of discharge Kidney stone 4mm stone right UVJ on ct scan 01/23/25 Continue flomax Refilled norco for pain control Continue to alternate ibuprofen Increase fluids Needs to schedule close follow-up with urology. Orders: HYDROcodone-acetaminophen (NORCO) 5-325 mg Oral Tablet; Take 1 Tablet by mouth every 8 hours as needed for Acute Pain (R52). Progress Note: There were no vitals filed [...] a video visit does not replace a [id number] exam and further services may be necessary. I advised the patient that we are conducting her video visit through our office in a private space on our secure network and this video visit is being conducted in accordance with [facility] telehealth/video visit regulations. Patient had no [...] COVID 19 infection complications / . HPI: Follow-up on recent ER visit for kidney stone. Has 4mm right ureter stone. Pain started last week. Went to the ER on 01/23/25, ct scan showed 4mm right UVJ stone with proximal hydronephrosis. Did have mild leukocytosis, UA was clear. She was discharged home with flomax, norco and ibuprofen. She returned back to the ER the following day for ongoing pain. Was able to achieve pain control in the ER, so discharged home again with norco, ibuprofen and instructed to continue flomax. She was given urology referral, has not scheduled yet. Reports ongoing pain, rates 7/10, constant pressure, worse with urination. Feels like sand . Some nausea. No vomiting or fever. UA in Er without UTI. Is taking norco bid and alternating with ibuprofen and tylenol. No hx of stones. Review of Systems Constitutional: Negative for fever. HENT: Negative for congestion. Respiratory: Negative for cough, shortness of breath and wheezing. Cardiovascular: Negative for chest pain, palpitations and leg swelling. Gastrointestinal: Positive for nausea. Negative for abdominal pain. Genitourinary: Positive for flank pain. Musculoskeletal: Positive for back pain. Hematological: Negative for adenopathy. OBJECTIVE: Physical Exam Constitutional: Appearance: She is obese. Pulmonary: Effort: Pulmonary effort is normal. Neurological: Mental Status: She is alert and oriented to person, place, and time. documented in this encounter Plan of Treatment Upcoming Encounters Date Type Department Care Team (Late st Contact Info) Description 04/27/2025 11:00 AM EST Appointment [facility] [address] [place] [id number] Ledy Luo MD [address] [place] [address] documented as of this encounter Goals Goal Patient Goal Type Associated Problems Recent Progress Patient-Stated? Author Maintain a healthy diet, exercise regularly and maintain an ideal body weight General No Mary Christy RMA Stay Tobacco Free Lifestyle No Mary Christy RMA documented as of this encounter Procedures Procedure Name Priority Date/Time Associated Diagnosis Comments SCANNED LABS 01/28/2025 6:06 PM EDT documented in this encounter Results * SCANNED LABS (01/28/2025 6:06 PM EDT) 01/28/2025 6:06 PM EDT us Unknown Provider HEMATOLOGY ORDERABLES Final Res ult documented in this encounter Visit Diagnoses Diagnosis Hospital discharge follow-up- Primary Other follow-up examination Kidney stone Calculus of kidney documented in this encounter Additional Health Concerns Assessment Noted Time PHQ-9 Depression Total Score: 2 01/01/20 25 11:35 AM EDT PHQ-2 Depression Total Score: 2 01/01/20 25 11:35 AM EDT documented as of this encounter Care Teams Carpenter'S Helper Relationship Specialty Start Date End Date Dede Meredith APRN [address] [place], [place] [address] PCP - General Nurse Practitioner-Family 11/17/20 documented as of this encounter
--- OUTSIDE RECORDS SUMMARY | 2025-02-03 13:22 | XMS_ITS | Encounter Summary ---
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 Procedures MRI BRAIN W WO CONTRAST Vic Villarreal APRN Phone: tel: fax: Referral ID Status Reason Start Date Expiration Date Visits Re quested Visits Authorized [id number] Closed 04/09/2024 04/09/2025 1 1 Reason for Visit * MRI/CAT Scan (Routine) - Closed Specialty Diagnoses / Procedures Referred By Carolyn abreu Referred To Contact Radiology Diagnoses Epilepsy, 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 Procedures MRI BRAIN W WO CONTRAST Vic Villarreal APRN Phone: tel: fax: Referral ID Status Reason Start Date Expiration Date Visits Re quested Visits Authorized [id number] Closed 04/09/2024 04/09/2025 1 1 Encounter Details Date Type Department Care Team (Latest Contact Info) Description 02/03/2025 1:22 PM EDT - 02/03/2025 11:59 PM EDT Hospital Encounter [facility] MRI [address] [id number] [place], [employer] [address] [place] [id number] Epilepsy, focal (HCC); History of oligodendroglioma of brain Discharge Disposition: Home or Self Care Social History Tobacco Use Types Packs/Day Years Used Date Smoking Tobacco: Former Cigarettes 1 20.9 0 11/03/2001 - 09/11/2022 Smokeless Tobacco: Never Comments:planning on stoppin g Alcohol Use Standard Drinks/Week Comments No 0 (1 standard drink = 0.6 oz pur e alcohol) Overall Financial Resource Strain ([facility]) Answe r Date Recorded How hard is it for you to pa y for the very basics like food, housing, medical care, and heating? Not very hard 11/04/2020 PHQ-2 Answer Date Recorded PHQ-2 Total Score 2 12/31/2024 [facility] of Occupat ional Health - Occupational Stress [...] medical appointments or from getting medications? Yes 05/1 08/2020 In the past 12 months, has l [...] Dede Zaidi APRN documented in this encounter Medications at Time of Discharge albuterol (PROVENTIL HFA;VENTOLIN HFA) 90 mcg/actuation Inhl HFA Aerosol InhalerIndications :Viral illness INHALE 2 PUFFS BY MOUTH EVERY 6 HOURS NEEDED FOR WHEEZE 6.7 Each 2 09/18/2024 albuterol-ipratrop ium (DUO-NEB) 0.5 mg-3 mg(2.5 mg base)/3 mL Inhl Solution for Nebulization INHALE 3 ML EVERY 4 HOURS NEEDED FOR SHORTNESS OF BREATH FOR 30 DAYS 1 Each 1 04/16/2024 atogepant (QULIPTA) 60 mg Oral Tablet Take 1 Tablet by mouth daily. 90 Tablet 1 12/05/2024 10:50 AM EDT 10/06/2024 budesonide-glycopy r-formoterol (BREZTRI AEROSPHERE) 160-9-4.8 mcg/actuation Inhl HFA Aerosol InhalerIndications :Chronic bronchitis, unspecified chronic bronchitis type (HCC) Inhale 2 Puffs into the lungs 2 times daily. 10.7 g 2 01/12/2025 cyanocobalamin (VITAMIN B-12) 500 mcg Oral TabletIndications: Bilateral foot pain Take 1 Tablet by mouth daily. 90 Tablet 3 01/12/2025 DULoxetine (CYMBALTA) 30 mg Oral Capsule, Delayed Release(E.C.)Indic ations:Moderate episode of recurrent major depressive disorder (HCC) Take 1 Capsule by mouth daily. 30 Capsule 2 12/02/2024 fluticasone propionate (FLONASE) 50 mcg/actuation Nasl [place], SuspensionIndicati ons:Seasonal allergic rhinitis, unspecified trigger 1 [place] by Nasal route daily. 1 Each 10/18/2023 folic acid (FOLVITE) 1 mg Oral TabletIndications: Bilateral foot pain Take 1 Tablet by mouth daily. 30 Tablet 2 01/12/2025 hydrOXYzine (VISTARIL) 25 mg Oral CapsuleIndications :Generalized anxiety disorder Take 1 Capsule by mouth 3 times daily as needed. 30 Capsule 5 09/10/2024 ibuprofen (ADVIL;MOTRIN) 800 mg Oral TabletIndications: Patellar tendinitis of right knee Take 1 Tablet by mouth every 8 hours as needed for Pain. 90 Tablet 2 02/19/2024 LORazepam (ATIVAN) 0.5 mg Oral TabletIndications: Grief at loss of child,Generalized anxiety disorder,Grief reaction Take 1 Tablet by mouth every 8 hours as needed for Anxiety. 90 Tablet 01/06/2025 metFORMIN (GLUCOPHAGE XR) 500 mg Oral ER 24 hr tabletIndications: Prediabetes Take 1 Tablet by mouth daily (with breakfast). 90 Tablet 1 01/02/2025 montelukast (SINGULAIR) 10 mg Oral TabletIndications: Seasonal allergic rhinitis, unspecified trigger Take 1 Tablet by mouth nightly. 100 Tablet 07/09/2024 multivit-min/sandra us fumarate (MULTI VITAMIN ORAL) Take by mouth. nystatin (MYCOSTATIN) Top PowderIndications: Yeast dermatitis Apply topically 2 times daily. 60 g 1 07/31/2024 omeprazole (PRILOSEC) 40 mg Oral Capsule, Delayed Release(E.C.)Indic ations:Gastroesoph ageal reflux disease without esophagitis Take 1 Capsule by mouth daily. 90 Capsule 3 01/20/2025 ondansetron (ZOFRAN-ODT) 4 mg Oral Tablet, Rapid Dissolve Dissolve 1 Tablet by mouth every 6 hours as needed for Nausea. 30 Tablet 01/05/2025 OXcarbazepine (TRILEPTAL) 150 mg Oral Tablet Take 1 Tablet by mouth 2 times daily. (To take along with 300 mg tablets for a dose of 750 mg twice daily) 60 Tablet 5 10/27/2024 OXcarbazepine (TRILEPTAL) 300 mg Oral Tablet Take 2 Tablets by mouth 2 times daily. (To take along with 150 mg tablets for a dose of 750 mg twice daily) 120 Tablet 5 10/27/2024 sodium,potassium,m ag sulfates 17.5-3.13-1.6 gram Oral Recon Soln Take 6 oz by mouth 2 times daily. SUPREP: The first 6-ounce bottle is taken the evening before your colonoscopy and the second 6-ounce bottle is taken the morning of your colonoscopy. 354 mL 01/20/2025 SUMAtriptan (IMITREX) 100 mg Oral Tablet Take 1 dose at migraine onset, may repeat once after 2 hours if pain persists (Max dose: 2/day, 4/week, 9/month) 9 Tablet 5 01/06/2025 documented as of this encounter Discharge Disposition Disposition Code Departure Means Destination Home or Self Care documented in this encounter Plan of Treatment Upcoming Encounters Date Type Department Care Team (Late st Contact Info) Description 04/27/2025 11:00 AM EST Appointment [facility] [address] [place] [address] Ledy Luo MD [address] [place] [address] documented as of this encounter Goals Goal Patient Goal Type Associated Problems Recent Progress Patient-Stated? 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 Impressions 02/03/2025 3:05 PM EDT Stable exam with postsurgical changes superolateral aspect left frontal lobe. No evidence of tumor recurrence. Narrative 02/03/2025 3:05 PM EDT MRI BRAIN W WO CONTRAST 02/03/2025 2:42 PM CLINICAL HISTORY: G40.120-Xglmkualogmn-bcnoszo (focal) (partial) symptomatic epilepsy and epileptic syndromes with simple partial seizures, not intractable, without status epilepticus (HCC)-ICD-10-CM Z85.841-Personal history of malignant neoplasm of kdybs-SVU-51-CM. COMPARISON: Brain MRI from 03/27/2023. PROCEDURE COMMENTS: Multiplanar multiecho MR imaging of the brain per protocol before and following IV contrast administration. Gadolinium contrast given as recorded in Epic. FINDINGS: Midline structures normally formed. No Chiari malformation. Ventricles remain normal. High left frontal craniotomy with small surgical resection cavity laterally in the left frontal lobe near the vertex with a rind of surrounding FLAIR hyperintensity, appearing unchanged. No other abnormal brain parenchymal signal. No pathologic enhancement. No mass effect, extra-axial fluid collection, restricted diffusion, or evidence of hemorrhage. Expected flow voids are seen in the major intracranial vessels. Paranasal sinuses and mastoids appear clear. Tiny origin is is incidentally noted. Orbits are otherwise unremarkable. Procedure Note Newton Arambula MD - 02/03/2025 MRI BRAIN W WO CONTRAST 02/03/2025 2:42 PM CLINICAL HISTORY: G40.552-Zzqfmzhomyeb-lltzwqj (focal) (partial)symptomatic epilepsy and epileptic syndromes with simple partial seizures, notintractable, without status epilepticus (HCC)-ICD-10-CM Z85.841-Personal history of malignant neoplasm of vabwt-TUD-70-CM. COMPARISON: Brain MRI from 03/27/2023. PROCEDURE COMMENTS: Multiplanar multiecho MR imaging of the brain perprotocol before and following IV contrast administration. Gadolinium contrast givenas recorded in Epic. FINDINGS: Midline structures normally formed. No Chiari malformation.Ventricles remain normal. High left frontal craniotomy with small surgical resectioncavity laterally in the left frontal lobe near the vertex with a rind ofsurrounding FLAIR hyperintensity, appearing unchanged. No other abnormal brainparenchymal signal. No pathologic enhancement. No mass effect, extra-axial fluidcollection, restricted diffusion, or evidence of hemorrhage. Expected flow voids areseen in the major intracranial vessels. Paranasal sinuses and mastoids appear clear. Tiny origin is isincidentally noted. Orbits are otherwise unremarkable. IMPRESSION: Stable exam with postsurgical changes superolateral aspect left frontal lobe. No evidence of tumor recurrence. Vic Villarreal APRN [facility] [place] ORDERABLES Edited Result - Final documented in this encounter Visit Diagnoses Diagnosis Epilepsy, focal (HCC) Localization-related (focal) (partial) epilepsy and epileptic syndromes with simple partial seizures, without mention of intractable epilepsy History of oligodendroglioma of brain documented in this encounter Administered Medications Inactive Administered Medications - up to 1 most recent administrations Medication Order MAR Action Action Date Dose Rate Site gadoterate meglumine (DOTAREM) solution 20 mL 20 mL, Intravenous, ONCE PRN, 1 dose, Starting on Sun02/03/25 at 1349, Until 02/03/25 at 1442, Radiology Procedure, VESICANT , MRI (Contrasts) Given 02/03/2025 2:42 PM EDT 20 mL Right Arm documented in this encounter Additional Health Concerns Assessment Noted Time PHQ-9 Depression Total Score: 2 01/01/20 25 11:35 AM EDT PHQ-2 Depression Total Score: 2 01/01/20 25 11:35 AM EDT documented as of this encounter Care Teams Quilt Stuffer Relationship Specialty Start Date End Date Dede Meredith APRN [address] [place], [place] [address] PCP - General Nurse Practitioner-Family 11/17/20 documented as of this encounter
--- OUTSIDE RECORDS SUMMARY | 2025-02-05 13:30 | XMS_ITS | Encounter Summary ---
Author Organization [place] [address] Care Team Providers Care Cook Restaurant Name Role Phone Dede Meredith APRN Primary Care Provider Reason for Visit * Reason Comments Migraine Encounter Details Date Type Department Care Team ([facility] Contact Info) Description 02/05/2025 1:30 PM EDT Office Visit [facility] [address] [place] [id number] Dede Meredith APRN [address] [place] [address] Other migraine with status migrainosus, intractable (Primary Dx) Social History Tobacco Use Types Packs/Day Years [...] Date Recorded PHQ-2 Total Score 2 12/31/2024 [facility] [place] of Occupat ional Health - Occupational Stress [...] Sign Reading Time Taken Comments Blood Pressure 138/77 02/05/2025 1:26 PM EDT Pulse 89 02/05/2025 1:26 PM EDT Temperature 36.2 C (97.1 F) 02/05/2025 1:26 PM EDT Respiratory Rate 20 02/05/2025 1:26 PM EDT Oxygen Saturation 96% 02/05/2025 1:26 PM EDT Inhaled Oxygen Concentration - - Weight 125.6 kg (277 lb) 02/05/2025 1:26 PM EDT Height - - Body Mass Index 43.38 12/31/2024 10:26 AM EDT documented in this [...] Refills Last Filled Start Date End Date zavegepant (ZAVZPRET) 10 mg/actuation Nasl [place], Non-AerosolIndicat ions:Other migraine with status migrainosus, intractable 10 mg by Nasal route once as needed for up to 1 dose. 1 Each 02/05/2025 02/05/2025 documented in this encounter Progress Notes * Dede Meerdith APRN - 02/05/2025 1:30 PM EDT Assessment & Plan Other migraine with status migrainosus, intractable Given zavzpret and toradol for acute relief of sx To continue on usual migraine therapy and reach out to neurology for any new, worsening or ongoing sx Orders: ketorolac (TORADOL) injection 60 mg zavegepant (ZAVZPRET) 10 mg/actuation Nasl [place], Non-Aerosol; 10 mg by Nasal route once as needed for up to 1 dose. Progress Note: Vitals: 02/05/25 1326 BP: (!) 138/77 Pulse: 89 Resp: 20 Temp: 97.1 ??F (36.2 ??C) TempSrc: Forehead SpO2: 96% Weight: 277 lb (125.6 kg) Body mass index is 43.38 kg/m??. SUBJECTIVE: Chief Complaint Patient presents with Migraine HPI: 2-day hx of migraine with light and noise sensitivity. Hx of migraines. Just had MRI two days ago that was stable. Taking quilipta daily and imitrex as needed. Has taken two doses of imitrex and ibuprofen without relief of headache. No new injuries or concerning features. Review of Systems Constitutional: Negative for fever. HENT: Negative for congestion. Respiratory: Negative for cough, shortness of breath and wheezing. Cardiovascular: Negative for chest pain, palpitations and leg swelling. Gastrointestinal: Negative for abdominal pain. Neurological: Positive for headaches. OBJECTIVE: Physical Exam Constitutional: Appearance: She is obese. HENT: Head: Normocephalic and atraumatic. Right Ear: Tympanic membrane normal. Left Ear: Tympanic membrane normal. Cardiovascular: Rate and Rhythm: Normal rate and regular rhythm. Heart sounds: Normal heart sounds. Pulmonary: Effort: Pulmonary effort is normal. Breath sounds: Normal breath sounds. Neurological: Mental Status: She is alert. Mental status is at baseline. documented in this encounter Plan of Treatment Upcoming Encounters Date Type Department Care Team (Late st Contact Info) Description 04/27/2025 11:00 AM EST Appointment [facility] [address] [facility] [place] [address] Ledy Luo MD [address] [place] [address] documented as of this encounter Goals Goal Patient Goal Type Associated Problems Recent Progress Patient-Stated? Author Maintain a healthy diet, exercise regularly and maintain an ideal body weight General No Mary Christy RMA Stay Tobacco Free Lifestyle No Mary Christy RMA documented as of this encounter Visit Diagnoses Diagnosis Other migraine with status migrainosus, intractable- Primary documented in this encounter Administered Medications Inactive Administered Medications - up to 1 most recent administrations Medication Order MAR Action Action Date Dose Rate Site ketorolac (TORADOL) injection 60 mg 60 mg, Intramuscular, ONCE, 1 dose, On [place] 02/05/25 at 1400, For IM Administration: Give undiluted, slowly and deeply into the muscle., Dx: 1. Other migraine with status migrainosus, intractableIndications:O ther migraine with status migrainosus, intractable Given 02/05/2025 2:02 PM EDT 60 mg Right upper gluteus documented in this encounter Discontinued Medications Medication Sig Discontinue Reason Start Date End Da te HYDROcodone-acetaminop hen (NORCO) 5-325 mg Oral TabletIndications:Nicolette peck Take 1 Tablet by mouth every 8 hours as needed for Acute Pain (R52). DELETE-Therapy completed 01/27/2025 02/05/2025 documented as of this encounter Orders Medications Ordered That Nicola ht Not Have Been Administered Count Last Ordered Date First Ordered Date ketorolac (TORADOL) injection 60 mg 1 02/05 documented in this encounter Additional Health Concerns Assessment Noted Time PHQ-9 Depression Total Score: 2 01/01/20 11:35 AM EDT PHQ-2 Depression Total Score: 2 01/01/20 11:35 AM EDT documented as of this encounter Care Teams Cook Restaurant Relationship Specialty Start Date End Date Dede Meredith APRN [address] [place], [place] [address] PCP - General Nurse Practitioner-Family 11/17/20 documented as of this encounter
[2025-02-13 21:59] VITALS: BP 152/88; PULSE 105; RESP 16; TEMP 36.7; O2SAT 96; BMI 42.3
--- OUTSIDE RECORDS SUMMARY | 2025-02-13 22:13 | XMS_ITS | Encounter Summary ---
Author Organization [place] [address] Care Team Providers Care Mid Teacher Name Role Phone [place] StreamDede morales TRINITY Primary Care Provider [phone] Encounter Details Date Type Department Care Team (Late Contact Info) Description 12/17/2024 Orders Only [facility] [address] [place] [address] Angela Wen, ERICKA Social History Tobacco Use Types Packs/Day Years [...] Date Recorded PHQ-2 Total Score 6 07/17/2023 [facility] [place] [place] of Occupat ional Health - Occupational Stress [...] 11:00 AM EST Appointment [facility] [address] [place] [address] Ledy Luo MD [address] [place] [id number] documented as of this encounter Goals Goal [...] documented as of this encounter Care Teams Mid Teacher Relationship Specialty Start Date End Date Dede Meredith APRN [address] [place] [address] PCP - General Nurse Practitioner-Family 11/17/20 documented as of this encounter
--- OUTSIDE RECORDS SUMMARY | 2025-02-13 22:13 | XMS_ITS | Encounter Summary ---
Author Organization [place] [address] Care Team Providers Care Box Press Operator Name Role Phone Dede Meredith APRN Primary Care Provider Reason for Visit * Reason Comments Pharmacy Migraine Medication Management Qulipta Encounter Details Date Type Department Care Team (Latest Contact Info) Description 12/02/2024 Specialty Pharmacy [facility] [address] [phone] Nazanin Rivera CPhT Pharmacy Migraine Medication Management [...] Date Recorded PHQ-2 Total Score 6 07/17/2023 [facility] [place] of Occupat ional Health - Occupational Stress [...] Assessment Author No 07/17/2023 9:04 AM EST Behzad, A anat [place], CCMA documented as of this encounter Mental Status * Because of a physical, mental or emotional condition, does this person have serious difficulty concentrating, remembering or making decisions? Answer Entry Date Author No 07/17/2023 9:04 AM EST Norma Wen CCMA documented in this encounter Progress Notes * Nazanin Rivera CPhT - 12/02/2024 3:25 PM EDT Specialty Pharmacy MyChart request Indira Carnes requested a refill of Qulipta via [employer]. Sp[employer] message was sent in response with appropriate questionnaire. Will f/u in 2 business days. * Daniella Rondon CPhT - 12/02/2024 3:25 PM EDT Specialty Pharmacy Refill Coordination Note Contacted Indira Paintingl today regarding refills of Qulipta. Medication to be delivered by [facility] on 12/08. Copay amount: $0 Spoke with patient. Patient informed of copay. documented in this encounter Plan of Treatment Upcoming Encounters Date Type Department Care Team (Late st Contact Info) Description 04/27/2025 11:00 AM EST Appointment [facility] [address] [place] [address] Ledy Luo MD [address] [place] [address] documented as of this encounter Goals Goal [...] documented as of this encounter Care Teams Box Press Operator Relationship Specialty Start Date End Date Dede Meredith APRN [address] [place], [place] [address] PCP - General Nurse Practitioner-Family 11/17/20 documented as of this encounter
--- OUTSIDE RECORDS SUMMARY | 2025-02-13 22:13 | XMS_ITS | Encounter Summary ---
Author Organization [place] [address] Care Team Providers Care Car Refinisher Name Role Phone Dede Meredith APRN Primary Care Provider Encounter Details Date Type Department Care Team (Late Contact Info) Description 01/15/2025 Results Follow-Up [facility] [address] [place] [address] Dede Meredith APRN [address] [place] [address] VAGINITIS PANEL NAAT Social History Tobacco [...] Date Recorded PHQ-2 Total Score 2 12/31/2024 [facility] [place] of Occupat ional Health - Occupational Stress [...] 11:00 AM EST Appointment [facility] [address] [place] [address] Ledy Luo MD [address] [place] [address] documented as of this encounter Goals Goal [...] documented as of this encounter Care Teams Car Refinisher Relationship Specialty Start Date End Date Dede Meredith APRN [address] [place] [address] PCP - General Nurse Practitioner-Family 11/17/20 documented as of this encounter
--- OUTSIDE RECORDS SUMMARY | 2025-02-13 22:13 | XMS_ITS | Encounter Summary ---
Author Organization [place] [address] Care Team Providers Care Putty And Patch Worker Name Role Phone Dede Meredith APRN Primary Care Provider Reason for Visit * Reason Onset Date Comments Results 01/01/2025 Lab results give n Encounter Details Date Type Department Care Team (Latest Contact Info) Description 01/01/2025 Results Follow-Up [facility] [address] [place] [address] Dede Meredith APRN [address] [place] [address] CBC WITH DIFF, COMPREHENSIVE METABOLIC PANEL, [...] Date Recorded PHQ-2 Total Score 2 12/31/2024 [facility] [place] of Occupat ional Health - Occupational Stress [...] Appointment [facility] [address] [place] [address] Ledy Luo MD [address] [place] [address] documented as of this encounter Goals Goal [...] documented as of this encounter Care Teams Putty And Patch Worker Relationship Specialty Start Date End Date Dede Meredith APRN [address] [place] [address] PCP - General Nurse Practitioner-Family 11/17/20 documented as of this encounter
--- OUTSIDE RECORDS SUMMARY | 2025-02-13 22:13 | XMS_ITS | Encounter Summary ---
Author Organization [place] [address] Care Team Providers Care Manager Home Improvement Name Role Phone Dede Meredith APRN Primary Care Provider Reason for Visit * Reason Onset Date Comments Refill 01/05/2025 Ativan Encounter Details Date Type Department Care Team (Late st Contact Info) Description 01/05/2025 Telephone [facility] [address] [place] [address] Dede Meredith APRN [address] [facility] [place] [address] Refill (Ativan ) Social History Tobacco [...] Date Recorded PHQ-2 Total Score 2 12/31/2024 [facility] [place] of Occupat ional [facility] - Occupational Stress Questionnaire Answer Date [...] Date consent completed 12/14/2021 VINCENT Reference Number [id number] VINCENT Results as expected as expected If [...] w/ prescribing provider: none Pharmacy & Location: [facility] [place] [address] [address] [facility] [phone] [place] [id number] KATHERINE #: -- Return Method of Communication: Phone Call Additional Information: N/A documented in this encounter Plan of Treatment Upcoming Encounters Date Type Department Care Team (Late st Contact Info) Description 04/27/2025 11:00 AM EST Appointment [facility] [address] [place] [id number] Ledy Luo MD [address] [place] [address] documented as of this encounter Goals Goal Patient Goal Type Associated Problems Recent Progress Patient-Stated? Author Maintain a healthy diet, exercise regularly and maintain an ideal body weight General No Mary Christy RMA Stay Tobacco Free Lifestyle No Mary Christy RIKY [place] documented as of this encounter Visit Diagnoses [...] as of this encounter Care Teams Manager Home Improvement Relationship Specialty Start Date End Date Dede Meredith APRN [address] [place] [address] PCP - General Nurse Practitioner-Family 11/17/20 documented as of this encounter
--- OUTSIDE RECORDS SUMMARY | 2025-02-13 22:13 | XMS_ITS | Encounter Summary ---
Author Organization [place] [address] Care Team Providers Care Contact Center Engineer Name Role Phone Sister BayDede morales TRINITY Primary Care Provider [phone] Encounter Details Date Type Department Care Team (Late Contact Info) Description 01/20/2025 Orders Only SEP Vanessa [address] [place] [address] [facility] Gastroesophageal reflux disease without esophagitis Social History [...] Date Recorded PHQ-2 Total Score 2 12/31/2024 [facility] of Occupat ional Health - Occupational Stress [...] 11:00 AM EST Appointment [facility] [address] [place] [address] Ledy Luo MD [address] [place] [place] [id number] documented as of this encounter Goals Goal [...] documented as of this encounter Care Teams Contact Center Engineer Relationship Specialty Start Date End Date Dede Meredith APRN [facility] JOANNE CHANEL [phone] PCP - General Nurse Practitioner-Family 11/17/20 documented as of this encounter
--- OUTSIDE RECORDS SUMMARY | 2025-02-13 22:13 | XMS_ITS | Clinical Summary ---
Author Organization [facility] Address [address] [place] [address] Phone Care Team Providers Care Custom Framing Specialist Name Role Phone Dede Meredith APRN Primary Care Provider Allergies Active Allergy Reactions Criticality Noted Date Comments Hydromorphone Itching 04/27/2020 Doxycycline Other (See Comments) Medium 02/20/2013 'lilly esophagus Latex Hives High 02/20/2013 Lacosamide Rash 01/12/2025 Medications multivit-min/fe rrous fumarate (MULTI VITAMIN ORAL) Take by mouth. Activ e fluticasone propionate (FLONASE) 50 mcg/actuation Nasl [place], SuspensionIndic ations:Seasonal allergic rhinitis, unspecified trigger 1 [place] by Nasal route daily. 1 Each 10/18/19 [...] 5 10:50 AM EDT 10/07/19 25 Active OXcarbazepine (TRILEPTAL) 300 mg Oral [...] your colonoscopy. 354 mL 01/21/20 25 Active nystatin (MYCOSTATIN) Top CreamIndication s:Yeast infection Apply topically 2 times daily. 30 g 2 02/06/20 25 Active meclizine (ANTIVERT) 12.5 mg Oral TabletIndicatio ns:BPV (benign positional vertigo), unspecified laterality Take 1 Tablet by mouth 3 times daily for 10 days. 30 Tablet 02/06/20 25 025 Active zonisamide (ZONEGRAN) 100 mg Oral Capsule Take 1 Capsule by mouth nightly. 30 Capsule 5 02/12/20 25 Active meclizine (ANTIVERT) 12.5 mg Oral TabletIndicatio ns:BPV (benign positional vertigo), unspecified laterality Take 1 Tablet by mouth 3 times daily for 10 days. 30 Tablet 01/03/20 25 025 Discontinued clindamycin (CLEOCIN) 300 mg Oral CapsuleIndicati ons:Acute paronychia of toe of left foot,Vaginal discharge Take 1 Capsule by mouth 2 times daily for 7 days. 14 Capsule 01/15/20 25 025 zavegepant (ZAVZPRET) 10 mg/actuation Nasl [place], Non-AerosolIndi cations:Other migraine with status migrainosus, intractable 10 mg by Nasal route once as needed for up to 1 dose. 1 Each 02/06/20 25 025 Hospital, Clinic, or Other Facility Administered Medication Ordered Dose Route Frequency Start Date End Date Status ketorolac (TORADOL) injection 60 mgIndications:Other migraine with status migrainosus, intractable 60 mg IM ONCE 02/05/2025 02/05/2025 Ended Active Problems Patient Care Coordination No te Formatting of this note migh t be different from the original. Care gap audit completed by Jolene Rincon RN on 01/16/2024. Problem Noted Date [...] & Plan (04/15/2024 11:15 AM EDT): Orders: uywoepyfdp-pljdbuhw-jmkbnxzoec (BREZTRI AEROSPHERE) 160-9-4.8 mcg/actuation Inhl HFA Aerosol [...] I dispensed a sample of breztri with aerochamber today. Encouraged albuterol use as needed for symptom relief. Rx for prednisone for acute on chronic sx. No indication for atb at this time. Chronic allergic rhinitis 08/03/2022 Overview (01/24/2023): On singulair/allergra Intolerance to flonase Referral to humanities department chair in past d/t recurrent sx. Assessment & [...] (01/11/2021): Added automatically from request for surgery [id number] Dysmenorrhea 01/11/2021 Overview (01/11/2021): Added automatically from request for surgery [id number] PTSD (post-traumatic stress disorder) 11/17/2020 Overview (11/21/2023): In grief counseling and counseling at [facility] Takes ativan as needed throughout the day [...] head region - Resected Feb 2013 in [place] Last MRI 09/2016 No evidence of re-occurrence [...] she has also started going back to latter day and back in counseling, continue same. Assessment [...] PRN use of oxygen Keep follow-up with aircraft worker for PFT Cigarette nicotine dependenc e without [...] Encounters Date Type Department Care Team Description 02/05/2025 1:30 PM EDT Office Visit [facility] [address] [place] [address] [place], Dede, MICROFILMING DOCUMENT PREPARER Other migraine with status migrainosus, intractable (Primary Dx) 02/04/2025 Refill [facility] [address] [place] [address] Vic Villarreal APRN Medication Refill 02/04/2025 Refill SEP Vanessa [address] [place] [address] [place], Dede, MICROFILMING DOCUMENT PREPARER Medication Refill 02/03/2025 1:22 PM EDT - 02/03/2025 11:59 PM EDT Hospital Encounter [facility] MRI [address] [place] [address] Vic Villarreal APRN Epilepsy, focal (HCC); History of oligodendroglioma of brain Discharge Disposition: Home or Self Care 02/03/2025 Results Follow-Up [facility] [address] [place] [address] Vic Villarreal APRN MRI BRAIN W WO CONTRAST 02/02/2025 Refill SEP Vanessa [address] [place] [phone] Viri, Dede, MICROFILMING DOCUMENT PREPARER Medication Refill 01/27/2025 9:45 AM EDT Telemedicine SEP Vanessa [address] [place] [phone] Viri, Dede, MICROFILMING DOCUMENT PREPARER Hospital discharge follow-up (Primary Dx); Kidney stone 01/27/2025 Travel 01/26/2025 Refill SEP Vanessa [address] [place] [address] [place], Dede, MICROFILMING DOCUMENT PREPARER Medication Refill 01/20/2025 Telephone [facility] [address], [address]RD [place] [address] Ledy Luo MD Colonoscopy; Medication Management 01/20/2025 Orders Only SEP Vanessa [address] [place] [phone] Angela Wen, [facility] Gastroesophageal reflux disease without esophagitis 01/15/2025 Results Follow-Up [address] [place] [phone] [place], Dede, MICROFILMING DOCUMENT PREPARER VAGINITIS PANEL NAAT 01/14/2025 3:30 PM EDT Office Visit [address] [place] [phone] Viri, Dede, MICROFILMING DOCUMENT PREPARER Acute paronychia of toe of left foot (Primary Dx); Vaginal discharge 01/12/2025 Orders Only [facility] Neurology [facility] [address] [place] [address] Vic Villarreal APRN 01/11/2025 Nurse Triage [facility] Now [address] [place] [address] Shaila Wang RN 01/10/[address] [place] [phone] [place], Dede, MICROFILMING DOCUMENT PREPARER Medication Refill 01/06/2025 7:45 AM EDT Telemedicine [facility] [address] [place] [address] Vic Villarreal, [employer]ILM[employer] DOCUMENT PREPARER Focal epilepsy (HCC) (Primary Dx); History of oligodendroglioma of brain; Migraine without aura and without status migrainosus, not intractable; Snoring; Insomnia, unspecified type; PTSD (post-traumatic stress disorder) 01/05/[address] [place] [phone] [place] mo[place], MICROFILMING DOCUMENT PREPARER Refill (Ativan ) 01/03/[address] [place] [phone] [place], Dede, MICROFILMING DOCUMENT PREPARER Medication Refill 01/02/2025 3:45 PM EDT Office Visit [address] [place] [phone] Viri, Dede, MICROFILMING DOCUMENT PREPARER BPV (benign positional vertigo), unspecified laterality (Primary Dx); Other migraine with status migrainosus, intractable; Prediabetes 01/01/2025 Results Follow-Up [address] [place] [address] [place], Dede, MICROFILMING DOCUMENT PREPARER CBC WITH DIFF, COMPREHENSIVE METABOLIC PANEL, HEMOGLOBIN A1C, Additional followed-up results: 5 12/31/2024 10:30 AM EDT Office Visit [address] [place] [address] Viri, Dede, MICROFILMING DOCUMENT PREPARER Encounter for Medicare annual wellness exam (Primary Dx); Obesity, Class III, BMI 40-49.9 (morbid obesity); Subclinical hypothyroidism; Other iron deficiency anemia; Medication management; Malaise and fatigue; Prediabetes; Lipid screening; Body mass index (BMI) 40.0-44.9, adult (HCC); Screening for colon cancer; Other migraine with status migrainosus, intractable; Generalized anxiety disorder 12/17/2024 Orders Only [address] [place] [address] [facility] 12/11/2024 1:30 PM EDT Office Visit [address] [place] [address] Rm Meredithika, [employer]ILMING DOCUMENT PREPARER Grief at loss of child (Primary Dx); Generalized anxiety disorder; Benzodiazepine dependence (HCC); Medication management; Dysuria 12/04/[address] [place] [address] Viri, Dede, MICROFILMING DOCUMENT PREPARER Medication Refill 12/02/2024 1:30 PM EDT Telemedicine [address] [place] [address] Rm Meredithika, MICROFILMING DOCUMENT PREPARER BPV (benign positional vertigo), unspecified laterality (Primary Dx); Moderate episode of recurrent major depressive disorder (HCC) 12/02/2024 Specialty Pharmacy [facility] [address] [place] [address] Nazanin Rivera, [facility] Migraine Medication Management (Qulipta) 12/02/2024 Travel 11/25/2024 Orders Only [place] [address] [place] [address] Angela Wen, [facility] 11/18/2024 Orders Only [place] [address] [place] [address] Angela Wen, [facility] BPV (benign positional vertigo), unspecified laterality from Last 3 Months Immunizations Immunization Administration [...] 0137; Surgeon: Tejas Johnson IV, MD; Location: [facility]; Service: Gynecology EYE SURGERY BRAIN SURGERY 03/12/2013 tumor removed TUBAL LIGATION CYSTOSCOPY 10/30/2023 Surgeon: Siddhartha Napoles DO; Location: [facility]; Service: Gynecology Medical History Medical [...] Date Recorded PHQ-2 Total Score 2 12/31/2024 [facility] of Occupat ional Health - Occupational Stress [...] A1 A5 Name Clin SAB Term F HAIR MIXER Livin g Term F CSP Livin g 2015 Term 39w 6d 0h 02m 0h 02m 7 lb 8.8 oz (3.425 kg) M HAIR MIXER Spinal N Livin g 9 9 JOSE LR Edward C IV, MD Complications:Previous danica wilfred section Delivery Location:[facility] Last Filed Vital Signs Vital Sign Reading Time Taken Comments Blood Pressure 138/77 02/05/2025 1:26 PM EDT Pulse 89 02/05/2025 1:26 PM EDT Temperature 36.2 C (97.1 F) 02/05/2025 1:26 PM EDT Respiratory Rate 20 02/05/2025 1:26 PM EDT Oxygen Saturation 96% 02/05/2025 1:26 PM EDT Inhaled Oxygen Concentration - - Weight 125.6 kg (277 lb) 02/05/2025 1:26 PM EDT Height 170.2 cm (5' 7 ) 12/31/2024 10:26 AM EDT Body Mass Index 43.38 12/31/2024 10:26 AM EDT Plan of Treatment Upcoming Encounters Date Type Department Care Team (Late st Contact Info) Description 04/27/2025 11:00 AM EST Appointment [facility] [address] [place] [address] Ledy Luo MD [address] [place] [address] Health Maintenance Due Date Last Done Comments Hepatitis B Vaccine (2 of 3 - 19+ 3-dose series) 03/13/2016 02/14/2016 Breast Cancer Screening 2019 COVID-19 Vaccine (3 - 2023- season) 2024 10/11/2020, 09/13/2020 Cologuard 12/26/2024 Colon [...] 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 [facility] 01/28/2025 6:06 PM EDT VAGINITIS PANEL NAAT Routine 01/14/2025 3:37 PM [...] Dysuria from Last 3 Months Results * MRI BRAIN W WO CONTRAST (02/03/2025 2:42 PM EDT) Anatomical Region Laterality Modality Head Magnetic Resonan ce 02/03/2025 2:42 PM EDT Addenda Addendum by Newton Arambula MD on 02/05/2025 7:18 AM EDT Addendum: There is a surveillance inspector error in the second last sentence of the findings section of the report, which should read Divergent gaze is incidentally noted. Impressions 02/03/2025 3:05 PM EDT Stable exam with postsurgical changes superolateral aspect left frontal lobe. No evidence of tumor recurrence. Narrative 02/03/2025 3:05 PM EDT MRI BRAIN W WO CONTRAST 02/03/2025 2:42 PM CLINICAL HISTORY: G40.191-Veowywjlawqx-evymspo (focal) (partial) symptomatic epilepsy and epileptic syndromes with simple partial seizures, not intractable, without status epilepticus (HCC)-ICD-10-CM Z85.841-Personal history of malignant neoplasm of oujvd-VLR-45-CM. COMPARISON: Brain MRI from 03/27/2023. PROCEDURE COMMENTS: [...] WO CONTRAST 02/03/2025 2:42 PM CLINICAL HISTORY: G40.948-Lrbfbzruxmzd-mytvbey (focal) (partial)symptomatic epilepsy and epileptic syndromes with simple partial seizures, notintractable, without status epilepticus (HCC)-ICD-10-CM Z85.841-Personal history of malignant neoplasm of uulov-UWI-59-CM. COMPARISON: Brain MRI from 03/27/2023. PROCEDURE COMMENTS: [...] evidence of tumor recurrence. Vic Villarreal APRN [facility] MRI ORDERABLES Edited Result - Final * [facility] (01/28/2025 6:06 PM EDT) 01/28/2025 6:06 PM EDT Unknown Provider HEMATOLOGY ORDERABLES Final Res ult * (ABNORMAL) VAGINITIS PANEL NAAT (01/14/2025 3:37 [...] PM EDT 01/14/2025 3:37 PM EDT [place] MICROFILMING DOCUMENT PREPARER MICROBIOLOGY - GENERAL ORDE RABLES Final Result [facility] [address] [facility] , [place] [address] * (ABNORMAL) IRON+TIBC (12/31/2024 11:29 AM EDT) [...] EDT 12/31/2024 11:29 AM EDT Dede Viri MICROFILMING DOCUMENT PREPARER CHEMISTRY ORDERABLES Final Result [facility] [address] [facility] , [place] [address] * (ABNORMAL) LIPID PANEL REFLEX (12/31/2024 11:29 AM EDT) Cholesterol 171 <200 mg/dL 12/31/2024 4:26 PM EDT [facility] Comment: < 200 Desirable 200 - 239 Borderline High >= 240 High Triglyceride 318(H) <150 mg/dL 12/31/2024 4:26 PM EDT [facility] [employer], [facility] Comment: < 150 Normal 150 - 199 Borderline High 200 - 499 High >= 500 Very High HDL 33(L) >=40 mg/dL 12/31/2024 4:26 PM EDT [facility] [employer], [facility] Comment: > 60 Optimal 40 - 60 Acceptable < 40 Low LDL Calculated 86 <100 mg/dL 12/31/2024 4:26 PM EDT [facility] [employer], [facility] Comment: < 100 Optimal 100 - 129 Near or above optimal 130 - 159 Borderline High 160 - 189 High >= 190 Very High The National Institutes of Health (NIH) equation is used for all lipid panels that report calculated LDL (LDL-C). Non-HDL-C Calculated 138(H) <=129 mg/dL 12/31/2024 4:26 PM EDT [facility] [employer] [facility] [facility], [facility] Comment: <130 Desirable 130-159 Above Desirable 160-189 Borderline High 190-219 High >= 220 Very High Fasting Specimen? No None 025 4:26 PM EDT [facility] [employer] [facility] Blood VENOUS BLOOD / Unknown Venipuncture / Unknown 12/31/2024 11:29 AM EDT 12/31/2024 11:29 AM EDT Dede Meredith MICROFILMING DOCUMENT PREPARER CHEMISTRY ORDERABLES Final Result [facility] [employer] [facility] [address] [facility] , [place] [address] * VITAMIN B12/ FOLIC ACID (12/31/2024 11:29 AM EDT) Vitamin B12 469 232 - 1,245 pg/mL 12/31/2024 5:05 PM EDT [facility] Folate 11.10 >=4.80 ng/mL 12/31/2024 5:05 PM EDT [facility] [employer], [facility] Blood VENOUS BLOOD / Unknown Venipuncture / Unknown 12/31/2024 11:29 AM EDT 12/31/2024 11:29 AM EDT Narrative [facility] [employer], [facility] - 12/31/2024 5:05 PM EDT Ingestion of ekaterina doses of biotin (>5 mg/day) taken within 8 hours of drawing blood sample can interfere with this immunoassay test. [facility]ionicChamp[facility] CHEMISTRY ORDERABLES Final Result Performing Organization Address [facility] de Phone Number [facility] [employer] , [place] [address] * TSH REFLEX TO FT4 (12/31/2024 11:29 AM EDT) TSH Reflex 0.988 0.270 - 4.200 mcIU/mL 12/31/2024 4:26 PM EDT [facility] [employer] [facility] Blood VENOUS BLOOD / Unknown Venipuncture / Unknown 12/31/2024 11:29 AM EDT 12/31/2024 11:29 AM EDT Narrative [facility] [employer] [facility] - 12/31/2024 4:26 PM EDT Ingestion of ekaterina doses of biotin (>5 mg/day) taken within 8 hours of drawing blood sample can interfere with this immunoassay test. [facility] CHEMISTRY ORDERABLES Final Result Performing Organization Address [facility] de Phone Number [facility] [address] , [place] [address] * (ABNORMAL) VITAMIN D 25 HYDROXY (12/31/2024 11:29 AM EDT) Vit D 25 OH 29.6(L) 30.0 - 150.0 ng/mL 12/31/2024 5:05 PM EDT [facility] [employer] [facility] Comment: Preferred: >= 30 ng/mL Insufficient: 21-29 ng/mL Deficient <= 20 ng/mL Possible Toxicity: >150 ng/mL Samples should not be taken from patients receiving therapy with high biotin doses (i.e. > 5 mg/day) until at least 8 hours following the last biotin administration. Blood VENOUS BLOOD / Unknown Venipuncture / Unknown 12/31/2024 11:29 AM EDT 12/31/2024 11:29 AM EDT Dede Meredith MICROFILMING DOCUMENT PREPARER CHEMISTRY ORDERABLES Final Result [facility] [address] [facility] , [place] [address] * CBC WITH DIFF (12/31/2024 11:29 AM [...] 12/31/2024 5:13 PM EDT [facility] [place] Percent 6.9 % 12/31/2024 5:13 PM EDT [facility] Eos Percent 3.3 % 12/31/2024 5:13 PM EDT [facility] Baso Percent 0.6 % 12/31/2024 5:13 PM EDT [facility], [facility] Neut # 5.9 1.6 - 6.1 x10(3)/[facility] 12/31/2024 5:13 PM EDT [facility], [facility] Comment:Neutrophils equals s egs plus bands IMMGRAN# 0.1 0.0 - 0.1 x10(3)/[facility] 12/31/2024 5:13 PM EDT [facility], [facility] Comment:Automated count of m etamyelocytes, myelocytes and promyelocytes. An absolute IG <0.1 is reported as 0.0. Lymph # 2.0 1.2 - 3.9 x10(3)/[facility] 12/31/2024 5:13 PM EDT [facility] [place] # 0.6 0.3 - 0.9 x10(3)/[facility] 12/31/2024 5:13 PM EDT [facility], [facility] Eos# 0.3 0.0 - 0.5 x10(3)/[facility] 12/31/2024 5:13 PM EDT [facility], [facility] Baso # 0.1 0.0 - 0.1 x10(3)/[facility] 12/31/2024 5:13 PM EDT [facility] LAB [facility], [facility] Blood VENOUS BLOOD / Unknown Venipuncture / Unknown 12/31/2024 11:29 AM EDT 12/31/2024 11:29 AM EDT Dede Meredith MICROFILMING DOCUMENT PREPARER HEMATOLOGY ORDERABLES Final Result [facility] [address] [facility] , [place] [address] * (ABNORMAL) HEMOGLOBIN A1C (12/31/2024 11:29 AM EDT) Hgb A1C 5.7(H) 4.2 - 5.6 % 12/31/2024 5:41 PM EDT [facility] Est. Avg Glucose 117 mg/dL 12/31/2024 5:41 PM EDT [facility] Blood VENOUS BLOOD / Unknown Venipuncture / Unknown 12/31/2024 11:29 AM EDT 12/31/2024 11:29 AM EDT Narrative [facility] - 12/31/2024 5:41 PM EDT REFERENCE RANGE: Normal: 4.0-5.6% Pre-diabetes: 5.7-6.4% Provisional diagnosis of diabetes: >6.4% Hgb F>10% and anything which shortens red cell survival, such as hemolytic anemia, or unstable hemoglobin variants such as HbSS, HbSC, or HbCC, will lower the HbA1c value associated with a given level of glycemic control. Dede Meredith MICROFILMING DOCUMENT PREPARER CHEMISTRY ORDERABLES Final Result [facility] [address] [facility] , [address] [place] [id number] * (ABNORMAL) COMPREHENSIVE METABOLIC PANEL (12/31/2024 11:29 AM EDT) Sodium 140 136 - 145 mmol/L 12/31/2024 4:26 PM EDT [facility] Potassium 4.0 3.5 - 5.0 mmol/L 12/31/2024 4:26 PM EDT [facility] Chloride 106 98 - 107 mmol/L 12/31/2024 4:26 PM EDT [facility] Total CO2 23 22 - 29 mmol/L 12/31/2024 4:26 PM EDT [facility] Anion Gap 11 7 - 16 mmol/L 12/31/2024 4:26 PM EDT [facility] Calcium 9.2 8.6 - 10.4 mg/dL 12/31/2024 4:26 PM EDT [facility] Glucose Lvl 116(H) 70 - 99 mg/dL 12/31/2024 4:26 PM EDT [facility] BUN 9 6 - 20 mg/dL 12/31/2024 4:26 PM EDT [facility] Creatinine 0.56 0.51 - 1.30 mg/dL 12/31/2024 4:26 PM EDT [facility] Albumin 4.0 3.5 - 5.2 gm/dL 12/31/2024 4:26 PM EDT [facility] Total Protein 6.6 6.4 - 8.3 gm/dL 12/31/2024 4:26 PM EDT [facility] Bili Total <0.2(L) 0.2 - 1.3 mg/dL 12/31/2024 4:26 PM EDT [facility] ALT 14 <=41 U/L 12/31/2024 4:26 PM EDT [facility] AST 14 <=40 U/L 12/31/2024 4:26 PM EDT [facility] Alk Phos 118 36 - 123 U/L 12/31/2024 4:26 PM EDT [facility], [facility] eGFR (CKD-EPIcr 2020) 114 >=60 mL/min/1.7 3 m2 12/31/2024 4:26 PM EDT [facility] Comment:Estimated GFR was ca lculated using the CKD-EPIcr (2020) equation refit without race. The equation is recommended by the National Kidney Foundation - [place] [employer] Neph[employer] Task Force. Blood VENOUS BLOOD / Unknown Venipuncture / Unknown 12/31/2024 11:29 AM EDT 12/31/2024 11:29 AM EDT Dede Meredith MICROFILMING DOCUMENT PREPARER CHEMISTRY ORDERABLES Final Result [facility] [address] [facility] , [address] [place] [id number] * URINE CULTURE (NO STAIN) (12/11/2024 1:48 PM EDT) Culture Multiple bacterial species isolated from urine consistent with urogenital commensal organisms. 12/13/2024 6:31 AM EDT [facility], [facility] Urine STRUCTURE OF URINARY TRACT PROPER / Unknown 12/11/2024 1:48 PM EDT 12/11/2024 1:48 PM EDT us Dede Meredith MICROFILMING DOCUMENT PREPARER MICROBIOLOGY - GENERAL ORDE RABLES Final Result [facility] [employer] [address] [place] [address] * SEP URINALYSIS POC (12/11/2024 1:32 [...] PM EDT 12/11/2024 1:34 PM EDT us Dede Meredith MICROFILMING DOCUMENT PREPARER POINT OF CARE TEST ORDERABL ES Final Result [facility] 79 [place] [address] from Last 3 Months Insurance [place] MED[place]MO MR Member Subscriber Plan / Payer (Ef fective 2024-Present) Name:Indira Carnes Relation to Subscriber:Self Name:Indira Carnes Payer ID:[id number] (NAIC) Type:Not on file Address: [address] [place] [address] [id number] Advance Directives For more information, please contact: [phone] * Full Code (Latest Code Status on File) Date Activated Date Inactivated Comments 03/20/2016 11:52 PM 03/25/2016 4:28 PM Care Teams Custom Framing Specialist Relationship Specialty Start Date End Date Dede Meredith APRN [address] [place] [address] PCP - General Nurse Practitioner-Family 11/17/20
--- OUTSIDE RECORDS SUMMARY | 2025-02-13 22:13 | XMS_ITS | Encounter Summary ---
Author Organization [place] [address] Care Team Providers Care Plier Worker Name Role Phone [place] VillageDede morales TRINITY Primary Care Provider [phone] Encounter Details Date Type Department Care Team (Late Contact Info) Description 01/12/2025 Orders Only SEP Neurology [facility] [address] [place] [address] Vic Villarreal APRN [address] [address] Social History Tobacco Use Types [...] Date Recorded PHQ-2 Total Score 2 12/31/2024 [facility] [place] of Occupat ional Health - Occupational Stress [...] 11:00 AM EST Appointment [facility] [address] [place] [address] Ledy Luo MD [address] [place] [address] documented as of this encounter Goals Goal [...] documented as of this encounter Care Teams Plier Worker Relationship Specialty Start Date End Date Dede [place]eredith [place] [address] PCP - General Nurse Practitioner-Family 11/17/20 documented as of this encounter
--- OUTSIDE RECORDS SUMMARY | 2025-02-13 22:13 | XMS_ITS | Encounter Summary ---
Author Organization [place] [address] Care Team Providers Care Box Coverer Hand Name Role Phone Dede Meredith APRN Primary Care Provider Reason for Visit * Reason Onset Date Comments Allergic Reaction 01/11/2025 Encounter Details Date Type Department Care Team (Late st Contact Info) Description 01/11/2025 Nurse Triage [facility] Nurse Now [address] [place] [address] Shaila Wang, RN Social History [...] Date Recorded PHQ-2 Total Score 2 12/31/2024 [facility] [place] of Occupat ional Health - Occupational Stress [...] 01/12/2025 1:44 PM EDT Patient informed via Mychart. * Telephone Encounter - Karina [place] MA [...] tip of pen, eraser, coin; inches, centimeters) [place] size 3. LOCATION: Where is the rash [...] 11:00 AM EST Appointment [facility] [address] [place] [address] Ledy Luo MD [address] [place] [address] documented as of this encounter Goals Goal [...] as of this encounter Care Teams Box Coverer Hand Relationship Specialty Start Date End Date Dede Meredith APRN [address] [place] [phone] PCP - General Nurse Practitioner-Family 11/17/20 documented as of this encounter
--- OUTSIDE RECORDS SUMMARY | 2025-02-13 22:13 | XMS_ITS | Encounter Summary ---
Author Organization [place] [address] Care Team Providers Care Edge Beader Name Role Phone ViriDede morales TRINITY Primary Care Provider [phone] Reason for Referral * Surgical (Routine) - Pending Review Specialty Diagnoses / Procedures Referred By Carolyn abreu Referred To Contact Gastroenterology Diagnoses Screening for colon cancer Procedures COLONOSCOPY ND COLORECTAL SCRN; HI RISK IND ND COLONOSCOPY FLX W/ENDOSCOPIC MUCOSAL RESECTION Ledy Luo MD [address] [place] [address] Phone: tel: fax: Referral ID Status Reason Start Date Expiration Date V isits Requested Visits Authorized [id number] Pending Review 01/20/2025 01/20/2026 1 1 Reason for Visit * Reason Onset Date Comments Colonoscopy 01/20/2025 Medication Management 01/20/2025 Encounter Details Date Type Department Care Team (Late st Contact Info) Description 01/20/2025 Telephone SEP GASTRO [facility] [address] 3RD [place] [address] Ledy Luo MD [address] [place] [address] Colonoscopy; Medication Management Social History Tobacco Use [...] Date Recorded PHQ-2 Total Score 2 12/31/2024 [facility] of Occupat ional Health - Occupational Stress [...] Diet/Diabetic Holds Pt address to mail to: [address] [place] [phone] * Telephone Encounter - Ifeoma Garcia, Clerical Staff - 01/20/2025 3:25 PM EDT Please call in SUPREP to [facility] Thank you * Telephone Encounter - Ifeoma [...] 0137; Surgeon: Tejas Johnson IV, MD; Location: [facility]; Service: Gynecology CRANIOTOMY 02/2013 CYSTOSCOPY 10/30/2023 Surgeon: Siddhartha Napoles DO; Location: [facility]; Service: Gynecology EYE SURGERY TUBAL [...] by mouth daily. 10/06/24 Vic Villarreal APRN kxmixuruhx-whwgclcj-leoqnhfpag (BREZTRI AEROSPHERE) 160-9-4.8 mcg/actuation Inhl HFA Aerosol [...] APRN fluticasone propionate (FLONASE) 50 mcg/actuation Nasl [place], Suspension 1 [place] by Nasal route daily. 10/18/23 Dede Meredith [...] Are you currently being seen by a reed or wind instrument tuner or have any cardiac testing scheduled? No [...] prep is used? SUPREP SPLIT [facility], 3 day low residue diet, pt would like prep instructions mailed Scheduled 04/27/25 1100am @ [facility] Do you have sleep apnea? Do you have an abdominal aortic aneurysm? documented in this encounter Plan of Treatment Upcoming Encounters Date Type Department Care Team (Late st Contact Info) Description 04/27/2025 11:00 AM EST Appointment [facility] [address] [place] [address] Ledy Luo MD [address] [place] [address] Scheduled Orders Name Type Priority Associated Diagnoses [...] documented as of this encounter Care Teams Edge Beader Relationship Specialty Start Date End Date Dede [place] [address] [place] [address] PCP - General Nurse Practitioner-Family 11/17/20 documented as of this encounter
--- OUTSIDE RECORDS SUMMARY | 2025-02-13 22:13 | XMS_ITS | Encounter Summary ---
Author Organization [place] [address] Care Team Providers Care Ham Facer Name Role Phone Dede Meredith APRN Primary Care Provider Reason for Visit * Reason Onset Date Comments Medication Refill 01/10/2025 Encounter Details Date Type Department Care Team (Late st Contact Info) Description 01/10/2025 Refill SEP [facility]essa CERDA [address] [place] [address] Dede Meredith APRN [address] [place] [address] Medication Refill Social History Tobacco Use [...] Date Recorded PHQ-2 Total Score 2 12/31/2024 [facility] [place] of Occupat ional Health - Occupational Stress [...] 11:00 AM EST Appointment [facility] [address] [place] [address] Ledy Luo MD [address] [place] [address] documented as of this encounter Goals Goal [...] Tablet by mouth daily. Reorder 12/20/2022 01/10/2025 ivyhicauha-dyqsmdwj-ldtop terol (BREZTRI AEROSPHERE) 160-9-4.8 mcg/actuation Inhl HFA [...] documented as of this encounter Care Teams Ham Facer Relationship Specialty Start Date End Date Dede Meredith APRN [address] [place] [address] PCP - General Nurse Practitioner-Family 11/17/20 documented as of this encounter
--- OUTSIDE RECORDS SUMMARY | 2025-02-13 22:13 | XMS_ITS | Encounter Summary ---
Author Organization [place] [address] Care Team Providers Care Relations Specialist Name Role Phone Dede Meredith APRN Primary Care Provider Reason for Visit * Reason Comments Medication Refill Encounter Details Date Type Department Care Team ([facility] Contact Info) Description 01/03/2025 Refill SEP Vanessa CERDA [address] [place] [phone] Dede Meredith APRN [address] [place] [address] Medication Refill Social History Tobacco Use [...] Date Recorded PHQ-2 Total Score 2 12/31/2024 [facility] [place] of Occupat ional Health - Occupational Stress [...] 11:00 AM EST Appointment [facility] [address] [place] [address] Ledy Luo MD [address] [place] [address] documented as of this encounter Goals Goal [...] documented as of this encounter Care Teams Relations Specialist Relationship Specialty Start Date End Date Dede Meredith APRN [address] [place] [address] PCP - General Nurse Practitioner-Family 11/17/20 documented as of this encounter
[2025-02-13 22:14] LABS: Microscopic, Urine URINE MICROSCOPIC (MICROSCOPIC)
--- OUTSIDE RECORDS SUMMARY | 2025-02-13 22:14 | XMS_ITS | Encounter Summary ---
Author Organization [place] [address] Care Team Providers Care Cascara Bark Cutter Name Role Phone [place]ede mor[place] TRINITY Primary Care Provider Encounter Details Date Type Department Care Team (Late Contact Info) Description 02/03/2025 Results Follow-Up [facility]G NEUROLOGY [facility] [address] [place] [address] Vic Villarreal APRN [address] [place] [address] MRI BRAIN W WO CONTRAST Social History Tobacco Use Types Packs/Day Years [...] 2 12/31/2024 [facility] [place] of Occupat ional Health - Occupational Stress [...] Progress Notes * Vic Villarreal APRN - 02/11/2025 2:38 PM EDT Looking back at the phone notes she reported side effects after starting Lacosamide (Vimpat). Is she still taking Oxcarbazepine (Trileptal) or still on Lacosamide. * Vic Villarreal APRN - 02/03/2025 6:39 PM EDT Please let her know MRI brain shows stable postsurgical changes. documented in this encounter Miscellaneous Notes * Telephone Encounter - Karina [place] MA - 02/11/2025 2:24 PM EDT Patient informed and given phone number to schedule. Patient is not taking meclizine, [place],meclizine ,Vistaril. She is taking the Ativan. She would like to focus on one thing at a time. She may wantthe referrals after she completes the EEG. * Telephone Encounter - Vic Villarreal APRN - 02/05/2025 9:18 AM EDT MRI is stable. Recent blood work also was unremarkable. I be happy to refer you for neuropsychological evaluation (memory workup). I can refer you to speech therapy for the speech issues. We have vestibular therapy to help with balance and dizziness. Some of the medications currently listed on yourchart could be contributory (Vistaril, meclizine, Ativan, [place]) and you may talk to your prescribing provider about whether these can be adjusted. Please let me know if you would like a referrals * Telephone Encounter - Vic Villarreal APRN - 02/04/2025 2:13 PM EDT I spoke to the reading radiologist as I did not understand this as well. He said this was a typo. It was mean to say divergent gaze of the eye. documented in this encounter Plan of Treatment Upcoming Encounters Date Type Department Care Team (Late st Contact Info) Description 04/27/2025 11:00 AM EST Appointment [facility] [address] [place] [address] Ledy Luo MD [address] [place] [place] [address] documented as of this encounter Goals Goal [...] documented as of this encounter Care Teams Cascara Bark Cutter Relationship Specialty Start Date End Date Dede Meredith APRN [address] [place] [phone] PCP - General Nurse Practitioner-Family 11/17/20 documented as of this encounter
--- OUTSIDE RECORDS SUMMARY | 2025-02-13 22:14 | XMS_ITS | Encounter Summary ---
Author Organization [place] [address] Care Team Providers Care Mechanical Manufacturing Technician Name Role Phone Dede Meredith APRN Primary Care Provider Reason for Visit * Reason Comments Medication Refill Encounter Details Date Type Department Care Team ([facility] Contact Info) Description 02/02/2025 Refill SEP Vanessa CERDA [address] [place] [phone] Dede Meredith APRN [address] [facility] [address] Medication Refill Social History Tobacco Use [...] 2 12/31/2024 [facility] [place] of Occupat ional Health - Occupational Stress [...] Refills Last Filled Start Date End Date meclizine (ANTIVERT) 12.5 mg Oral TabletIndications: BPV (benign positional vertigo), unspecified laterality Take 1 Tablet by mouth 3 times daily for 10 days. 30 Tablet 02/03/2025 02/04/2025 documented in this encounter Plan of Treatment Upcoming Encounters Date Type Department Care Team (Late st Contact Info) Description 04/27/2025 11:00 AM EST Appointment [facility] [address] [place] [address] Ledy Luo MD [address] [place] [facility] documented as of this encounter Goals Goal Patient Goal Type Associated Problems Recent Progress Patient-Stated? Author Maintain a healthy diet, exercise regularly and maintain an ideal body weight General No Mary Christy RMA Stay Tobacco Free Lifestyle No Mary Christy RMA documented as of this encounter Visit Diagnoses Diagnosis BPV (benign positional vertigo), unspecified laterality documented in this encounter Discontinued Medications Medication Sig Discontinue Reason Start Date End Da te meclizine (ANTIVERT) 12.5 mg Oral TabletIndications:BPV (benign positional vertigo), unspecified laterality Take 1 Tablet by mouth 3 times daily for 10 days. 01/02/2025 02/03/2025 documented as of this encounter Additional Health Concerns Assessment Noted Time PHQ-9 Depression Total Score: 2 01/01/20 11:35 AM EDT PHQ-2 Depression Total Score: 2 01/01/20 11:35 AM EDT documented as of this encounter Care Teams Mechanical Manufacturing Technician Relationship Specialty Start Date End Date Dede Meredith APRN [address] [place] [address] PCP - General Nurse Practitioner-Family 11/17/20 documented as of this encounter
--- OUTSIDE RECORDS SUMMARY | 2025-02-13 22:14 | XMS_ITS | Encounter Summary ---
Author Organization [facility] [place] [address] Care Team Providers Care Inspector Dials Name Role Phone Dede Meredith PREMIUM AUDITOR Primary Care Provider [phone] Encounter Details Date Type Department Care Team (Latest Contact Info) Description 01/27/2025 Travel Social History Tobacco Use Types Packs/Day [...] Date Recorded PHQ-2 Total Score 2 12/31/2024 [facility] [place] of Occupat ional Health - Occupational Stress [...] AM EST Appointment [facility] [address] [place] [address] Ledy Luo MD [address] [place] [address] documented as of this encounter Goals Goal [...] documented as of this encounter Care Teams Inspector Dials Relationship Specialty Start Date End Date Dede Meredith APRN [address] [place] [address] PCP - General Nurse Practitioner-Family 11/17/20 documented as of this encounter
--- OUTSIDE RECORDS SUMMARY | 2025-02-13 22:14 | XMS_ITS | Encounter Summary ---
Author Organization [place] [address] Care Team Providers Care Continuous Vulcanizing Machine Operator Name Role Phone Dede Meredith APRN Primary Care Provider Reason for Visit * Reason Onset Date Comments Medication Refill 02/04/2025 Encounter Details Date Type Department Care Team (Late st Contact Info) Description 02/04/2025 Refill [facility] [address] [place] [address] Vic Villarreal APRN [address] [place] [address] Medication Refill Social History Tobacco Use Types [...] Date Recorded PHQ-2 Total Score 2 12/31/2024 [facility] [place] of Occupat ional Health - Occupational Stress [...] Telephone Encounter - Karina [place] MA - 02/05/2025 8:52 AM EDT Refills requested to soon still have refills at pharmacy. documented in this encounter Plan of Treatment Upcoming Encounters Date Type Department Care Team (Late st Contact Info) Description 04/27/2025 11:00 AM EST Appointment [facility] [address] [place] [address] Ledy Luo MD [address] [place] [address] documented as of this encounter Goals Goal Patient Goal Type Associated Problems Recent Progress Patient-Stated? Author Maintain a healthy diet, exercise regularly and maintain an ideal body weight General No Mary Christy RMNorma Stay Tobacco Free Lifestyle No Mary Christy RMA documented as of this encounter Visit Diagnoses Not on filedocumented in this encounter Additional Health Concerns Assessment Noted Time PHQ-9 Depression Total Score: 2 01/01/20 25 11:35 AM EDT PHQ-2 Depression Total Score: 2 01/01/20 25 11:35 AM EDT documented as of this encounter Care Teams Continuous Vulcanizing Machine Operator Relationship Specialty Start Date End Date Dede Meredith APRN [address] [facility] [place] [address] PCP - General Nurse Practitioner-Family 11/17/20 documented as of this encounter
--- OUTSIDE RECORDS SUMMARY | 2025-02-13 22:14 | XMS_ITS | Encounter Summary ---
Author Organization [place] [address] Care Team Providers Care Longitudinal Float Operator Name Role Phone Dede Meredith APRN Primary Care Provider Reason for Visit * Reason Onset Date Comments Medication Refill 02/04/2025 Encounter Details Date Type Department Care Team (Late st Contact Info) Description 02/04/2025 Refill SEP [facility]essa [facility] [address] [place] [address] Dede Meredith APRN [...] Date Recorded PHQ-2 Total Score 2 12/31/2024 [facility] [place] of Occupat ional Health - Occupational Stress [...] Entry Date Author Yes 12/31/2024 11:34 AM CARLOST Dede Christianson APRN documented in this encounter Ordered Prescriptions Prescription Sig Dispense Quantity Refills Last Filled Start Date End Date meclizine (ANTIVERT) 12.5 mg Oral TabletIndications: BPV (benign positional vertigo), unspecified laterality Take 1 Tablet by mouth 3 times daily for 10 days. 30 Tablet 02/05/2025 nystatin (MYCOSTATIN) Top CreamIndications:Y east infection Apply topically 2 times daily. 30 g 2 02/05/2025 documented in this encounter Plan of Treatment Upcoming Encounters Date Type Department Care Team (Late st Contact Info) Description 04/27/2025 11:00 AM EST Appointment [facility] [address] [facility] [place] [address] Ledy Luo MD [address] [place] [address] documented as of this encounter Goals Goal Patient Goal Type Associated Problems Recent Progress Patient-Stated? Author Maintain a healthy diet, exercise regularly and maintain an ideal body weight General No Mary Christy RMA Stay Tobacco Free Lifestyle No Mary Christy RMA documented as of this encounter Visit Diagnoses Diagnosis Yeast infection Other and unspecified mycoses BPV (benign positional vertigo), unspecified laterality documented in this encounter Discontinued Medications Medication Sig Discontinue Reason Start Date End Da te nystatin (MYCOSTATIN) Top CreamIndications:Yeast infection Apply topically 2 times daily. Reorder 10/14/2024 02/04/2025 meclizine (ANTIVERT) 12.5 mg Oral TabletIndications:BPV (benign positional vertigo), unspecified laterality Take 1 Tablet by mouth 3 times daily for 10 days. Reorder 02/03/2025 02/04/2025 documented as of this encounter Additional Health Concerns Assessment Noted Time PHQ-9 Depression Total Score: 2 01/01/20 25 11:35 AM EDT PHQ-2 Depression Total Score: 2 01/01/20 25 11:35 AM EDT documented as of this encounter Care Teams Longitudinal Float Operator Relationship Specialty Start Date End Date Dede Meredith APRN [address] [place], [place] [address] PCP - General Nurse Practitioner-Family 11/17/20 documented as of this encounter
--- OUTSIDE RECORDS SUMMARY | 2025-02-13 22:14 | XMS_ITS | Encounter Summary ---
Author Organization [place] [address] Care Team Providers Care Coverage Analyst Name Role Phone Dede Meredith APRN Primary Care Provider Encounter Details Date Type Department Care Team (Latest Contact Info) Description 10/15/2024 Results Follow-Up SEP Vanessa [address] [place] [address] Dede Meredith APRN [address] [place] [address] PROLACTIN LEVEL, HUMAN CHORIONIC GONADOTROPIN QUANTITATIVE [...] Date Recorded PHQ-2 Total Score 6 07/17/2023 [facility] [place] of Occupat ional Health - Occupational Stress [...] 11:00 AM EST Appointment [facility] [address] [place] [address] Ledy Luo MD [address] [place] [address] documented as of this encounter Goals Goal Patient Goal Type Associated Problems Recent Progress Patient-Stated? Author Maintain a healthy diet, exercise regularly and maintain an ideal body weight General No Mary Crhisty RMA Stay Tobacco Free Lifestyle No Mary Christy RMA documented as of this encounter Visit Diagnoses Not on filedocumented in this encounter Additional Health Concerns Assessment Noted Time PHQ-9 Depression Total Score: 19 024 9:05 AM EST PHQ-2 Depression Total Score: 6 07/17/19 24 9:05 AM EST documented as of this encounter Care Teams Coverage Analyst Relationship Specialty Start Date End Date Dede Meredith APRN [address] [facility] [place] [address] PCP - General Nurse Practitioner-Family 11/17/20 documented as of this encounter
--- OUTSIDE RECORDS SUMMARY | 2025-02-13 22:14 | XMS_ITS | Encounter Summary ---
Author Organization [place] [address] Care Team Providers Care Rotary Drier Operator Name Role Phone Dede Meredith APRN Primary Care Provider Reason for Visit * Reason Comments Medication Refill Encounter Details Date Type Department Care Team ([facility] Contact Info) Description 01/26/2025 Refill SEP Vanessa CERDA [address] [place] [phone] Dede Meredith APRN [address] [facility] [place] [address] Medication Refill Social History Tobacco Use [...] Date Recorded PHQ-2 Total Score 2 12/31/2024 [facility] [place] of Occupat ional Health - Occupational Stress [...] 11:00 AM EST Appointment [facility] [address] [place] [address] Ledy Luo MD [address] [place] [address] documented as of this encounter Goals Goal [...] documented as of this encounter Care Teams Rotary Drier Operator Relationship Specialty Start Date End Date Dede Meredith APRN [address] [place] [address] PCP - General Nurse Practitioner-Family 11/17/20 documented as of this encounter
[2025-02-13 22:22] LABS: Bilirubin,Urine Negative (Negative); Color,Urine YELLOW (Yellow); Glucose,Urine (UA) Negative (Negative); Ketones,Urine Negative (Negative); Leukocyte Esterase,Urine Negative (Negative); PH,Urine 6.0 (5.0-8.5); Protein,Urine Negative (Negative); Specific Gravity, Urine 1.020 (1.005-1.030); Urobilinogen,Urine 0.2 EU/dl (0.2)
--- NOTE | 2025-02-13 22:32 | CT_ITS ---
PROCEDURE INFORMATION: Exam: CT Abdomen Without Contrast Exam date and time: 02/13/2025 11:49 PM Age: 44 years old Clinical indication: Abdominal pain; Additional info: Concern for renal stone TECHNIQUE: Imaging protocol: Computed tomography of the abdomen without contrast. Radiation optimization: All CT scans at this facility use at least one of these dose optimization techniques: automated exposure control; mA and/or kV adjustment per patient size (includes targeted exams where dose is matched to clinical indication); or iterative reconstruction. COMPARISON: CT ABDOMEN PELVIS WO CON 01/24/2025 11:17 PM FINDINGS: Liver: Normal. No mass. Gallbladder and biliary ducts: Normal. No calcified stones. No ductal dilation. Pancreas: Normal. No ductal dilation. Spleen: Normal. No splenomegaly. Adrenal glands: Normal. No mass. Kidneys: 4 mm calculi at the right ureterovesicular junction with mild hydronephrosis, hydroureter and perinephric/periureteral inflammatory changes. Stomach and bowel: Visualized stomach and bowel are unremarkable. No obstruction. No mucosal thickening. Appendix: Normal appendix. Intraperitoneal space: Unremarkable. No free air. No significant fluid collection. Vasculature: Unremarkable. No abdominal aortic aneurysm. Lymph nodes: Unremarkable. No enlarged lymph nodes. Reproductive: Hysterectomy. Normal left ovary. Right ovary not visualized. Bones/joints: Unremarkable. No acute fracture. No dislocation. Soft tissues: Unremarkable. IMPRESSION: 4 mm calculi at the right ureterovesicular junction with mild hydronephrosis, hydroureter and perinephric/periureteral inflammatory changes.
[2025-02-13 22:45] LABS: Bacteria,Urine 1+ /lpf
[2025-02-13 22:46] LABS: Hematocrit 34.5 % (37.0-47.0); Hemoglobin 11.4 g/dL (12.2-16.2); Immature Granulocytes % 1.5 %; Mean Corpuscular HGB Conc 33.0 g/dL (31.8-35.4); Mean Corpuscular Hemoglobin 28.0 pg (27.0-31.2); Mean Corpuscular Volume 84.8 fl (81-99); Nucleated Red Blood Cells % 0 %; Platelet Count 320 K/mm3 (142-424); Red Blood Count 4.07 M/mm3 (4.20-5.40); Red Cell Distribution Width-SD 41.1 fL; White Blood Count 10.9 K/mm3 (4.8-10.8)
[2025-02-13 22:53] LABS: Albumin Level 3.7 g/dl (3.5-5.0); Chloride 107 mmol/L (98-107); Potassium 3.7 mmoL/L (3.5-5.1); Sodium 138 mmol/L (136-145)
[2025-02-13 22:56] LABS: Alanine Aminotransferase 23 U/L (12-78); Albumin/Globulin Ratio 1.4 (1.1-1.8); Alkaline Phosphatase 104 U/L (38-126); Anion Gap 11.7 mEq/L (5-15); Aspartate Amino Transferase 28 U/L (14-36); Bilirubin,Total 0.2 mg/dl (0.2-1.3); Blood Urea Nitrogen 18 mg/dl (7-17); Carbon Dioxide 23 mmol/L (22.0-30.0); Creatinine Clearance Estimated 69 mL/min (50-200); Creatinine,Serum 1.00 mg/dl (0.52-1.04); Estimated Glomerular Filt Rate 60 ml/min (>60); GFR (African American) 73 ML/MIN (>60); Globulin 2.6 g/dL (1.3-3.2); Total Protein,Serum 6.3 g/dl (6.3-8.2)
[2025-02-13 22:57] LABS: Calcium 9.1 mg/dl (8.4-10.2); Glucose 114 mg/dl (74-100)
[2025-02-13 23:04] LABS: HCG Qualitative, Serum Negative (Negative)
--- OUTSIDE RECORDS SUMMARY | 2025-02-13 23:13 | XMS_ITS | CCD ---
Author Organization Unknown Care Team Providers Care Development Editor Name Role Phone Unavailable Primary Care Provider Unavailabl e Unavailable Chronic Care Management Unavaila ble Summary Purpose DataExchange Insurance Providers Payer name Policy type / Coverage type Covered republican ID Effective Begin Date Effective End Date [facility] [id number] Unknown Unknown Family History Family History data not found Medication Administered No Medication Administered data Reason For Visit No Reason For Visit data Medical Equipment No Medical Equipment data Advance Directives No Advance Directive data
--- OUTSIDE RECORDS SUMMARY | 2025-02-13 23:14 | XMS_ITS | CCD ---
Author Organization Unknown Care Team Providers Care Honest John Rocket Crew Member Name Role Phone Unavailable Primary Care Provider Unavailabl e Unavailable Chronic Care Management Unavaila ble Summary Purpose DataExchange Insurance Providers Payer name Policy type / Coverage type Covered green party ID Effective Begin Date Effective End Date [facility] [id number] Unknown Unknown Family History Family History data not found Medication Administered No Medication Administered data Reason For Visit No Reason For Visit data Medical Equipment No Medical Equipment data Advance Directives No Advance Directive data
[2025-02-13] MEDS: LACTATED RINGERS 1000ML 1,000 ML 999 ML IV (23:56)
[2025-02-13] MEDS: ACETAMINOPHEN 500MG TAB 500 MG PO (23:57)
[2025-02-13] MEDS: KETOROLAC 15MG/ML VIAL 15 MG IV (23:57)
[2025-02-14 00:01] VITALS: BP 141/74; PULSE 94; O2SAT 98
[2025-02-14 00:31] VITALS: BP 120/71; PULSE 86; O2SAT 95
--- NOTE | 2025-02-14 00:33 | HMH.EDGENADL ---
Discharge Plan Disposition Patient Disposition: Home, Self-Care Condition: Good Prescriptions Prescriptions: New tamsulosin 0.4 mg capsule 0.4 mg PO DAILY Qty: 14 0RF ketorolac 10 mg tablet 10 mg PO Q8H 5 Days Qty: 15 0RF No Action tamsulosin 0.4 mg capsule 0.4 mg PO HS Qty: 10 0RF hydrocodone-acetaminophen 5-325 mg tablet 1 tab PO Q6H PRN (Reason: pain (scale score 7-10)) Qty: 10 0RF ondansetron 4 mg tablet,disintegrating 4 mg PO Q6H PRN (Reason: nausea and vomiting) Qty: 10 0RF fluoxetine 10 mg Tablet 10 mg PO HS propranolol 10 mg Tablet 10 mg PO BID lorazepam 0.5 mg Tablet 0.5 mg PO BIDP PRN (Reason: Anxiety) Oxtellar XR 300 mg Tablet Extended Release 24 Hr 300 mg PO HS Rx Instructions: must be taken on empty stomach; no food at least 2 hrs before or 1 hr after dose Oxtellar XR 600 mg Tablet Extended Release 24 Hr 1,200 mg PO HS Rx Instructions: must be taken on empty stomach; no food at least 2 hrs before or 1 hr after dose montelukast 10 mg tablet 10 mg PO PM Patient Comments: TAKE 1 TABLET BY MOUTH NIGHTLY albuterol sulfate 90 mcg/actuation HFA aerosol inhaler 2 puff INHALATION Q6HP PRN (Reason: Shortness Of Breath) Patient Comments: TAKE 2 PUFFS BY MOUTH EVERY 6 HOURS NEEDED FOR WHEEZE budesonide-formoterol [Symbicort] 160-4.5 mcg/actuation HFA aerosol inhaler 2 puff INHALATION BID Patient Comments: INHALE 2 PUFFS INTO THE LUNGS 2 TIMES DAILY atorvastatin 20 mg Tablet 20 mg PO HS 30 Days Qty: 30 0RF oxcarbazepine 300 mg Tablet 1,500 mg PO HS 30 Days Qty: 150 0RF aspirin 81 mg Tablet,Delayed Release (Dr/Ec) 81 mg PO DAILY 30 Days Qty: 30 0RF tramadol 50 mg Tablet 50 mg PO Q6HP PRN (Reason: Moderate To Severe Pain) 3 Days Qty: 12 0RF nicotine 21 mg/24 hr Patch 24 Hour 21 mg transdermal DAILY 30 Days Qty: 30 0RF ipratropium-albuterol 0.5 mg-3 mg(2.5 mg base)/3 mL Solution For Nebulization 3 ml inhalation Q4HP PRN (Reason: Shortness Of Breath) 30 Days Qty: 120 0RF azithromycin 250 mg Tablet 500 mg PO 2100 1 Days Qty: 2 0RF prednisone 20 mg Tablet 40 mg PO DAILY 2 Days Qty: 4 0RF amoxicillin-pot clavulanate 500-125 mg Tablet 1 ea PO TID 4 Days Qty: 12 0RF pantoprazole 20 mg tablet,delayed release (DR/EC) 20 mg PO DAILY Qty: 30 0RF cefdinir 300 mg capsule 300 mg PO BID 7 Days Qty: 14 0RF lorazepam [Ativan] 0.5 mg tablet 0.5 mg PO TID PRN (Reason: anxiety) 3 Days Qty: 9 0RF acetaminophen 500 mg tablet 1,000 mg PO Q8H PRN (Reason: pain) Qty: 60 0RF ibuprofen 800 mg tablet 800 mg PO Q8H PRN (Reason: pain) Qty: 30 0RF Referrals Follow up/Referrals: Dede Meredith APRN [Primary Care Provider, Medical] - See instructions Activity Restrictions/Add. Instructions Additional Instructions/Restrictions: Please take Toradol for pain and take Flomax to assist with passage of the stone. If you have any new or worsening symptoms please return. Clinical Impressions Clinical Impression: Calculus of distal right ureter Instructions Patient Instructions: Kidney Stones -- Adult Print Language Print Language: [place] Citizen Discharge ED Provider: Lino Quintana Adult HPI General Chief complaint: Urogenital-Female Stated complaint: possible kidney stone Time Seen by Provider: 02/13/25 22:23 Mode of Arrival: EMS Source of Information: Patient and EMS Description of Symptoms (Recalled from ER Triage Doc. by RN): PT brought to the ED for evaluation of Kidneys Stones. PT stated she has been in pain x2 days. Stated she has pain in her whole back that goes around to my lower right belly to my urethra . PT stated she stopped a urinary med last week because she thought the s/s had improved. PT received 100 mcg of Fentanyl on EMS History of Present Illness HPI narrative: This is a 44-year-old female patient who is presented to the emergency department today for evaluation of right-sided flank pain. Patient states he has a history of recurrent kidney stones. This feels like her prior kidney stones. She has not had any fevers. She has had some dysuria as well as some hematuria and urinary frequency. She has not had any nausea, vomiting, or diarrhea. She has not taken any pain for this at home. She has not had any symptoms of urinary retention. Related Data Home Medications ?Medication ?Instructions ?Recorded ?Confirmed albuterol sulfate 90 mcg/actuation 2 puff inhalation Q6HP PRN 09/12/22 09/12/22 aerosol inhaler Shortness Of Breath budesonide-formoterol HFA 160 2 puff inhalation BID Breathing 09/12/22 09/12/22 mcg-4.5 mcg/actuation aerosol problems inhaler (Symbicort) fluoxetine 10 mg tablet 10 mg PO HS Anxiety 09/12/22 09/13/22 lorazepam 0.5 mg tablet 0.5 mg PO BIDP PRN Anxiety 09/12/22 09/12/22 montelukast 10 mg tablet 10 mg PO PM Allergy symptoms 09/12/22 09/12/22 oxcarbazepine 300 mg 300 mg PO HS seizures 09/12/22 09/13/22 tablet,extended release 24 hr (Oxtellar XR) oxcarbazepine 600 mg 1,200 mg PO HS seizures 09/12/22 09/13/22 tablet,extended release 24 hr (Oxtellar XR) propranolol 10 mg tablet 10 mg PO BID anxiety 09/12/22 09/12/22 Previous Rx's ?Medication ?Instructions ?Recorded amoxicillin 500 mg-potassium 1 ea PO TID 4 days #12 tabs 09/14/22 clavulanate 125 mg tablet aspirin 81 mg tablet,delayed 81 mg PO DAILY 30 days #30 tabs 09/14/22 release atorvastatin 20 mg tablet 20 mg PO HS 30 days #30 tabs 09/14/22 azithromycin 250 mg tablet 500 mg (2 x 250 mg) PO 2100 1 day 09/14/22 #2 tabs ipratropium 0.5 mg-albuterol 3 mg 3 ml inhalation Q4HP PRN Shortness 09/14/22 (2.5 mg base)/3 mL nebulization Of Breath 30 days #120 ea soln nicotine 21 mg/24 hr daily 21 mg transdermal DAILY 30 days 09/14/22 transdermal patch #30 ea oxcarbazepine 300 mg tablet 1,500 mg (5 x 300 mg) PO HS 30 09/14/22 days #150 tabs prednisone 20 mg tablet 40 mg (2 x 20 mg) PO DAILY 2 days 09/14/22 #4 tabs tramadol 50 mg tablet 50 mg PO Q6HP PRN Moderate To 09/14/22 Severe Pain 3 days #12 tabs pantoprazole 20 mg tablet,delayed 20 mg PO DAILY #30 tabs 08/29/23 release cefdinir 300 mg capsule 300 mg PO BID 7 days #14 caps 11/08/23 lorazepam 0.5 mg tablet (Ativan) 0.5 mg PO TID PRN anxiety 3 days 09/08/24 #9 tabs hydrocodone 5 mg-acetaminophen 325 1 tab PO Q6H PRN pain (scale score 01/23/25 mg tablet 7-10) #10 tabs ondansetron 4 mg disintegrating 4 mg PO Q6H PRN nausea and 01/23/25 tablet vomiting #10 tabs tamsulosin 0.4 mg capsule 0.4 mg PO HS #10 caps 01/23/25 acetaminophen 500 mg tablet 1,000 mg (2 x 500 mg) PO Q8H PRN 01/25/25 pain #60 tabs ibuprofen 800 mg tablet 800 mg PO Q8H PRN pain #30 tabs 01/25/25 ketorolac 10 mg tablet 10 mg PO Q8H 5 days #15 tabs 02/14/25 tamsulosin 0.4 mg capsule 0.4 mg PO DAILY #14 caps 02/14/25 Allergies Allergy/AdvReac Type Severity Reaction Status Date / Time doxycycline (DOXYCYCLINE) Allergy Unknown Unknown Verified 09/12/22 09:19 allergy reaction latex (LATEX) Allergy Unknown Unknown Verified 09/12/22 09:19 allergy reaction sulfamethoxazole (From Allergy Unknown Unknown Verified 09/12/22 09:19 BACTRIM) allergy reaction trimethoprim (From BACTRIM) Allergy Unknown Unknown Verified 09/12/22 09:19 allergy reaction PFSH PFSH Disclaimer: The information contained in this section may have been updated after the patient was seen, as this information can be updated by other users. Medical History (Updated 02/14/25 @ 00:45 by Lino Quintana DO) Acute respiratory failure with hypoxia COPD (chronic obstructive pulmonary disease) Shortness of Breath Anxiety disorder Depression Seizure disorder Epileptic seizure Generalized seizure Polyhydramnios affecting in third trimester Surgical History (Updated 09/18/22 @ 00:00 by Trini Quesada) H/O brain surgery Family History (Updated 09/12/22 @ 09:09 by Emily Hernandez APRN) Father Hypertension Social History (Updated 09/12/22 @ 09:09 by Emily Hernandez APRN) Smoking Status: Never smoker how long ago did patient quit smokin days ago alcohol intake: never substance use type: denies use current occupational status: employed Travel in the last 8 weeks?: None adopted: No caregiver/support person: No foster care: No household members: spouse and children housing: apartment lives independently: Yes marital status: number of children: 1 education level: college service: No mcc: No current occupational exposures/hazards: No pets and animals: No sexually active: Yes Have you lived/traveled outside US in past 30 days?: No Contact w/someone who lives/traveled outside US past 30 days?: No Exposure to someone with infectious disease in past 14 days?: No Do you have a fever (greater than 100.4 F or 38 C)?: No Have you tested positive for COVID-19?: No Exposed to someone with COVID-19 in past 14 days?: No Do you have a sore throat?: No Do you have a cough?: No Do you have any weakness?: No Do you have any diarrhea?: No Are you experiencing any unusual bleeding?: No Do you have any muscle aches/pain?: No Do you have any abdominal pain?: No Are you experiencing loss of taste or smell?: No Other Medical History Have you received the Flu Vaccine for this season: No Have you received the Pneumonia Vaccine: No ROS Obtained: Yes Systems reviewed as appropriate & no additional complaints except as documented Physical Exam General General appearance: other (See MDM) Respiratory Respiratory exam: Present other (See MDM) Cardiovascular Cardiovascular exam: Present other (See MDM) Neurological Exam Neurological exam: Present other (See MDM) Medical Decision Making Medical Records Medical records reviewed: Yes I reviewed the patient's medical records. Screening: Per USPSTF and CDC recommendations, given the prevalence of disease in our region, it is our hospital?s policy to screen for HIV and viral Hepatitis for all patients aged 18 and over and those with ongoing risk factors. Rudy Inquiry Pt receiving controlled substance: No Rudy was queried for this patient: No Vital Signs: 02/13/25 21:59 02/14/25 00:01 Temperature 98.1 F Temperature Source Oral Pulse Rate 94 H Pulse Rate [Right] 105 H Respiratory Rate 16 Blood Pressure 141/74 H Blood Pressure [Right Arm] 152/88 H Blood Pressure Mean [Right Arm] 109 02 Sat by Pulse Oximetry 96 98 Oxygen Delivery Method Room Air Lab Data Lab Results 02/13/25 22:02: Urine Color Yellow, Urine Appearance Sl cloudy, Urine pH 6.0, Ur Specific [place] 1.020, Urine Protein Negative, Urine Glucose (UA) Negative, Urine Ketones Negative, Urine Blood 1+ A, Urine Nitrate Negative, Urine Bilirubin Negative, Urine Urobilinogen 0.2, Ur Leukocyte Esterase Negative, Urine RBC 3-5, Urine WBC 5-10, Ur Squamous Epith Cells 10-20, Urine Bacteria 1+ 02/13/25 22:40: WBC 10.9 H, RBC 4.07 L, Hgb 11.4 L, Hct 34.5 L, MCV 84.8, MCH 28.0, MCHC 33.0, RDW 13.2, Plt Count 320, MPV 8.7, Neut % (Auto) 66.1, Lymph % (Auto) 18.7, [place] % (Auto) 10.1 H, Eos % (Auto) 3.0, Baso % (Auto) 0.6, Neut # (Auto) 7.2, Lymph # (Auto) 2.0, [place] # (Auto) 1.1 H, Eos # (Auto) 0.3, Baso # (Auto) 0.1, Sodium 138, Potassium 3.7, Chloride 107, Carbon Dioxide 23, Anion Gap 11.7, BUN 18 H, Creatinine 1.00, Estimated Creat Clear 69, Estimated GFR 60, Est GFR ( Amer) 73, Glucose 114 H, Calcium 9.1, Total Bilirubin 0.2, AST 28, ALT 23, Alkaline Phosphatase 104, Total Protein 6.3, Albumin 3.7, Globulin 2.6, Albumin/Globulin Ratio 1.4, Serum HCG, Qual Negative 02/13/25 22:40 02/13/25 22:40 Orders (Tests/Meds): ED MEDICATIONS Generic Name Dose Route Start Last Admin Trade Name Freq PRN Reason Stop Dose Admin Lactated Ringer's 1,000 mls @ 999 mls/hr 02/13/25 23:42 02/13/25 23:56 Lactated Ringer's 1000 Ml Bag IV 02/14/25 00:42 999 mls/hr .Q1H1M ONE Administration Discontinued Medications Generic Name Dose Route Start Last Admin Trade Name Eleuterio PRN Reason Stop Dose Admin Acetaminophen 500 mg 02/13/25 23:42 02/13/25 23:57 Acetaminophen 500mg Tab PO 02/13/25 23:43 500 mg ONCE ONE Administration Ketorolac Tromethamine 15 mg 02/13/25 23:42 02/13/25 23:57 Ketorolac 15mg/Ml Vial IV 02/13/25 23:43 15 mg ONCE ONE Administration ORDERS Category Date Time Status CT abdomen wo con Stat Cat Scan 02/13/25 22:32 Completed CBC w/Auto Diff [Complete Blood Count Auto Diff] Stat Lab 02/13/25 22:40 Completed CMP [Comprehensive Metabolic Panel] Stat Lab 02/13/25 22:40 Completed HCG Qualitative, Serum Stat Lab 02/13/25 22:40 Completed UA [Urinalysis and Microscopic] Stat Lab 02/13/25 22:02 Completed Medical Decision Narrative: In summary, this is a 44-year-old female patient who is presenting to the emergency department today for evaluation of right-sided flank pain. She is also having urinary symptoms including hematuria and dysuria as well as urinary frequency. Comorbidities include past medical history of recurrent kidney stones. On initial evaluation of the patient they were resting comfortably in no acute distress and nontoxic in appearance. They are hemodynamically stable, saturating well room air, and are neurologically intact. On physical examination the patient she was mentating appropriately with a GCS of 15. Abdomen is soft and nontender. Heart lungs clear to auscultation bilaterally. She does have right-sided CVA tenderness to palpation. Interestingly, she also has mild left-sided CVA tenderness to palpation. She is afebrile and nontoxic. Differential diagnosis includes for lithiasis, ureterolithiasis, urinary tract infection, pyelonephritis, among others. Workup was initiated with hematologic labs as well as a CT scan of the abdomen and pelvis without contrast. We have treated the patient with Toradol as well as 1 L of IV fluids. Labs were personally interpreted by me and demonstrate no actionable abnormalities. Urine does show 1+ blood with no leukocyte esterase or nitrates. She has no evidence of acute kidney injury. CT scan of the abdomen pelvis was personally interpreted by me demonstrates a right-sided ureteral calculus. Official radiology read is in agreement and states that this is a 4 mm calculus at the right ureterovesicular junction with mild hydronephrosis. On repeat reassessment the patient her pain is controlled. We will discharge her home with a prescription for Toradol as well as Flomax. We have administered Flomax to the patient while she was in the emergency department as well. At this time all questions been answered and all parties are agreeable with the decision to discharge home. Critical Care Critical Care Time Critical Care Time: No
[2025-02-14] MEDS: TAMSULOSIN 0.4MG CAPSULE 0.4 MG PO (00:47)
[2025-02-14 00:53] VITALS: BP 120/71; PULSE 62; RESP 18; TEMP 36.6; O2SAT 97
== END 2025-02-14 00:57 | disposition home or self-care (01) ==
PROVIDERS: Emergency Provider Student in an Organized Health Care Education/Training Program; PCP Nurse Practitioner
DX: N13.0 Hydronephrosis with ureteropelvic junction obstruction (principal); N13.4 Hydroureter; R10.31 Right lower quadrant pain; R30.0 Dysuria; R35.0 Frequency of micturition
CPT/HCPCS: 74150; 80053; 81001; 84703; 85025; 96361; 96374; 99284; J1885; J7120

== ENCOUNTER 2025-05-14 18:05 | Emergency (ER) | payer MEDICARE, MEDICAID, SELFPAY ==
--- OUTSIDE RECORDS SUMMARY | 2025-04-01 10:30 | XMS_ITS | Encounter Summary ---
Author Organization [place] [address] Care Team Providers Care Cisco Network Architect Name Role Phone Dede Meredith APRN Primary Care Provider [phone] Encounter Details Date Type Department Care Team (Late st Contact Info) Description 04/01/2025 11:30 AM EDT Telemedicine [facility] [address] [place] [id number] Dede Meredith APRN [address] [place] [address] Acute vaginitis (Primary Dx); Grief at loss of child; Generalized anxiety disorder; Grief reaction; BPV (benign positional vertigo), unspecified laterality Social History Tobacco Use Types Packs/Day Years [...] Date Recorded PHQ-2 Total Score 2 12/31/2024 [facility] [place] of Occupat ional Health - Occupational Stress [...] Filled Start Date End Date meclizine (ANTIVERT) 25 mg Oral TabletIndications: BPV (benign positional vertigo), unspecified laterality Take 1 Tablet by mouth 3 times daily as needed for Dizziness. vertigo prn 30 Tablet 1 04/01/2025 LORazepam (ATIVAN) 0.5 mg Oral TabletIndications: Grief at loss of child,Generalized anxiety disorder,Grief reaction Take 1 Tablet by mouth every 8 hours as needed for Anxiety. 90 Tablet 04/02/2025 5 metroNIDAZOLE (FLAGYL) 500 mg Oral TabletIndications: Acute vaginitis Take 1 Tablet by mouth 2 times daily for 7 days. 14 Tablet 04/01/2025 5 documented in this encounter Progress Notes * Dede Meredith APRN - 04/01/2025 11:30 AM EDTAssociated Problem(s): Grief at loss of child Orders: LORazepam (ATIVAN) 0.5 mg Oral Tablet; Take 1 Tablet by mouth every 8 hours as needed for Anxiety. * Dede Meredith APRN - 04/01/2025 11:30 AM EDTAssociated Problem(s): Generalized anxiety disorder Continue lowest tolerated dose of ativan to help manage sx. Med mgmt reviewed and updated. Orders: LORazepam (ATIVAN) 0.5 mg Oral Tablet; Take 1 Tablet by mouth every 8 hours as needed for Anxiety. * Dede Meredith APRN - 04/01/2025 11:30 AM EDT Assessment & Plan Acute vaginitis -meds as directed -reviewed home care and sx care Orders: metroNIDAZOLE (FLAGYL) 500 mg Oral Tablet; Take 1 Tablet by mouth 2 times daily for 7 days. Grief at loss of child Orders: LORazepam (ATIVAN) 0.5 mg Oral Tablet; Take 1 Tablet by mouth every 8 hours as needed for Anxiety. Generalized anxiety disorder Continue lowest tolerated dose of ativan to help manage sx. Med mgmt reviewed and updated. Orders: LORazepam (ATIVAN) 0.5 mg Oral Tablet; Take 1 Tablet by mouth every 8 hours as needed for Anxiety. Grief reaction Orders: LORazepam (ATIVAN) 0.5 mg Oral Tablet; Take 1 Tablet by mouth every 8 hours as needed for Anxiety. BPV (benign positional vertigo), unspecified laterality Orders: meclizine (ANTIVERT) 25 mg Oral Tablet; Take 1 Tablet by mouth 3 times daily as needed for Dizziness. vertigo prn Progress Note: There were no vitals filed [...] a video visit does not replace a [id number]-[id number] exam and further services may be necessary. I advised the patient that we are conducting her video visit through our office in a private space on our secure network and this video visit is being conducted in accordance with [facility] telehealth/video visit regulations. Patient had no questions [...] COVID 19 infection complications / . HPI: Controlled Substance Common Conditions Interval Assessment: [...] substance flow sheet has been reviewed. Other concerns: Vaginal discharge, odor and itching, similar to episode two months ago, +BV Increasing vertigo sx. Review of Systems Constitutional: Negative for fever. HENT: Negative for congestion. Respiratory: Negative for cough, shortness of breath and wheezing. Cardiovascular: Negative for chest pain, palpitations and leg swelling. Genitourinary: Positive for vaginal discharge. Neurological: Positive for dizziness. OBJECTIVE: Physical Exam Constitutional: Appearance: She is obese. HENT: Head: Normocephalic. Pulmonary: Effort: Pulmonary effort is normal. Neurological: Mental Status: She is oriented to person, place, and time. documented in this encounter Plan of Treatment Upcoming Encounters Date Type Department Care Team (Late st Contact Info) Description 10/02/2025 10:25 AM EDT Office Visit [facility] [address] [facility] [address] [place] [id number] Vic Villarreal APRN [address] [place] [address] documented as of this encounter Goals Goal Patient Goal Type Associated Problems Recent Progress Patient-Stated? Author Maintain a healthy diet, exercise regularly and maintain an ideal body weight General No Mary Christy RMA Stay Tobacco Free Lifestyle No Mary Christy RMA documented as of this encounter Visit Diagnoses Diagnosis Acute vaginitis- Primary Vaginitis and vulvovaginitis, unspecified Grief at loss of child Adjustment disorder with depressed mood Generalized anxiety disorder Grief reaction Adjustment disorder with depressed mood BPV (benign positional vertigo), unspecified laterality documented in this encounter Discontinued Medications Medication Sig Discontinue Reason Start Date End Da te LORazepam (ATIVAN) 0.5 mg Oral TabletIndications:Grief at loss of child,Generalized anxiety disorder,Grief reaction Take 1 Tablet by mouth every 8 hours as needed for Anxiety. Reorder 03/05/2025 04/01/2025 meclizine (ANTIVERT) 25 mg Oral Tablet Take by mouth as needed for Dizziness. vertigo prn Reorder 04/01/2025 documented as of this encounter Additional Health Concerns Assessment Noted Time PHQ-9 Depression Total Score: 2 01/01/20 11:35 AM EDT PHQ-2 Depression Total Score: 2 01/01/20 11:35 AM EDT documented as of this encounter Care Teams Cisco Network Architect Relationship Specialty Start Date End Date Dede Meredith APRN [address] [place], [place] [address] PCP - General Nurse Practitioner-Family 11/17/20 documented as of this encounter
--- OUTSIDE RECORDS SUMMARY | 2025-04-10 14:15 | XMS_ITS | Encounter Summary ---
Author Organization [place] [address] Care Team Providers Care Ferry Hand Name Role Phone Dede Meredith APRN Primary Care Provider Love Plummer Unavailable Unavailable Colleen Maloney STENO POOL SUPERVISOR Unavailable Tobias starkey Encounter Details Date Type Department Care Team (Late st Contact Info) Description 04/10/2025 3:15 PM EDT Telemedicine SEP [facility] [address] [place] [address] Dede Meredith APRN [address] [place] [id number] Generalized anxiety disorder (Primary Dx) Social History Tobacco Use Types [...] 12/31/2024 [facility] [place] of Occupat ional Health - Occupational Stress [...] of Assessment Author No 12/31/2024 11:34 AM Deed Zaidi APRN * Is the person blind [...] Filled Start Date End Date DULoxetine (CYMBALTA) 60 mg Oral Capsule, Delayed Release(E.C.)Indic ations:Generalized anxiety disorder Take 1 Capsule by mouth daily. 30 Capsule 3 04/10/2025 documented in this encounter Progress Notes * Dede Meredith APRN - 04/10/2025 3:15 PM EDTAssociated Problem(s): Generalized anxiety disorder Goal: achieve mental health wellness where ADLs, family, social and work relationships are optimal Depression Screen Score: Addressed: - Current stressors contributing to sx explored and discussed Compliance: - compliant with medications - did not meet goals outlined in previous treatment plan Advice: - remain compliant with follow up and medications Medication Management: - medication management decisions took place at today's visit (see orders) Orders: DULoxetine (CYMBALTA) 60 mg Oral Capsule, Delayed Release(E.C.); Take 1 Capsule by mouth daily. * Dede Meredith APRN - 04/10/2025 3:15 PM EDT Assessment & Plan Generalized anxiety disorder Goal: achieve mental health wellness where ADLs, family, social and work relationships are optimal Depression Screen Score: Addressed: - Current stressors contributing to sx explored and discussed Compliance: - compliant with medications - did not meet goals outlined in previous treatment plan Advice: - remain compliant with follow up and medications Medication Management: - medication management decisions took place at today's visit (see orders) Orders: DULoxetine (CYMBALTA) 60 mg Oral Capsule, Delayed Release(E.C.); Take 1 Capsule by mouth daily. Progress Note: There were no vitals filed [...] a video visit does not replace a mwuz-dx-wdbq exam and further services may be necessary. I advised the patient that we are conducting her video visit through our office in a private space on our secure network and this video visit is being conducted in accordance with [facility] telehealth/video visit regulations. Patient had no questions [...] COVID 19 infection complications / . HPI: Increasing anxiety over the past month. Continues to grief the loss of her son. Youngest daughter is very hyper, impulsive and destructive and that has been taxing and overwhelming. Doesn't like to leave the home Car is broke down. Lost her disability - she is filing an appeal. Struggling with hyperfocusing > checked back door three different times to make sure it was locked, likes objects set up in a certain way She is on cymbalta once daily and lorazepam three times daily. When she takes the lorazepam it doeshelp. Review of Systems Constitutional: Negative for fever. HENT: Negative for congestion. Respiratory: Negative for cough and wheezing. Cardiovascular: Negative for chest pain and palpitations. Psychiatric/Behavioral: Positive for decreased concentration, dysphoric mood and sleep disturbance. OBJECTIVE: Physical Exam Pulmonary: Effort: Pulmonary effort is normal. Neurological: Mental Status: She is alert and oriented to person, place, and time. Psychiatric: Mood and Affect: Mood normal. documented in this encounter Plan of Treatment Upcoming Encounters Date Type Department Care Team (Late st Contact Info) Description 10/02/2025 10:25 AM EDT Office Visit [facility] [address] [place], [place] [id number] Vic Villarreal APRN [address] [place] [address] documented as of this encounter Goals Goal Patient Goal Type Associated Problems Recent Progress Patient-Stated? Author Maintain a healthy diet, exercise regularly and maintain an ideal body weight General No Mary Christy, RMNorma Stay Tobacco Free Lifestyle No Mary Christy RMA documented as of this encounter Visit Diagnoses Diagnosis Generalized anxiety disorder- Primary documented in this encounter Discontinued Medications Medication Sig Discontinue Reason Start Date End Da te DULoxetine (CYMBALTA) 30 mg Oral Capsule, Delayed Release(E.C.)Indications :Moderate episode of recurrent major depressive disorder (HCC) Take 1 Capsule by mouth daily. Dose adjustment 02/18/2025 04/10/2025 documented as of this encounter Additional Health Concerns Assessment Noted Time PHQ-9 Depression Total Score: 2 01/01/20 11:35 AM EDT PHQ-2 Depression Total Score: 2 01/01/20 11:35 AM EDT documented as of this encounter Care Teams Ferry Hand Relationship Specialty Start Date End Date Dede Meredith APRN [address] [place] [address] PCP - General Nurse Practitioner-Family 11/17/20 Love Plummer Care Management Land Economist 04/07/25 05/04/25 Colleen Maloney, STENO POOL SUPERVISOR Fun House Attendant 04/08/25 documented as of this encounter
--- OUTSIDE RECORDS SUMMARY | 2025-04-24 22:59 | XMS_ITS | Encounter Summary ---
Author Organization [place] [address] Care Team Providers Care Tool Crib Clerk Name Role Phone Dede Meredith APRN Primary Care Provider [phone] Love Plummer Unavailable Unavailable Colleen Maloney COMPANY MARKER Unavailable Tobias starkey Encounter Details Date Type Department Care Team (Late st Contact Info) Description 04/27/2025 11:59 PM EST Anesthesia Event [facility] [address] [place] [address] Carmelo Schneider APRN [address] [place], [place] [id number] Anesthesia Record Procedure Summary Procedure Name Responsible Anesthesiologist Anesthesia Start Time Anesthesia Stop Time Events No events on file. Meds * Agents No agents on file. * Blood No blood administrations on file. Lines, Drains, and Airways No LDAs on file. documented in this encounter Social History Tobacco Use Types Packs/Day Years [...] Date Recorded PHQ-2 Total Score 2 12/31/2024 [facility] - Occupational Stress Questionnaire Answer Date Recorded [...] documented in this encounter Miscellaneous Notes * PAT Pre Evaluation for Anesthesia - Carmelo Schneider APRN - 04/24/2025 2:24 PM EDT Pre-Anesthesia Evaluation Note Patient Name: Indira Carnes Sex: female Patient : 1980 Age: 44 y.o. Patient Date: April 24, 2025 COLONOSCOPY Anesthesia Evaluation Previous anesthesia. History of anesthetic complications: Motion Sickness. 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 Anesthesia Plan Anesthesia Plan: MAC Chart Reviewed documented in this encounter Plan of Treatment Upcoming Encounters Date Type Department Care Team (Late st Contact Info) Description 10/02/2025 10:25 AM EDT Office Visit [facility] [address] [place], [place] [id number] Vic Villarreal APRN [address] [place], [place] [phone] documented as of this encounter Goals Goal [...] documented as of this encounter Care Teams Tool Crib Clerk Relationship Specialty Start Date End Date Dede Meredith APRN [address] [place] [address] PCP - General Nurse Practitioner-Family 11/17/20 Love Plummer Care Management Information Resources Director 04/07/25 05/04/25 Colleen Maloney, COMPANY MARKER Senior Assistant Manager 04/08/25 documented as of this encounter
--- OUTSIDE RECORDS SUMMARY | 2025-04-27 13:30 | XMS_ITS | Encounter Summary ---
Author Organization [place] [address] Care Team Providers Care Battery Container Tester Name Role Phone Dede Meredith APRN Primary Care Provider Love Plummer Unavailable Unavailable Colleen Maloney VAC PRESS OPERATOR Unavailable Unavai lable Reason for Visit * Reason Comments Emesis Unable to keep anyth ing down including her medication Diarrhea x3 days Shaking Encounter Details Date Type Department Care Team (Latest Contact Info) Description 04/27/2025 1:30 PM EST Office Visit [facility] [place] [address] Sandip Denton MD [address] [place] [address] [place] [address] Viral gastroenteritis (Primary Dx) Social History [...] Date Recorded PHQ-2 Total Score 2 12/31/2024 [facility] of Occupat ional Health - Occupational Stress [...] 3-day history of nausea vomiting and diarrhea. Reading very fatigued and worn out. She is [...] EDT Office Visit [facility] [address] [facility] [address] [place] [address] Vic Villarreal, TRUCK RENTAL SERVICE ATTENDANT [address] [place] [address] documented as of this encounter Goals Goal [...] documented as of this encounter Care Teams Battery Container Tester Relationship Specialty Start Date End Date Dede Meredith APRN [address] [place], [place] [address] PCP - General Nurse Practitioner-Family 11/17/20 Love Plummer Care Management Dry House Attendant 04/07/25 05/04/25 Colleen Maloney, VAC PRESS OPERATOR Cryogenic Transport Driver 04/08/25 documented as of this encounter
--- OUTSIDE RECORDS SUMMARY | 2025-05-05 14:30 | XMS_ITS | Encounter Summary ---
Author Organization [place] [address] Care Team Providers Care Automatic Door Mechanic Name Role Phone Dede Meredith APRN Primary Care Provider Colleen Maloney COTTON CANDY MAKER Unavailable Unavai lable Reason for Visit * Reason Comments Injections Encounter Details Date Type Department Care Team (Latest Contact Info) Description 05/05/2025 2:30 PM EST Clinical Support [facility] [place] [address] [place] [address] Dede Meredith APRN [address] [place] [id number] Other migraine with status migrainosus, intractable (Primary [...] Date Recorded PHQ-2 Total Score 2 12/31/2024 [facility] [place] of Occupat ional Health - Occupational Stress [...] EDT Office Visit [facility] [address] [facility] [address] [place] [address] Vic Villarreal APRN [address] [facility] [address] [place] [address] documented as of this encounter Goals Goal [...] documented as of this encounter Care Teams Automatic Door Mechanic Relationship Specialty Start Date End Date Dede Meredith APRN [address] [place] [address] PCP - General Nurse Practitioner-Family 11/17/20 Colleen Maloney, COTTON CANDY MAKER Pre Fabricator 04/08/25 documented as of this encounter
--- OUTSIDE RECORDS SUMMARY | 2025-05-11 11:30 | XMS_ITS | Encounter Summary ---
Author Organization [place] [address] Care Team Providers Care Service Order Dispatcher Chief Name Role Phone ViriDede morales TRINITY Primary Care Provider Colleen Maloney HAIR DRYER Unavailable Unavai lable Reason for Referral * EEG (Routine) - Pending Review Specialty Diagnoses / Procedures Referred By Carolyn abreu Referred To Contact Radiology Diagnoses Focal epilepsy (HCC) Procedures EEG UNATTENDED HOME PERFORMED 72 HRS Vic Villarreal APRN [address] [place] [address] Phone: tel: fax: Referral ID Status Reason Start Date Expiration Date V isits Requested Visits Authorized [id number] Pending Review 02/11/2025 02/11/2026 1 1 Reason for Visit * EEG (Routine) - Pending Review Specialty Diagnoses / Procedures Referred By Contnawaf abreu Referred To Contact Radiology Diagnoses Focal epilepsy (HCC) Procedures EEG UNATTENDED HOME PERFORMED 72 HRS Vic Villarreal APRN [address] [place] [address] Phone: tel: fax: Referral ID Status Reason Start Date Expiration Date V isits Requested Visits Authorized [id number] Pending Review 02/11/2025 02/11/2026 1 1 Encounter Details Date Type Department Care Team (Latest Contact Info) Description 05/11/2025 11:30 AM EST - 05/11/2025 11:59 PM [facility] Hospital Encounter [facility] [address] [place] [address] Vic Villarreal, OCCUPATIONAL HEALTH PROFESSIONAL [address] [place] [address] Focal epilepsy (HCC) Discharge Disposition: [...] Date Recorded PHQ-2 Total Score 2 12/31/2024 [facility] [place] of Occupat ional Health - Occupational Stress [...] 5 fluticasone propionate (FLONASE) 50 mcg/actuation Nasl [place], SuspensionIndication s:Seasonal allergic rhinitis, unspecified trigger 1 [place] by Nasal route daily. 1 Each 4 [...] EDT Office Visit [facility] [address] [facility] [address] [place] [address] Vic Villarreal APRN [address] [place] [address] Pending Results Name Type Priority Associated Diagnoses Date/Time EEG UNATTENDED HOME PERFORMED 72 HRS Imaging Cardiology Routine Focal epilepsy (HCC) 05/11/2025 11:38 AM EST Scheduled Orders Name Type Priority [...] documented as of this encounter Care Teams Service Order Dispatcher Chief Relationship Specialty Start Date End Date Dede Meredith APRN [address] [place], [place] [address] PCP - General Nurse Practitioner-Family 11/17/20 Colleen Maloney, HAIR DRYER Inventory Associate 04/08/25 documented as of this encounter
--- OUTSIDE RECORDS SUMMARY | 2025-05-13 08:45 | XMS_ITS | Encounter Summary ---
Author Organization [place] [address] Care Team Providers Care Pier Worker Name Role Phone Dede Meredith APRN Primary Care Provider Colleen Maloney CONSTRUCTION RIGGER Unavailable Unavai labdarío Encounter Details Date Type Department Care Team (Late st Contact Info) Description 05/13/2025 8:45 AM EST Telemedicine [facility] [address] [place] [id number] Dede Meredith APRN [address] [place] [address] Acute vaginitis (Primary Dx) Social History Tobacco [...] Date Recorded PHQ-2 Total Score 2 12/31/2024 [facility] [place] of Occupat ional Health - Occupational Stress [...] a video visit does not replace a [id number]-hw-gzwf exam and further services may be necessary. I advised the patient that we are conducting her video visit through our office in a private space on our secure network and this video visit is being conducted in accordance with [facility] telehealth/video visit regulations. Patient had no [...] EDT Office Visit [facility] [address] [facility] [address] [place] [address] Vic Villarreal APRN [address] [address] [address] [address] [place] [address] documented as of this encounter [...] documented as of this encounter Care Teams Pier Worker Relationship Specialty Start Date End Date Dede Meredith APRN [address] [place] [address] PCP - General Nurse Practitioner-Family 11/17/20 Colleen Maloney, CONSTRUCTION RIGGER Mine Development Engineer 04/08/25 documented as of this encounter
[2025-05-14 18:19] VITALS: BP 168/100; PULSE 61; RESP 18; TEMP 36.9; O2SAT 100; BMI 41.0
--- OUTSIDE RECORDS SUMMARY | 2025-05-14 18:37 | XMS_ITS | Encounter Summary ---
Author Organization [place] [address] Care Team Providers Care Sales Product Specialist Name Role Phone Dede Meredith APRN Primary Care Provider [phone] Love Plummer Unavailable Unavailable Colleen Maloney PRICE LISTER Unavailable Tobias starkey Reason for Visit * Reason Onset Date Comments CM- Telephonic Outreach 04/09/2025 Transportation 04/09/2025 CM - Contact Made 04/09/2025 Care Management - Chart Review 04/09/2025 Encounter Details Date Type Department Care Team (Late st Contact Info) Description 04/09/2025 Patient Outreach [facility] Managment [address] [place] [address] Love Plummer CM- Telephonic Outreach; Transportation; CM - Contact Made; Care Management - Chart Review Social History Tobacco Use Types Packs/Day Years [...] Date Recorded PHQ-2 Total Score 2 12/31/2024 [place] of Occupat ionvt Health - Occupational Stress Questionnaire Answer Date [...] documented in this encounter Progress Notes * Love Plummer - 05/05/2025 10:49 AM EST Care Management Bag Loader Machine Operator will no longer follow patient for transportation &/or social determinant of health resources. If additional resources are needed, please submit a new AMB Care Management referral for assistance. * Love Plummer - 04/09/2025 11:13 AM EDT Care Management Bag Loader Machine Operator ([facility]) Evaluation and Intervention Spoke with: patient Barriers addressed: Transportation Interventions: Encouraged patient to utilize existing transportation resources: [employer] Advised patient to schedule appointments to fit their transportation resource guidelines. Resources provided and reviewed during outreach: [employer] Service of the [facility] ([phone] or [phone]) [employer] Summary of outreach: patient states she does have transportation with [employer] but states she will be losing that insurance in a couple months and will then strictly have Medicaid. [facility] made [facility] aware that Medicaid will then be able to provide transportation once that happens. Patient would like [facility] to send contact number for Medicaid Transportation via [employer]. Next Steps: Patient will contact provided resources Outcome: Patient will contact CM Bag Loader Machine Operator if they have questions or any additional needs arise CM Bag Loader Machine Operator will close referral after 30 days if no additional patient contact documented in this encounter Plan of Treatment Upcoming Encounters Date Type Department Care Team (Late st Contact Info) Description 10/02/2025 10:25 AM EDT Office Visit [facility] [address] [place] [address] Vic Villarreal APRN [address] [place], [place] [id number] documented as of this encounter Goals Goal [...] documented as of this encounter Care Teams Sales Product Specialist Relationship Specialty Start Date End Date Dede Meredith [place] [address] PCP - General Nurse Practitioner-Family 11/17/20 Love Plummer Care Management Bag Loader Machine Operator 04/07/25 05/04/25 Colleen Maloney, PRICE LISTER Brancher 04/08/25 documented as of this encounter
--- OUTSIDE RECORDS SUMMARY | 2025-05-14 18:37 | XMS_ITS | Encounter Summary ---
Author Organization [place] [address] Care Team Providers Care Wildlife Technician Name Role Phone Dede Meredith APRN Primary Care Provider Encounter Details Date Type Department Care Team (Late Contact Info) Description 01/15/2025 Results Follow-Up [facility] [address] [place] [address] Dede Meredith APRN [address] [place] [address] VAGINITIS PANEL NAAT Social History Tobacco [...] Date Recorded PHQ-2 Total Score 2 12/31/2024 [facility] [place] of Occupat ional Health - Occupational Stress [...] [facility] [address] [place] [address] Vic Villarreal APRN [address] [facility] [address] [place] [address] documented as of this encounter [...] documented as of this encounter Care Teams Wildlife Technician Relationship Specialty Start Date End Date Dede Meredith [place] [address] [place] [address] PCP - General Nurse Practitioner-Family 11/17/20 documented as of this encounter
--- OUTSIDE RECORDS SUMMARY | 2025-05-14 18:37 | XMS_ITS | Clinical Summary ---
Author Organization [facility] Address [address] [place] [address] Phone Care Team Providers Care Cad Draftsman Name Role Phone Dede Meredith APRN Primary Care Provider [phone] Colleen Maloney DIRECTOR EMERGENCY Unavailable Unavai lable Allergies Active Allergy Reactions Criticality Noted Date Comments Hydromorphone Itching Low 04/27/2020 Doxycycline Other (See Comments) Medium 02/20/2013 'lilly esophagus Latex Hives High 02/20/2013 Lacosamide Rash Low 01/12/2025 Medications multivit-min/sandra us fumarate (MULTI VITAMIN ORAL) Take by mouth. A ctive fluticasone propionate (FLONASE) 50 mcg/actuation Nasl [place], SuspensionIndicati ons:Seasonal allergic rhinitis, unspecified trigger 1 [place] by Nasal route daily. 1 Each 024 Active ibuprofen (ADVIL;MOTRIN) 800 mg Oral TabletIndications: Patellar tendinitis of right knee Take 1 Tablet by mouth every 8 hours as needed for Pain. 90 Tablet 2 024 Active albuterol-ipratrop ium (DUO-NEB) 0.5 mg-3 mg(2.5 mg base)/3 mL Inhl Solution for Nebulization INHALE 3 ML EVERY 4 HOURS NEEDED FOR SHORTNESS OF BREATH FOR 30 DAYS 1 Each 1 024 Active montelukast (SINGULAIR) 10 mg Oral TabletIndications: Seasonal allergic rhinitis, unspecified trigger Take 1 Tablet by mouth nightly. 100 Tablet 025 Active hydrOXYzine (VISTARIL) 25 mg Oral CapsuleIndications :Generalized anxiety disorder Take 1 Capsule by mouth 3 times daily as needed. 30 Capsule 5 025 Active Additional Information Patient not taking.Reason: Therapy Completed, Reported on 04/27/2025 metFORMIN (GLUCOPHAGE XR) 500 mg Oral ER 24 hr tabletIndications: Prediabetes Take 1 Tablet by mouth daily (with breakfast). 90 Tablet 1 025 Active SUMAtriptan (IMITREX) 100 mg Oral Tablet Take 1 dose at migraine onset, may repeat once after 2 hours if pain persists (Max dose: 2/day, 4/week, 9/month) 9 Tablet 5 025 Active folic acid (FOLVITE) 1 mg Oral TabletIndications: Bilateral foot pain Take 1 Tablet by mouth daily. 30 Tablet 2 025 Active cyanocobalamin (VITAMIN B-12) 500 mcg Oral TabletIndications: Bilateral foot pain Take 1 Tablet by mouth daily. 90 Tablet 3 025 Active budesonide-glycopy r-formoterol (BREZTRI AEROSPHERE) 160-9-4.8 mcg/actuation Inhl HFA Aerosol InhalerIndications :Chronic bronchitis, unspecified chronic bronchitis type (HCC) Inhale 2 Puffs into the lungs 2 times daily. 10.7 g 2 025 Active omeprazole (PRILOSEC) 40 mg Oral Capsule, Delayed Release(E.C.)Indic ations:Gastroesoph ageal reflux disease without esophagitis Take 1 Capsule by mouth daily. 90 Capsule 3 025 Active sodium,potassium,m ag sulfates 17.5-3.13-1.6 gram Oral Recon Soln Take 6 oz by mouth 2 times daily. SUPREP: The first 6-ounce bottle is taken the evening before your colonoscopy and the second 6-ounce bottle is taken the morning of your colonoscopy. 354 mL 025 Active Additional Information Patient not taking.Reason: Therapy Completed (has appt NOV), Reported on 04/27/2025 nystatin (MYCOSTATIN) Top CreamIndications:Y east infection Apply topically 2 times daily. 30 g 2 025 Active Additional Information Patient not taking.Reason: Therapy Completed, Reported on 04/27/2025 zonisamide (ZONEGRAN) 100 mg Oral Capsule Take 1 Capsule by mouth nightly. 30 Capsule 5 025 Active nystatin (MYCOSTATIN) Top PowderIndications: Yeast dermatitis Apply topically 2 times daily. 60 g 1 025 Active Additional Information Patient not taking.Reason: Therapy Completed, Reported on 04/27/2025 atogepant (QULIPTA) 60 mg Oral Tablet Take 1 Tablet by mouth daily. 90 Tablet 1 025 Active oxyCODONE-acetamin ophen (PERCOCET) 5-325 mg Oral Tablet Take 1 Tablet by mouth every 4 hours as needed for Acute Pain > 3 Days Medically Necessary (R52). 12 Tablet 025 Active docusate sodium (COLACE) 100 mg Oral Capsule Take 1 Capsule by mouth 2 times daily as needed for Constipation. 60 Capsule 025 Active albuterol (PROVENTIL HFA;VENTOLIN HFA) 90 mcg/actuation Inhl HFA Aerosol InhalerIndications :Viral illness INHALE 2 PUFFS BY MOUTH EVERY 6 HOURS NEEDED FOR WHEEZE 6.7 Each 2 025 Active meclizine (ANTIVERT) 25 mg Oral TabletIndications: BPV (benign positional vertigo), unspecified laterality Take 1 Tablet by mouth 3 times daily as needed for Dizziness. vertigo prn 30 Tablet 1 025 Active DULoxetine (CYMBALTA) 60 mg Oral Capsule, Delayed Release(E.C.)Indic ations:Generalized anxiety disorder Take 1 Capsule by mouth daily. 30 Capsule 3 025 Active OXcarbazepine (TRILEPTAL) 150 mg Oral TabletIndications: Focal epilepsy (HCC) Take 1 Tablet by mouth 2 times daily. (To take along with 300 mg tablets for a dose of 750 mg twice daily) 60 Tablet 5 025 Active OXcarbazepine (TRILEPTAL) 300 mg Oral TabletIndications: Focal epilepsy (HCC) Take 2 Tablets by mouth 2 times daily. (To take along with 150 mg tablets for a dose of 750 mg twice daily) 120 Tablet 5 Active OXcarbazepine (TRILEPTAL) 150 mg Oral Tablet Take 1 Tablet by mouth 2 times daily. (To take along with 300 mg tablets for a dose of 750 mg twice daily) 60 Tablet 5 Active OXcarbazepine (TRILEPTAL) 300 mg Oral Tablet Take 2 Tablets by mouth 2 times daily. (To take along with 150 mg tablets for a dose of 750 mg twice daily) 120 Tablet 5 Active cycloSPORINE (RESTASIS) 0.05 % Opht Dropperette INSTILL 1 DROP INTO THE AFFECTED EYES EVERY 12 HOURS Active ondansetron (ZOFRAN-ODT) 4 mg Oral Tablet, Rapid DissolveIndication s:Viral gastroenteritis Dissolve 1 Tablet by mouth every 6 hours as needed for Nausea. 30 Tablet Active LORazepam (ATIVAN) 0.5 mg Oral TabletIndications: Grief at loss of child,Generalized anxiety disorder,Grief reaction Take 1 Tablet by mouth every 8 hours as needed for Anxiety. 90 Tablet Active fexofenadine (SHELTON) 180 mg Oral TabletIndications: Seasonal allergic rhinitis, unspecified trigger Take 1 Tablet by mouth daily. 90 Tablet 3 Active metroNIDAZOLE (FLAGYL) 500 mg Oral TabletIndications: Acute vaginitis Take 1 Tablet by mouth 2 times daily for 7 days. 14 Tablet 2024 Active OXcarbazepine (TRILEPTAL) 300 mg Oral Tablet Take 2 Tablets by mouth 2 times daily. (To take along with 150 mg tablets for a dose of 750 mg twice daily) 120 Tablet 5 2024 Discontinued(R eorder) OXcarbazepine (TRILEPTAL) 150 mg Oral Tablet Take 1 Tablet by mouth 2 times daily. (To take along with 300 mg tablets for a dose of 750 mg twice daily) 60 Tablet 5 025 2024 Discontinued(R eorder) ondansetron (ZOFRAN-ODT) 4 mg Oral Tablet, Rapid Dissolve Dissolve 1 Tablet by mouth every 6 hours as needed for Nausea. 30 Tablet 025 2024 Discontinued(R eorder) fluconazole (DIFLUCAN) 150 mg Oral TabletIndications: Dysuria Take one dose now and repeat when you finish the keflex. 2 Tablet 2024 Discontinued(C ancelled by ) LORazepam (ATIVAN) 0.5 mg Oral TabletIndications: Grief at loss of child,Generalized anxiety disorder,Grief reaction Take 1 Tablet by mouth every 8 hours as needed for Anxiety. 90 Tablet 2024 Discontinued fluconazole (DIFLUCAN) 150 mg Oral Tablet Take 1 Tablet by mouth once for 1 dose. 1 Tablet 1 025 2024 fluconazole (DIFLUCAN) 150 mg Oral TabletIndications: Acute vaginitis Take 1 Tablet by mouth once for 1 dose. 1 Tablet 2024 Hospital, Clinic, or Other Facility Administered Medication Ordered Dose Route Frequency Start Date End Date Status ketorolac (TORADOL) injection 30 mgIndications:Other migraine with status migrainosus, intractable 30 mg IM ONCE 05/05/2025 05/05/2025 Ended Active Problems Patient Care Coordination No te Formatting of this note migh t be different from the original. Care gap audit completed by Jolene Rincon RN on 01/16/2024. Problem Noted Date Diagnosed Date BPV (benign positional vertigo), unspecified lat erality 04/14/2025 Kidney stones 03/09/2025 Focal epilepsy 04/15/2024 Assessment & Plan (07/15/2024 [...] & Plan (04/15/2024 11:15 AM EDT): Orders: kjcnpkayva-ixlzekav-fustgexsja (BREZTRI AEROSPHERE) 160-9-4.8 mcg/actuation Inhl HFA Aerosol [...] prescription therefore I dispensed a sample of christian with aerochamber today. Encouraged albuterol use as needed for symptom relief. Rx for prednisone for acute on chronic sx. No indication for atb at this time. Chronic allergic rhinitis 08/03/2022 Overview (01/24/2023): On singulair/allergra Intolerance to flonase Referral to fabric worker foreman in past d/t recurrent sx. Assessment & Plan (04/15/2024 11:15 AM EDT): On singulair and zyrtec. Grief at loss of child 07/21/2022 Assessment & Plan (04/01/2025 11:54 AM EDT): Orders: LORazepam (ATIVAN) 0.5 mg Oral Tablet; Take 1 Tablet by mouth every 8 hours as needed for Anxiety. Assessment & Plan (12/11/2024 2:01 PM EDT): [...] (01/11/2021): Added automatically from request for surgery [id number] Dysmenorrhea 01/11/2021 Overview (01/11/2021): Added automatically from request for surgery [id number] PTSD (post-traumatic stress disorder) 11/17/2020 Overview (11/21/2023): In grief counseling and [facility] at [facility] Takes ativan as needed throughout the day [...] head region - Resected Feb 2013 in [facility] Last MRI 09/2016 No evidence of re-occurrence [...] obtained 07/17/23 OFv: 01/10/24 Assessment & Plan (04/10/2025 2:39 PM EDT): Goal: achieve mental health wellness where [...] Release(E.C.); Take 1 Capsule by mouth daily. Assessment & Plan (04/01/2025 11:54 AM EDT): Continue lowest tolerated dose of ativan to help manage sx. Med mgmt reviewed and updated. Orders: LORazepam (ATIVAN) 0.5 mg Oral Tablet; Take 1 Tablet by mouth every 8 hours as needed for Anxiety. Assessment & Plan (12/31/2024 11:42 AM EDT): [...] she has also started going back to [facility] and back in counseling, continue same. Assessment [...] PRN use of oxygen Keep follow-up with hired hand for PFT Cigarette nicotine dependenc e without [...] Encounters Date Type Department Care Team Description 05/13/2025 8:45 AM EST Telemedicine [facility]P [facility] [address] [place] [address] Dede Meredith APRN Acute vaginitis (Primary Dx) 05/12/2025 Refill SEP [facility] [address] [place] [address] Dede Meredith APRN Medication Refill 05/11/2025 11:30 AM EST - 05/11/2025 11:59 PM EST Hospital Encounter [facility] [address] [place] [phone] Vic Villarreal APRN Focal epilepsy (HCC) Discharge Disposition: Home or Self Care 05/07/2025 Orders Only [address] [place] [address] ViriDede, HYDROELECTRIC STATION OPERATOR Screening for colon cancer (Primary Dx) 05/05/2025 2:30 PM EST Clinical Support [address] [place] [address] Rm Meredithika, HYDROELECTRIC STATION OPERATOR Other migraine with status migrainosus, intractable (Primary Dx) 05/04/2025 Orders Only [address] [place] [address] Angela Wen, [facility] Seasonal allergic rhinitis, unspecified trigger 04/27/2025 1:30 PM EST Office Visit [address] [place] [address] Sandip Denton MD Viral gastroenteritis (Primary Dx) 04/27/[address] [place] [address] Dede Meredith, HYDROELECTRIC STATION OPERATOR Medication Refill 04/24/2025 11:59 PM EDT Anesthesia Event [facility] [address] [place] [address] Carmelo Schneider APRN 04/23/2025 Refill [facility] [address] [place] [address] Kelli Mchugh, HYDROELECTRIC STATION OPERATOR Medication Refill (oxcarbazepine) 04/22/2025 Refill [facility] [address] [place] [address] Vic Villarreal, HYDROELECTRIC STATION OPERATOR Medication Refill 04/22/2025 Orders Only [address] [place], [place] [address] Deed Meredith, HYDROELECTRIC STATION OPERATOR 04/10/2025 3:15 PM EDT Telemedicine [address] [place], [place] [address] Dede Meredith APRN Generalized anxiety disorder (Primary Dx) 04/10/2025 Travel 04/09/2025 Patient Outreach [facility] [address] [place] [address] Love Plummer CM- Telephonic Outreach; Transportation; CM - Contact Made; Care Management - Chart Review 04/08/2025 Patient Outreach [facility] [address] [place] [address] Colleen Maloney LSW CM- Telephonic Outreach 04/07/2025 Patient Outreach [facility] [address] [place] [address] Love Plummer CM- Telephonic Outreach; Transportation 04/06/2025 Patient Outreach [facility] [address] [place] [address] Michelle Garrett Referral 04/04/2025 Nurse Triage [facility] [address] [place] [address] Lexy Corley, EVETTE Focal epilepsy (HCC) (Primary Dx) 04/01/2025 11:30 AM EDT Telemedicine [facility] [place] [place] [address] Dede Meredith APRN Acute vaginitis (Primary Dx); Grief at loss of child; Generalized anxiety disorder; Grief reaction; BPV (benign positional vertigo), unspecified laterality 04/01/2025 Travel 04/01/2025 Refill SEP [place] [address] [place] [address] Dede Meredith APRN Medication Refill 03/24/2025 Results Follow-Up [facility] [address] [place] [address] Ana Daley MD CALCULI (STONE) ANALYSIS - REF LAB 03/24/2025 Orders Only [facility] [place] [facility] [address] [place] [address] Angela Wen, CCMA Viral illness 03/20/2025 Refill [facility] [address] [place] [address] Ana Daley MD Medication Refill 03/14/2025 Orders Only [facility] [address] Julio [address] [place] [address] Amalia Waters MD 03/14/2025 Nurse Triage [facility] [address] [place] [address] Lexy Corley RN 03/11/2025 2:00 PM EDT Anesthesia Event [facility] [address] [place] [address] Khang Bauer MD Grimes, Samantha, APRN 03/11/2025 1:41 PM EDT - 03/11/2025 2:36 PM EDT Surgery [facility] [address] [place] [address] Ana Daley MD CYSTOSCOPY URETEROSCOPY STENT PLACEMENT OR EXCHANGE 03/11/2025 12:24 PM EDT - 03/11/2025 4:03 PM EDT Hospital Encounter [facility] SAME DAY SURGERY [address] [place] [address] Ana Daley MD Kidney stones Discharge Disposition: Home or Self Care 03/11/2025 Travel 03/09/2025 2:40 PM EDT Office Visit [facility] [address] [place] [address] Ana Daley MD Kidney stones (Primary Dx) 03/09/2025 Travel 03/09/2025 Refill SEP Neurology [facility] [address] [place] [address] Vic Villarreal, HYDROELECTRIC STATION OPERATOR Medication Refill 03/09/2025 Telephone SEP [facility] [address] [place] [address] Viri, Dede, HYDROELECTRIC STATION OPERATOR Refill (Oxycodone ) 03/08/2025 Refill SEP [address] [place] [address] Viri, Dede, HYDROELECTRIC STATION OPERATOR Medication Refill 03/08/2025 Refill SEP [address] [place] [address] Mariano Gonzalez MD Medication Refill 03/05/2025 6:33 PM EDT - 03/05/2025 8:43 PM EDT Emergency [facility] [address] [place] [address] Mariano Gonzalez MD Ureterolithiasis (Primary Dx); Bilateral flank pain Discharge Disposition: Home or Self Care 03/05/2025 Refill SEP [address] [place] [address] Viri, Dede, HYDROELECTRIC STATION OPERATOR Medication Refill 03/03/2025 Refill SEP [address] [place] [address] Viri, Dede, HYDROELECTRIC STATION OPERATOR Medication Refill; Follow Up (Lorazepam) 02/24/[address] [place] [address] [place], Dede, HYDROELECTRIC STATION OPERATOR Medication Refill 02/24/[address] [place] [address] Viri, Dede, HYDROELECTRIC STATION OPERATOR Medication Refill 02/24/2025 Specialty Pharmacy [facility] [address] [place] [address] María Kruse, [facility] Migraine Medication Management (Qulipta ) 02/18/2025 3:30 PM EDT Office Visit [address] [place] [address] [place], Dede, HYDROELECTRIC STATION OPERATOR Hospital discharge follow-up (Primary Dx); Kidney stone; Dysuria; Cutaneous abscess, unspecified site 02/18/2025 Refill [facility] [address] [place] [address] Vic Villarreal, HYDROELECTRIC STATION OPERATOR Medication Refill 02/18/2025 Refill [facility]P [place] [address] [place] [address] [facility] [place], Dede, HYDROELECTRIC STATION OPERATOR Medication Refill 02/17/2025 Orders Only [place] [address] [place] [address] Angela Wen, [facility] 02/17/2025 Refill [facility]P [place] [address] [place] [address] Viri, Dede, HYDROELECTRIC STATION OPERATOR Medication Refill 02/17/2025 Orders Only [place] [address] [place] [address] Angela Wen, [facility] 02/14/2025 Nurse Triage [facility] [address] [place] [address] Maryellen Johnson, EVETTE from Last 3 Months Immunizations Immunization Administration Dates Next Due Hepatitis B, Unspecified Formulation 02/14/2016 Influenza Nasal, Quadrivalent 03/17/2020, 019 Influenza Vaccine Quadrivalent 03/17/2020,2018 Influenza Vaccine Quadrivalent PF 03/21/2016 Influenza Virus Vaccine Quadrivalant, Flublok Moderna SARS-CoV-2 Vaccine 12+ Yrs (Light blue b order) 10/11/2020,09/13/2020 Pneumococcal Polysaccharide 23 Valent 04/07/2019 Tdap 03/17/2020,03/21/2016 Surgical History Surgery Date Site/Laterality Comments CRANIOTOMY 02/23/2013 - 03/24/2013 SECTION x4 WISDOM TOOTH EXTRACTION SECTION 03/21/2016 Bilateral REPEAT SECTION (39) with low transverse skin incision at 0137; Surgeon: Tejas Johnson IV, MD; Location: [facility]; Service: Gynecology EYE SURGERY BRAIN SURGERY 03/12/2013 tumor removed TUBAL LIGATION CYSTOSCOPY 10/30/2023 Surgeon: Siddhartha Napoles DO; Location: [facility] MAIN OR; Service: Gynecology EYE SURGERY Left myopia HYSTERECTOMY Right ovary remains Medical History Medical History Date Comments Brain tumor (HCC) 2012 Oligodendrogli marielena Anxiety Family history of ovarian cancer PTSD (post-traumatic stress disorder) Seizures (HCC) last seizure 09/24 025 Asthma Headache migraines Thyroid disease in past Motion sickness Family history of uterine cancer Heartburn Depression Bladder problem Urinary tract infection Urolithiasis Kidney stones Anemia Pneumonia History of oligodendroglioma of brain Chronic bronchitis (HCC) Chronic allergic rhinitis Obesity, Class III, BMI 40-49.9 (morbid obesity) (HCC) Subclinical hypothyroidism Moderate episode of recurren t major depressive disorder (HCC) Generalized anxiety disorder Iron deficiency anemia Focal epilepsy (HCC) Insomnia due to medical condition BPV (benign positional vertigo) Dysmenorrhea Memory loss due to medical condition Family History Medical History Relation Name Comments Cancer Maternal Aunt ovarian Ovarian Cancer Maternal Grandmother Cancer Mother uterine Cancer Paternal Grandmother lung Diabetes Paternal Grandmother Heart Disease Paternal Grandmother Stroke Paternal Uncle Breast Cancer Sister Anesth Problems Neg Hx Relation Name Status Comments Father Alive Maternal Aunt Maternal Grandfather Maternal Grandmother Mother Paternal Grandfather Paternal Grandmother Paternal Uncle Sister Social History Tobacco Use Types Packs/Day [...] Recorded PHQ-2 Total Score 2 12/31/2024 [facility] Occupat ional [facility] - Occupational Stress [...] A1 A5 Name Clin SAB Term 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 Livin g Term F CSP Livin g 2015 Term 39w 6d 0h 02m 0h 02m 7 lb 8.8 oz (3.425 kg) M FOLDING MACHINE TENDER Spinal N Livin g 9 9 ABDULLAHI VERGARA MA RY Tejas Nobles IV, MD Complications:Previous danica wilfred section Delivery Location:[facility] Last Filed Vital Signs Vital Sign [...] Mass Index 43.26 04/27/2025 1:14 PM EST Plan of Treatment Upcoming Encounters Date Type Department Care Team (Late st Contact Info) Description 10/02/2025 10:25 AM EDT Office Visit [facility] [address] [place] [address] Samjulian Vic Glasgow, HYDROELECTRIC STATION OPERATOR [address] [place] [address] Health Maintenance Due Date Last Done Comments Hepatitis B Vaccine (2 of 3 - 19+ 3-dose series) 03/13/2016 02/14/2016 Breast Cancer Screening 2019 Pneumococcal Vaccine 0-49 (2 of 2 - PCV) 04/07/2020 04/07/2019 Cologuard 12/26/2024 Colon Cancer Screening 12/26/2024 Colonoscopy 12/26/2024 FIT 12/26/2024 Sigmoidoscopy 12/26/2024 Virtual Colonography 12/26/2024 COVID-19 Vaccine (3 - season) 2025 10/11/2020, 09/13/2020 Influenza Vaccine (#1) 2025 , 03/17/2020, 03/17/2020, Additional history exists Wellness Exam Medicare 01/01/2026 12/31/2024 DTaP/TDaP/Td (3 - Td or Tdap) 03/17/2030 03/17/2020, 03/21/2016 Meningococcal B Vaccine Aged Out No l onger eligible based on patient's age to complete this topic Goals Goal Patient Goal Type Associated Problems Recent Progress Patient-Stated? Author Maintain a healthy diet, exercise regularly and maintain an ideal body weight General No Mary Christy RMA Stay Tobacco Free Lifestyle No Mary Christy RMA Medical Devices Implanted Type Area Multiple Needle Stitcher Device Identifier Shelf Expiration Date Model / Serial / Lot Stent Uret [id number] Contr Dbl Pig Tapr Lpro Percuflx Cath - [id number] Implanted:Qty : 1 on 03/11/2025 by Ana Daley MD at [facility] Stent Right: Ureter [employer]:MICROVASIVE: UROLOGY [id number] 10/21/2027 [id number] Procedures Procedure Name Priority Date/Time Associated Diagnosis Comments SCANNED RHYTHM STRIPS 03/12/2025 10:52 AM EDT CALCULI (STONE) ANALYSIS - REF LAB Routine 03/11/2025 2:16 PM EDT Kidney stones INTRAOP AIRWAY PLACEMENT Routine 03/11/2025 2:09 PM EDT CYSTOSCOPY URETEROSCOPY STENT PLACEMENT OR EXCHANGE 03/11/2025 2:07 PM EDT Kidney stones SEP URINALYSIS POC Routine 03/09/2025 2: 16 PM EDT Kidney stones CT ABD PEL ED FAST W CONTRAST STAT 03/05/2025 7:15 PM EDT CBC WITH DIFF STAT 03/05/2025 6:41 PM EDT BASIC METABOLIC PANEL STAT 03/05/2025 6:41 PM EDT URINALYSIS REFLEX STAT 03/05/2025 6:4 0 PM EDT UA W/REFLEX TO CULTURE STAT 03/05/2025 6:40 PM EDT EXTRA MORALES URINE CX STAT 03/05/2025 6 :40 PM EDT SEP URINALYSIS POC Routine 02/18/2025 3: 40 PM EDT Dysuria from Last 3 Months Results * SCANNED RHYTHM STRIPS (03/12/2025 10:52 AM EDT) Anatomical Region Laterality Modality Other 03/12/2025 10:5 2 AM EDT us Unknown Provider IMG ECG ORDERABLES Final Result * CALCULI (STONE) ANALYSIS - REF LAB (03/11/2025 2:16 PM EDT) Calculi Comp See Note 03/16/2025 4:55 PM EDT [facility] Comment: Calculi composed primarily of: 40% calcium oxalate dihydrate, and 60% calcium phosphate (hydroxy- and carbonate- apatite). INTERPRETIVE INFORMATION: Calculi (Stone) analysis Calculi are the products of physiological processes that yield crystalline compounds in a matrix of biological compounds and blood. Matrix components are not reported. The clinically significant crystalline components identified in calculi specimens are reported. Gross description may not be consistent with composition determined by FTIR analysis. Performed By: [facility] [address] [place] [address] [address]: Edis Robertson MD, PhD CLIA Number: [id number] Calculi Mass 26 mg 03/16/2025 4:55 PM EDT [facility] Calculi Desc See Note 03/16/2025 4:55 PM EDT [facility] Comment: Specimen consists of one cabral calculus. The total weight is 26 mg. Calculus RIGHT KIDNEY STRUCTURE / Unknown 03/11/2025 2:16 PM EDT 03/11/2025 8:22 PM EDT us Ana Daley MD MICROBIOLOGY - GENERAL ORDER KACY Final Result Performing Organization Address [facility]/State/ZIP Co de Phone Number [facility] [address] [place] [address] * INTRAOP AIRWAY PLACEMENT (03/11/2025 2:09 PM EDT) Narrative LAB - 03/11/2025 2:09 PM EDT Sesar Johnson CRNA 03/11/2025 2:16 PM Intraop Airway Placement: Date/Time: 03/11/2025 2:09 PM Induction type: IV Mask size: Standard adult Pre-Oxygenation: Standard Mask ventilation: Not attempted Airway type: LMA Topical Anesthetic/Lubricant: Lubricant jelly Airway location: Oral Device size: 4 Secured by: Tape Measured from: Lips Placement verified: Auscultation, End tidal CO2 and Symmetric chest wall motion Condition: Atraumatic and Unchanged Insertion attempts: 1 Title: APPLICATIONS ADMINISTRATOR us Khang Bauer MD [place] ANESTHESIA Final Result [facility] [address] [place] [address] * (ABNORMAL) SEP URINALYSIS POC (03/09/2025 2:16 PM EDT) Only the most recent of2 resultswithin the time period is included. UA Color POC Yellow Color 03/09/2025 2:18 PM EDT [facility] UA Appear POC Clear Clear 03/09/2025 2:18 PM EDT [facility] UA Gluc POC Negative Negative mg/dL 03/09/2025 2:18 PM EDT [facility] UA Bili POC Negative Negative 03/09/2025 2:18 PM EDT [facility] UA Ketones POC Negative Negative mg/dL 03/09/2025 2:18 PM EDT [facility] [place] UA SG POC 1.020 1.001 - 1.035 no units 03/09/2025 2:18 PM EDT [facility] [place] UA Blood POC Large(A) Negative 03/09/2025 2:18 PM EDT [facility] UA pH POC 7.0 5.0 - 8.0 pH 03/09/2025 2:18 PM EDT [facility] UA Protein POC Negative Negative mg/dL 03/09/2025 2:18 PM EDT [facility] UA Urobilinogen POC 0.2 0.2, 1.0 03/09/2025 2:18 PM EDT [facility] UA Nitrite POC Negative Negative 03/09/2025 2:18 PM EDT [facility] UA Leuk Est POC Small(A) Negative 2:18 PM EDT [facility] Urine STRUCTURE OF URINARY TRACT PROPER / Unknown 03/09/2025 2:16 PM EDT 03/09/2025 2:18 PM EDT us Ana Daley MD POINT OF CARE TEST ORDERABLE S Final Result [facility] [address] [place] [address] * CT ABD PEL ED FAST W CONTRAST (03/05/2025 7:15 PM EDT) Anatomical Region Laterality Modality Abdomen, Pelvis Computed Tomogra phy 03/05/2025 7:15 PM EDT Impressions 03/05/2025 7:53 PM EDT 2 to 3 mm stone at the right ureterovesicular junction. No hydronephrosis at this time. Otherwise no acute findings Narrative 03/05/2025 7:[address] ABDOMEN AND PELVIS WITH CONTRAST (FAST), 03/05/2025 7:15 PM CLINICAL HISTORY: -bilateral flank pain, decr urine output COMPARISON: 2021 PROCEDURE COMMENTS: Multi-detector volumetric scanning of the abdomen and pelvis with multiplanar reformatting per expedited protocol. 100 mL Isovue 370 IV. FINDINGS: The lung bases are clear. The liver, gallbladder, pancreas, spleen and adrenals are unremarkable. The kidneys enhance symmetrically without obstruction. Bilateral cysts. There is a 2 to 3 mm stone in the distal right ureter at the level of the bladder without hydronephrosis or enlarging ureter. The bladder is largely collapsed, grossly normal. The small and large bowel are normal in caliber without obstruction or wall thickening. Appendix is normal in the right lower quadrant. No free fluid or suspicious lymphadenopathy. Vasculature is unremarkable. No suspicious osseous lesion. Procedure Note Wilfred Morris MD - 03/05/2025 CT ABDOMEN AND PELVIS WITH CONTRAST (FAST), 03/05/2025 7:15 PM CLINICAL HISTORY: -bilateral flank pain, decr urine output COMPARISON: 2021 PROCEDURE COMMENTS: Multi-detector volumetric scanning of the abdomenand pelvis with multiplanar reformatting per expedited protocol. 100 mLIsovue 370 IV. FINDINGS: The lung bases are clear. The liver, gallbladder, pancreas, spleen and adrenals are unremarkable. The kidneys enhance symmetrically without obstruction. Bilateral cysts.There is a 2 to 3 mm stone in the distal right ureter at the level of the bladderwithout hydronephrosis or enlarging ureter. The bladder is largely collapsed,grossly normal. The small and large bowel are normal in caliber without obstruction orwall thickening. Appendix is normal in the right lower quadrant. No free fluid or suspicious lymphadenopathy. Vasculature is unremarkable. No suspicious osseous lesion. IMPRESSION: 2 to 3 mm stone at the right ureterovesicular junction. No hydronephrosisat this time. Otherwise no acute findings Donita Johnson PA-C IM CT ORDERABLES Final Result * (ABNORMAL) CBC WITH DIFF (03/05/2025 6:41 PM EDT) WBC 9.4 3.7 - 10.3 x10(3)/mcL 03/05/2025 6:46 PM EDT [facility] RBC 4.36 3.90 - 5.20 x10(6)/mcL 03/05/2025 6:46 PM EDT [facility] Hgb 12.0 11.2 - 15.7 g/dL 03/05/2025 6:46 PM EDT [facility] Hct 37.0 34.0 - 45.0 % 03/05/2025 6:46 PM EDT [facility] MCV 84.9 80.0 - 100.0 fL 03/05/2025 6:46 PM EDT [facility] MCH 27.5 26.0 - 34.0 pg 03/05/2025 6:46 PM EDT [facility] MCHC 32.4 30.7 - 35.5 g/dL 03/05/2025 6:46 PM EDT [facility] RDW 13.3 <=14.9 % 03/05/2025 6:46 PM EDT [facility] Platelet 356 155 - 369 x10(3)/mcL 03/05/2025 6:46 PM EDT [facility] MPV 8.5(L) 8.8 - 12.5 fL 03/05/2025 6:46 PM EDT [facility] Neut Percent 59.5 % 03/05/2025 6:46 PM EDT [facility] Comment:Neutrophils equals s egs plus bands Imm Gran% 1.4 % 03/05/2025 6:46 PM EDT [facility] Comment:Automated count of m etamyelocytes, myelocytes and promyelocytes. IG >1% represents a left shift and provides an early indication of an infection or inflammatory process. Lymph Percent 26.2 % 03/05/2025 6:46 PM EDT [facility] Wagoner Percent 8.7 % 03/05/2025 6:46 PM EDT [facility] Eos Percent 3.5 % 03/05/2025 6:46 PM EDT [facility] Baso Percent 0.7 % 03/05/2025 6:46 PM EDT [facility] Neut # 5.6 1.6 - 6.1 x10(3)/[facility] 03/05/2025 6:46 PM EDT [facility] Comment:Neutrophils equals s egs plus bands IMMGRAN# 0.1 0.0 - 0.1 x10(3)/[facility] 03/05/2025 6:46 PM EDT [facility] Comment:Automated count of m etamyelocytes, myelocytes and promyelocytes. An absolute IG <0.1 is reported as 0.0. Lymph # 2.5 1.2 - 3.9 x10(3)/[facility] 03/05/2025 6:46 PM EDT [facility] Wagoner # 0.8 0.3 - 0.9 x10(3)/[facility] 03/05/2025 6:46 PM EDT [facility] Eos# 0.3 0.0 - 0.5 x10(3)/[facility] 03/05/2025 6:46 PM EDT [facility] Baso # 0.1 0.0 - 0.1 x10(3)/[facility] 03/05/2025 6:46 PM EDT [facility] Blood VENOUS BLOOD / Unknown Venipuncture / Unknown 03/05/2025 6:41 PM EDT 03/05/2025 6:43 PM EDT us Donita Johnson PA-C HEMATOLOGY ORDERABLES Final Re sult [facility] [address] [place] [address] * (ABNORMAL) BASIC METABOLIC PANEL (03/05/2025 6:41 PM EDT) Sodium 140 136 - 145 mmol/L 03/05/2025 7:00 PM EDT [facility] Potassium 3.9 3.5 - 5.0 mmol/L 03/05/2025 7:00 PM EDT [facility] Chloride 105 98 - 107 mmol/L 03/05/2025 7:00 PM EDT [facility] Total CO2 20(L) 22 - 29 mmol/L 03/05/2025 7:00 PM EDT [facility] Anion Gap 15 7 - 16 mmol/L 03/05/2025 7:00 PM EDT [facility] Calcium 9.0 8.6 - 10.4 mg/dL 03/05/2025 7:00 PM EDT [facility] Glucose Lvl 111(H) 70 - 99 mg/dL 03/05/2025 7:00 PM EDT [facility] BUN 11 6 - 20 mg/dL 03/05/2025 7:00 PM EDT [facility] Creatinine 0.66 0.51 - 1.30 mg/dL 03/05/2025 7:00 PM EDT [facility] eGFR (CKD-EPIcr 2020) 110 >=60 mL/min/1.7 3 m2 03/05/2025 7:00 PM EDT [facility] Comment:Estimated GFR was ca lculated using the CKD-EPIcr (2020) equation refit without race. The equation is recommended by the National Kidney Foundation - [place] Society of Nephrology Task Force. Blood VENOUS BLOOD / Unknown Venipuncture / Unknown 03/05/2025 6:41 PM EDT 03/05/2025 6:43 PM EDT us Mariano Gonzalez MD CHEMISTRY ORDERABLES Final R esult [facility] [address] [place] [address] * (ABNORMAL) URINALYSIS REFLEX (03/05/2025 6:40 PM EDT) UA Color Yellow 03/05/2025 6:53 PM EDT [facility] UA Appear Clear Clear 03/05/2025 6:53 PM EDT [facility] UA Glucose Negative Negative mg/dL 03/05/2025 6:53 PM EDT [facility] UA Ketones Negative Negative mg/dL 03/05/2025 6:53 PM EDT [facility] UA Blood Negative Negative 03/05/2025 6:53 PM EDT [facility] UA pH 7.0 5.0 - 8.0 pH 03/05/2025 6:53 PM EDT [facility] UA Protein Negative Negative mg/dL 03/05/2025 6:53 PM EDT [facility] UA Urobilinogen 0.2 <=1 mg/dL 6:53 PM EDT [facility] UA Bili Negative Negative 03/05/2025 6:53 PM EDT [facility] UA Nitrite Negative Negative 03/05/2025 6:53 PM EDT [facility] UA Leuk Est Negative Negative 03/05/2025 6:53 PM EDT [facility] UA Spec Grav 1.020 1.001 - 1.035 no units 03/05/2025 6:53 PM EDT [facility] Comment:Reference range judith d for random specimens only. UA WBC <1 0 - 4 /HPF 03/05/2025 6:53 PM EDT [facility] UA RBC 0 0 - 3 /HPF 03/05/2025 6:53 PM EDT [facility] UA Squam Epi 1+ /LPF 03/05/2025 6:53 PM EDT [facility] UA Amorph 2+ /HPF 03/05/2025 6:53 PM EDT [facility] UA Bacteria Trace(A) Negative /HPF 03/05/2025 6:53 PM EDT [facility] Urine STRUCTURE OF URINARY TRACT PROPER / Unknown 03/05/2025 6:40 PM EDT 03/05/2025 6:43 PM EDT us Mariano Gonzalez MD URINE ORDERABLES Final Resul t Performing Organization Address City/[facility]/ZIP Co de Phone Number [facility] [address] [place] [phone] * EXTRA MORALES URINE CX (03/05/2025 6:40 PM EDT) Urine STRUCTURE OF URINARY TRACT PROPER / Unknown 03/05/2025 6:40 PM EDT 03/05/2025 6:43 PM EDT us Mariano Gonzalez MD MICROBIOLOGY - GENERAL ORDER KACY Final Result Performing Organization Address [facility] Co de Phone Number [facility] [address] [place] [address] from Last 3 Months Insurance [employer] MEDICARE HMO MR Thingies MEDICARE O MR Member Subscriber Plan / Payer (Ef fective 2024-Present) Name:Indira Carnes Relation to Subscriber:Self Name:Indira Carnes Payer ID:[id number] (NAIC) Type:Not on file Address: [place] [id number] Advance Directives For more information, please contact: [phone] * Full Code (Latest Code Status on File) Date Activated Date Inactivated Comments 03/20/2016 11:52 PM 03/25/2016 4:28 PM Care Teams Cad Draftsman Relationship Specialty Start Date End Date Dede Meredith APRN [address] [place] [address] PCP - General Nurse Practitioner-Family 11/17/20 Colleen Maloney, DIRECTOR EMERGENCY Show Design Supervisor 04/08/25
--- OUTSIDE RECORDS SUMMARY | 2025-05-14 18:37 | XMS_ITS | CCD ---
Author Organization Unknown Care Team Providers Care Functional Director Name Role Phone Unavailable Primary Care Provider Unavailabl e Unavailable Chronic Care Management Unavaila ble Summary Purpose DataExchange Insurance Providers Payer name Policy type / Coverage type Covered alliance party ID Effective Begin Date Effective End Date [facility] [id number] Unknown Unknown Family History Family History data not found Medication Administered No Medication Administered data Reason For Visit No Reason For Visit data Medical Equipment No Medical Equipment data Advance Directives No Advance Directive data
--- OUTSIDE RECORDS SUMMARY | 2025-05-14 18:37 | XMS_ITS | Encounter Summary ---
Author Organization [place] [address] Care Team Providers Care Detective Investigator Name Role Phone Dede Mreedith APRN Primary Care Provider Love Plummer Unavailable Unavailable Colleen Maloney ELECTRIC SERVICEMAN Unavailable Tobias starkey Encounter Details Date Type Department Care Team (Late st Contact Info) Description 01/12/2025 Orders Only SEP Neurology [facility] [address] [place] [address] Vic Villarreal APRN [address] [id number] Social History Tobacco Use Types Packs/Day Years [...] Date Recorded PHQ-2 Total Score 2 12/31/2024 [facility] of Occupat ional Health - Occupational Stress [...] EDT Office Visit [facility] [address] [place] [address] Vic Villarreal APRN [address] [place] [address] documented as of this encounter [...] documented as of this encounter Care Teams Detective Investigator Relationship Specialty Start Date End Date Dede Meredith APRN [address] [place] [address] PCP - General Nurse Practitioner-Family 11/17/20 Love Plummer Care Management Aircraft Engine Mechanic Overhaul 04/07/25 05/04/25 Colleen Maloney, ELECTRIC SERVICEMAN Mechanical Engineering Director 04/08/25 documented as of this encounter
--- OUTSIDE RECORDS SUMMARY | 2025-05-14 18:38 | XMS_ITS | Encounter Summary ---
Author Organization [place] [address] Care Team Providers Care Frame Stylist Name Role Phone ViriDede morales TRINITY Primary Care Provider [phone] [phone] Encounter Details Date Type Department Care Team (Late Contact Info) Description 03/24/2025 Orders Only SEP Vanessa [address] [place] [address] Angela Wen, ERICKA Viral illness Social History Tobacco Use Types Packs/Day Years [...] Date Recorded PHQ-2 Total Score 2 12/31/2024 [facility] [place] of Occupat ional Health - Occupational Stress [...] Refills Last Filled Start Date End Date albuterol (PROVENTIL HFA;VENTOLIN HFA) 90 mcg/actuation Inhl HFA Aerosol InhalerIndications :Viral illness INHALE 2 PUFFS BY MOUTH EVERY 6 HOURS NEEDED FOR WHEEZE 6.7 Each 2 03/24/2025 fluconazole (DIFLUCAN) 150 mg Oral Tablet Take 1 Tablet by mouth once for 1 dose. 1 Tablet 03/24/2025 03/24/2025 documented in this encounter Plan of Treatment Upcoming Encounters Date Type Department Care Team (Late st Contact Info) Description 10/02/2025 10:25 AM EDT Office Visit [facility] [address] [facility] [address] [place] [address] Vic Villarreal APRN [address] [facility] [address] [place] [address] documented as of this encounter Goals Goal Patient Goal Type Associated Problems Recent Progress Patient-Stated? Author Maintain a healthy diet, exercise regularly and maintain an ideal body weight General No Mary Christy RMA Stay Tobacco Free Lifestyle No Mary Christy RMA documented as of this encounter Visit Diagnoses Diagnosis Viral illness Unspecified viral infection, in conditions classified elsewhere and of unspecified site documented in this encounter Discontinued Medications Medication Sig Discontinue Reason Start Date End Da te albuterol (PROVENTIL HFA;VENTOLIN HFA) 90 mcg/actuation Inhl HFA Aerosol InhalerIndications:Viral illness INHALE 2 PUFFS BY MOUTH EVERY 6 HOURS NEEDED FOR WHEEZE Reorder 09/18/2024 03/24/2025 documented as of this encounter Additional Health Concerns Assessment Noted Time PHQ-9 Depression Total Score: 2 01/01/20 25 11:35 AM EDT PHQ-2 Depression Total Score: 2 01/01/20 25 11:35 AM EDT documented as of this encounter Care Teams Frame Stylist Relationship Specialty Start Date End Date Dede Meredith APRN [address] [place], [place] [address] PCP - General Nurse Practitioner-Family 11/17/20 documented as of this encounter
--- OUTSIDE RECORDS SUMMARY | 2025-05-14 18:38 | XMS_ITS | Encounter Summary ---
Author Organization [facility] [place] [address] Care Team Providers Care Dialysis Clinical Manager Name Role Phone Dede Meredith APRN Primary Care Provider Love Plummer Unavailable Unavailable Colleen Maloney SUPERVISOR RECORD PRESS Unavailable Tobias starkey Encounter Details Date Type Department Care Team (Latest Contact Info) Description 04/10/2025 Travel Social History Tobacco Use Types Packs/Day Years Used Date Smoking Tobacco: Former Cigarettes 1 20.9 0 11/03/2001 - 09/11/2022 Smokeless Tobacco: Never Comments:planning on stoppin g Alcohol Use Standard Drinks/Week Comments No 0 (1 standard drink = 0.6 oz pur e alcohol) Overall Financial Resource Strain ([facility]) Answe r Date Recorded How hard is it for you to pa y for the very basics like food, housing, medical care, and heating? Not very hard 11/04/2020 PHQ-2 Answer Date Recorded PHQ-2 Total Score 2 12/31/2024 [facility] of Occupat ional Health - Occupational Stress [...] EDT Office Visit [facility] [address] [place] [address] Vic Villarreal APRN [address] [place] [address] documented as of this encounter Goals Goal Patient Goal Type Associated Problems Recent Progress Patient-Stated? Author Maintain a healthy diet, exercise regularly and maintain an ideal body weight General No Mary Christy, RMA Stay Tobacco Free Lifestyle No Mary Christy RMNorma documented as of this encounter Visit Diagnoses Not on filedocumented in this encounter Additional Health Concerns Assessment Noted Time PHQ-9 Depression Total Score: 2 01/01/20 11:35 AM EDT PHQ-2 Depression Total Score: 2 01/01/20 11:35 AM EDT documented as of this encounter Care Teams Dialysis Clinical Manager Relationship Specialty Start Date End Date Dede Meredith APRN [address] [place] [address] PCP - General Nurse Practitioner-Family 11/17/20 Love Plummer Care Management Machine Clothing Man 04/07/25 05/04/25 Colleen Maloney, SUPERVISOR RECORD PRESS Public Relations Sales Marketing 04/08/25 documented as of this encounter
--- OUTSIDE RECORDS SUMMARY | 2025-05-14 18:38 | XMS_ITS | Encounter Summary ---
Author Organization [place] [address] Care Team Providers Care Bisque Kiln Drawer Name Role Phone Dede Meredith APRN Primary Care Provider [phone] Colleen Maloney OFFICE MACHINES TEACHER Unavailable Unavai lable Reason for Referral * Genetic Lab Test (Routine) - Authorization Not Needed Specialty Diagnoses / Procedures Referred By Carolyn t Referred To Contact Diagnoses Screening for colon cancer Procedures COLOGUARD eDde Meredith APRN [address] [place] [address] Phone: tel: fax: Referral ID Status Reason Start Date Expiration Date Visits Requested Visits Authorized [id number] Authorization Not Needed 05/07/2026 1 1 Encounter Details Date Type Department Care Team (Late st Contact Info) Description 05/07/2025 Orders Only SEP Vanessa [facility] [address] [place], [place] [id number] Dede Meredith APRN [address] [place] [address] Screening for colon cancer (Primary Dx) Social History Tobacco Use Types [...] Date Recorded PHQ-2 Total Score 2 12/31/2024 [facility] of Occupat ional Health - Occupational Stress [...] EDT Office Visit [facility] [address] [facility] [address] [place] [address] Vic Villarreal APRN [address] [place] [address] Scheduled Orders Name Type Priority Associated Diagnoses Orde r Schedule COLOGUARD Microbiology Routine Screening for colon cancer 1 Occurrences starting 05/07/2025 until 05/07/2026 documented as of this encounter Goals Goal [...] documented as of this encounter Care Teams Bisque Kiln Drawer Relationship Specialty Start Date End Date Dede Meredith APRN [address] [place], [place] [address] PCP - General Nurse Practitioner-Family 11/17/20 Colleen Maloney, OFFICE MACHINES TEACHER Registrar [employer] 04/08/25 documented as of this encounter
--- OUTSIDE RECORDS SUMMARY | 2025-05-14 18:38 | XMS_ITS | Encounter Summary ---
Author Organization [place] [address] Care Team Providers Care Forest Scientist Name Role Phone Dede Meredith APRN Primary Care Provider Love Plummer Unavailable Unavailable Colleen Maloney PIPE PRODUCTION WORKER Unavailable Unalaureano starkey Reason for Visit * Reason Comments Medication Refill Encounter Details Date Type Department Care Team (Late st Contact Info) Description 04/22/2025 Refill SEP Neurology [facility] [address] [place] [place] [address] Vic Villarreal, COMMUNITY SERVICES MANAGER [address] [id number] Medication Refill Social History Tobacco Use Types [...] Date Recorded PHQ-2 Total Score 2 12/31/2024 [facility] of Occupat ional Health - Occupational Stress [...] Refills Last Filled Start Date End Date OXcarbazepine (TRILEPTAL) 300 mg Oral TabletIndications: Focal epilepsy (HCC) Take 2 Tablets by mouth 2 times daily. (To take along with 150 mg tablets for a dose of 750 mg twice daily) 120 Tablet 5 04/24/2025 OXcarbazepine (TRILEPTAL) 150 mg Oral TabletIndications: Focal epilepsy (HCC) Take 1 Tablet by mouth 2 times daily. (To take along with 300 mg tablets for a dose of 750 mg twice daily) 60 Tablet 5 04/24/2025 documented in this encounter Miscellaneous Notes * Telephone Encounter - Genie Marshall RMA - 04/24/2025 9:55 AM EDT Scheduled for September TB pt * Telephone Encounter - Nayla Kidd MA - 04/22/2025 4:38 PM EDT Needs f/u (due Mar 2025), [facility]. Medication Details: Name: Oxcarbazepine (TRILEPTAL) Tablet Dose: 150 mg Sig: Take 1 Tablet BID Side effects: no Verified Pharmacy: [facility] Day supply requested: no Last office visit: 01/06/2025 Next office visit: Neurology notes reviewed: yes Need VINCENT/VINCENT result: n/a Last Urine Drug Screen (must be at least annual if on controlled substance): n/a Drug Contract Signed: n/a Medication Details: Name: Oxcarbazepine (TRILEPTAL) Tablet Dose: 300 mg Sig: Take 2 Tablets BID Side effects: no Verified Pharmacy: [facility] Day supply requested: no documented in this encounter Plan of Treatment Upcoming Encounters Date Type Department Care Team (Late st Contact Info) Description 10/02/2025 10:25 AM EDT Office Visit [facility] [address] [place] [address] Vic Villarreal APRN [address] [place] [address] documented as of this encounter [...] documented as of this encounter Care Teams Forest Scientist Relationship Specialty Start Date End Date Dede Meredith [place] [address] [place] [address] PCP - General Nurse Practitioner-Family 11/17/20 Love Plummer Care Management Lab Support Tech 04/07/25 05/04/25 Colleen Maloney, PIPE PRODUCTION WORKER Linux Systems Administrator 04/08/25 documented as of this encounter
--- OUTSIDE RECORDS SUMMARY | 2025-05-14 18:38 | XMS_ITS | Encounter Summary ---
Author Organization [facility] [address] Care Team Providers Care Engineering Job Titles Name Role Phone Dede Meredith AUTOMOTIVE PARTS CLERK Primary Care Provider +[phone] Encounter Details Date Type Department Care Team (Latest Contact Info) Description 04/01/2025 Travel Social History Tobacco Use Types Packs/Day [...] PHQ-2 Total Score 2 12/31/2024 [facility] [place] of Occupat ional Health - Occupational Stress [...] EDT Office Visit [facility] [address] [place] [address] Vic Villarreal APRN [address] [place], [place] [id number] documented as of this encounter Goals Goal [...] documented as of this encounter Care Teams Engineering Job Titles Relationship Specialty Start Date End Date Dede Meredith APRN [address] [place] [address] PCP - General Nurse Practitioner-Family 11/17/20 documented as of this encounter
--- OUTSIDE RECORDS SUMMARY | 2025-05-14 18:38 | XMS_ITS | Encounter Summary ---
Author Organization [place] [address] Care Team Providers Care Community Service Worker Name Role Phone Dede Meredith APRN Primary Care Provider Love Plummer Unavailable Unavailable Colleen Maloney [facility] Unavailable Unalaureano starkey Reason for Visit * Reason Comments Medication Refill Encounter Details Date Type Department Care Team (Late st Contact Info) Description 04/27/2025 Refill SEP Vanessa CERDA [address] [place] [address] Dede Meredith APRN [address] [place] [address] Medication Refill Social History Tobacco Use [...] Date Recorded PHQ-2 Total Score 2 12/31/2024 [facility] [place] of Occupat ional Health - Occupational Stress [...] hours as needed for Anxiety. 90 Tablet 05/02/2025 documented in this encounter Miscellaneous Notes * Telephone Encounter - Dede Meredith APRN - 04/28/2025 12:46 PM EST Last Successful PDMP Review: 04/28/2025 12:45 PM by Dede Meredith APRN Refill will be due 05/02/25. Prescription post-dated and sent in. * [facility]28/[facility]25 7:48 AM EST Last Office Visit reviewing controlled substances: 04/10/2025 Approved Ambien, Gabapentin, Lyrica, Butalbital = must be in last 6 months. All other controlled medications = must be in last 3 months. If visit is not up to date, please call and schedule appointment. Next appointment scheduled?: Amber KAUR Last Reviewed by Prescriber: PDMP not electronically reviewed on this encounter. Date of last completed CSA if not included in flowsheet below: 12/14/2021 05/17/2022 9:00 AM 07/21/2022 9:00 AM 08/29/2023 3:00 PM CONTROLLED SUBSTANCE Is Consent for treatment completed? Yes Date consent completed 12/14/2021 VINCENT Reference Number [id number] VINCENT Results as expected as expected If had complete compliance panel: 09/10/2024 Last resulted compliance panel date: 07/19/2023 (If patient had partial drug screen or in-house drug screen, please document date of that below): documented in this encounter Plan of Treatment Upcoming Encounters Date Type Department Care Team (Late st Contact Info) Description 10/02/2025 10:25 AM EDT Office Visit [facility] [address] [facility] [address] [facility] [address] [place] [address] Vic Villarreal APRN [address] [place] [address] documented as of this encounter [...] every 8 hours as needed for Anxiety. 04/02/2025 04/28/2025 documented as of this encounter Additional Health Concerns Assessment Noted Time PHQ-9 Depression Total Score: 2 01/01/20 11:35 AM EDT PHQ-2 Depression Total Score: 2 01/01/20 11:35 AM EDT documented as of this encounter Care Teams Community Service Worker Relationship Specialty Start Date End Date Dede Meredith [place] [address] [place] [address] PCP - General Nurse Practitioner-Family 11/17/20 Love Plummer Care Management Bottle House Pumper 04/07/25 05/04/25 Colleen Maloney, CONCRETE FOREMAN Clinical Associate 04/08/25 documented as of this encounter
--- OUTSIDE RECORDS SUMMARY | 2025-05-14 18:38 | XMS_ITS | Encounter Summary ---
Author Organization [place] [address] Care Team Providers Care Shot Fireman Name Role Phone ViriDede morales APRN Primary Care Provider Love Plummer Unavailable Unavailable Colleen Maloney MORTGAGE COORDINATOR Unavailable Tobias starkey Encounter Details Date Type Department Care Team (Late st Contact Info) Description 05/04/2025 Orders Only SEP Vanessa [address] [place] [address] Angela Wen, ERICKA Seasonal allergic rhinitis, unspecified trigger Social History Tobacco Use Types Packs/Day Years [...] Date Recorded PHQ-2 Total Score 2 12/31/2024 [facility] [place] of Occupat ional Health - Occupational Stress [...] Refills Last Filled Start Date End Date fexofenadine (SHETLON) 180 mg Oral TabletIndications:S easonal allergic rhinitis, unspecified trigger Take 1 Tablet by mouth daily. 90 Tablet 3 05/04/2025 documented in this encounter Plan of Treatment Upcoming Encounters Date Type Department Care Team (Late st Contact Info) Description 10/02/2025 10:25 AM EDT Office Visit [facility] [address] [facility] [address] [place] [address] Vic Villarreal APRN [address] [place] [address] documented as of this encounter Goals Goal Patient Goal Type Associated Problems Recent Progress Patient-Stated? Author Maintain a healthy diet, exercise regularly and maintain an ideal body weight General No Mary Christy RMA Stay Tobacco Free Lifestyle No Mary Christy RMA documented as of this encounter Visit Diagnoses Diagnosis Seasonal allergic rhinitis, unspecified trigger documented in this encounter Additional Health Concerns Assessment Noted Time PHQ-9 Depression Total Score: 2 01/01/20 11:35 AM EDT PHQ-2 Depression Total Score: 2 01/01/20 11:35 AM EDT documented as of this encounter Care Teams Shot Fireman Relationship Specialty Start Date End Date Dede Meredith APRN [address] [place] [address] PCP - General Nurse Practitioner-Family 11/17/20 Love Plummer Care Management Dismantler 04/07/25 05/04/25 Colleen Maloney, MORTGAGE COORDINATOR Home Health Outreach Coordinator 04/08/25 documented as of this encounter
--- OUTSIDE RECORDS SUMMARY | 2025-05-14 18:38 | XMS_ITS | Encounter Summary ---
Author Organization [place] [address] Care Team Providers Care President And Chief Operating Officer Name Role Phone Dede Meredith APRN Primary Care Provider Love Plummer Unavailable Unavailable Colleen Maloney Unavailable Unavai lable Reason for Visit * Reason Comments CM- Telephonic Outreach Encounter Details Date Type Department Care Team (Late st Contact Info) Description 04/08/2025 Patient Outreach SEP Care Managment [address] [place] [address] Colleen Maloney, WORK MEASUREMENT ENGINEER CM- Telephonic Outreach Social History Tobacco Use Types Packs/Day Years [...] Date Recorded PHQ-2 Total Score 2 12/31/2024 [facility] [place] of Occupat ional [facility] - Occupational Stress Questionnaire Answer Date [...] documented in this encounter Progress Notes * Colleen Maloney LSW - 04/08/2025 3:16 PM EDT Referral Contact Attempted: WORK MEASUREMENT ENGINEER attempted to contact patient for referral follow up and patient didnot answer and HIPAA compliant message was left with return number of [phone]. Letter was sent to the patient via [employer]. If no contact is made within one week, WORK MEASUREMENT ENGINEER will close patient referral due to no contact. Behavioral Health Intervention Phase: Initiation Length of Encounter: NA - No contact was made. Additional Disclosures: N/A. documented in this encounter Plan of Treatment Upcoming Encounters Date Type Department Care Team (Late st Contact Info) Description 10/02/2025 10:25 AM EDT Office Visit [facility] [address] [facility] [address] [place] [address] Vic Villarreal APRN [address] [facility] [address] [place] [address] documented as of this encounter Goals Goal Patient Goal Type Associated Problems Recent Progress Patient-Stated? Author Maintain a healthy diet, exercise regularly and maintain an ideal body weight General No Mray Christy RMA Stay Tobacco Free Lifestyle No Mary Christy RMA documented as of this encounter Visit Diagnoses Not on filedocumented in this encounter Additional Health Concerns Assessment Noted Time PHQ-9 Depression Total Score: 2 01/01/20 25 11:35 AM EDT PHQ-2 Depression Total Score: 2 01/01/20 11:35 AM EDT documented as of this encounter Care Teams President And Chief Operating Officer Relationship Specialty Start Date End Date [place], DedeTRINITY sung [address] [place], [place] [address] PCP - General Nurse Practitioner-Family 11/17/20 Love Plummer Care Management Bin Packer 04/07/25 05/04/25 Colleen Maloney, WORK MEASUREMENT ENGINEER Financial Services Officer 04/08/25 documented as of this encounter
--- OUTSIDE RECORDS SUMMARY | 2025-05-14 18:38 | XMS_ITS | Encounter Summary ---
Author Organization [place] [address] Care Team Providers Care Desizing Machine Operator Head End Name Role Phone Dede Meredith APRN Primary Care Provider Reason for Visit * Reason Onset Date Comments Medication Refill 03/08/2025 Encounter Details Date Type Department Care Team (Late st Contact Info) Description 03/08/2025 Refill [facility] [address] [place] [address] Mariano Gonzalez MD [address] [place] [address] [place] [address] Medication Refill Social History Tobacco Use Types [...] Date Recorded PHQ-2 Total Score 2 12/31/2024 [facility] [place] of Occupat ional Health - Occupational Stress [...] EDT Office Visit [facility] [address] [facility] [address] [place] [address] Vic Villarreal APRN [address] [facility] [facility] [address] [place] [address] documented as of this encounter [...] documented as of this encounter Care Teams Desizing Machine Operator Head End Relationship Specialty Start Date End Date Dede Meredith [place] [place] [address] PCP - General Nurse Practitioner-Family 11/17/20 documented as of this encounter
--- OUTSIDE RECORDS SUMMARY | 2025-05-14 18:38 | XMS_ITS | Encounter Summary ---
Author Organization [place] [address] Care Team Providers Care Ceo Name Role Phone eDde Meredith APRN Primary Care Provider Love Plummer Unavailable Unavailable Colleen Maloney PIT HOIST OPERATOR Unavailable Tobias starkey Encounter Details Date Type Department Care Team (Late st Contact Info) Description 04/22/2025 Orders Only SEP Vanessa [address] [place] [address] Dede Meredith APRN [address] [place], [place] [id number] Social History Tobacco Use Types Packs/Day Years [...] Date Recorded PHQ-2 Total Score 2 12/31/2024 [facility] [place] of Occupat ional Health - Occupational Stress [...] [facility] [address] [place] [address] Vic Villarreal APRN [address] [facility] [facility] [address] [place] [address] documented as of this encounter [...] as of this encounter Care Teams Ceo Relationship Specialty Start Date End Date Dede Meredith [place] [address] [place] [address] PCP - General Nurse Practitioner-Family 11/17/20 Love Plummer Care Management Weigher And Mixer 04/07/25 05/04/25 Colleen Maloney, PIT HOIST OPERATOR [place] 04/08/25 documented as of this encounter
--- OUTSIDE RECORDS SUMMARY | 2025-05-14 18:38 | XMS_ITS | Encounter Summary ---
Author Organization [place] [address] Care Team Providers Care Paint Booth Operator Name Role Phone Dede Meredith APRN Primary Care Provider Love Plummer Unavailable Unavailable Colleen Maloney STEM SHAPER Unavailable Tobias stakrey Encounter Details Date Type Department Care Team (Late st Contact Info) Description 03/24/2025 Results Follow-Up SEP Urology NPTFTT [address] [place] [address] Ana Daley MD [address] [place], [place] [id number] [facility] - REF LAB Social History Tobacco Use Types Packs/Day Years [...] Total Score 2 12/31/2024 [facility] [place] of Occupat ional Health - Occupational Stress [...] EDT Office Visit [facility] [address] [place] [address] iVc Villarreal APRN [address] [facility] [address] [place] [address] documented as of this encounter [...] documented as of this encounter Care Teams Paint Booth Operator Relationship Specialty Start Date End Date Dede Meredith [place] [address] [place] [address] PCP - General Nurse Practitioner-Family 11/17/20 Love Plummer Care Management Spot Worker 04/07/25 05/04/25 Colleen Maloney, STEM SHAPER Edge Plugger 04/08/25 documented as of this encounter
--- OUTSIDE RECORDS SUMMARY | 2025-05-14 18:38 | XMS_ITS | Encounter Summary ---
Author Organization [place] [address] Care Team Providers Care Operating Table Assembler Name Role Phone ViriDede morales TRINITY Primary Care Provider Reason for Visit * Reason Comments Medication Refill Encounter Details Date Type Department Care Team (Late Contact Info) Description 03/20/2025 Refill [facility] Urology NPTFTT [address] [place] [id number] Ana Daley MD [address] [place] [address] Medication Refill Social History Tobacco Use Types [...] Score 2 12/31/2024 [facility] [place] of Occupat ional Health - Occupational Stress [...] encounter Miscellaneous Notes * Telephone Encounter - Magnolia Ontiveros MA - 03/20/2025 12:47 PM EDT Patient called she is in more pain since having her surgery. Would like to know if something can besent in for her. Patient also wanted to be scheduled to be seen by Dr. Tubbs. Patient is scheduled for 03/[address] Tubbs. documented in this encounter Plan of Treatment Upcoming Encounters Date Type Department Care Team (Late st Contact Info) Description 10/02/2025 10:25 AM EDT Office Visit [facility] [address] [facility] [address] [place] [address] Vic Villarreal APRN [address] [address] [place] [address] documented as of this encounter [...] documented as of this encounter Care Teams Operating Table Assembler Relationship Specialty Start Date End Date Dede Meredith APRN [address] [place] [id number] PCP - General Nurse Practitioner-Family 11/17/20 documented as of this encounter
--- OUTSIDE RECORDS SUMMARY | 2025-05-14 18:38 | XMS_ITS | Encounter Summary ---
Author Organization [place] [address] Care Team Providers Care Tattoo Designer Name Role Phone Dede Meredith APRN Primary Care Provider Reason for Visit * Reason Onset Date Comments Medication Refill 04/01/2025 Encounter Details Date Type Department Care Team (Late st Contact Info) Description 04/01/2025 Refill SEP Vanessa CERDA [address] [place] [address] Dede Meredith APRN [address] [place] [address] Medication Refill Social History Tobacco Use [...] Date Recorded PHQ-2 Total Score 2 12/31/2024 [facility] [place] of Occupat ional Health - Occupational Stress [...] EDT Office Visit [facility] [address] [place] [address] Vic Villarreal APRN [address] [address] [place] [address] documented as of this encounter [...] with depressed mood documented in this encounter Additional Health Concerns Assessment Noted Time PHQ-9 Depression Total Score: 2 01/01/20 25 11:35 AM EDT PHQ-2 Depression Total Score: 2 01/01/20 25 11:35 AM EDT documented as of this encounter Care Teams Tattoo Designer Relationship Specialty Start Date End Date Dede Meredith APR[place] [place] [address] PCP - General Nurse Practitioner-Family 11/17/20 documented as of this encounter
--- OUTSIDE RECORDS SUMMARY | 2025-05-14 18:38 | XMS_ITS | Encounter Summary ---
Author Organization [place] [address] Care Team Providers Care Copyholder Name Role Phone Dede Meredith DRUM BUILDER Primary Care Provider [phone] Reason for Referral * Consultation (Routine) - Open Specialty Diagnoses / Procedures Referred By Carolyn abreu Referred To Contact Diagnoses Focal epilepsy (HCC) Juan Vega MD [address] [place] [address] Phone: tel: fax: [facility] [place] [place] Care Managment [address] [place] [address] [address] Appointment [place] [address] Phone: tel: Referral ID Status Reason Start Date Expiration Date Visits Re quested Visits Authorized [id number] Open 04/06/2025 04/06/2026 99 99 Question Answer Reason for Referral Transportation, Other (use comments) Comments Information regarding disability Reason for Visit * Reason Onset Date Comments Seizures 04/04/2025 Encounter Details Date Type Department Care Team (Late st Contact Info) Description 04/04/2025 Nurse Triage [facility]P [facility] [address] [place] [address] Lexy Corley RN Focal epilepsy (HCC) (Primary Dx) Social History Tobacco Use Types [...] Recorded PHQ-2 Total Score 2 12/31/2024 [facility] of Occupat ional Health - [...] Assessment Author No 12/31/2024 11:34 AM EDT Lalijohan bethDede APRN * Is the person blind or does he/she have serious difficulty seeing even when wearing glasses? Answer Date of Assessment Author No 12/31/2024 11:34 AM EDT LaliDede de oliveira APRN * Does this person have serious difficulty walking or climbing stairs? Answer Date of Assessment Author No 12/31/2024 11:34 AM EDT LaliDede de oliveira APRN * Does this person have difficulty dressing or bathing? Answer Date of Assessment Author No 12/31/2024 11:34 AM EDT Lalijohan bethDede DRUM BUILDER * Because of a physical, mental or emotional condition, does this person have difficulty doing errands alone such as visiting a doctor's office or shopping? Answer Date of Assessment Author Yes 12/31/2024 11:34 AM EDT ColinyenyDede de oliveira APRN documented as of this encounter Mental Status * Because of a physical, mental or emotional condition, does this person have serious difficulty concentrating, remembering or making decisions? Answer Entry Date Author Yes 12/31/2024 11:34 AM EDT LaliDede de oliveira APRN documented in this encounter Miscellaneous Notes * Addendum Note - Petrona Queen MA - 04/06/2025 1:04 PM EDTAddended by: PETRONA QUEEN on: 04/06/2025 01:04 PM Modules accepted: Orders * Telephone Encounter - Petrona Queen MA - 04/06/2025 1:02 PM EDT Spoke with patient, she is aware of this message and stated she would call Central Scheduling. She accepted care management referral for disability questions, as well as for transportation. Thishas been sent. * Telephone Encounter - Juan Vega MD - 04/06/2025 12:49 PM EDT An ambulatory EEG was ordered in January 2025, but has still not yet been scheduled. I would agree that this test could provide a lot of information and might actually even help her disability case. Me writing a letter is not going to provide anything that would help her case. She likely will benefit from seeing a disability carton machine operator, if she has not. I would recommend she speak with María about disability. In the meantime I would recommend ambulatory EEG. Although EMU would likely be able to be completed quicker (likely within the next two weeks), which would also provide even more information. * Telephone Encounter - Helena Thapa MA - 04/06/2025 12:05 PM EDT Has having absent seizure, with staring off. After these she does not feel good. She cannot remember a lot during these. She said the past couple times she has reported it, nothing has happened. She said she has also received a letter from the disability office stating she is not disabled. Sheis asking if there can be a letter wrote that states she is disabled. Would like the letter mailed. Address in chart. Seizure Info: Have you missed doses of medications? no Have you been/are you sick? she is on antibiotics vaginitis she states if she gets stressed, too hot, or overwhelmed she will have a seizure. Do you drink alcohol? no Have you been/are you sleep deprived? always, yes What type(s) of seizure(s) do you have? tonic clonic and partial complex oxcarb 1500mg daily zonegran 100mg at night * Telephone Encounter - Lexy Corley RN - 04/04/2025 7:51 PM EDT Nurse Triage Call -Chief Complaint: reporting seizure about 11-12 minutes ago. Is awake, but a little disoriented at this time. No missed doses of seizure medications. Seizure lasted about 1min 20 seconds. Typically has 1 seizure per month -Reported by: Spouse/Significant Other -Disposition per protocol: home care. -Not applicable based on clinical presentation -Follow up/Concerns: advised monitor and call back if another seizure occurs, fever develops, disorientation lasts >30min or other concerns Reason for Disposition [1] Seizure lasting < 5 minutes AND [2] history of prior seizure(s) AND [3] taking anticonvulsants Protocols used: [id number] documented in this encounter Plan of Treatment Upcoming Encounters Date Type Department Care Team (Late st Contact Info) Description 10/02/2025 10:25 AM EDT Office Visit [facility] [address] [place] [address] Vic Villarreal APRN [address] [place] [address] Scheduled Referrals Name Type Priority Associated Diagnoses Order Schedule AMB REFERRAL TO CARE MANAGEMENT Outpatient Referral Routine Focal epilepsy (HCC) Ordered: 04/06/2025 documented as of this encounter Goals Goal [...] documented as of this encounter Care Teams Copyholder Relationship Specialty Start Date End Date Dede Meredith APRN [address] [place] [address] PCP - General Nurse Practitioner-Family 11/17/20 documented as of this encounter
--- OUTSIDE RECORDS SUMMARY | 2025-05-14 18:38 | XMS_ITS | Encounter Summary ---
Author Organization [place] [address] Care Team Providers Care Senior Telecommunications Specialist Name Role Phone ViriDede morales APRN Primary Care Provider Love Plummer Unavailable Unavailable Colleen Maloney ARC AND GAS WELDER Unavailable Unavapaul starkey Reason for Visit * Reason Onset Date Comments Medication Refill 04/23/2025 oxcarbazepine Encounter Details Date Type Department Care Team (Late st Contact Info) Description 04/23/2025 Refill SEP Neurology [facility] [address] [place] [address] Kelli Mchugh APRN [address] [facility] [address] [place] [address] Medication Refill (oxcarbazepine) Social History Tobacco Use Types Packs/Day Years [...] Date Recorded PHQ-2 Total Score 2 12/31/2024 [facility] of Occupat ional Health - Occupational Stress [...] End Date OXcarbazepine (TRILEPTAL) 300 mg Oral Tablet Take 2 Tablets by mouth 2 times daily. (To take along with 150 mg tablets for a dose of 750 mg twice daily) 120 Tablet 5 04/23/2025 OXcarbazepine (TRILEPTAL) 150 mg Oral Tablet Take 1 Tablet by mouth 2 times daily. (To take along with 300 mg tablets for a dose of 750 mg twice daily) 60 Tablet 5 04/23/2025 documented in this encounter Miscellaneous Notes * Addendum Note - Sofia Duval MA - 04/23/2025 2:20 PM EDTAddended by: SOFIA DUVAL on: 04/23/2025 02:20 PM Modules accepted: Orders * Telephone Encounter - Sofia Duval MA - 04/23/2025 1:11 PM EDT Seizure Info: Have you missed doses of medications? 1 missed dose this morning Have you been/are you sick? no Do you drink alcohol? no Have you been/are you sleep deprived? no What type(s) of seizure(s) do you have? focal Sz medication: Name: oxcarbazepine Tablet Dose: 150 and 300 mg Sig: take 2 tablets by mouth bid along with 150 mg tablet for a dose of 750 mg Side effects: na Verified Pharmacy: [facility] Last office visit? 01.06.25 Next office visit? 06.12.25 documented in this encounter Plan of Treatment Upcoming Encounters Date Type Department Care Team (Late st Contact Info) Description 10/02/2025 10:25 AM EDT Office Visit [facility] [address] [place] [address] Vic Villarreal APRN [address] [place] [address] documented as of this encounter [...] Discontinue Reason Start Date End Da te OXcarbazepine (TRILEPTAL) 300 mg Oral Tablet Take 2 Tablets by mouth 2 times daily. (To take along with 150 mg tablets for a dose of 750 mg twice daily) Reorder 10/27/2024 04/23/2025 OXcarbazepine (TRILEPTAL) 150 mg Oral Tablet Take 1 Tablet by mouth 2 times daily. (To take along with 300 mg tablets for a dose of 750 mg twice daily) Reorder 10/27/2024 04/23/2025 documented as of this encounter Additional Health Concerns Assessment Noted Time PHQ-9 Depression Total Score: 2 01/01/20 11:35 AM EDT PHQ-2 Depression Total Score: 2 01/01/20 11:35 AM EDT documented as of this encounter Care Teams Senior Telecommunications Specialist Relationship Specialty Start Date End Date Dede Meredith APRN [address] [place] [address] PCP - General Nurse Practitioner-Family 11/17/20 Love Plummer Care Management Merchandising Consultant 04/07/25 05/04/25 Colleen Maloney, ARC AND GAS WELDER Java Portal Developer 04/08/25 documented as of this encounter
--- OUTSIDE RECORDS SUMMARY | 2025-05-14 18:38 | XMS_ITS | Encounter Summary ---
Author Organization [place] [address] Care Team Providers Care Cableway Operator Name Role Phone Dede Meredith APRN Primary Care Provider Reason for Visit * Reason Onset Date Comments Referral 04/06/2025 Encounter Details Date Type Department Care Team (Late st Contact Info) Description 04/06/2025 Patient Outreach SEP Care Managment [address] App[place] [address] Michelle Garrett Referral Social History Tobacco Use Types Packs/Day Years [...] Date Recorded PHQ-2 Total Score 2 12/31/2024 [facility] [place] of Occupat ional Health - Occupational Stress [...] documented in this encounter Progress Notes * Michelle Garrett - 04/06/2025 1:18 PM EDT L Tacker Management Referral Request Referral received from: Petrona Queen MA Referral Reason: Social Determinants of Health, Transportation Referral note: Information regarding disability Assigned per protocol to: TROY Poon (transportation) LIS Lorenzo (Social Determinants of health) documented in this encounter Plan of Treatment Upcoming Encounters Date Type Department Care Team (Late st Contact Info) Description 10/02/2025 10:25 AM EDT Office Visit [facility] [address] [place] [address] Vic Villarreal APRN [address] [place] [address] documented as of this encounter [...] documented as of this encounter Care Teams Cableway Operator Relationship Specialty Start Date End Date Dede Meredith APRN [address] [place] [address] PCP - General Nurse Practitioner-Family 11/17/20 documented as of this encounter
--- OUTSIDE RECORDS SUMMARY | 2025-05-14 18:38 | XMS_ITS | Encounter Summary ---
Author Organization [place] [address] Care Team Providers Care Gutter Installer Name Role Phone ViriDede morales OCCUPATIONAL THER Primary Care Provider Love Plummer Unavailable Unavailable Reason for Visit * Reason Onset Date Comments CM- Telephonic Outreach 04/07/2025 Transportation 04/07/2025 Encounter Details Date Type Department Care Team (Latest Contact Info) Description 04/07/2025 Patient Outreach SEP Care Managment [address] App[place]ment [place] [address] Love Plummer CM- Telephonic Outreach; Transportation Social History Tobacco Use Types Packs/Day Years [...] Date Recorded PHQ-2 Total Score 2 12/31/2024 [facility] of Occupat ional Health - Occupational Stress [...] encounter Progress Notes * Love Plummer - 04/07/2025 10:02 AM EDT Care Management Patient Outreach Attempted to contact patient regarding transportation Outcome: Patient did not answer HIPAA compliant voicemail left Message was sent via [employer] Will attempt additional outreach as scheduled documented in this encounter Plan of Treatment Upcoming Encounters Date Type Department Care Team (Late st Contact Info) Description 10/02/2025 10:25 AM EDT Office Visit [facility] [address] [place] [address] Vic Villarreal APRN [address] [place] [address] documented as of this encounter Goals Goal Patient Goal Type Associated Problems Recent Progress Patient-Stated? Author Maintain a healthy diet, exercise regularly and maintain an ideal body weight General No Mary Christy RMA Stay Tobacco Free Lifestyle No Mary Chrsity RMA documented as of this encounter Visit Diagnoses Not on filedocumented in this encounter Additional Health Concerns Assessment Noted Time PHQ-9 Depression Total Score: 2 01/01/20 11:35 AM EDT PHQ-2 Depression Total Score: 2 01/01/20 25 11:35 AM EDT documented as of this encounter Care Teams Gutter Installer Relationship Specialty Start Date End Date Dede Meredith APRN [employer] [address] [place] [address] PCP - General Nurse Practitioner-Family 11/17/20 Love Plummer Care Management Analytical Strategist 04/07/25 05/04/25 documented as of this encounter
--- OUTSIDE RECORDS SUMMARY | 2025-05-14 18:39 | XMS_ITS | Encounter Summary ---
Author Organization [place] [address] Care Team Providers Care Bessemer Regulator Name Role Phone Dede Meredith APRN Primary Care Provider Love Plummer Unavailable Unavailable Colleen Maloney [facility] Unavailable Unalaureano starkey Reason for Visit * Reason Onset Date Comments Refill 03/09/2025 Oxycodone Encounter Details Date Type Department Care Team (Late st Contact Info) Description 03/09/2025 Telephone SEP [facility] [address] [place] [address] Dede Meredith APRN [address] [place] [address] Refill (Oxycodone ) Social History Tobacco Use Types Packs/Day [...] Date Recorded PHQ-2 Total Score 2 12/31/2024 [facility] [place] of Occupat ional Health - Occupational [...] Telephone Encounter - Dede Meredith APRN - 03/09/2025 9:42 AM EDT She needs to contact her urologist for any medication refill as he is now managing her kidney stone * Telephone Encounter - Akshat Salazar MA - 03/09/2025 9:17 AM EDT Last Office Visit reviewing controlled substances: 02/18/25 Approved Ambien, Gabapentin, Lyrica, Butalbital = must be in last 6 months. All other controlled medications = must be in last 3 months. If visit is not up to date, please call and schedule appointment. Next appointment scheduled?: No VINCENT Last Reviewed by Prescriber: Last Successful PDMP Review: 03/05/2025 8:29 PM by Mariano Gonzalez MD Date of last completed CSA if not included in flowsheet below: need 05/17/2022 9:00 AM 07/21/2022 9:00 AM 08/29/2023 3:00 PM CONTROLLED SUBSTANCE Is Consent for treatment completed? Yes Date consent completed 12/14/2021 VINCENT Reference Number [id number] VINCENT Results as expected as expected If had complete compliance panel: 07/19/23 Last resulted compliance panel date: 07/19/2023 (If patient had partial drug screen or in-house drug screen, please document date of that below): * Telephone Encounter - Marjorie Rivero MA - 03/09/2025 8:04 AM EDT Select the most appropriate reason for this telephone message: Medication Refill Who is requesting the refill: Patient Medication(s)Name/Dosage/Frequency: Disp Refills Start End oxyCODONE-acetaminophen (PERCOCET) 5-325 mg Oral Tablet 12 Tablet 0 03/05/2025 03/08/2025 Sig - Route: Take 1 Tablet by mouth every 6 hours as needed for Acute Pain (R52) for up to 3 days. - Oral Did patient contact the pharmacy first: No CM (For any future refill, we recommend you contact yourpharmacy first How many days left on hand: 0 Future appt date w/ prescribing provider: none Pharmacy & Location: [facility] [place] [address] [address] [facility] [phone] Return Method of Communication: Phone Call Informed patient refill requests can take up to 72 business hours for response Yes Additional Information: Medication NOT PENDED due to not on active medication list. Please advise patient, thank you. Pt reports she is out of pain medication that was given to her at the ER. Pt reports she has a painful kidney stone. Pt reports she is scheduled for 03/16/25 to have the kidney stone blasted. Please advise. documented in this encounter Plan of Treatment Upcoming Encounters Date Type Department Care Team (Late st Contact Info) Description 10/02/2025 10:25 AM EDT Office Visit [facility] [address] [place] [address] Vic Villarreal APRN [address] [place] [address] documented as of this encounter Goals Goal Patient Goal Type Associated Problems Recent Progress Patient-Stated? Author Maintain a healthy diet, exercise regularly and maintain an ideal body weight General No Mary Christy, RMNorma Stay Tobacco Free Lifestyle No Mary Christy, RIKY documented as of this encounter Visit Diagnoses Not on filedocumented in this encounter Additional Health Concerns Assessment Noted Time PHQ-9 Depression Total Score: 2 01/01/20 11:35 AM EDT PHQ-2 Depression Total Score: 2 01/01/20 11:35 AM EDT documented as of this encounter Care Teams Bessemer Regulator Relationship Specialty Start Date End Date Dede Meredith APRN [address] [place] [address] PCP - General Nurse Practitioner-Family 11/17/20 Love Plummer Care Management Fixed Wing Aircraft Crew Chief 04/07/25 05/04/25 Colleen Maloney, HEARING INSTRUMENT SPECIALIST Maritime Guard 04/08/25 documented as of this encounter
--- OUTSIDE RECORDS SUMMARY | 2025-05-14 18:39 | XMS_ITS | Encounter Summary ---
Author Organization [place] [address] Care Team Providers Care Commercial Real Estate Lender Name Role Phone Dede Meredith APRN Primary Care Provider Colleen Maloney FIELD REPORTER Unavailable Unavai lable Reason for Visit * Reason Comments Medication Refill Encounter Details Date Type Department Care Team (Late st Contact Info) Description 05/12/2025 Refill [facility]P [facility] [address] [place] [address] Dede Meredith APRN [address] [place] [id number] Medication Refill Social History Tobacco Use Types [...] Date Recorded PHQ-2 Total Score 2 12/31/2024 [facility] [place] of Occupat ional Health - Occupational [...] EDT Office Visit [facility] [address] [place] [address] Vic Villarreal APRN [address] [place] [address] documented as of this encounter [...] documented as of this encounter Care Teams Commercial Real Estate Lender Relationship Specialty Start Date End Date Dede Meredith APRN [employer] [address] [place] [place] [address] PCP - General Nurse Practitioner-Family 11/17/20 Colleen Maloney, FIELD REPORTER Ground Operations Crew Member 04/08/25 documented as of this encounter
--- NOTE | 2025-05-14 19:12 | XR_ITS ---
PROCEDURE INFORMATION: Exam: XR Left Hip Exam date and time: 05/14/2025 7:27 PM Age: 44 years old Clinical indication: Other: L leg pain, inability to bear weight, no known inj TECHNIQUE: Imaging protocol: Radiologic exam of the left hip. Views: 2 or 3 views hip with pelvis when performed. COMPARISON: CT ABDOMEN PELVIS WO CON 01/24/2025 11:17 PM FINDINGS: Bones/joints: Unremarkable. No acute fracture. Soft tissues: Unremarkable. IMPRESSION: No acute findings.
--- NOTE | 2025-05-14 19:12 | XR_ITS ---
PROCEDURE INFORMATION: Exam: XR Left Femur Exam date and time: 05/14/2025 7:27 PM Age: 44 years old Clinical indication: Other: L leg pain, inability to bear weight, no known inj TECHNIQUE: Imaging protocol: Radiologic exam of the left femur. Views: 2 views. COMPARISON: CT ABDOMEN PELVIS WO CON 01/24/2025 11:17 PM FINDINGS: Bones/joints: Unremarkable. No acute fracture. Soft tissues: Unremarkable. IMPRESSION: No acute findings.
--- NOTE | 2025-05-14 19:12 | CT_ITS ---
PROCEDURE INFORMATION: Exam: CT Lumbar Spine Without Contrast Exam date and time: 05/14/2025 7:25 PM Age: 44 years old Clinical indication: Other: L leg pain, positive straight leg raise TECHNIQUE: Imaging protocol: Computed tomography of the lumbar spine without contrast. Radiation optimization: All CT scans at this facility use at least one of these dose optimization techniques: automated exposure control; mA and/or kV adjustment per patient size (includes targeted exams where dose is matched to clinical indication); or iterative reconstruction. COMPARISON: CT ABDOMEN WO CON 02/13/2025 11:49 PM FINDINGS: Bones/joints: No acute fracture. Normal alignment. No significant disc bulge or herniation. No severe spinal canal stenosis. No significant neural foraminal narrowing. Soft tissues: Unremarkable. IMPRESSION: 1. No acute lumbar spine fracture. 2. MRI may be helpful to further delineate these findings.
--- NOTE | 2025-05-14 19:12 | XR_ITS ---
PROCEDURE INFORMATION: Exam: XR Left Knee Exam date and time: 05/14/2025 7:27 PM Age: 44 years old Clinical indication: Other: L leg pain, inability to bear weight, no known inj TECHNIQUE: Imaging protocol: Radiologic exam of the left knee. Views: 3 views. COMPARISON: CR XR FEMUR LT 2V 05/14/2025 7:27 PM FINDINGS: Bones/joints: Mild medial joint space narrowing with osteophytic spurring.. Soft tissues: Moderate knee joint effusion.. IMPRESSION: 1. No fracture or bone destruction. 2. Moderate knee joint effusion 3. Mild medial joint space narrowing with osteophytic spurring.
--- NOTE | 2025-05-14 19:32 | ED_ITS ---
Discharge Plan Disposition Patient Disposition: Home, Self-Care Condition: Good Prescriptions Prescriptions: New methocarbamol 750 mg tablet 750 mg PO Q8H PRN (Reason: pain) Qty: 20 0RF ketorolac 10 mg tablet 10 mg PO Q8H PRN (Reason: pain) Qty: 12 0RF No Action oxycodone-acetaminophen [Percocet] 5-325 mg tablet 1 tab PO Q8H 3 Days Qty: 10 0RF Rx Instructions: use as needed for ureteral colic tamsulosin [Flomax] 0.4 mg capsule 0.4 mg PO DAILY Qty: 30 0RF ondansetron 4 mg tablet,disintegrating 4 mg PO Q6H PRN (Reason: nausea and vomiting) Qty: 10 0RF Oxtellar XR 300 mg Tablet Extended Release 24 Hr 300 mg PO HS Rx Instructions: must be taken on empty stomach; no food at least 2 hrs before or 1 hr after dose Oxtellar XR 600 mg Tablet Extended Release 24 Hr 1,200 mg PO HS Rx Instructions: must be taken on empty stomach; no food at least 2 hrs before or 1 hr after dose albuterol sulfate 90 mcg/actuation HFA aerosol inhaler 2 puff INHALATION Q6HP PRN (Reason: Shortness Of Breath) Patient Comments: TAKE 2 PUFFS BY MOUTH EVERY 6 HOURS NEEDED FOR WHEEZE budesonide-formoterol [Symbicort] 160-4.5 mcg/actuation HFA aerosol inhaler 2 puff INHALATION BID Patient Comments: INHALE 2 PUFFS INTO THE LUNGS 2 TIMES DAILY oxcarbazepine 300 mg Tablet 1,500 mg PO HS 30 Days Qty: 150 0RF ipratropium-albuterol 0.5 mg-3 mg(2.5 mg base)/3 mL Solution For Nebulization 3 ml inhalation Q4HP PRN (Reason: Shortness Of Breath) 30 Days Qty: 120 0RF pantoprazole 20 mg tablet,delayed release (DR/EC) 20 mg PO DAILY Qty: 30 0RF lorazepam [Ativan] 0.5 mg tablet 0.5 mg PO TID PRN (Reason: anxiety) 3 Days Qty: 9 0RF acetaminophen 500 mg tablet 1,000 mg PO Q8H PRN (Reason: pain) Qty: 60 0RF ibuprofen 800 mg tablet 800 mg PO Q8H PRN (Reason: pain) Qty: 30 0RF Referrals Follow up/Referrals: Dede Meredith APRN [Primary Care Provider, Medical] - See instructions Nehemias Dumont DO [Staff Physician, Orthopedics] - See instructions Activity Restrictions/Add. Instructions Additional Instructions/Restrictions: You were evaluated in the emergency department today. As we discussed, your x- rays and CT scans do not show any acute broken bones or other obvious concerns at this time. X-rays and CT scans do not show the cartilage or soft tissues, so it is possible you could have a soft tissue or cartilage injury that we are not seeing here today. For this reason, I recommend close outpatient follow-up with your primary care provider and/or orthopedics. We also discussed joint aspiration, but you are electing to go home without draining fluid from your knee to test for cause of swelling on your knee. Given this, it is very important that you return right away for new or worsening symptoms such as fevers, significant redness of the knee, inability to bend the knee, or true inability to bear weight on your leg. Use crutches as needed to help offload weight. We also discussed that we are providing you with an outpatient DVT ultrasound order to just to be on the safe side. 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 You may also take Tylenol every 4-6 hours as needed for pain. Again, please return to the emergency department for new or worsening symptoms. Clinical Impressions Clinical Impression: Effusion, left knee, Acute knee pain Stand Alone Forms Stand Alone Forms: Work/School Release Instructions Patient Instructions: DI for Knee Effusion, DI for Knee Pain Print Language Print Language: Greek Discharge ED Provider: Petrona Arellano General Adult HPI General Chief complaint: Extremity Injury, Lower Stated complaint: Pain and swelling in front and behind left knee Time Seen by Provider: 05/14/25 19:03 Mode of Arrival: Ambulatory Source of Information: Patient and Spouse Description of Symptoms (Recalled from ER Triage Doc. by RN): patient presents to the ED for left knee pain that she noticed when she woke up. sara hasnt taken anything for the pain currently. sara is unsure what happened to the knee. she rates the pain 8/10. History of Present Illness HPI narrative: This patient is a 44-year-old female with a history of seizure disorder, obesity, COPD presenting to the Emergency Department for evaluation with concern for left leg/knee pain that she woke up with this morning. She states she is not sure if she had a seizure in her sleep or what could have happened. She notes that she woke up with pain in her left knee and thigh making it hard to bear weight. No known recent falls or injuries. No fevers or infectious symptoms noted. She states that she cannot put weight on it because the pain in her knee is so bad. She also has pain in her low back if she tries to lift her leg. No numbness, tingling or other concerns reported. She is otherwise been well. Related Data Home Medications ?Medication ?Instructions ?Recorded ?Confirmed albuterol sulfate 90 mcg/actuation 2 puff inhalation Q 6HP PRN 09/12/22 03/02/25 aerosol inhaler Shortness Of Breath budesonide-formoterol HFA 160 2 puff inhalation BID Br eathing 09/12/22 03/02/25 mcg-4.5 mcg/actuation aerosol problems inhaler (Symbicort) oxcarbazepine 300 mg 300 mg PO HS seizures 03/02/25 tablet,extended release 24 hr (Oxtellar XR) oxcarbazepine 600 mg 1,200 mg PO HS seizures 08/2403/02/25 tablet,extended release 24 hr (Oxtellar XR) Previous Rx's ?Medication ?Instructions ?Recorded ipratropium 0.5 mg-albuterol 3 mg 3 ml inhalation Q4HP PRN Shortness 09/14/22 (2.5 mg base)/3 mL nebulization Of Breath 30 days #120 ea soln oxcarbazepine 300 mg tablet 1,500 mg (5 x 300 mg) PO H S 30 09/14/22 days #150 tabs pantoprazole 20 mg tablet,delayed 20 mg PO DAILY #30 t abs 08/29/23 release lorazepam 0.5 mg tablet (Ativan) 0.5 mg PO TID PRN anx iety 3 days 09/08/24 #9 tabs ondansetron 4 mg disintegrating 4 mg PO Q6H PRN nausea and 01/23/25 tablet vomiting #10 tabs acetaminophen 500 mg tablet 1,000 mg (2 x 500 mg) PO Q 8H PRN 01/25/25 pain #60 tabs ibuprofen 800 mg tablet 800 mg PO Q8H PRN pain #30 t abs 01/25/25 oxycodone-acetaminophen 5 mg-325 1 tab PO Q8H 3 days # 10 tabs 03/02/25 mg tablet (Percocet) tamsulosin 0.4 mg capsule (Flomax) 0.4 mg PO DAILY #30 caps 03/02/25 ketorolac 10 mg tablet 10 mg PO Q8H PRN pain #12 ta bs 05/14/25 methocarbamol 750 mg tablet 750 mg PO Q8H PRN pain #20 tabs 05/14/25 Allergies Allergy/AdvReac Type Severity Reaction Status Date / Time doxycycline (DOXYCYCLINE) Allergy Unknown Unknown Verified 03/02/25 09:56 allergy reaction latex (LATEX) Allergy Unknown Unknown Verified 03/02/25 09:56 allergy reaction sulfamethoxazole (From Allergy Unknown Unknown Verified 03/02/25 09:56 BACTRIM) allergy reaction trimethoprim (From BACTRIM) Allergy Unknown Unknown Verified 03/02/25 09:56 allergy reaction PFSH PFSH Disclaimer: The information contained in this section may have been updated after the patient was seen, as this information can be updated by other users. Medical History Acute respiratory failure with hypoxia COPD (chronic obstructive pulmonary disease) Shortness of Breath Anxiety disorder Depression Seizure disorder Epileptic seizure Generalized seizure Polyhydramnios affecting in third trimester Surgical History H/O brain surgery Family History Father Hypertension Social History Smoking Status: Light tobacco smoker tobacco type: cigarettes packs per day: 1 how long ago did patient quit smokin days ago alcohol intake: never substance use type: denies use current occupational status: employed Travel in the last 8 weeks?: None adopted: No caregiver/support person: No foster care: No household members: spouse and children housing: apartment lives independently: Yes marital status: number of children: 1 education level: college service: No retirement: No current occupational exposures/hazards: No pets and animals: No sexually active: Yes Have you lived/traveled outside US in past 30 days?: No Contact w/someone who lives/traveled outside US past 30 days?: No Exposure to someone with infectious disease in past 14 days?: No Do you have a fever (greater than 100.4 F or 38 C)?: No Have you tested positive for COVID-19?: No Exposed to someone with COVID-19 in past 14 days?: No Do you have a sore throat?: No Do you have a cough?: No Do you have any weakness?: No Do you have any diarrhea?: No Are you experiencing any unusual bleeding?: No Do you have any muscle aches/pain?: No Do you have any abdominal pain?: No Are you experiencing loss of taste or smell?: No Other Medical History Have you received the Flu Vaccine for this season: No Have you received the Pneumonia Vaccine: Yes ROS Obtained: Yes All systems reviewed & no additional complaints except as documented Physical Exam General General appearance: alert and in no apparent distress Head Head exam: atraumatic and normocephalic Eye Eye exam: Present normal appearance, PERRL and EOMI ENT ENT exam: Present normal exam, normal oropharynx, mucous membranes moist and normal external ear exam Neck Neck exam: Present normal inspection, full ROM and trachea midline; Absent tenderness Chest Chest inspection: Present normal inspection and symmetric chest wall rise; Absent tenderness Respiratory Respiratory exam: Present normal lung sounds bilaterally; Absent respiratory distress, wheezes, stridor or accessory muscle use Cardiovascular Cardiovascular exam: Present regular rate and normal rhythm Abdominal Exam Abdominal exam: Present soft; Absent distention, tenderness or guarding Extremities Exam Extremities exam: Present tenderness, normal capillary refill and other (Left anterior thigh and knee tenderness to palpation. No obvious joint effusion, no redness, warmth, or skin changes. No wounds. She has pain with active range of motion of the left hip and knee but passive range of motion is tolerable. Referred pain to the low back with straight leg raise); Absent full ROM Back Exam Back exam: Present normal inspection and full ROM; Absent tenderness Neurological Exam Neurological exam: Present alert, oriented X3, CN II-XII intact and normal gait; Absent motor sensory deficit Psychiatric Psychiatric exam: Present normal affect and normal mood Skin Skin exam: Present warm and dry Medical Decision Making Medical Records Medical records reviewed: Yes I reviewed the patient's medical records. Screening: Per USPSTF and CDC recommendations, given the prevalence of disease in our region, it is our hospital?s policy to screen for HIV and viral Hepatitis for all patients aged 18 and over and those with ongoing risk factors. Rudy Inquiry Pt receiving controlled substance: No Vital Signs: 05/14/25 18:19 05/14/25 20:55 Temperature 98.5 F Temperature Source Oral Pulse Rate 86 Pulse Rate [Right Radial] 61 Respiratory Rate 18 16 Blood Pressure 157/92 H Blood Pressure [Right Arm] 168/100 H Blood Pressure Mean [Right Arm] 122 Blood Pressure Source [Right Arm] Automatic Cuff Blood Pressure Position [Right Arm] Sitting 02 Sat by Pulse Oximetry 100 95 Oxygen Delivery Method Room Air Room Air Lab Data Lab results reviewed: Yes I reviewed the patient's lab results. Lab Results 05/14/25 20:08: WBC 5.4, RBC 4.12 L, Hgb 11.6 L, Hct 35.1 L, MCV 85.2, MCH 28.2, MCHC 33.0, RDW 13.5, Plt Count 274, MPV 8.8, Neut % (Auto) 67.1, Lymph % (Auto) 17.2, Wallace % (Auto) 10.9 H, Eos % (Auto) 2.8, Baso % (Auto) 0.9, Neut # (Auto) 3.6, Lymph # (Auto) 0.9, Wallace # (Auto) 0.6, Eos # (Auto) 0.2, Baso # (Auto) 0.1, ESR 19, D-Dimer 0.85 H, Sodium 133 L, Potassium 3.6, Chloride 106, Carbon Dioxide 20 L, Anion Gap 10.6, BUN 7, Creatinine 0.60, Estimated Creat Clear 222, Estimated GFR 108, Est GFR ( Amer) 131, Glucose 109 H, Calcium 8.8, Total Bilirubin 0.3, AST 34, ALT 25, Alkaline Phosphatase 104, C-Reactive Protein 44.8 H, Total Protein 6.2 L, Albumin 3.9, Globulin 2.3, Albumin/Globulin Ratio 1.7 05/14/25 20:08 05/14/25 20:08 Orders (Tests/Meds): ED MEDICATIONS Discontinued Medications Generic Name Dose Route Start Last Admin Trade Name Freq PRN Reason Stop Dose Admin Acetaminophen 1,000 mg 05/14/25 19:12 05/14/25 19:35 Acetaminophen 500mg Tab PO 05/14/25 19:13 1,000 mg ONCE ONE Administration Ketorolac Tromethamine 30 mg 05/14/25 19:12 05/14/25 19:35 Ketorolac 30mg/Ml Vial IV 05/14/25 19:13 30 mg ONCE ONE Administration Methocarbamol 500 mg 05/14/25 19:13 05/14/25 19:35 Methocarbamol 500mg Tablet PO 05/14/25 19:14 500 mg ONCE ONE Administration ORDERS Category Date Time Status CT lumbar spine wo con Stat Cat Scan 05/14/25 19:12 Completed Femur XR left 2 views [XR femur LT 2V] Stat Exams 05/14/25 19:12 Completed Hip XR left minimum 2 views [XR hip LT 2-3V w/pelvis] Exams 05/14/25 19:12 Completed Stat Knee XR left 3 views [XR knee LT 3V] Stat Exams 05/14/25 19:12 Completed CRP [C-Reactive Protein] Stat Lab 05/14/25 20:08 Completed Complete Blood Count Auto Diff Stat Lab 05/14/25 20:08 Completed Comprehensive Metabolic Panel Stat Lab 05/14/25 20:08 Completed D-Dimer Stat Lab 05/14/25 20:08 Completed ESR [Erythrocyte Sedimentation Rate] Stat Lab 05/14/25 20:08 Completed Medical Decision Narrative: In summary, this patient is a 44-year-old female presenting to the Emergency Department for evaluation of left leg pain that she woke up with this morning making it difficult to bear weight. She is not sure if she could have had a seizure in her sleep. She does not remember any falls, injury, or specific trauma. Differential diagnoses considered include but are not limited to fracture, contusion, strain/sprain, gout, neurovascular injury, lumbar radiculopathy, muscular injury, less likely septic arthritis, DVT, cellulitis. Ruling out the most morbid conditions drove assessment. It should be noted patient's history includes obesity, COPD, seizure disorder which likely are not at goal therapy. This complicates all aspects of care by increasing patient's risk for morbidity. I reviewed patient's past medical records and noted multiple prior ED evaluations for various complaints, including kidney stones, and benzodiazepine withdrawal, abdominal pain. On exam, the patient has tenderness palpation of the left anterior thigh and knee with no obvious redness, warmth, skin changes, or deformity. All compartments are soft, she is neurovascular intact distally. She has pain with active range of motion of the left hip and knee, but passive range of motion is tolerable. She has intact motor strength and movement in her ankle. She has referred pain to the low back with positive straight leg raise. I doubt septic arthritis given that I can range her left knee with no redness, warmth, or significant skin changes. It also clinically does not look like cellulitis or DVT, however it is concerned that she has such significant pain that she cannot bear weight in the absence of trauma. Workup included CBC, CMP, ESR, CRP, D- dimer, CT of the lumbar spine, x-rays of the left hip/pelvis, femur, knee. Patient was given oral Robaxin, IM Toradol, oral Tylenol for symptomatic improvement. I independently interpreted x-ray and CT prior to the radiologist read and noted no acute fracture, no dislocation. Please see their read for final interpretation. Labs were obtained that demonstrated reassuring CBC with no significant leukocytosis, white blood count is 5. She has elevated CRP but normal ESR. On reassessment, the patient is able to ambulate and bear weight, though she states her knee does hurt. She does have a knee effusion on x-ray, but white count is normal, ESR is normal. CRP is elevated, which is nonspecific. We discussed potential joint aspiration, but patient states that she just wants to go home at this point. I advised that it is very important that she return right away then if she develops any fevers, redness, warmth, significant limitations in range of motion, or true inability to bear weight on her left leg. I also advised very close outpatient follow-up with orthopedics for further assessment. She expressed understanding and agreement. Patient was discharged with prescriptions for Toradol and Robaxin to help with pain, crutches to help offload weight, instructions for close follow-up, and very strict return precautions. Critical Care Critical Care Time Critical Care Time: No
[2025-05-14] MEDS: METHOCARBAMOL 500MG TABLET 500 MG PO (19:35)
[2025-05-14] MEDS: KETOROLAC 30MG/ML VIAL 30 MG IV (19:35)
[2025-05-14] MEDS: ACETAMINOPHEN 500MG TAB 1000 MG PO (19:35)
[2025-05-14 20:20] LABS: Hematocrit 35.1 % (37.0-47.0); Hemoglobin 11.6 g/dL (12.2-16.2); Immature Granulocytes % 1.1 %; Mean Corpuscular HGB Conc 33.0 g/dL (31.8-35.4); Mean Corpuscular Hemoglobin 28.2 pg (27.0-31.2); Mean Corpuscular Volume 85.2 fl (81-99); Nucleated Red Blood Cells % 0 %; Platelet Count 274 K/mm3 (142-424); Red Blood Count 4.12 M/mm3 (4.20-5.40); Red Cell Distribution Width-SD 42.0 fL; White Blood Count 5.4 K/mm3 (4.8-10.8)
[2025-05-14 20:35] LABS: Alanine Aminotransferase 25 U/L (12-78); Albumin Level 3.9 g/dl (3.5-5.0); Albumin/Globulin Ratio 1.7 (1.1-1.8); Alkaline Phosphatase 104 U/L (38-126); Anion Gap 10.6 mEq/L (5-15); Aspartate Amino Transferase 34 U/L (14-36); Bilirubin,Total 0.3 mg/dl (0.2-1.3); Blood Urea Nitrogen 7 mg/dl (7-17); Calcium 8.8 mg/dl (8.4-10.2); Carbon Dioxide 20 mmol/L (22.0-30.0); Chloride 106 mmol/L (98-107); Creatinine Clearance Estimated 222 mL/min (50-200); Creatinine,Serum 0.60 mg/dl (0.52-1.04); Estimated Glomerular Filt Rate 108 ml/min (>60); GFR (African American) 131 ML/MIN (>60); Globulin 2.3 g/dL (1.3-3.2); Glucose 109 mg/dl (74-100); Potassium 3.6 mmoL/L (3.5-5.1); Sodium 133 mmol/L (136-145); Total Protein,Serum 6.2 g/dl (6.3-8.2)
[2025-05-14 20:40] LABS: C-Reactive Protein 44.8 mg/L (0-4); D-Dimer 0.85 ug/mL (0.0-0.5)
[2025-05-14 20:55] VITALS: BP 157/92; PULSE 86; RESP 16; O2SAT 95
[2025-05-14 21:51] VITALS: BP 175/84; PULSE 88; RESP 18; TEMP 36.7; O2SAT 97
--- NOTE | 2025-05-15 16:39 | PC.NURSE ---
The pt called stating her PCP called and told her that she had a blood clot diagnosed at this visit. I relayed that per the physicians note and scans there was no definitive clot found. I asked if she scheduled her DVT US yet. She states she goes for it Sunday at [facility]. I encouraged her to keep that appointment and follow up with her PCP or return to the ED if needed.
== END 2025-05-14 21:58 | disposition home or self-care (01) ==
PROVIDERS: Emergency Provider Emergency Medicine; PCP Nurse Practitioner
DX: M25.562 Pain in left knee (principal); M25.462 Effusion, left knee
CPT/HCPCS: 72131; 73502; 73552; 73562; 80053; 85025; 85378; 85651; 86140; 96374; 99284; J1885

== ENCOUNTER 2025-05-19 09:16 | Outpatient (CLI) | payer MEDICARE, MEDICAID, SELFPAY ==
--- OUTSIDE RECORDS SUMMARY | 2025-04-01 10:30 | XMS_ITS | Encounter Summary ---
Author Organization [place] [address] Care Team Providers Care Expense Clerk Name Role Phone Dede Meredith APRN Primary Care Provider Encounter Details Date Type Department Care Team (Late st Contact Info) Description 04/01/2025 11:30 AM EDT Telemedicine [facility] [address] [place] [phone] Dede Meredith APRN [address] [place] [address] Acute vaginitis (Primary Dx); Grief at loss [...] Date Recorded PHQ-2 Total Score 2 12/31/2024 [facility] [place] of Occupat ional Health - Occupational Stress [...] a video visit does not replace a [id number] exam and further services may be necessary. I advised the patient that we are conducting her video visit through our office in a private space on our secure network and this video visit is being conducted in accordance with [facility] telehealth/video visit regulations. Patient had no [...] [address] [facility] [address] [place] [id number] Vic Villarreal APRN [address] [address] [place] [address] documented as of this encounter Goals Goal [...] documented as of this encounter Care Teams Expense Clerk Relationship Specialty Start Date End Date Dede Meredith APRN [address] [place], [place] [address] PCP - General Nurse Practitioner-Family 11/17/20 documented as of this encounter
--- OUTSIDE RECORDS SUMMARY | 2025-04-10 14:15 | XMS_ITS | Encounter Summary ---
Author Organization [place] [address] Care Team Providers Care Tree Expert Name Role Phone Dede Meredith APRN Primary Care Provider Love Plummer Unavailable Unavailable Colleen Maloney SHIP PILOT Unavailable Tobias starkey Encounter Details Date Type Department Care Team (Late st Contact Info) Description 04/10/2025 3:15 PM EDT Telemedicine SEP Vanessa [facility] [address] [place] [address] Dede Meredith APRN [address] [place] [phone] Generalized anxiety disorder (Primary Dx) Social History [...] Date Recorded PHQ-2 Total Score 2 12/31/2024 [facility] [place] of Occupat ional Health - Occupational Stress [...] a video visit does not replace a paee-uj-znuf exam and further services may be necessary. [...] EDT Office Visit [facility] [address] [place], [place] [id number] Vic Villarreal APRN [address] [place] [address] documented as of this encounter Goals Goal Patient Goal Type Associated Problems Recent Progress Patient-Stated? Author Maintain a healthy diet, exercise regularly and maintain an ideal body weight General No Mary Christy, RMoNrma Stay Tobacco Free Lifestyle No Mary Christy [...] documented as of this encounter Care Teams Tree Expert Relationship Specialty Start Date End Date Dede Meredith APRN [address] [place] [address] PCP - General Nurse Practitioner-Family 11/17/20 Love Plummer Care Management Covering Machine Operator 04/07/25 05/04/25 Colleen Maloney, SHIP PILOT Director Of Accreditation 04/08/25 documented as of this encounter
--- OUTSIDE RECORDS SUMMARY | 2025-04-24 22:59 | XMS_ITS | Encounter Summary ---
Author Organization [place] [address] Care Team Providers Care Raspberry Checker Name Role Phone Dede Meredith APRN Primary Care Provider [phone] Love Plummer Unavailable Unavailable Colleen Maloney CONTACT CLERK Unavailable Tobias starkey Encounter Details Date Type Department Care Team (Late st Contact Info) Description 04/27/2025 11:59 PM EST Anesthesia Event [facility] [address] [place] [address] Carmelo Schneider APRN [address] [place], [place] [id number] Anesthesia Record Procedure Summary Procedure Name Responsible [...] Date Recorded PHQ-2 Total Score 2 12/31/2024 [facility] - Occupational Stress Questionnaire Answer Date Recorded [...] [facility] ANE DIABETES MELLITUS: 12/2024 A1c 5.7. 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 (+) Non childbearing due to: Hysterectomy and [...] EDT Office Visit [facility] [address] [place], [place] [id number] Vic Villarreal APRN [address] [place], [place] [id number] documented as of this encounter Goals Goal [...] documented as of this encounter Care Teams Raspberry Checker Relationship Specialty Start Date End Date Dede Meredith APRN [address] [place] [address] PCP - General Nurse Practitioner-Family 11/17/20 Love Plummer Care Management Inside Trucker 04/07/25 05/04/25 Colleen Maloney, CONTACT CLERK Motor Vehicle Parts Interpreter 04/08/25 documented as of this encounter
--- OUTSIDE RECORDS SUMMARY | 2025-04-27 13:30 | XMS_ITS | Encounter Summary ---
Author Organization [place] [address] Care Team Providers Care Assistant Superintendent For Curriculum Name Role Phone Dede Meredith APRN Primary Care Provider Love Plummer Unavailable Unavailable Colleen Maloney BANQUET DIRECTOR Unavailable Unavai lable Reason for Visit * Reason Comments Emesis Unable to keep anyth ing down including her medication Diarrhea x3 days Shaking Encounter Details Date Type Department Care Team (Latest Contact Info) Description 04/27/2025 1:30 PM EST Office Visit [facility] [place] [address] Sandip Denton MD [address] [place] [address] [place] [address] Viral gastroenteritis (Primary Dx) Social History Tobacco Use Types [...] Date Recorded PHQ-2 Total Score 2 12/31/2024 [facility] of Occupat ional Health - Occupational Stress [...] Sign Reading Time Taken Comments Blood Pressure 142/70 04/27/2025 1:14 PM EST Pulse 68 04/27/2025 1:14 PM EST Temperature 36.7 C (98 F) 04/27/2025 1:14 PM EST Respiratory Rate 18 04/27/2025 1:14 PM EST Oxygen Saturation 98% 04/27/2025 1:14 PM EST Inhaled Oxygen Concentration - - Weight 121.6 kg (268 lb) 04/27/2025 1:14 PM EST Height 167.6 cm (5' 6 ) 04/27/2025 1:14 PM EST Body Mass Index 43.26 04/27/2025 1:14 PM EST documented in this encounter Functional Status * [...] ondansetron (ZOFRAN-ODT) 4 mg Oral Tablet, Rapid DissolveIndications:V iral gastroenteritis Dissolve 1 Tablet by mouth every 6 hours as needed for Nausea. 30 Tablet 04/27/2025 documented in this encounter Progress Notes * Sandip Denton MD - 04/27/2025 1:30 PM EST Assessment & Plan Viral gastroenteritis Orders: ondansetron (ZOFRAN-ODT) 4 mg Oral Tablet, Rapid Dissolve; Dissolve 1 Tablet by mouth every 6 hoursas needed for Nausea. Advised supportive care for viral gastroenteritis symptoms and follow-up as needed if symptoms worsen or fail to improve. Zofran to help with nausea. Push fluids. Progress Note: Vitals: 04/27/25 1314 BP: (!) 142/70 Pulse: 68 Resp: 18 Temp: 98 ??F (36.7 ??C) TempSrc: Temporal SpO2: 98% Weight: 268 lb (121.6 kg) Height: 5' 6 (1.676 m) Body mass index is 43.26 kg/m??. SUBJECTIVE: Chief Complaint Patient presents with Emesis Unable to keep anything down including her medication Diarrhea x3 days Shaking HPI: 2 to 3-day history of nausea vomiting and diarrhea. [place] very fatigued and worn out. She is concerned that she has not been able to keep down her seizure medicines. No seizures reported during this time period. She is trying to drink fluids but is concerned she is dehydrated. Feels very achy and fatigued. Review of Systems Constitutional: Positive for activity change, appetite change and fatigue. Negative for fever. HENT: Negative for trouble swallowing. Respiratory: Negative for cough and shortness of breath. Gastrointestinal: Positive for diarrhea, nausea and vomiting. Negative for blood in stool. Skin: Negative for rash. OBJECTIVE: Physical Exam Vitals reviewed. Constitutional: General: She is not in acute distress. Appearance: She is not ill-appearing, toxic-appearing or diaphoretic. HENT: Right Ear: Tympanic membrane normal. Left Ear: Tympanic membrane normal. Nose: Congestion and rhinorrhea present. Mouth/Throat: Pharynx: No oropharyngeal exudate or posterior oropharyngeal erythema. Cardiovascular: Rate and Rhythm: Normal rate and regular rhythm. Pulses: Normal pulses. Pulmonary: Effort: Pulmonary effort is normal. No respiratory distress. Breath sounds: No wheezing, rhonchi or rales. Abdominal: Tenderness: There is no abdominal tenderness. There is no right CVA tenderness, left CVA tenderness, guarding or rebound. Skin: Findings: No rash. Neurological: Mental Status: She is alert. documented in this encounter Plan of Treatment Upcoming Encounters Date Type Department Care Team (Late st Contact Info) Description 10/02/2025 10:25 AM EDT Office Visit [facility] [address] [facility] [address] [place] [address] Vic Villarreal, TESTER/LIFT TRUCKER [address] [place] [address] documented as of this encounter Goals Goal Patient Goal Type Associated Problems Recent Progress Patient-Stated? Author Maintain a healthy diet, exercise regularly and maintain an ideal body weight General No Mary Christy RMA Stay Tobacco Free Lifestyle No Mary Christy MelyRIKY documented as of this encounter Visit Diagnoses Diagnosis Viral gastroenteritis- Primary Intestinal infection due to other organism, not elsewhere classified documented in this encounter Discontinued Medications Medication Sig Discontinue Reason Start Date End Da te ondansetron (ZOFRAN-ODT) 4 mg Oral Tablet, Rapid Dissolve Dissolve 1 Tablet by mouth every 6 hours as needed for Nausea. Reorder 01/05/2025 04/27/2025 fluconazole (DIFLUCAN) 150 mg Oral TabletIndications:Dysur ia Take one dose now and repeat when you finish the keflex. Cancelled by 03/09/2025 04/27/2025 documented as of this encounter Historical Medications * This list may reflect changes made after this encounter. cycloSPORINE (RESTASIS) 0.05 % Opht Dropperette INSTILL 1 DROP INTO THE AFFECTED EYES EVERY 12 HOURS 04/06/2025 added in this encounter Additional Health Concerns Assessment Noted Time PHQ-9 Depression Total Score: 2 01/01/20 11:35 AM EDT PHQ-2 Depression Total Score: 2 01/01/20 11:35 AM EDT documented as of this encounter Care Teams Assistant Superintendent For Curriculum Relationship Specialty Start Date End Date Dede Meredith APRN [address] [place], [place] [address] PCP - General Nurse Practitioner-Family 11/17/20 Love Plummer Care Management Machine Setter 04/07/25 05/04/25 Colleen Maloney, BANQUET DIRECTOR Major Appliance Assembly Supervisor 04/08/25 documented as of this encounter
--- OUTSIDE RECORDS SUMMARY | 2025-05-05 14:30 | XMS_ITS | Encounter Summary ---
Author Organization [place] [address] Care Team Providers Care Print Binding Worker Name Role Phone Dede Meredith APRN Primary Care Provider [phone] Colleen Maloney MACHINE CLEANER Unavailable Unavai lable Reason for Visit * Reason Comments Injections Encounter Details Date Type Department Care Team (Latest Contact Info) Description 05/05/2025 2:30 PM EST Clinical Support [facility] [place] [address] [place] [address] Dede Meredith APRN [address] [place] [phone] Other migraine with status migrainosus, intractable (Primary [...] Date Recorded PHQ-2 Total Score 2 12/31/2024 [facility] of Occupat ional Health - Occupational Stress [...] End Date fluconazole (DIFLUCAN) 150 mg Oral Tablet Take 1 Tablet by mouth once for 1 dose. 1 Tablet 1 05/05/2025 05/05/2025 documented in this encounter Miscellaneous Notes * Addendum Note - Rommel Ulloa CCMA - 05/05/2025 2:30 PM ESTAddended by: ROMMEL ULLOA on: 05/05/2025 04:27 PM Modules accepted: Orders documented in this encounter Plan of Treatment Upcoming Encounters Date Type Department Care Team (Late st Contact Info) Description 10/02/2025 10:25 AM EDT Office Visit [facility] [address] [facility] [address] [place] [address] Vic Villarreal APRN [address] [facility] [address] [place] [address] documented as of this encounter Goals Goal [...] Date Dose Rate Site ketorolac (TORADOL) injection 30 mg 30 mg, Intramuscular, ONCE, 1 dose, On Sun05/05/25 at 1430, For IV Administration: Give undiluted over at least 15 seconds. Maximum IV dose is 30mg. For IM Administration: Give undiluted, slowly and deeply into the muscle., Dx: 1. Other migraine with status migrainosus, intractableIndications:O ther migraine with status migrainosus, intractable Given 05/05/2025 2:28 PM EST 30 mg Right upper gluteus documented in this encounter Orders Medications Ordered That Nicola ht Not Have Been Administered Count Last Ordered Date First Ordered Date ketorolac (TORADOL) injection 30 mg 1 05/05 documented in this encounter Additional Health Concerns Assessment Noted Time PHQ-9 Depression Total Score: 2 01/01/20 11:35 AM EDT PHQ-2 Depression Total Score: 2 01/01/20 11:35 AM EDT documented as of this encounter Care Teams Print Binding Worker Relationship Specialty Start Date End Date Dede Meredith APRN [address] [place] [address] PCP - General Nurse Practitioner-Family 11/17/20 Colleen Maloney, MACHINE CLEANER Crust Sorter 04/08/25 documented as of this encounter
--- OUTSIDE RECORDS SUMMARY | 2025-05-11 11:30 | XMS_ITS | Encounter Summary ---
Author [place] [address] Care Team Providers Care Wind Turbine Performance Engineer Name Role Phone ViriDede morales TRINITY Primary Care Provider Colleen Maloney LAY MIDWIFE Unavailable Unavai lable Reason for Referral * EEG (Routine) - Pending Review Specialty Diagnoses / Procedures Referred By Carolyn abreu Referred To Contact Radiology Diagnoses Focal epilepsy (HCC) Procedures EEG UNATTENDED HOME PERFORMED 72 HRS Vic Villarreal APRN [address] [place] [address] Phone: tel: fax: Referral ID Status Reason Start Date Expiration Date V isits Requested Visits Authorized [id number] Pending Review 02/11/2025 02/11/2026 1 1 Reason for Visit * EEG (Routine) - Pending Review Specialty Diagnoses / Procedures Referred By Contnawaf abreu Referred To Contact Radiology Diagnoses Focal epilepsy (HCC) Procedures EEG UNATTENDED HOME PERFORMED 72 HRS Vic Villarreal APRN [address] [place] [address] Phone: tel: fax: Referral ID Status Reason Start Date Expiration Date V isits Requested Visits Authorized [id number] Pending Review 02/11/2025 02/11/2026 1 1 Encounter Details Date Type Department Care Team (Latest Contact Info) Description 05/11/2025 11:30 AM EST - 05/11/2025 11:59 PM [facility] Hospital Encounter [facility] [address] [place] [address] Vic Villarreal, FRAUD PREVENTION ANALYST [address] [place] [address] Focal epilepsy (HCC) Discharge Disposition: Home or Self Care Social [...] PHQ-2 Total Score 2 12/31/2024 [facility] [place] of Occupat ional Health - Occupational Stress [...] HFA;VENTOLIN HFA) 90 mcg/actuation Inhl HFA Aerosol InhalerIndications:V iral illness INHALE 2 PUFFS BY MOUTH EVERY 6 HOURS NEEDED FOR WHEEZE 6.7 Each 2 09/30/202 5 albuterol-ipratropiu m (DUO-NEB) 0.5 mg-3 mg(2.5 mg base)/3 mL Inhl Solution for Nebulization INHALE 3 ML EVERY 4 HOURS NEEDED FOR SHORTNESS OF BREATH FOR 30 DAYS 1 Each 1 4 atogepant (QULIPTA) 60 mg Oral Tablet Take 1 Tablet by mouth daily. 90 Tablet 1 5 budesonide-glycopyr- formoterol (BREZTRI AEROSPHERE) 160-9-4.8 mcg/actuation Inhl HFA Aerosol InhalerIndications:C hronic bronchitis, unspecified chronic bronchitis type (HCC) Inhale 2 Puffs into the lungs 2 times daily. 10.7 g 2 5 cyanocobalamin (VITAMIN B-12) 500 mcg Oral TabletIndications:Bi lateral foot pain Take 1 Tablet by mouth daily. 90 Tablet 3 5 cycloSPORINE (RESTASIS) 0.05 % Opht Dropperette INSTILL 1 DROP INTO THE AFFECTED EYES EVERY 12 HOURS 5 docusate sodium (COLACE) 100 mg Oral Capsule Take 1 Capsule by mouth 2 times daily as needed for Constipation. 60 Capsule 5 DULoxetine (CYMBALTA) 60 mg Oral Capsule, Delayed Release(E.C.)Indicat ions:Generalized anxiety disorder Take 1 Capsule by mouth daily. 30 Capsule 3 5 fexofenadine (SHELTON) 180 mg Oral TabletIndications:Se asonal allergic rhinitis, unspecified trigger Take 1 Tablet by mouth daily. 90 Tablet 3 5 fluticasone propionate (FLONASE) 50 mcg/actuation Nasl [place], SuspensionIndication s:Seasonal allergic rhinitis, unspecified trigger 1 [place] by Nasal route daily. 1 Each 4 folic acid (FOLVITE) 1 mg Oral TabletIndications:Bi lateral foot pain Take 1 Tablet by mouth daily. 30 Tablet 2 5 hydrOXYzine (VISTARIL) 25 mg Oral CapsuleIndications:G eneralized anxiety disorder Take 1 Capsule by mouth 3 times daily as needed. 30 Capsule 5 5 ibuprofen (ADVIL;MOTRIN) 800 mg Oral TabletIndications:Pa tellar tendinitis of right knee Take 1 Tablet by mouth every 8 hours as needed for Pain. 90 Tablet 2 4 LORazepam (ATIVAN) 0.5 mg Oral TabletIndications:Gr ief at loss of child,Generalized anxiety disorder,Grief reaction Take 1 Tablet by mouth every 8 hours as needed for Anxiety. 90 Tablet 5 meclizine (ANTIVERT) 25 mg Oral TabletIndications:BP V (benign positional vertigo), unspecified laterality Take 1 Tablet by mouth 3 times daily as needed for Dizziness. vertigo prn 30 Tablet 1 5 metFORMIN (GLUCOPHAGE XR) 500 mg Oral ER 24 hr tabletIndications:Pr ediabetes Take 1 Tablet by mouth daily (with breakfast). 90 Tablet 1 5 montelukast (SINGULAIR) 10 mg Oral TabletIndications:Se asonal allergic rhinitis, unspecified trigger Take 1 Tablet by mouth nightly. 100 Tablet 5 multivit-min/ferrous fumarate (MULTI VITAMIN ORAL) Take by mouth. nystatin (MYCOSTATIN) Top CreamIndications:Yea st infection Apply topically 2 times daily. 30 g 2 5 nystatin (MYCOSTATIN) Top PowderIndications:Ye ast dermatitis Apply topically 2 times daily. 60 g 1 5 omeprazole (PRILOSEC) 40 mg Oral Capsule, Delayed Release(E.C.)Indicat ions:Gastroesophagea l reflux disease without esophagitis Take 1 Capsule by mouth daily. 90 Capsule 3 5 ondansetron (ZOFRAN-ODT) 4 mg Oral Tablet, Rapid DissolveIndications: Viral gastroenteritis Dissolve 1 Tablet by mouth every 6 hours as needed for Nausea. 30 Tablet 5 OXcarbazepine (TRILEPTAL) 150 mg Oral TabletIndications:Fo mulugeta epilepsy (HCC) Take 1 Tablet by mouth 2 times daily. (To take along with 300 mg tablets for a dose of 750 mg twice daily) 60 Tablet 5 5 OXcarbazepine (TRILEPTAL) 150 mg Oral Tablet Take 1 Tablet by mouth 2 times daily. (To take along with 300 mg tablets for a dose of 750 mg twice daily) 60 Tablet 5 5 OXcarbazepine (TRILEPTAL) 300 mg Oral TabletIndications:Fo mulugeta epilepsy (HCC) Take 2 Tablets by mouth 2 times daily. (To take along with 150 mg tablets for a dose of 750 mg twice daily) 120 Tablet 5 5 OXcarbazepine (TRILEPTAL) 300 mg Oral Tablet Take 2 Tablets by mouth 2 times daily. (To take along with 150 mg tablets for a dose of 750 mg twice daily) 120 Tablet 5 5 oxyCODONE-acetaminop hen (PERCOCET) 5-325 mg Oral Tablet Take 1 Tablet by mouth every 4 hours as needed for Acute Pain > 3 Days Medically Necessary (R52). 12 Tablet 5 sodium,potassium,mag sulfates 17.5-3.13-1.6 gram Oral Recon Soln Take 6 oz by mouth 2 times daily. SUPREP: The first 6-ounce bottle is taken the evening before your colonoscopy and the second 6-ounce bottle is taken the morning of your colonoscopy. 354 mL 5 SUMAtriptan (IMITREX) 100 mg Oral Tablet Take 1 dose at migraine onset, may repeat once after 2 hours if pain persists (Max dose: 2/day, 4/week, 9/month) 9 Tablet 5 5 zonisamide (ZONEGRAN) 100 mg Oral Capsule Take 1 Capsule by mouth nightly. 30 Capsule 5 5 documented as of this encounter Discharge Disposition Disposition Code Departure Means Destination Home or Self Care documented in this encounter Plan of Treatment Upcoming Encounters Date Type Department Care Team (Late st Contact Info) Description 10/02/2025 10:25 AM EDT Office Visit [facility] [address] [facility] [address] [place] [address] Vic Villarreal APRN [address] [place] [address] Pending Results Name Type Priority Associated Diagnoses Date/Time EEG UNATTENDED HOME PERFORMED 72 HRS Imaging Cardiology Routine Focal epilepsy (HCC) 05/15/2025 9:09 AM EST Scheduled Orders Name Type Priority Associated Diagnoses Order Schedule EEG UNATTENDED HOME PERFORMED 72 HRS Imaging Cardiology Routine Focal epilepsy (HCC) 1 Occurrences starting 05/11/2025 until 05/11/2025 documented as of this encounter Goals Goal Patient Goal Type Associated Problems Recent Progress Patient-Stated? Author Maintain a healthy diet, exercise regularly and maintain an ideal body weight General No Mary Christy RMA Stay Tobacco Free Lifestyle No Mary Christy RMA documented as of this encounter Visit Diagnoses Diagnosis Focal epilepsy (HCC) Localization-related (focal) (partial) epilepsy and epileptic syndromes with simple partial seizures, without mention of intractable epilepsy documented in this encounter Additional Health Concerns Assessment Noted Time PHQ-9 Depression Total Score: 2 01/01/20 11:35 AM EDT PHQ-2 Depression Total Score: 2 01/01/20 11:35 AM EDT documented as of this encounter Care Teams Wind Turbine Performance Engineer Relationship Specialty Start Date End Date Dede Meredith APRN [address] [place], [place] [address] PCP - General Nurse Practitioner-Family 11/17/20 Colleen Maloney, LAY MIDWIFE Strategic Planning Consultant 04/08/25 documented as of this encounter
--- OUTSIDE RECORDS SUMMARY | 2025-05-13 08:45 | XMS_ITS | Encounter Summary ---
Author Organization [place] [address] Care Team Providers Care Body Mechanic Apprentice Name Role Phone Dede Meredith APRN Primary Care Provider Colleen Maloney SNUFF CONTAINER INSPECTOR Unavailable Unavai labdarío Encounter Details Date Type Department Care Team (Late st Contact Info) Description 05/13/2025 8:45 AM EST Telemedicine [facility] [address] [place] [id number] Dede Meredith APRN [address] [place] [address] Acute vaginitis (Primary Dx) Social History Tobacco Use Types [...] Date Recorded PHQ-2 Total Score 2 12/31/2024 [facility] [place] of Occupat ional Health - Occupational Stress [...] Refills Last Filled Start Date End Date metroNIDAZOLE (FLAGYL) 500 mg Oral TabletIndications: Acute vaginitis Take 1 Tablet by mouth 2 times daily for 7 days. 14 Tablet 05/13/2025 05/20/2025 fluconazole (DIFLUCAN) 150 mg Oral TabletIndications: Acute vaginitis Take 1 Tablet by mouth once for 1 dose. 1 Tablet 05/13/2025 05/13/2025 documented in this encounter Progress Notes * Dede Meredith APRN - 05/13/2025 8:45 AM EST Assessment & Plan Acute vaginitis -will treat for presumptive vaginitis with Flagyl and Diflucan -reviewed home care and sx care -encouraged close followup for new or worsening sx Orders: metroNIDAZOLE (FLAGYL) 500 mg Oral Tablet; Take 1 Tablet by mouth 2 times daily for 7 days. fluconazole (DIFLUCAN) 150 mg Oral Tablet; Take 1 Tablet by mouth once for 1 dose. Progress Note: There were no vitals filed [...] a video visit does not replace a [id number]-mb-[id number] exam and further services may be necessary. [...] COVID 19 infection complications / . HPI: Dysuria. Vaginal itching. Denies urgency and frequency. Hx of vaginitis and this feels similar. Review of Systems Constitutional: Negative for fever. Respiratory: Negative for cough, shortness of breath and wheezing. Cardiovascular: Negative for chest pain and leg swelling. Genitourinary: Positive for dysuria and vaginal pain (itching and discomfort.). Negative for decreased urine volume, vaginal bleeding and vaginal discharge. Hematological: Negative for adenopathy. OBJECTIVE: Physical Exam Constitutional: Appearance: She is obese. Pulmonary: Effort: Pulmonary effort is normal. Neurological: Mental Status: She is alert and oriented to person, place, and time. documented in this encounter Plan of Treatment Upcoming Encounters Date Type Department Care Team (Late st Contact Info) Description 10/02/2025 10:25 AM EDT Office Visit [facility] [address] [facility] [address] [place] [address] Vic Villarreal APRN [address] [place] [address] documented as of this encounter Goals Goal Patient Goal Type Associated Problems Recent Progress Patient-Stated? Author Maintain a healthy diet, exercise regularly and maintain an ideal body weight General No Mary Christy RMA Stay Tobacco Free Lifestyle No Mary Christy RMA documented as of this encounter Visit Diagnoses Diagnosis Acute vaginitis- Primary Vaginitis and vulvovaginitis, unspecified documented in this encounter Additional Health Concerns Assessment Noted Time PHQ-9 Depression Total Score: 2 01/01/20 11:35 AM EDT PHQ-2 Depression Total Score: 2 01/01/20 11:35 AM EDT documented as of this encounter Care Teams Body Mechanic Apprentice Relationship Specialty Start Date End Date Dede Meredith APRN [address] [place] [address] PCP - General Nurse Practitioner-Family 11/17/20 Colleen Maloney, SNUFF CONTAINER INSPECTOR Experimental Rocketsled Mechanic 04/08/25 documented as of this encounter
--- OUTSIDE RECORDS SUMMARY | 2025-05-18 10:00 | XMS_ITS | Encounter Summary ---
Author Organization [facility] Address [facility] [place] [address] Care Team Providers Care Family Mediator Name Role Phone Dede Meredith APRN Primary Care Provider [phone] Colleen Maloney MARBLE FINISHER Unavailable Unavai lable Reason for Visit * Vascular Imaging (Emergency) - Authorized Specialty Diagnoses / Procedures Referred By Contac t Referred To Contact Radiology Diagnoses Positive D-dimer Left leg pain Procedures [facility] US LOWER EXTREMITY VENOUS LEFT Dede Meredith APRN [address] [place] [address] Phone: tel: fax: Referral ID Status Reason Start Date Expiration Date V isits Requested Visits Authorized [id number] Authorized 05/15/2025 05/15/2027 1 1 Encounter Details Date Type Department Care Team (Late st Contact Info) Description 05/18/2025 10:00 AM EST Hospital Encounter [facility] [place] [address] Dede Meredith APRN [address] [id number] Social History Tobacco Use Types Packs/Day Years [...] Date Recorded PHQ-2 Total Score 2 12/31/2024 [facility] - Occupational Stress Questionnaire Answer Date [...] 10:25 AM EDT Office Visit [facility] [address] [facility] [address] [place] [id number] Vic Villarreal APRN [address] [place] [id number] Scheduled Orders Name Type Priority Associated Diagnoses Order Schedule VA US LOWER EXTREMITY VENOUS LEFT Imaging Cardiology STAT Positive D-dimer Left leg pain 1 Occurrences starting 05/15/2025 until 05/15/2027 documented as of this encounter Goals Goal [...] documented as of this encounter Care Teams Family Mediator Relationship Specialty Start Date End Date Dede Meredith APRN [address] [place] [address] PCP - General Nurse Practitioner-Family 11/17/20 Colleen Maloney, MARBLE FINISHER Information Technology Teacher 04/08/25 documented as of this encounter
--- NOTE | 2025-05-19 | CA_ITS ---
FINAL REPORT CLINICAL HISTORY: Left leg pain, swelling? Arthritis FINDINGS: DUPLEX VENOUS SONOGRAPHY OF THE LEFT LOWER EXTREMITY Multiple transverse and longitudinal scans were performed of the femoropopliteal deep venous system, with augmentation and compression maneuvers. Normal phasic flow was noted in the visualized deep venous system. No intraluminal increased echogenicity is noted to suggest thrombus. There is normal compression and augmentation of the venous structures. No abnormal venous collaterals are seen. IMPRESSION: No evidence of deep venous thrombosis of the left lower extremity. Reviewed, Interpreted and Dictated by Stacy Mendez MD Transcribed by Mima Whiting Authenticated and [facility]
--- OUTSIDE RECORDS SUMMARY | 2025-05-19 09:21 | XMS_ITS | Encounter Summary ---
Author Organization [place] [address] Care Team Providers Care Treatment Supervisor Name Role Phone Dede Meredith APRN Primary Care Provider Love Plummer Unavailable Unavailable Colleen Maloney SPECIAL AGENT Unavailable Tobias starkey Encounter Details Date Type Department Care Team (Late st Contact Info) Description 04/22/2025 Orders Only [facility] [address] [place] [address] Dede Meredith APRN [address] [place], [place] [id number] Social History Tobacco Use Types Packs/Day Years [...] Date Recorded PHQ-2 Total Score 2 12/31/2024 [facility] - Occupational Stress [...] Assessment Author No 12/31/2024 11:34 AM Dede Zaiid APRN * Because of a physical, mental [...] [facility] [address] [place] [address] Vic Villarreal APRN [address] [place] [address] documented as of this encounter [...] documented as of this encounter Care Teams Treatment Supervisor Relationship Specialty Start Date End Date Dede [place] [place] [address] PCP - General Nurse Practitioner-Family 11/17/20 Love Plummer Care Management Hadoop Engineer 04/07/25 05/04/25 Colleen Maloney, SPECIAL AGENT Day Treatment Clinician/Art Therapist 04/08/25 documented as of this encounter
--- OUTSIDE RECORDS SUMMARY | 2025-05-19 09:21 | XMS_ITS | Encounter Summary ---
Author Organization [place] [address] Care Team Providers Care Lighter Name Role Phone Dede Meredith APRN Primary Care Provider Love Plummer Unavailable Unavailable Colleen Maloney YARD DRIVER Unavailable Tobias starkey Reason for Visit * Reason Onset Date Comments CM- Telephonic Outreach 04/09/2025 Transportation 04/09/2025 CM - Contact Made 04/09/2025 Care Management - Chart Review 04/09/2025 Encounter Details Date Type Department Care Team (Late st Contact Info) Description 04/09/2025 Patient Outreach [facility] Care Managment [address] [place] [address] Love Plummer CM- Telephonic Outreach; Transportation; CM [...] Date Recorded PHQ-2 Total Score 2 12/31/2024 [facility] [place] [facility] - Occupational Stress Questionnaire Answer Date [...] - 05/05/2025 10:49 AM EST Care Management Sourcer will no longer follow patient for transportation &/or social determinant of health resources. If additional resources are needed, please submit a new AMB Care Management referral for assistance. * Love Plummer - 04/09/2025 11:13 AM EDT Care Management Sourcer ([facility]) Evaluation and Intervention Spoke with: patient Barriers addressed: Transportation Interventions: Encouraged patient to utilize existing transportation resources: [employer] Advised patient to schedule appointments to fit their transportation resource guidelines. Resources provided and reviewed during outreach: [employer] of the [facility] ([phone] or [phone]) [employer] Summary of outreach: patient states she does have transportation with [employer] but states she will be losing that insurance in a couple months and will then strictly have Medicaid. [facility] made patient aware that Medicaid will then be able to provide transportation once that happens. Patient would like [facility] to send contact number for Medicaid Transportation via [employer]. Next Steps: Patient will contact provided resources Outcome: Patient will contact CM Sourcer if they have questions or any additional needs arise CM Sourcer will close referral after 30 days if no additional patient contact documented in this encounter Plan of Treatment Upcoming Encounters Date Type Department Care Team (Late st Contact Info) Description 10/02/2025 10:25 AM EDT Office Visit [facility] [address] [place] [address] Vic Villarreal APRN [address] [place], [place] [id number] documented as of this encounter Goals Goal [...] documented as of this encounter Care Teams Lighter Relationship Specialty Start Date End Date Dede Meredith [place] [address] PCP - General Nurse Practitioner-Family 11/17/20 Love Plummer Care Management Sourcer 04/07/25 05/04/25 Colleen Maloney, YARD DRIVER [employer]ling [employer] Molder 04/08/25 documented as of this encounter
--- OUTSIDE RECORDS SUMMARY | 2025-05-19 09:21 | XMS_ITS | Encounter Summary ---
Author Organization [place] [address] Care Team Providers Care Hub Cutter Apprentice Name Role Phone Dede Meredith APRN Primary Care Provider [phone] Colleen Maloney DESIGN ENGINEERING INTERN Unavailable Unavai lable Reason for Referral * Genetic Lab Test (Routine) - Authorization Not Needed Specialty Diagnoses / Procedures Referred By Carolyn t Referred To Contact Diagnoses Screening for colon cancer Procedures COLOGUARD Dede Meredith APRN [address] [place] [id number] Phone: tel: fax: Referral ID Status Reason Start Date Expiration Date Visits Requested Visits Authorized [id number] Authorization Not Needed 05/07/2026 1 1 Encounter Details Date Type Department Care Team (Late st Contact Info) Description 05/07/2025 Orders Only SEP Vanessa CERDA [address] [place] [phone] Dede Meredith APRN [address] [place] [id number] Screening for colon cancer (Primary Dx) Social [...] Date Recorded PHQ-2 Total Score 2 12/31/2024 [facility] - Occupational Stress [...] EDT Office Visit [facility] [address] [facility] [address] [place] [address] Vic Villarreal APRN [address] [place] [address] Scheduled Orders Name Type Priority [...] documented as of this encounter Care Teams Hub Cutter Apprentice Relationship Specialty Start Date End Date Dede Meredith APRN [address] [place], [place] [address] PCP - General Nurse Practitioner-Family 11/17/20 Colleen Maloney, DESIGN ENGINEERING INTERN Arabic Translator 04/08/25 documented as of this encounter
--- OUTSIDE RECORDS SUMMARY | 2025-05-19 09:21 | XMS_ITS | Encounter Summary ---
Author Organization [facility] [address] Care Team Providers Care Pitch Gatherer Name Role Phone Dede Meredith CORRECTIONS CADET Primary Care Provider [phone] Reason for Referral * Consultation (Routine) - Open Specialty Diagnoses / Procedures Referred By Carolyn abreu Referred To Contact Diagnoses Focal epilepsy (HCC) Juan Vega MD [address] [place] [address] Phone: tel: fax: [facility] Care Managment [address] [place] [address] [address] [place] [address] Phone: tel: Referral ID Status Reason Start Date Expiration Date Visits Re quested Visits Authorized [id number] Open 04/06/2025 04/06/2026 99 99 Question Answer Reason for Referral Transportation, Other (use comments) Comments Information regarding disability Reason for Visit * Reason Onset Date Comments Seizures 04/04/2025 Encounter Details Date Type Department Care Team (Late st Contact Info) Description 04/04/2025 Nurse Triage [facility] [address] [place] [address] Lexy Corley RN Focal epilepsy [...] Date Recorded PHQ-2 Total Score 2 12/31/2024 [facility] - Occupational [...] No 12/31/2024 11:34 AM EDT Lalijohan bethDede CORRECTIONS CADET * Because of a physical, mental or [...] likely will benefit from seeing a disability news technical director, if she has not. I would recommend [...] seizure(s) AND [3] taking anticonvulsants Protocols used: [id number] documented in this encounter Plan of Treatment Upcoming Encounters Date Type Department Care Team (Late st Contact Info) Description 10/02/2025 10:25 AM EDT Office Visit [facility] [address] [place] [address] Vic Villarreal APRN [address] [place] [address] Scheduled Referrals Name Type Priority [...] documented as of this encounter Care Teams Pitch Gatherer Relationship Specialty Start Date End Date Dede Meredith APRN [address] [place] [address] PCP - General Nurse Practitioner-Family 11/17/20 documented as of this encounter
--- OUTSIDE RECORDS SUMMARY | 2025-05-19 09:21 | XMS_ITS | Encounter Summary ---
Author Organization [place] [address] Care Team Providers Care Gallery Director Name Role Phone ViriDede morales INDUSTRIAL TECHNICIAN Primary Care Provider Love Plummer Unavailable Unavailable Reason for Visit * Reason Onset Date Comments CM- Telephonic Outreach 04/07/2025 Transportation 04/07/2025 Encounter Details Date Type Department Care Team (Latest Contact Info) Description 04/07/2025 Patient Outreach [facility] Care Managment [address] [place] [address] Love Plummer CM- Telephonic Outreach; Transportation Social [...] Date Recorded PHQ-2 Total Score 2 12/31/2024 [facility] - Occupational Stress [...] Assessment Author No 12/31/2024 11:34 AM Dede Zadii APRN * Does this person have difficulty [...] compliant voicemail left Message was sent via ChipIn Will attempt additional outreach as scheduled documented in this encounter Plan of Treatment Upcoming Encounters Date Type Department Care Team (Late st Contact Info) Description 10/02/2025 10:25 AM EDT Office Visit [facility] [address] [facility] [address] [place] [address] Vic Villarreal APRN [address] [place] [address] documented as of this encounter [...] documented as of this encounter Care Teams Gallery Director Relationship Specialty Start Date End Date Dede Meredith APRN [employer] [address] [place] [phone] PCP - General Nurse Practitioner-Family 11/17/20 Love Plummer Care Management Security System Administrator 04/07/25 05/04/25 documented as of this encounter
--- OUTSIDE RECORDS SUMMARY | 2025-05-19 09:21 | XMS_ITS | Clinical Summary ---
Author Organization [facility] Address [address] [place] [address] Phone Care Team Providers Care Enforcement Manager Name Role Phone Dede Meredith APRN Primary Care Provider [phone] Colleen Maloney RESPIRATORY CARE ASSISTANT Unavailable Unavai lable Allergies Active Allergy Reactions Criticality Noted Date Comments Hydromorphone Itching Low 04/27/2020 Doxycycline Other (See Comments) Medium 02/20/2013 'lilly esophagus Latex Hives High 02/20/2013 Lacosamide Rash Low 01/12/2025 Medications multivit-min/sandra us fumarate (MULTI VITAMIN ORAL) Take by mouth. A ctive fluticasone propionate (FLONASE) 50 mcg/actuation Nasl [place], SuspensionIndicati ons:Seasonal allergic rhinitis, unspecified trigger 1 [place] by Nasal route daily. 1 Each 024 [...] for 7 days. 14 Tablet 2024 Active predniSONE (DELTASONE) 20 mg Oral TabletIndications: Effusion of left knee Take 1 Tablet by mouth 2 times daily for 5 days. 10 Tablet 2024 Active OXcarbazepine (TRILEPTAL) 300 mg [...] 750 mg twice daily) 60 Tablet 5 05/05/2 025 10/30/ 2025 Discontinued(R eorder) ondansetron (ZOFRAN-ODT) 4 mg Oral Tablet, Rapid Dissolve Dissolve 1 Tablet by mouth every 6 hours as needed for Nausea. 30 Tablet 025 2024 Discontinued(R eorder) fluconazole (DIFLUCAN) 150 mg Oral TabletIndications: Dysuria Take one dose now and repeat when you finish the keflex. 2 Tablet 025 2024 Discontinued(C ancelled by ) LORazepam (ATIVAN) 0.5 mg Oral TabletIndications: Grief at loss of child,Generalized anxiety disorder,Grief reaction Take 1 Tablet by mouth every 8 hours as needed for Anxiety. 90 Tablet 025 2024 Discontinued fluconazole (DIFLUCAN) 150 mg Oral Tablet Take 1 Tablet by mouth once for 1 dose. 1 Tablet 1 025 2024 fluconazole (DIFLUCAN) 150 mg Oral TabletIndications: Acute vaginitis Take 1 Tablet by mouth once for 1 dose. 1 Tablet 025 2024 Hospital, Clinic, or Other Facility Administered [...] & Plan (04/15/2024 11:15 AM EDT): Orders: zljqbmretm-khpsodaq-ijwmhlqjre (BREZTRI AEROSPHERE) 160-9-4.8 mcg/actuation Inhl HFA Aerosol [...] On singulair/allergra Intolerance to flonase Referral to customer operations specialist in past d/t recurrent sx. Assessment & [...] (01/11/2021): Added automatically from request for surgery [id number] Dysmenorrhea 01/11/2021 Overview (01/11/2021): Added automatically from request for surgery [id number] PTSD (post-traumatic stress disorder) 11/17/2020 Overview (11/21/2023): In grief counseling and counseling at [email or web address] Takes ativan as needed throughout the day [...] head region - Resected Feb 2013 in [place] Last MRI 09/2016 No evidence of re-occurrence [...] she has also started going back to taoist and back in counseling, continue same. Assessment [...] PRN use of oxygen Keep follow-up with dust collector attendant for PFT Cigarette nicotine dependenc e without [...] Encounters Date Type Department Care Team Description 05/18/2025 10:00 AM EST Hospital Encounter [facility] [address] [place] [address] [address] Dede Meredith APRN 05/15/2025 Telephone [address] [place], [place] [address] Dede Meredith APRN Relaying Information (ED visit for knee swelling - requesting Rx); Appointment Needed (OV for ED follow-up) 05/13/2025 8:45 AM EST Telemedicine [address] [place] [address] Viri, Dede, FLIGHT COMMUNICATIONS OFFICER Acute vaginitis (Primary Dx) 05/12/[address] [place] [address] Moxee, Dede, FLIGHT COMMUNICATIONS OFFICER Medication Refill 05/11/2025 11:30 AM EST - 05/11/2025 11:59 PM EST Hospital Encounter [facility] [address] [place] [address] Vic Villarreal, TRINITY Focal epilepsy (HCC) Discharge Disposition: Home or Self Care 05/07/2025 Orders Only [address] [place] [address] Viri, Dede, FLIGHT COMMUNICATIONS OFFICER Screening for colon cancer (Primary Dx) 05/05/2025 2:30 PM EST Clinical Support [address] [place] [address] [place], Dede, FLIGHT COMMUNICATIONS OFFICER Other migraine with status migrainosus, intractable (Primary Dx) 05/04/2025 Orders Only [address] [place] [address] Angela Wen, ERICKA Seasonal allergic rhinitis, unspecified trigger 04/27/2025 1:30 PM EST Office Visit [address] [place] [address] Sandip Denton MD Viral gastroenteritis (Primary Dx) 04/27/[address] [place] [address] Viri, Dede, FLIGHT COMMUNICATIONS OFFICER Medication Refill 04/24/2025 11:59 PM EDT Anesthesia Event [facility] [address] [place] [address] Carmelo Schneider APRN 04/23/2025 Refill [facility] Neurology [facility] [address] [place] [address] Kelli Mcuhgh, TRINITY Medication Refill (oxcarbazepine) 04/22/2025 Refill SEP Neurology [facility] [address] [place] [address] iVc Villarreal APRN Medication Refill 04/22/2025 Orders Only SEP [facility] [place] [address] Dede Meredith APRN 04/10/2025 3:15 PM EDT Telemedicine [place] [address] [place] [address] Dede eMredith APRN Generalized anxiety disorder (Primary Dx) 04/10/2025 Travel 04/09/2025 Patient Outreach SEP Care Managment [facility] Eitan Mccormick JulioRupesh [address] [place] [address] Love Plummer CM- Telephonic Outreach; Transportation; CM - Contact Made; Care Management - Chart Review 04/08/2025 Patient Outreach SEP Care Managment [facility] Eiatn Mccormick JulioRupesh [address] [place] [address] Colleen Maloney, LIS CM- Telephonic Outreach 04/07/2025 Patient Outreach SEP Care Managment [facility] Eitan Mccormick JulioRupesh [address] [place] [address] Love Plummer CM- Telephonic Outreach; Transportation 04/06/2025 Patient Outreach SEP Care Managment [facility] Eitan Mccormick JulioRupesh [address] [place] [address] Michelle Garrett Referral 04/04/2025 Nurse Triage [facility] Nurse Now [address] [place] [address] Lexy Corley, EVETTE Focal epilepsy (HCC) (Primary Dx) 04/01/2025 11:30 AM EDT Telemedicine SEP [facility] [place] [address] Dede Meredith APRN Acute vaginitis (Primary Dx); Grief at loss of child; Generalized anxiety disorder; Grief reaction; BPV (benign positional vertigo), unspecified laterality 04/01/2025 Travel 04/01/2025 Refill [facility] [place] [place] [facility] [address] [place] [address] Dede Meredith APRN Medication Refill 03/24/2025 Results Follow-Up [facility] [place] [place] [facility] [address] [place] [address] Ana Daley MD CALCULI (STONE) ANALYSIS - REF LAB 03/24/2025 Orders Only [facility] [place] [place] [facility] [place] [address] Angela Wen, [facility] Vir[facility] illness 03/20/2025 Refill [facility] [place] [place] Urology [facility] [address] [place] [address] Ana Daley MD Medication Refill 03/14/2025 Orders Only [facility] [place] [place] Urology [address] [address] Amalia Waters MD 03/14/2025 Nurse Triage [facility] Nurse Now [facility] [place] [address] Lexy Corley RN 03/11/2025 2:00 PM EDT Anesthesia Event [facility] [address] [place] [address] Khang Bauer MD Grimes, Samantha, APRN 03/11/2025 1:41 PM EDT - 03/11/2025 2:36 PM EDT Surgery [facility] [address] [place] [address] Ana Daley MD CYSTOSCOPY URETEROSCOPY STENT PLACEMENT OR EXCHANGE 03/11/2025 12:24 PM EDT - 03/11/2025 4:03 PM EDT Hospital Encounter [facility] SAME DAY SURGERY [address] [place] [address] Ana Daley MD Kidney stones Discharge Disposition: Home or Self Care 03/11/2025 Travel 03/09/2025 2:40 PM EDT Office Visit [facility] Urology [facility] [address] [place] [address] Ana Daley MD Kidney stones (Primary Dx) 03/09/2025 Travel 03/09/2025 Refill SEP Neurology [facility] [address] [place] [address] Vic Villarreal, FLIGHT COMMUNICATIONS OFFICER Medication Refill 03/09/[address] [place] [address] Viri, Dede, FLIGHT COMMUNICATIONS OFFICER Refill (Oxycodone ) 03/08/2025 Refill [facility] [place] [address] [place] [address] Viri, Dede, FLIGHT COMMUNICATIONS OFFICER Medication Refill 03/08/2025 Refill [facility] [place] [address] [place] [address] Mariano Gonzalez MD Medication Refill 03/05/2025 6:33 PM EDT - 03/05/2025 8:43 PM EDT Emergency [facility] Emergency [address] [place] [address]. [place] [address] Mariano Gonzalez MD Ureterolithiasis (Primary Dx); Bilateral flank pain Discharge Disposition: Home or Self Care 03/05/2025 Refill [place] [address] [place] [address] Viri, Dede, FLIGHT COMMUNICATIONS OFFICER Medication Refill 03/03/2025 Refill [facility] [place] [address] [place] [address] Viri, Dede, FLIGHT COMMUNICATIONS OFFICER Medication Refill; Follow Up (Lorazepam) 02/24/2025 Refill [facility] [address] [place] [address] Viri, Dede, FLIGHT COMMUNICATIONS OFFICER Medication Refill 02/24/2025 Refill [place] [address] [place] [address] Viri, Dede, FLIGHT COMMUNICATIONS OFFICER Medication Refill 02/24/2025 Specialty Pharmacy [facility] [address] [place] [address] María Kruse [facility] Migraine Medication Management (Qulipta ) 02/18/2025 3:30 PM EDT Office Visit [place] [address] [place] [address] Viri, Dede, FLIGHT COMMUNICATIONS OFFICER Hospital discharge follow-up (Primary Dx); Kidney stone; Dysuria; Cutaneous abscess, unspecified site 02/18/2025 Refill [facility] [address] [place] [address] Vic Villarreal, FLIGHT COMMUNICATIONS OFFICER Medication Refill 02/18/2025 Refill [place] [address] [place] [address] [place], Dede, FLIGHT COMMUNICATIONS OFFICER Medication Refill 02/17/2025 Orders Only [place] [address] [place] [address] Angela Wen CCM 02/17/2025 Refill [place] [address] [place] [address] Viri, Dede, FLIGHT COMMUNICATIONS OFFICER Medication Refill 02/17/2025 Orders Only [address] [place] [address] Angela Wen, [facility] from Last 3 Months Immunizations Immunization Administration [...] 0137; Surgeon: Tejas Johnson IV, MD; Location: [facility]; Service: Gynecology EYE SURGERY BRAIN SURGERY 03/12/2013 tumor removed TUBAL LIGATION CYSTOSCOPY 10/30/2023 Surgeon: Siddhartha Napoles DO; Location: [facility]; Service: Gynecology EYE SURGERY Left [...] Date Recorded PHQ-2 Total Score 2 12/31/2024 [facility] of Occupat ional [facility] - Occupational Stress Questionnaire Answer Date [...] A1 A5 Name Clin SAB Term F MEDIA RELATIONS MANAGER Livin g Term F CSP Livin g 2015 Term 39w 6d 0h 02m 0h 02m 7 lb 8.8 oz (3.425 kg) M MEDIA RELATIONS MANAGER Spinal N Livin g 9 9 JOSE LR Edward C IV, MD Complications:Previous danica wilfred section Delivery Location:[facility] Last Filed Vital Signs Vital Sign [...] EDT Office Visit [facility] [address] [place] [address] Vic Villarreal, FLIGHT COMMUNICATIONS OFFICER [address] [place] [address] Health Maintenance Due Date Last Done Comments Hepatitis B Vaccine (2 of 3 - 19+ 3-dose series) 03/13/2016 02/14/2016 Breast Cancer Screening 2019 Pneumococcal Vaccine 0-49 (2 of 2 - PCV) 04/07/2020 04/07/2019 Cologuard 12/26/2024 Colon Cancer Screening 12/26/2024 Colonoscopy 12/26/2024 FIT 12/26/2024 Sigmoidoscopy 12/26/2024 Virtual Colonography 12/26/2024 COVID-19 Vaccine (3 - 2024- season) 2025 10/11/2020, 09/13/2020 Influenza Vaccine (#1) [...] Christy RMA Medical Devices Implanted Type Area Core Maker Device Identifier Shelf Expiration Date Model / Serial / Lot Stent Uret [id number] Contr Dbl Pig Tapr Lpro Percuflx Cath - [id number] Implanted:Qty : 1 on 03/11/2025 by Ana Daley MD at [facility] Stent Right: Ureter [employer]:MICROVASIVE: UROLOGY [id number] 10/21/2027 [id number] Procedures Procedure Name Priority Date/Time Associated Diagnosis [...] Comp See Note 03/16/2025 4:55 PM EDT Smash Bucket Comment: Calculi composed primarily of: 40% calcium [...] composition determined by FTIR analysis. Performed By: [employer] [address] [place] [address] Motor Block Mechanic: Edis Robertson MD, PhD CLIA Number: [id number] Calculi Mass 26 mg 03/16/2025 4:55 PM EDT Smash Bucket Calculi Desc See Note 03/16/2025 4:55 PM EDT Smash Bucket Comment: Specimen consists of one cabral calculus. The total weight is 26 mg. Calculus RIGHT KIDNEY STRUCTURE / Unknown 03/11/2025 2:16 PM EDT 03/11/2025 8:22 PM EDT us Ana Daley MD MICROBIOLOGY - GENERAL ORDER KACY Final Result [employer] [address] [place], [place] [id number] * INTRAOP AIRWAY PLACEMENT (03/11/2025 2:09 PM EDT) Narrative [facility] - 03/11/2025 2:09 PM EDT Sesar [...] Atraumatic and Unchanged Insertion attempts: 1 Title: COATING MIXER TENDER Khang Bauer MD [place] ANESTHESIA Final Result [facility] [address] [place] [address] * (ABNORMAL) SEP URINALYSIS POC (03/09/2025 2:16 PM EDT) Only the most recent of2 resultswithin the time period is included. UA Color POC Yellow Color 03/09/2025 2:18 PM EDT [facility] [place] [place] UROLOGY [facility] UA Appear POC Clear Clear 03/09/2025 2:18 PM EDT [facility] UA Gluc POC Negative Negative mg/dL 03/09/2025 2:18 PM EDT [facility] UA Bili POC Negative Negative 03/09/2025 2:18 PM EDT [facility] UA Ketones POC Negative Negative mg/dL 03/09/2025 2:18 PM EDT [facility] UA SG POC 1.020 1.001 - 1.035 no units 03/09/2025 2:18 PM EDT [facility] UA Blood POC Large(A) Negative 03/09/2025 2:18 PM EDT [facility] UA pH POC 7.0 5.0 - 8.0 pH 03/09/2025 2:18 PM EDT [facility] UA Protein POC Negative Negative mg/dL 03/09/2025 2:18 PM EDT [facility] [place] [place] UROLOGY [facility] UA Urobilinogen POC 0.2 0.2, 1.0 03/09/2025 2:18 PM EDT [facility] UA Nitrite POC Negative Negative 03/09/2025 2:18 PM EDT [facility] [place] [place] UROLOGY [facility] UA Leuk Est POC Small(A) Negative 2:18 PM EDT [facility] UROLOGY CATHY MATHEW Urine STRUCTURE OF URINARY TRACT PROPER / Unknown 03/09/2025 2:16 PM EDT 03/09/2025 2:18 PM EDT Ana Daley MD POINT OF CARE TEST ORDERABLE S Final Result [facility] [place] [place] UROLOGY [facility] [place] [address] [place] [address] * CT ABD PEL ED [...] hydronephrosisat this time. Otherwise no acute findings us Donita Johnson PA-C IM CT ORDERABLES Final Result * (ABNORMAL) CBC WITH DIFF (03/05/2025 6:41 PM EDT) WBC 9.4 3.7 - 10.3 x10(3)/mcL 03/05/2025 6:46 PM EDT [facility] RBC 4.36 3.90 - 5.20 x10(6)/mcL 03/05/2025 6:46 PM EDT [facility] Hgb 12.0 11.2 - 15.7 g/dL 03/05/2025 6:46 PM EDT [facility] Hct 37.0 34.0 - 45.0 % 03/05/2025 6:46 PM EDT [facility] MCV 84.9 80.0 - 100.0 fL 03/05/2025 6:46 PM EDT [facility] MCH 27.5 26.0 - 34.0 pg 03/05/2025 6:46 PM EDT [facility] MCHC 32.4 30.7 - 35.5 g/dL 03/05/2025 6:46 PM EDT [facility] RDW 13.3 <=14.9 % 03/05/2025 6:46 PM EDT [facility] Platelet 356 155 - 369 x10(3)/mcL 03/05/2025 6:46 PM EDT [facility] [place] [facility] MPV 8.5(L) 8.8 - 12.5 fL 03/05/2025 6:[address] [facility] Neut Percent 59.5 % 03/05/2025 6:46 PM EDT [facility] Comment:Neutrophils equals s egs plus bands Imm Gran% 1.4 % 03/05/2025 6:46 PM EDT [facility] Comment:Automated count of m etamyelocytes, myelocytes and promyelocytes. IG >1% represents a left shift and provides an early indication of an infection or inflammatory process. Lymph Percent 26.2 % 03/05/2025 6:46 PM EDT [facility] [place] Percent 8.7 % 03/05/2025 6:46 PM EDT [facility] Eos Percent 3.5 % 03/05/2025 6:46 PM EDT [facility] Baso Percent 0.7 % 03/05/2025 6:46 PM EDT [facility] Neut # 5.6 1.6 - 6.1 x10(3)/[facility] 03/05/2025 6:46 PM EDT [facility] Comment:Neutrophils equals s egs plus bands IMMGRAN# 0.1 0.0 - 0.1 x10(3)/[facility] 03/05/2025 6:46 PM EDT [facility] Comment:Automated count of m etamyelocytes, myelocytes and promyelocytes. An absolute IG <0.1 is reported as 0.0. Lymph # 2.5 1.2 - 3.9 x10(3)/[facility] 03/05/2025 6:46 PM EDT [facility] [place] # 0.8 0.3 - 0.9 x10(3)/[facility] 03/05/2025 6:46 PM EDT [facility] Eos# 0.3 0.0 - 0.5 x10(3)/[facility] 03/05/2025 6:46 PM EDT [facility] Baso # 0.1 0.0 - 0.1 x10(3)/[facility] 03/05/2025 6:46 PM EDT [facility] Blood VENOUS BLOOD / Unknown Venipuncture / Unknown 03/05/2025 6:41 PM EDT 03/05/2025 6:43 PM EDT us Donita Johnson PA-C HEMATOLOGY ORDERABLES Final Re sult [facility] [address] [place] [address] * (ABNORMAL) BASIC METABOLIC PANEL (03/05/2025 6:41 PM EDT) Sodium 140 136 - 145 mmol/L 03/05/2025 7:00 PM EDT [facility] Potassium 3.9 3.5 - 5.0 mmol/L 03/05/2025 7:00 PM EDT [facility] Chloride 105 98 - 107 mmol/L 03/05/2025 7:00 PM EDT [facility] Total CO2 20(L) 22 - 29 mmol/L 03/05/2025 7:00 PM EDT [facility] Anion Gap 15 7 - 16 mmol/L 03/05/2025 7:00 PM EDT [facility] Calcium 9.0 8.6 - 10.4 mg/dL 03/05/2025 7:00 PM EDT [facility] Glucose Lvl 111(H) 70 - 99 mg/dL 03/05/2025 7:00 PM EDT [facility] BUN 11 6 - 20 mg/dL 03/05/2025 7:00 PM EDT [facility] Creatinine 0.66 0.51 - 1.30 mg/dL 03/05/2025 7:00 PM EDT [facility] eGFR (CKD-EPIcr 2020) 110 >=60 mL/min/1.7 3 m2 03/05/2025 7:00 PM EDT [facility] Comment:Estimated GFR was ca lculated using the CKD-EPIcr (2020) equation refit without race. The equation is recommended by the National Kidney Foundation - [place] [employer] of Nephrology Task Force. Blood VENOUS BLOOD / Unknown Venipuncture / Unknown 03/05/2025 6:41 PM EDT 03/05/2025 6:43 PM EDT us Mariano Gonzalez MD CHEMISTRY ORDERABLES Final R esult [facility] [address] [place] [address] * (ABNORMAL) URINALYSIS REFLEX (03/05/2025 6:40 PM EDT) UA Color Yellow 03/05/2025 6:[address] [facility] UA Appear Clear Clear 03/05/2025 6:[address] [facility] UA Glucose Negative Negative mg/dL 03/05/2025 6:[address] [facility] UA Ketones Negative Negative mg/dL 03/05/2025 6:[address] [facility] UA Blood Negative Negative 03/05/2025 6:[address] [facility] UA pH 7.0 5.0 - 8.0 pH 03/05/2025 6:[address] [facility] UA Protein Negative Negative mg/dL 03/05/2025 6:[address] [facility] UA Urobilinogen 0.2 <=1 mg/dL 6:[address] [facility] UA Bili Negative Negative 03/05/2025 6:[address] [facility] UA Nitrite Negative Negative 03/05/2025 6:[address] [facility] UA Leuk Est Negative Negative 03/05/2025 6:[address] [facility] UA Spec Grav 1.020 1.001 - 1.035 no units 03/05/2025 6:[address] [facility] Comment:Reference range judith d for random specimens only. UA WBC <1 0 - 4 /HPF 03/05/2025 6:[address] [facility] UA RBC 0 0 - 3 /HPF 03/05/2025 6:[address] [facility] UA Squam Epi 1+ /LPF 03/05/2025 6:53 PM EDT [facility] UA Amorph 2+ /HPF 03/05/2025 6:53 PM EDT [facility] UA Bacteria Trace(A) Negative /HPF 03/05/2025 6:53 PM EDT [facility] Urine STRUCTURE OF URINARY TRACT PROPER / Unknown 03/05/2025 6:40 PM EDT 03/05/2025 6:43 PM EDT Mariano Gonzalez MD URINE ORDERABLES Final Resul t Performing Organization Address [facility] Co de Phone Number [facility] [address] [place] [address] * EXTRA MORALES URINE CX (03/05/2025 6:40 PM EDT) Urine STRUCTURE OF URINARY TRACT PROPER / Unknown 03/05/2025 6:40 PM EDT 03/05/2025 6:43 PM EDT Mariano Gonzalez MD MICROBIOLOGY - GENERAL ORDER KACY Final Result Performing Organization Address [facility] de Phone Number [address] [address] from Last 3 Months Insurance [employer] MEDICARE HMO MR [facility] MEDIC[facility] HMO MR Advance Directives For more information, please contact: [phone] * Full Code (Latest Code Status on File) Date Activated Date Inactivated Comments 03/20/2016 11:52 PM 03/25/2016 4:28 PM Care Teams Enforcement Manager Relationship Specialty Start Date End Date Dede Meredith APRN [address] [place] [address] PCP - General Nurse Practitioner-Family 11/17/20 Colleen Maloney, RESPIRATORY CARE ASSISTANT Dynamic Etching Processor 04/08/25
--- OUTSIDE RECORDS SUMMARY | 2025-05-19 09:21 | XMS_ITS | Encounter Summary ---
Author Organization [place] [address] Care Team Providers Care Quill Fixer Name Role Phone Dede Meredith APRN Primary Care Provider [phone] Love Plummer Unavailable Unavailable Colleen Maloney MANAGER TRANSITION Unavailable Tobias starkey Encounter Details Date Type Department Care Team (Late st Contact Info) Description 01/12/2025 Orders Only SEP Neurology [facility] [address] [place] [address] Vic Villarreal APRN [phone] [id number] Social History Tobacco Use Types Packs/Day Years [...] Date Recorded PHQ-2 Total Score 2 12/31/2024 [facility] [place] of Occupat ional Health - Occupational Stress [...] EDT Office Visit [facility] [address] [place] [address] Vic Villarreal APRN [address] [place] [address] documented as of this encounter [...] documented as of this encounter Care Teams Quill Fixer Relationship Specialty Start Date End Date Dede Meredith APRN [address] [place] [phone] PCP - General Nurse Practitioner-Family 11/17/20 Love Plummer Care Management Food Concession Manager 04/07/25 05/04/25 Colleen Maloney, MANAGER TRANSITION [employer] Plater 04/08/25 documented as of this encounter
--- OUTSIDE RECORDS SUMMARY | 2025-05-19 09:21 | XMS_ITS | Encounter Summary ---
Author Organization [place] [address] Care Team Providers Care Formstone Fitter Name Role Phone Dede Meredith APRN Primary Care Provider Love Plummer Unavailable Unavailable Colleen Maloney LINEN ROOM WORKER Unavailable Tobias starkey Encounter Details Date Type Department Care Team (Late st Contact Info) Description 03/24/2025 Results Follow-Up SEP Urology NPTFTT [address] [place] [address] Ana Daley MD [address] [place], [place] [id number] [facility]CULI (STONE) ANALYSIS - REF LAB Social [...] PHQ-2 Total Score 2 12/31/2024 [facility] [place] of Occupat ional Health - Occupational Stress [...] [address] [place] [address] Vic Villarreal APRN [address] [place] [address] documented as of this encounter [...] documented as of this encounter Care Teams Formstone Fitter Relationship Specialty Start Date End Date Dede [place]eredith [place] [place] [address] PCP - General Nurse Practitioner-Family 11/17/20 Love Plummer Care Management District Scout Executive 04/07/25 05/04/25 Colleen Maloney, LINEN ROOM WORKER Insurance Account Assistant 04/08/25 documented as of this encounter
--- OUTSIDE RECORDS SUMMARY | 2025-05-19 09:21 | XMS_ITS | Encounter Summary ---
Author Organization [place] [address] Care Team Providers Care Dot Net Developer Name Role Phone Dede Meredith APRN Primary Care Provider Reason for Visit * Reason Onset Date Comments Referral 04/06/2025 Encounter Details Date Type Department Care Team (Late st Contact Info) Description 04/06/2025 Patient Outreach SEP Care Managment [address] [place] [address] Michelle Garrett Referral Social History Tobacco Use [...] Date Recorded PHQ-2 Total Score 2 12/31/2024 [facility] [place] of Occupat ional Health - Occupational Stress [...] Michelle Garrett - 04/06/2025 1:18 PM EDT Marketing Services Coordinator Management Referral Request Referral received from: Petrona [...] Office Visit [facility] [address] [place] [address] Vic Villarreal APRN [address] [address] [place] [address] documented as of this encounter [...] documented as of this encounter Care Teams Dot Net Developer Relationship Specialty Start Date End Date Dede Meredith APRN [address] [place] [address] PCP - General Nurse Practitioner-Family 11/17/20 documented as of this encounter
--- OUTSIDE RECORDS SUMMARY | 2025-05-19 09:21 | XMS_ITS | Encounter Summary ---
Author Organization [place] [address] Care Team Providers Care Sales Agent Insurance Name Role Phone Dede Meredith APRN Primary Care Provider Love Plummer Unavailable Unavailable Colleen Maloney Unavailable Unavai lable Reason for Visit * Reason Comments CM- Telephonic Outreach Encounter Details Date Type Department Care Team (Late st Contact Info) Description 04/08/2025 Patient Outreach SEP Care Managment [address] [place] [address] Colleen Maloney, TELETYPIST CM- Telephonic Outreach Social History Tobacco Use [...] PHQ-2 Total Score 2 12/31/2024 [facility] [place] of Occupat ional [facility] - Occupational Stress Questionnaire Answer Date [...] Author Yes 12/31/2024 11:34 AM EDT Dede Chrisitanson APRN documented as of this encounter Mental Status * Because of a physical, mental or emotional condition, does this person have serious difficulty concentrating, remembering or making decisions? Answer Entry Date Author Yes 12/31/2024 11:34 AM EDT Dede Christianson APRN documented in this encounter Progress Notes * Colleen Maloney LSW - 04/08/2025 3:16 PM EDT Referral Contact Attempted: TELETYPIST attempted to contact patient for referral follow up and patient didnot answer and HIPAA compliant message was left with return number of [phone]. Letter was sent to the patient via [employer]. If no contact is made within one week, TELETYPIST will close patient referral due to no contact. Behavioral Health Intervention Phase: Initiation Length of Encounter: NA - No contact was made. Additional Disclosures: N/A. documented in this encounter Plan of Treatment Upcoming Encounters Date Type Department Care Team (Late st Contact Info) Description 10/02/2025 10:25 AM EDT Office Visit [facility] [address] [facility] [address] [place] [address] Vic Villarreal APRN [address] [facility] [address] [place] [address] documented as of this encounter Goals Goal [...] as of this encounter Care Teams Sales Agent Insurance Relationship Specialty Start Date End Date [place], DedeTRINITY sung [address] [place], [place] [address] PCP - General Nurse Practitioner-Family 11/17/20 Love Plummer Care Management Beer Maker 04/07/25 05/04/25 Colleen Maloney, TELETYPIST Lathe Machine Operator 04/08/25 documented as of this encounter
--- OUTSIDE RECORDS SUMMARY | 2025-05-19 09:21 | XMS_ITS | Encounter Summary ---
Author Organization [facility] [place] [address] Care Team Providers Care Database Tester Name Role Phone Dede Meredith APRN Primary Care Provider [phone] Love Plummer Unavailable Unavailable Colleen Maloney ENGINEERING LEADER Unavailable Tobias starkey Encounter Details Date Type Department Care Team (Latest Contact Info) Description 04/10/2025 Travel Social History Tobacco Use Types Packs/Day Years Used Date Smoking Tobacco: Former Cigarettes 1 20.9 0 11/03/2001 - 09/11/2022 Smokeless Tobacco: Never Comments:planning on stoppin g Alcohol Use Standard Drinks/Week Comments No 0 (1 standard drink = 0.6 oz pur e alcohol) Overall Financial Resource Strain ([facility]) Answe r Date Recorded How hard is it for you to pa y for the very basics like food, housing, medical care, and heating? Not very hard 11/04/2020 PHQ-2 Answer Date Recorded PHQ-2 Total Score 2 12/31/2024 [facility] [place] of Occupat ional Health - Occupational Stress [...] EDT Office Visit [facility] [address] [place] [address] Vic Villarreal APRN [address] [place] [address] documented as of this encounter [...] documented as of this encounter Care Teams Database Tester Relationship Specialty Start Date End Date Dede Meredith APRN [address] [place] [address] PCP - General Nurse Practitioner-Family 11/17/20 Love Plummer Care Management Head Cd Reactor Operator 04/07/25 05/04/25 Colleen Maloney, ENGINEERING LEADER Contract Post Office Clerk 04/08/25 documented as of this encounter
--- OUTSIDE RECORDS SUMMARY | 2025-05-19 09:21 | XMS_ITS | Encounter Summary ---
Author Organization [place] [address] Care Team Providers Care Rail Car Repair Carman Name Role Phone Dede Meredith APRN Primary Care Provider Love Plummer Unavailable Unavailable Colleen Maloney [facility] Unavailable Unalaureano starkey Reason for Visit * Reason Comments Medication Refill Encounter Details Date Type Department Care Team (Late st Contact Info) Description 04/27/2025 Refill SEP Vanessa CERDA [address] [place] [address] Dede Meredith APRN [address] [place] [address] Medication Refill Social History Tobacco Use [...] Date Recorded PHQ-2 Total Score 2 12/31/2024 [facility] [place] of Occupat ional Health - Occupational Stress [...] in. * Telephone En[facility] - [facility] 04/28/2025 7:48 AM EST Last Office [...] Date consent completed 12/14/2021 [facility]ENT Reference Number [id number] [facility] Results as expected as expected If had complete compliance panel: 09/10/2024 Last resulted compliance panel date: 07/19/2023 (If patient had partial drug screen or in-house drug screen, please document date of that below): documented in this encounter Plan of Treatment Upcoming Encounters Date Type Department Care Team (Late st Contact Info) Description 10/02/2025 10:25 AM EDT Office Visit [facility] [address] [facility] [address] [place] [address] Vic Villarreal APRN [address] [place] [address] documented as of this encounter [...] documented as of this encounter Care Teams Rail Car Repair Carman Relationship Specialty Start Date End Date Dede Meredith [place] [address] PCP - General Nurse Practitioner-Family 11/17/20 Love Plummer Care Management Wraparound Facilitator 04/07/25 05/04/25 Colleen Maloney, ENGINEERING PATTERNMAKER Boxing Promoter 04/08/25 documented as of this encounter
--- OUTSIDE RECORDS SUMMARY | 2025-05-19 09:21 | XMS_ITS | Encounter Summary ---
Author Organization [place] [address] Care Team Providers Care International Trade Specialist Name Role Phone Dede Meredith APRN Primary Care Provider Love Plummer Unavailable Unavailable Colleen Maloney LIFT OPERATOR Unavailable Unalaureano starkey Reason for Visit * Reason Comments Medication Refill Encounter Details Date Type Department Care Team (Late st Contact Info) Description 04/22/2025 Refill SEP Neurology [facility] [address] [place] [address] Vic Villarreal, HOUSE PAINTER HELPER [address] [id number] Medication Refill Social History Tobacco Use Types [...] Date Recorded PHQ-2 Total Score 2 12/31/2024 [facility] [place] of Occupat ional Health - Occupational Stress [...] EDT Needs f/u (due Mar 2025), [facility]. Medication Details: Name: [...] [facility] [address] [place] [address] Vic Villarreal APRN [address] [place] [address] documented as of this encounter [...] documented as of this encounter Care Teams International Trade Specialist Relationship Specialty Start Date End Date Dede Meredith [place] [address] PCP - General Nurse Practitioner-Family 11/17/20 Love Plummer Care Management Procedure Rn 04/07/25 05/04/25 Colleen Maloney, LIFT OPERATOR Pipe Smoker Machine Operator 04/08/25 documented as of this encounter
--- OUTSIDE RECORDS SUMMARY | 2025-05-19 09:21 | XMS_ITS | Encounter Summary ---
Author Organization [place] [address] Care Team Providers Care Cable Mechanic Name Role Phone Kameron Meredith APRN Primary Care Provider [phone] Colleen Maloney DIRECTOR HEMATOLOGY Unavailable Unavai lable Reason for Referral * Vascular Imaging (Emergency) - Authorized Specialty Diagnoses / Procedures Referred By Contac t Referred To Contact Radiology Diagnoses Positive D-dimer Left leg pain Procedures VA US LOWER EXTREMITY VENOUS LEFT Kameron Meredith APRN [address] [place] [address] Phone: tel: fax: Referral ID Status Reason Start Date Expiration Date V isits Requested Visits Authorized [id number] Authorized 05/15/2025 05/15/2027 1 1 Reason for Visit * Reason Onset Date Comments Relaying Information 05/15/2025 ED visit fo r knee swelling - requesting Rx Appointment Needed 05/15/2025 OV for ED fol low-up Encounter Details Date Type Department Care Team ([facility] st Contact Info) Description 05/15/2025 Telephone SHWETA CERDA [address] [place] [address] Kameron Meredith APRN [address] [place] [address] Relaying Information (ED visit for knee swelling - requesting Rx); Appointment Needed (OV for ED follow-up) Social History Tobacco Use Types Packs/Day Years [...] Date Recorded PHQ-2 Total Score 2 12/31/2024 [facility] of Occupat ional Health - Occupational Stress [...] of Assessment Author No 12/31/2024 11:34 AM Kameron Zaidi APRN * Is the person blind or does he/she have serious difficulty seeing even when wearing glasses? Answer Date of Assessment Author No 12/31/2024 11:34 AM Kameron Zaidi APRN * Does this person have serious difficulty walking or climbing stairs? Answer Date of Assessment Author No 12/31/2024 11:34 AM Kameron Zaidi APRN * Does this person have difficulty dressing or bathing? Answer Date of Assessment Author No 12/31/2024 11:34 AM Kameron Zaidi APRN * Because of a physical, mental or emotional condition, does this person have difficulty doing errands alone such as visiting a doctor's office or shopping? Answer Date of Assessment Author Yes 12/31/2024 11:34 AM Kameron Zaidi APRN documented as of this encounter Mental Status * Because of a physical, mental or emotional condition, does this person have serious difficulty concentrating, remembering or making decisions? Answer Entry Date Author Yes 12/31/2024 11:34 AM Kameron Zaidi APRN documented in this encounter Ordered Prescriptions Prescription Sig Dispense Quantity Refills Last Filled Start Date End Date predniSONE (DELTASONE) 20 mg Oral TabletIndications: Effusion of left knee Take 1 Tablet by mouth 2 times daily for 5 days. 10 Tablet 05/15/2025 05/20/2025 documented in this encounter Miscellaneous Notes * Telephone Encounter - Maty Palencia RN - 05/15/2025 9:39 PM EST Patient calling back to discuss again. She is going to start the steroid tomorrow and may go to orthocincy * Addendum Note - Kameron Meredith APRN - 05/15/2025 3:29 PM ESTAddended by: KAMERON MEREDITH on: 05/15/2025 03:29 PM Modules accepted: Orders * Telephone Encounter - Kameron Meredith APRN - 05/15/2025 3:26 PM EST Left knee pain and swelling > did have arthritis and effusion on xray. Rx for prednisone. To schedule followup with Ortho Did have positive D-Dimer in ER. She reports leg pain; suspect it is more arthritic in nature but will need doppler study to r/o DVT. Don't recommend anticoag until a DVT is confirmed. Pt aware * Telephone Encounter - Angela Wen CCMA - 05/15/2025 1:54 PM EST These are up front to be scanned. I will go pull them. * Telephone Encounter - Mary Christy RMA - 05/15/2025 1:43 PM EST Records requested * Telephone Encounter - Kameron Meredith APRN - 05/15/2025 1:41 PM EST Please call and get hospital records. * Telephone Encounter - Riana Stewart, Clerical Staff - 05/15/2025 11:41 AM EST Select the most appropriate reason for this telephone message: Relaying Information Relaying Information Who is Calling: Patient Return Method of Communication:Phone call What information is the caller relaying:Pt was seen at [facility] ED 05/14 for swelling in left knee. Has concerns that it is a blood clot and asking for a prescription for a blood thinner. Further action needed: Yes Pt requesting script and asking if PCP can drain knee in office Additional Information:N/A Select the most appropriate reason for this telephone message: Appointment Needed Who is Calling: Patient Return Method of Communication: Phone Call Provider Preference: Any Available Type of Appt Needed: Office Visit Detailed Reason for Appt: ED follow-up Is the caller rescheduling an existing appointment: No Requested Timeframe: Today Reason Scheduling Assistance is Needed: -no appts available with provider preference in time frame needed Additional Information: Shirazmindy Ghotra (left knee swelling) documented in this encounter Plan of Treatment Upcoming Encounters Date Type Department Care Team (Late st Contact Info) Description 10/02/2025 10:25 AM EDT Office Visit [facility] [address] [facility] [address] [place] [address] Vic Villarreal APRN [address] [place] [address] Scheduled Orders Name Type Priority Associated Diagnoses Order Schedule SC US LOWER EXTREMITY VENOUS LEFT Imaging Cardiology [...] as of this encounter Visit Diagnoses Diagnosis Positive D-dimer- Primary Abnormal coagulation profile Effusion of left knee Effusion of lower leg joint Left leg pain Pain in limb documented in this encounter Additional Health Concerns Assessment Noted Time PHQ-9 Depression Total Score: 2 01/01/20 11:35 AM EDT PHQ-2 Depression Total Score: 2 01/01/20 11:35 AM EDT documented as of this encounter Care Teams Cable Mechanic Relationship Specialty Start Date End Date Kameron Meredith APRN [address] [place] [address] PCP - General Nurse Practitioner-Family 11/17/20 Colleen Maloney, DIRECTOR HEMATOLOGY Bobbin Marker 04/08/25 documented as of this encounter
--- OUTSIDE RECORDS SUMMARY | 2025-05-19 09:21 | XMS_ITS | Encounter Summary ---
Author Organization [place] [address] Care Team Providers Care Infrastructure Analyst Name Role Phone ViriDede morales APRN Primary Care Provider Love Plummer Unavailable Unavailable Colleen Maloney TEACHER OF THE DEAF/HARD OF HEARING Unavailable Tobias starkey Encounter Details Date Type Department Care Team (Late st Contact Info) Description 05/04/2025 Orders Only SEP Vanessa [address] [place] [address] Angela Wen, ERICKA Seasonal allergic rhinitis, [...] Date Recorded PHQ-2 Total Score 2 12/31/2024 [facility] [place] of Occupat ional Health - Occupational Stress [...] Last Filled Start Date End Date fexofenadine (SHELTON) 180 mg Oral TabletIndications:S easonal allergic rhinitis, unspecified trigger Take 1 Tablet by mouth daily. 90 Tablet 3 05/04/2025 documented in this encounter Plan of Treatment Upcoming Encounters Date Type Department Care Team (Late st Contact Info) Description 10/02/2025 10:25 AM EDT Office Visit [facility] [address] [facility] [address] [place] [address] Vic Villarreal APRN [address] [place] [address] documented as of this encounter [...] documented as of this encounter Care Teams Infrastructure Analyst Relationship Specialty Start Date End Date Dede Meredith APRN [address] [place] [address] PCP - General Nurse Practitioner-Family 11/17/20 Love Plummer Care Management Content Curator 04/07/25 05/04/25 Colleen Maloney, TEACHER OF THE DEAF/HARD OF HEARING Site Leader 04/08/25 documented as of this encounter
--- OUTSIDE RECORDS SUMMARY | 2025-05-19 09:21 | XMS_ITS | Encounter Summary ---
Author Organization [place] [address] Care Team Providers Care Non Destructive Testing Technician Name Role Phone Dede Meredith APRN Primary Care Provider Reason for Visit * Reason Onset Date Comments Medication Refill 04/01/2025 Encounter Details Date Type Department Care Team (Late st Contact Info) Description 04/01/2025 Refill SEP Vanessa CERDA [address] [place] [address] Dede Meredith APRN [address] [place] [address] Medication Refill Social History Tobacco Use [...] Score 2 12/31/2024 [facility] [place] of Occupat ional Health - Occupational Stress [...] Office Visit [facility] [address] [place] [address] Vic Villarreal APRN [address] [facility] [facility] [address] [address] [place] [address] documented as of this encounter [...] documented as of this encounter Care Teams Non Destructive Testing Technician Relationship Specialty Start Date End Date Dede Meredith [place] [address] PCP - General Nurse Practitioner-Family 11/17/20 documented as of this encounter
--- OUTSIDE RECORDS SUMMARY | 2025-05-19 09:21 | XMS_ITS | Encounter Summary ---
Author Organization [place] [address] Care Team Providers Care Elementary School Reading Teacher Name Role Phone ViriDede morales TRINITY Primary Care Provider [phone] Encounter Details Date Type Department Care Team (Late Contact Info) Description 03/24/2025 Orders Only SEP Vanessa [address] [place] [address] Angela Wen, ERICKA Viral illness Social [...] Date Recorded PHQ-2 Total Score 2 12/31/2024 [facility] [place] of Occupat ional Health - Occupational Stress [...] NEUROLOGY DEBORAH [address] [facility] [address] [place] [address] Vic Villarreal APRN [address] [facility] [address] [place] [address] documented as of this encounter Goals Goal [...] documented as of this encounter Care Teams Elementary School Reading Teacher Relationship Specialty Start Date End Date Dede Meredith APRN [address] [place], [place] [address] PCP - General Nurse Practitioner-Family 11/17/20 documented as of this encounter
--- OUTSIDE RECORDS SUMMARY | 2025-05-19 09:21 | XMS_ITS | Encounter Summary ---
Author Organization [facility] [place] [address] Care Team Providers Care Decision Support Manager Name Role Phone Dede Meredith MEASUREMENT ADVISOR Primary Care Provider [phone] Encounter Details Date Type Department Care Team [...] Date Recorded PHQ-2 Total Score 2 12/31/2024 [facility] [place] of Occupat ional Health - Occupational Stress [...] EDT Office Visit [facility] [address] [place] [address] Vic Villarreal APRN [address] [address] [place], [place] [id number] documented as of this encounter Goals Goal [...] documented as of this encounter Care Teams Decision Support Manager Relationship Specialty Start Date End Date Dede Meredith APRN [address] [place] [address] PCP - General Nurse Practitioner-Family 11/17/20 documented as of this encounter
--- OUTSIDE RECORDS SUMMARY | 2025-05-19 09:22 | XMS_ITS | Encounter Summary ---
Author Organization [place] [address] Care Team Providers Care Produce Laborer Name Role Phone ViriDede morales APRN Primary Care Provider Love Plummer Unavailable Unavailable Colleen Maloney ACTION FINISHER Unavailable Unavapaul starkey Reason for Visit * Reason Onset Date Comments Medication Refill 04/23/2025 oxcarbazepine Encounter Details Date Type Department Care Team (Late st Contact Info) Description 04/23/2025 Refill SEP Neurology [facility] [address] [place] [address] Kelli Mchugh APRN [address] [facility] [address] [place] [address] Medication Refill (oxcarbazepine) Social History [...] Recorded PHQ-2 Total Score 2 12/31/2024 [facility] [place] of Occupat ional Health - Occupational [...] 750 mg Side effects: na Verified Pharmacy: [facility] Last office visit? 01.06.25 Next office visit? 06.12.25 documented in this encounter Plan of Treatment Upcoming Encounters Date Type Department Care Team (Late st Contact Info) Description 10/02/2025 10:25 AM EDT Office Visit [facility] [address] [place] [address] Vic Villarreal APRN [address] [facility] [address] [facility] [address] [place] [address] documented as of this encounter [...] documented as of this encounter Care Teams Produce Laborer Relationship Specialty Start Date End Date Dede Meredith APRN [address] [place] [address] PCP - General Nurse Practitioner-Family 11/17/20 Love Plummer Care Management Functional Consultant 04/07/25 05/04/25 Colleen Maloney, ACTION FINISHER Annealing Oven Operator 04/08/25 documented as of this encounter
--- OUTSIDE RECORDS SUMMARY | 2025-05-19 09:22 | XMS_ITS | Encounter Summary ---
Author Organization [place] [address] Care Team Providers Care Casting Machine Operator Automatic Name Role Phone Dede Meredith APRN Primary Care Provider Love Plummer Unavailable Unavailable Colleen Maloney [facility] Unavailable Unalaureano starkey Reason for Visit * Reason Onset Date Comments Refill 03/09/2025 Oxycodone Encounter Details Date Type Department Care Team (Late st Contact Info) Description 03/09/2025 Telephone SEP Vanessa [address] [place] [address] Dede Meredith APRN [address] [facility] [address] [place] [address] Refill (Oxycodone ) Social History Tobacco [...] 2 12/31/2024 [facility] - Occupational [...] Date consent completed 12/14/2021 VINCENT Reference Number [id number] VINCENT Results as expected as expected If [...] w/ prescribing provider: none Pharmacy & Location: [facility] [place] [address] - [address] [facility] [phone] Return Method of Communication: Phone Call Informed [...] NEUROLOGY DEBORAH [address] [address] [place] [address] iVc Villarreal APRN [address] [place] [address] documented as of this encounter [...] documented as of this encounter Care Teams Casting Machine Operator Automatic Relationship Specialty Start Date End Date Dede Meredith APRN [address] [place] [address] PCP - General Nurse Practitioner-Family 11/17/20 Love Plummer Care Management Farm Owner Operator 04/07/25 05/04/25 Colleen Maloney, FILM ARCHIVIST Cushion Assembler 04/08/25 documented as of this encounter
--- OUTSIDE RECORDS SUMMARY | 2025-05-19 09:22 | XMS_ITS | Encounter Summary ---
Author Organization [place] [address] Care Team Providers Care Flatbed [employer] Driver Name Role Phone ViriDede morales TRINITY Primary Care Provider Reason for Visit * Reason Comments Medication Refill Encounter Details Date Type Department Care Team (Late Contact Info) Description 03/20/2025 Refill SEP Urology NPTFTT [address] [place] [id number] Ana Daley MD [address] [place] [address] Medication Refill Social History Tobacco Use Types [...] Total Score 2 12/31/2024 [facility] [place] [facility] Occupat ional Health - Occupational Stress [...] [facility] DEB[facility]AH [address] [facility] [address] [place] [address] Vic Villarreal APRN [address] [place] [address] documented as of this encounter [...] documented as of this encounter Care Teams Flatbed Company Driver Relationship Specialty Start Date End Date Dede Meredith APRN [employer] [employer] [facility]EL [phone] PCP - General Nurse Practitioner-Family 11/17/20 documented as of this encounter
--- OUTSIDE RECORDS SUMMARY | 2025-05-19 09:22 | XMS_ITS | Encounter Summary ---
Author Organization [place] [address] Care Team Providers Care Wildlife Officer Name Role Phone Dede Meredith APRN Primary Care Provider [phone] Colleen Maloney [employer] Unavailable Unavai lable Reason for Visit * Reason Comments Medication Refill Encounter Details Date Type Department Care Team (Late st Contact Info) Description 05/12/2025 Refill SEP Vanessa [facility] [address] [place] [address] Dede Meredith APRN [address] [place] [id number] Medication Refill Social History Tobacco Use Types [...] Date Recorded PHQ-2 Total Score 2 12/31/2024 [facility] [place] of Occupat ional Health - Occupational Stress [...] [address] [place] [address] Vic Villarreal APRN [address] [place] [address] documented as of this encounter [...] as of this encounter Care Teams Wildlife Officer Relationship Specialty Start Date End Date Dede Meredith APRN [employer] [facility] [place] [address] PCP - General Nurse Practitioner-Family 11/17/20 Colleen Maloney, [employer] It Network Engineer 04/08/25 documented as of this encounter
== END 2025-05-19 23:59 | disposition home or self-care (01) ==
LOC: RT 09:16
PROVIDERS: PCP Nurse Practitioner; Visit Provider Emergency Medicine
DX: M25.561 Pain in right knee (principal); R79.89 Other specified abnormal findings of blood chemistry; R60.0 Localized edema
CPT/HCPCS: 93971